=== PATIENT | female | born 1950 | race Caucasian/White ===

== ENCOUNTER 2017-02-08 20:20 | Observation (INO) | payer MEDICARE, OTHER ==
[~2017-02-08] VITALS: Ht 162.6 cm; Wt 85.0 kg
[~2017-02-08 20:20] MED LIST: ALBU.5I NEB; ALLO100T PO; ATOR1TAB18 PO; CINA30 PO; CLON0.5T PO; CLOP75TA PO; COMMODE 3-IN-11 MIS; DOCU100C PO; GABA300C5 PO; HYDR-3583 PO; LYRI50CA PO; Oxygen Concentrator NAS.CANULA; RANI150C PO; SPIRCAP INH; THERM PO; UMEC1INH INH; WALKER WHEELS/F1 MIS; WHEEMIS3
[2017-02-08 20:45] VITALS: BP 111/86; PULSE 94; RESP 20; TEMP 98.6; O2SAT 96
--- NOTE | 2017-02-08 20:55 | PD ---
HPI Chief Complaint: Chest Pain Time Seen by Provider: 20:51 Travel History International Travel<30 days: No Contact w/Intl Traveler<30days: No Traveled to known affect area: No History of Present Illness HPI This is a 66-year-old female with history of dialysis Wednesdays , coronary artery disease, asthma, COPD, presents for evaluation of chest pain. She reports that symptoms started 45 minutes ago after sneezing. She reports a burning sensation across her mid chest which is constant, associated with some dyspnea. Denies nausea, vomiting, fevers, chills, flank pain, acute cough congestion. She has no other complaints at this time. PFSH Past Medical History Hx Anticoagulant Therapy: Yes Anemia: Yes Arthritis: Yes Asthma: Yes Autoimmune Disease: No Blood Disorders: No Anxiety: Yes Depression: Yes (DEPRESSION ONLY DURING DIVORCE 11 YEARS AGO) Heart Rhythm Problems: Yes Cancer: No Cardiac Catheterization: No Cardiovascular Problems: Yes High Cholesterol: Yes Chemotherapy: Yes (Chemo used to treat hep C) Chest Pain: No Congestive Heart Failure: Yes COPD: Yes Cerebrovascular Accident: Yes Diabetes: No Dialysis: Yes (-W-) Diminished Hearing: No Endocrine: No Fibromyalgia: Yes Gastrointestinal Disorders: Yes GERD: Yes Gout: Yes Genitourinary: Yes Headaches: Yes (at times) Hepatitis: Yes (HEP C) Hiatal Hernia: No Hypertension: Yes Immune Disorder: Yes Implanted Vascular Access Dvce: Yes Kidney Stones: No Musculoskeletal: Yes Neurologic: No Psychiatric: Yes Reproductive: No Respiratory: Yes (COPD) Immunizations Current: Yes Migraines: No Pneumonia: Yes Radiation Therapy: No Renal Failure: Yes Seizures: No Sickle Cell Disease: No Sleep Apnea: Yes (2 LITERS DURING SLEEP) Thyroid Disease: No Ulcer: No Tetanus Vaccination: < 5 Years Influenza Vaccination: Yes PNEUMOCCOCAL Vaccine (Year): 2009 Menopausal: Yes : 7 Para: 4 Miscarriage: 2 : 1 Tubal Ligation: Yes (1989) Past Surgical History Abdominal Surgery: No AICD: No Appendectomy: No Arteriovenous Shunt: No Body Medical Devices: MED[employer] CARDIAC RECORDER; 2 SCREWS RIGHT ELBOW, AV FISTULA Cardiac Surgery: Yes (MEDTRON[employer] RECORDER ) Cholecystectomy: No Coronary Artery Bypass Graft: No Ear Surgery: No Endocrine Surgery: No Eye Surgery: No Genitourinary Surgery: No Gynecologic Surgery: No Insulin Pump: No Joint Replacement: No Neurologic Surgery: No Oral Surgery: Yes (TONSILLECTOMY ) Pacemaker: No Thoracic Surgery: No Tonsillectomy: Yes Other Surgery: Yes (BREAST BIOPSY-LEFT- 02-02-12) Family History Family Myocardial Infarction: Yes Family Hypercholesterolemia: Yes (BOTH SIDES) Social History Alcohol Use: No Tobacco Use: No (quit 1965) Substance Use: No Allergies-Medications (Allergen,Severity, Reaction): Coded Allergies: Sulfa (Sulfonamide Antibiotics) (Unverified Allergy, Severe, HIVES, DIFFICULTY BREATHING, 02/08/17) adhesive (Unverified Allergy, Severe, ADHESIVE TAPE = RASH, 02/08/17) bee venom protein (honey bee) (Unverified Allergy, Severe, RASH & TONGUE SWELLING, 02/08/17) dexamethasone (Unverified Allergy, Severe, Shortness of Breath, TONGUE SWELLS, 02/08/17) hydromorphone (Unverified Allergy, Severe, Hives, 02/08/17) PT SAID SHE DOESNT THINK SHE IS ALLERGIC TO DILAUDID THAT IT WAS JUST A REACTION FROM ANOTHER MEDICATION iodine (Unverified Allergy, Severe, RASH & DIFFICULTY BREATHING, 02/08/17) geraldine (Unverified Allergy, Severe, swollen tongue and rash, 02/08/17) orange (Unverified Allergy, Severe, O.J. = RASH AND DIFFICULTY BREATHING, 02/08/17) oxytetracycline (Unverified Allergy, Severe, HIVES & TONGUE SWELLING, 02/08) potassium iodide (Unverified Allergy, Severe, RASH & DIFFICULTY BREATHING , 02/08/17) povidone-iodine (Unverified Allergy, Severe, RASH & DIFFICULTY BREATHING, 02/08/17) prednisone (Unverified Allergy, Severe, Shortness of Breath, 02/08/17) Pt states when she takes prednisone she cant breathe - Dr murillo aware sodium iodide (Unverified Allergy, Severe, RASH & DIFFICULTY BREATHING, ) sodium iodide (Unverified Allergy, Severe, RASH & DIFFICULTY BREATHING, ) Influenza Virus Vaccines (Unverified Allergy, Intermediate, Rash, vomiting , 02/08/17) diatrizoate meglumine (Unverified Allergy, Unknown, 02/08/17) gadobenic acid (Unverified Allergy, Unknown, 02/08/17) gadodiamide (Unverified Allergy, Unknown, 02/08/17) gadoteridol (Unverified Allergy, Unknown, 02/08/17) iodixanol (Unverified Allergy, Unknown, 02/08/17) iohexol (Unverified Allergy, Unknown, 02/08/17) penicillin G (Unverified Allergy, Unknown, 02/08/17) Reported Meds & Prescriptions Reported Meds & Active Scripts Active [Oxygen Concentrator] Unit GARCIA.CANULA DAILY Spiriva Handihaler (Tiotropium Inh) 18 Mcg Cap 18 Mcg INH DAILY 1 capsule = 18 mcg Albuterol Neb (Albuterol Sulfate) 2.5 Mg/0.5 Ml Neb 2.5 Mg NEB Q6HR NEB PRN 30 Days The Albuterol Sulfate Inhalation Soln must be diluted. Read complete instructions. Incruse Ellipta Inh (Umeclidinium [place]land Inh) 0.0625 Mg/Act Inh 62.5 Mcg INH DAILY Lyrica (Pregabalin) 50 Mg Cap 50 Mg PO TID Clonazepam 0.5 Mg Tab 0.5 Mg PO TID Reported Wheelchair (Device) 1 Mis Mis 1 Ea .ROUTE DIRECTED Walker with Front Wheels (Device) 1 Mis Mis 1 Ea .ROUTE DIRECTED Ranitidine (Ranitidine HCl) 150 Mg Cap 150 Mg PO BID Thera M Plus (Multivitamins/Minerals Therapeutic) 1 Tab 1 Tab PO DAILY Hydrocodone-Acetaminophen 10-325 mg Tab 1-2 Tab PO Q6H PRN Gabapentin 300 Mg Cap 300 Mg PO DAILY Docusate Sodium 100 Mg Cap 100 Mg PO BID Commode 3-in-1 (Device) 1 Mis Mis 1 Ea .ROUTE DIRECTED Clopidogrel (Clopidogrel Bisulfate) 75 Mg Tab 75 Mg PO DAILY Sensipar (Cinacalcet) 30 Mg Tab 30 Mg PO HS Atorvastatin (Atorvastatin Calcium) 80 Mg Tab 80 Mg PO HS Allopurinol 100 Mg Tab 100 Mg PO DAILY Review of Systems Except as stated in HPI: all other systems reviewed are Neg Physical Exam Narrative GENERAL: Well-developed well-nourished female in no acute distress SKIN: Warm and dry. HEAD: Atraumatic. Normocephalic. EYES: Pupils equal and round. No scleral icterus. No injection or drainage. ENT: No nasal bleeding or discharge. Mucous membranes pink and moist. NECK: Trachea midline. No JVD. CARDIOVASCULAR: Regular rate and rhythm. No murmur appreciated. RESPIRATORY: No accessory muscle use. Diminished breath sounds bilaterally, wheezing noted bilaterally. No crackles. GASTROINTESTINAL: Abdomen soft, minimal epigastric tenderness no guarding. MUSCULOSKELETAL: No obvious deformities. No clubbing. No cyanosis. No edema. NEUROLOGICAL: Awake and alert. No obvious cranial nerve deficits. Motor grossly within normal limits. Normal speech. PSYCHIATRIC: Appropriate mood and affect; insight and judgment normal. Data Data Last Documented VS Vital Signs Date Time Temp Pulse Resp B/P (MAP) Pulse Ox O2 Delivery O2 Flow Rate FiO2 02/08/17 22:25 81 20 130/58 (82) 99 Nasal Cannula 2.00 02/08/17 20:45 98.6 Orders Orders Electrocardiogram (02/08/17 20:49) Ckmb (Isoenzyme) Profile (02/08/17 20:49) Complete Blood Count With Diff (02/08/17 20:49) Comprehensive Metabolic Panel (02/08/17 20:49) Magnesium (Mg) (02/08/17 20:49) Prothrombin Time / Inr (Pt) (02/08/17 20:49) Act Partial Throm Time (Ptt) (02/08/17 20:49) Troponin I (02/08/17 20:49) Lipase (02/08/17 20:49) Chest, Single Ap (02/08/17 20:49) Ecg Monitoring (02/08/17 20:49) Bilateral Bp Monitoring (02/08/17 20:49) Iv Access Insert/Monitor (02/08/17 20:49) Oximetry (02/08/17 20:49) Oxygen Administration (02/08/17 20:49) Aspirin Chew (Aspirin Chew) (02/08/17 21:00) Sodium Chloride 0.9% Flush (Ns Flush) (02/08/17 21:00) Albuterol-Ipratropium Neb (Duoneb Neb) (02/08/17 21:00) Ondansetron Inj (Zofran Inj) (02/08/17 22:15) Pantoprazole Inj (Protonix Inj) (02/08/17 22:15) Al-Mag Hy-Si 40-40-4 Mg/Ml Liq (Mag-Al P (02/08/17 22:30) Lidocaine 2% Viscous (Xylocaine 2% Visco (02/08/17 22:30) Nitroglycerin Sl (Nitrostat Sl) (02/08/17 22:30) Admit Order (Ed Use Only) (02/08/17 22:36) Activity Bed Rest With Brp (02/08/17 22:36) Vital Signs (Adult) Q4H (02/08/17 22:36) Cardiac Rhythm .As Directed (02/08/17 22:36) Notify Dr: Other .PRN (02/08/17 22:36) Notify DrWillow Parameters (02/08/17 22:36) Resp Oxygen Nasal Cannula (02/08/17 ) Ckmb (Isoenzyme) Profile (02/08/17 23:50) Ckmb (Isoenzyme) Profile (02/09/17 02:50) Troponin I (02/08/17 23:50) Troponin I (02/09/17 02:50) Electrocardiogram (02/08/17 23:50) Electrocardiogram (02/09/17 02:50) ^ Obtain (02/08/17 22:36) Sodium Chloride 0.9% Flush (Ns Flush) (02/08/17 22:45) Sodium Chloride 0.9% Flush (Ns Flush) (02/09/17 09:00) Ondansetron Inj (Zofran Inj) (02/08/17 22:45) Npo After Midnight W/ Po Meds (02/09/17 Breakfast) Morphine Inj (Morphine Inj) (02/08/17 22:45) Labs Laboratory Tests Test 02/08/17 20:50 White Blood Count 6.3 TH/MM3 Red Blood Count 3.38 MIL/MM3 Hemoglobin 11.6 GM/DL Hematocrit 35.4 % Mean Corpuscular Volume 105.0 FL Mean Corpuscular Hemoglobin 34.2 PG Mean Corpuscular Hemoglobin Concent 32.6 % Red Cell Distribution Width 14.7 % Platelet Count 123 TH/MM3 Mean Platelet Volume 9.8 FL Neutrophils (%) (Auto) 69.9 % Lymphocytes (%) (Auto) 20.2 % Monocytes (%) (Auto) 7.8 % Eosinophils (%) (Auto) 1.3 % Basophils (%) (Auto) 0.8 % Neutrophils # (Auto) 4.4 TH/MM3 Lymphocytes # (Auto) 1.3 TH/MM3 Monocytes # (Auto) 0.5 TH/MM3 Eosinophils # (Auto) 0.1 TH/MM3 Basophils # (Auto) 0.1 TH/MM3 CBC Comment DIFF FINAL Differential Comment Prothrombin Time 10.7 SEC Prothromb Time International Ratio 1.0 RATIO Activated Partial Thromboplast Time 22.1 SEC Blood Urea Nitrogen 75 MG/DL Creatinine 6.93 MG/DL Random Glucose 112 MG/DL Total Protein 6.7 GM/DL Albumin 3.6 GM/DL Calcium Level 9.6 MG/DL Magnesium Level 1.8 MG/DL Alkaline Phosphatase 126 U/L Aspartate Amino Transf (AST/SGOT) 24 U/L Alanine Aminotransferase (ALT/SGPT) 31 U/L Total Bilirubin 0.3 MG/DL Sodium Level 145 MEQ/L Potassium Level 4.3 MEQ/L Chloride Level 108 MEQ/L Carbon Dioxide Level 27.9 MEQ/L Anion Gap 9 MEQ/L Estimat Glomerular Filtration Rate 6 ML/MIN Total Creatine Kinase 100 U/L Troponin I LESS THAN 0.02 NG/ML Lipase 384 U/L [facility] Medical Decision Making Medical Screen Exam Complete: Yes Emergency Medical Condition: Yes Medical Record Reviewed: Yes Interpretation(s) EKG sinus rhythm Differential Diagnosis Gastritis, acute coronary syndrome, continues pneumothorax, pericarditis, myocarditis, aortic dissection, pancreatitis Narrative Course This patient was placed on ECG monitor and pulse oximetry. Plan is for basic lab work, chest x-ray, DuoNeb therapy. Patient will also be given Protonix, Zofran, sublingual nitroglycerin. The patient's lab work is consistent with renal failure which is her baseline, initial set of cardiac enzymes are negative, chest x-ray reveals no acute abnormalities. The patient is concerned because she reports that she has had an AL in the past and current symptoms feel similar. She does have risk factors for cardiac event. Therefore the patient be admitted into the chest pain center for serial cardiac enzymes and rule out purposes. The patient has a listed allergy to Dilaudid but she reports that she has had morphine in the past with no adverse reaction. Diagnosis Primary Impression: Atypical chest pain Admitting Information Admitting Physician Requests: Jayjay Walsh Feb 08, 2017 20:55
[2017-02-08] MEDS ORDERED: ASPIRIN 81 MG CHEW TAB PO ONE (21:00)
[2017-02-08] MEDS ORDERED: SODIUM CHLORIDE 0.9% FLUSH 10 ML FLUSH IVF PRN (21:00)
[2017-02-08 21:34] LABS: AUTOMATED NEUTROPHIL # 4.4 TH/MM3 (1.8-7.7); BASOPHIL # 0.1 TH/MM3 (0-0.2); BASOPHIL % 0.8 % (0.0-2.0); EOSINOPHIL # 0.1 TH/MM3 (0-0.4); EOSINOPHIL % 1.3 % (0.0-4.0); HEMATOCRIT 35.4 % (35.0-46.0); HEMO FLAGS DIFF FINAL; LYMPH % 20.2 % (9.0-44.0); LYMPHOCYTE # 1.3 TH/MM3 (1.0-4.8); MEAN CORPUSCULAR HEMOGLOBIN 34.2 PG (27.0-34.0); MEAN CORPUSCULAR HGB CONC 32.6 % (32.0-36.0); MONO % 7.8 % (0.0-8.0); NEUT % 69.9 % (16.0-70.0); PLATELET COUNT 123 TH/MM3 (150-450); RED BLOOD COUNT 3.38 MIL/MM3 (4.00-5.30); RED CELL DISTRIBUTION WIDTH 14.7 % (11.6-17.2); WHITE BLOOD COUNT 6.3 TH/MM3 (4.0-11.0)
--- NOTE | 2017-02-08 21:48 | RADRPT ---
EXAM DATE/TIME: 02/08/2017 21:39 [facility] COMPARISON: CHEST SINGLE AP, November 06, 2015, 15:18. INDICATIONS : Shortness of breath. MEDICAL HISTORY : Renal disease, end stage. Chronic obstructive pulmonary disease. Arthritis. CVA SURGICAL HISTORY : Tonsillectomy. Cardiac recorder ENCOUNTER: Initial ACUITY: 1 day PAIN SCORE: 0/10 LOCATION: Bilateral chest FINDINGS: A single view of the chest demonstrates the lungs to be symmetrically aerated without evidence of mas s, infiltrate or effusion. The cardiomediastinal contours are unremarkable. Osseous structures are intact. CONCLUSION: No acute disease. Simon Stevenson MD on February 08, 2017 at 21:47 Board Certified Radiologist. This report was verified electronically.
[2017-02-08 22:01] LABS: ALT (GPT) 31 U/L (10-53)
[2017-02-08 22:07] LABS: ALKALINE PHOSPHATASE 126 U/L (45-117); ANION GAP 9 MEQ/L (5-15); AST (GOT) 24 U/L (15-37); BICARBONATE 27.9 MEQ/L (21.0-32.0); BLOOD UREA NITROGEN 75 MG/DL (7-18); CHLORIDE 108 MEQ/L (98-107); GLOMERULAR FILTRATION RATE 6 ML/MIN (>89); MAGNESIUM 1.8 MG/DL (1.5-2.5); POTASSIUM 4.3 MEQ/L (3.5-5.1); SODIUM (NA) 145 MEQ/L (136-145); TOTAL BILIRUBIN ADULT 0.3 MG/DL (0.2-1.0)
[2017-02-08 22:08] LABS: CREATINE KINASE 100 U/L (26-192)
[2017-02-08] MEDS ORDERED: ONDANSETRON HCL 4 MG/2 ML VIAL IV PUSH ONE (22:15)
[2017-02-08] MEDS ORDERED: PANTOPRAZOLE SODIUM 40 MG VIAL IVP ONE (22:15)
[2017-02-08 22:20] LABS: APTT (PATIENT) 22.1 SEC (24.3-30.1); PROTHROMBIN TIME - PATIENT 10.7 SEC (9.8-11.6)
[2017-02-08 22:25] VITALS: BP 130/58; PULSE 81; RESP 20; O2SAT 99
[2017-02-08] MEDS ORDERED: ALUMINUM/MAGNESIUM/SIMETH 30 ML CUP PO ONE (22:30)
[2017-02-08] MEDS ORDERED: NITROGLYCERIN 0.4 MG SL 25 TABS/BTL SL SCH (22:30)
[2017-02-08] MEDS ORDERED: LIDOCAINE VISCOUS 2% SOLN 15 ML UDC PO ONE (22:30)
[2017-02-08 22:40] VITALS: O2SAT 100
[2017-02-08] MEDS ORDERED: SODIUM CHLORIDE 0.9% FLUSH 10 ML FLUSH IV FLUSH PRN (22:45)
[2017-02-08] MEDS ORDERED: ONDANSETRON HCL 4 MG/2 ML VIAL IV PUSH PRN (22:45)
[2017-02-08] MEDS ORDERED: MORPHINE SULFATE 2 MG/ML INJ IV PUSH PRN (22:45)
[2017-02-08] MEDS: RESP: ALBUTEROL 2.5 MG/IPRATROPIUM 0.5 MG NEB (SCH) INH ×3 (22:49→23:00)
[2017-02-08 23:59] VITALS: BP 162/73; PULSE 94; RESP 16; TEMP 98; O2SAT 95
[2017-02-09] VITALS (8 sets, daily range): BP systolic 126–141; BP diastolic 62–77; PULSE 66–83; RESP 20; TEMP 97.7–98.2; O2SAT 96–99
[2017-02-09 00:29] LABS: CREATINE KINASE 88 U/L (26-192)
[2017-02-09 04:14] LABS: CREATINE KINASE 83 U/L (26-192)
[2017-02-09] MEDS ORDERED: NITROGLYCERIN 0.4 MG SL 25 TABS/BTL SL PRN ×2 (08:00→09:00)
[2017-02-09] MEDS ORDERED: ACETAMINOPHEN 500 MG CPLT PO PRN (08:00)
[2017-02-09] MEDS ORDERED: RESP: ALBUTEROL 2.5 MG/3 ML NEB (PRN) NEB (08:15)
[2017-02-09] MEDS ORDERED: ACETAMINOPHEN/HYDROcodone 325 MG/10 MG TAB PO PRN (08:45)
[2017-02-09] MEDS ORDERED: SODIUM CHLOR 0.9% 1000 ML INJ 1,000 ML OTHER PRN ×2 (08:54)
[2017-02-09] MEDS ORDERED: SODIUM CHLOR 0.9% 1000 ML INJ 1,000 ML IV PRN (08:54)
[2017-02-09] MEDS ORDERED: ALBUMIN HUMAN 25% 25 GM/100 ML BAGP IV PRN (09:00)
[2017-02-09] MEDS ORDERED: MANNITOL 12.5 GM/50 ML VIAL IV PRN (09:00)
[2017-02-09] MEDS ORDERED: HEPARIN SODIUM - IV 10,000 UNITS/10 ML VIAL PRN (09:00)
[2017-02-09] MEDS ORDERED: cloNIDine HCL 0.1 MG TAB PO PRN (09:00)
[2017-02-09] MEDS ORDERED: GENTAMICIN SULFATE (DIALYSIS USE ONLY) 20 MG/2 ML VIAL OTHER PRN (09:00)
[2017-02-09] MEDS ORDERED: FAMOTIDINE 20 MG TAB PO SCH (09:00)
[2017-02-09] MEDS ORDERED: CLOPIDOGREL 75 MG TAB PO SCH (09:00)
[2017-02-09] MEDS ORDERED: diphenhydrAMINE HCL 25 MG CAP PO PRN (09:00)
[2017-02-09] MEDS ORDERED: SODIUM CHLORIDE 0.9% FLUSH 10 ML FLUSH IV FLUSH SCH (09:00)
[2017-02-09] MEDS ORDERED: ONDANSETRON HCL 4 MG/2 ML VIAL IV PUSH PRN (09:00)
[2017-02-09] MEDS ORDERED: GELATIN 12 MM/7 MM FOAM TOP PRN (09:00)
[2017-02-09] MEDS ORDERED: MULTIVITAMINS/MINERALS THERAPEUTIC TAB PO SCH (09:00)
[2017-02-09] MEDS ORDERED: ASPIRIN 325 MG TAB PO SCH (09:00)
[2017-02-09] MEDS ORDERED: ALLOPURINOL 100 MG TAB PO SCH (09:00)
[2017-02-09] MEDS ORDERED: ACETAMINOPHEN 325 MG TAB PO PRN (09:00)
[2017-02-09] MEDS ORDERED: SODIUM CHLORIDE 0.9% FLUSH 10 ML FLUSH IV FLUSH PRN (09:00)
[2017-02-09] MEDS ORDERED: HEPARIN SODIUM - IV 10,000 UNITS/10 ML VIAL IV FLUSH PRN (09:00)
--- NOTE | 2017-02-09 09:02 | HHI.HP ---
HPI Primary Care Physician Mindi Mazariegos MD Chief Complaint Chest pain History of Present Illness 66 year old female with history of ESRD, dialysis M,W,F, COPD, HTN, and HLD presents to ER for further evaluation of chest pain immediately after sneezing x3 "very hard." Onset 7-730pm. Location substernal. Characterized as "pulling, burning, squeezing" sensation. No radiation of pain. Associated symptoms include "mild" shortness of breath, hurt to take a deep breath, nausea, x1 emesis nonbloody, and diaphoresis. Severity initially rated 10/10, currently 7/ 10. Discomfort constant, severity improved around 2pm but never resolved completely. Precipitating factors, sneezing "hard three times." No relieving factor, reports pain slightly improved. Pain easily reproduced with light touch. Review of Systems General: ESRD, dialysis M W F. Dialysis x3 years. Reports being in her general state of health without fatigue, weakness, fever, chills, recent illness, or change in appetite. HEENT: No FULLER, no vision changes CV: Continues to have chest pain as stated above. Has a loop recorder, placed 2012. Reports history of [place] and CAD 10 years ago, denies ever having a cardiac catheterization. Does not follow with a crown wheel assembler. RESP: SOB resolved, deep breathing continues to make chest discomfort worse. Recent cough since last night, small amount of blood tinged sputum. History of COPD, stable on current inhalers. No wheeze or recent COPD exacerbation. Was O2 dependent until 6-7 months ago when her oxygen concentrator was accidently returned to [employer]. Since this time reports being without oxygen. Appointment this for what sounds to be a pulmonary walking test. Reports history of sleep apnea, but never given a CPAP machine. GI: Nausea and vomiting resolved. No bowel changes, diarrhea, constipation, pain, distention, melena, or blood in the stool. No unintentional weight gain or weight loss. : ESRD, right upper arm AVF. No dysuria. Dialysis M W F. EXT: No lower leg edema, no paraesthesias MS: As stated above. Chest wall pain easily reproduced with light palpation. No change in ROM, injury, fall, or trauma. Chronic back pain, follows with pain management. NEURO: Reports CVA and required TPA, states she was placed on Plavix at that time. No residual deficits. Difficulty with balance uses a walker. No LOC, motor /sensory deficits PSYCH: No anxiety, depression, or situational stress SKIN: No rashes, no concerning lesions Past Family Social History Allergies: Coded Allergies: Sulfa (Sulfonamide Antibiotics) (Unverified Allergy, Severe, HIVES, DIFFICULTY BREATHING, 02/08/17) adhesive (Unverified Allergy, Severe, ADHESIVE TAPE = RASH, 02/08/17) bee venom protein (honey bee) (Unverified Allergy, Severe, RASH & TONGUE SWELLING, 02/08/17) dexamethasone (Unverified Allergy, Severe, Shortness of Breath, TONGUE SWELLS, 02/08/17) hydromorphone (Unverified Allergy, Severe, Hives, 02/08/17) PT SAID SHE DOESNT THINK SHE IS ALLERGIC TO DILAUDID THAT IT WAS JUST A REACTION FROM ANOTHER MEDICATION iodine (Unverified Allergy, Severe, RASH & DIFFICULTY BREATHING, 02/08/17) geraldine (Unverified Allergy, Severe, swollen tongue and rash, 02/08/17) orange (Unverified Allergy, Severe, O.J. = RASH AND DIFFICULTY BREATHING, 02/08/17) oxytetracycline (Unverified Allergy, Severe, HIVES & TONGUE SWELLING, 02/08) potassium iodide (Unverified Allergy, Severe, RASH & DIFFICULTY BREATHING , 02/08/17) povidone-iodine (Unverified Allergy, Severe, RASH & DIFFICULTY BREATHING, 02/08/17) prednisone (Unverified Allergy, Severe, Shortness of Breath, 02/08/17) Pt states when she takes prednisone she cant breathe - Dr murillo aware sodium iodide (Unverified Allergy, Severe, RASH & DIFFICULTY BREATHING, ) sodium iodide (Unverified Allergy, Severe, RASH & DIFFICULTY BREATHING, ) Influenza Virus Vaccines (Unverified Allergy, Intermediate, Rash, vomiting , 02/08/17) diatrizoate meglumine (Unverified Allergy, Unknown, 02/08/17) gadobenic acid (Unverified Allergy, Unknown, 02/08/17) gadodiamide (Unverified Allergy, Unknown, 02/08/17) gadoteridol (Unverified Allergy, Unknown, 02/08/17) iodixanol (Unverified Allergy, Unknown, 02/08/17) iohexol (Unverified Allergy, Unknown, 02/08/17) penicillin G (Unverified Allergy, Unknown, 02/08/17) Past Medical History ESRD (M W F), COPD, asthma, HLD, HTN, Hep C-in remission, chronic back pain, sleep apnea, anxiety, osteoporosis, gout, fibromyalgia, CVA vs TIA (July 2012 stroke alert, symptoms of right side numbness/tingling and weakness. Received TPA.) Past Surgical History Right AV fistula, Loop recorder, right hip repair, left elbow surgery (1985), right elbow surgery (1991), tonsillectomy Reported Medications Active Albuterol Neb (Albuterol Sulfate) 2.5 Mg/0.5 Ml Neb 2.5 Mg NEB Q6HR NEB PRN 30 Days The Albuterol Sulfate Inhalation Soln must be diluted. Read complete instructions. Lyrica (Pregabalin) 50 Mg Cap 50 Mg PO QD Clonazepam 0.5 Mg Tab 0.5 Mg PO TID Walker with Front Wheels (Device) 1 Mis Mis 1 Ea .ROUTE DIRECTED Ranitidine (Ranitidine HCl) 150 Mg Cap 150 Mg PO BID Thera M Plus (Multivitamins/Minerals Therapeutic) 1 Tab 1 Tab PO DAILY Hydrocodone-Acetaminophen 10-325 mg Tab 1 tablet TID Gabapentin 300 Mg Cap 300 Mg PO TID Clopidogrel (Clopidogrel Bisulfate) 75 Mg Tab 75 Mg PO DAILY Sensipar (Cinacalcet) 30 Mg Tab 30 Mg PO HS Atorvastatin (Atorvastatin Calcium) 80 Mg Tab 80 Mg PO HS Allopurinol 100 Mg Tab 100 Mg PO DAILY Active Ordered Medications Current Medications Medications (Trade) Dose Ordered Sig/Dino Route Start Time Stop Time Status Last Admin (NS Flush) 2 ml UNSCH PRN IVF 02/08/17 21:00 02/08/17 22:24 (NS Flush) 2 ml UNSCH PRN IV FLUSH 02/08/17 22:45 (NS Flush) 2 ml BID IV FLUSH 02/09/17 09:00 (Zofran Inj) 4 mg Q6H PRN IV PUSH 02/08/17 22:45 (Morphine Inj) 3 mg Q4H PRN IV PUSH 02/08/17 22:45 02/09/17 00:40 Family History Father age 51 CVA. Mother age 62, longstanding respiratory issues. Does not have any siblings. Social History Reports history of CAD, hypertension and hyperlipidemia. Denies diabetes. Smoked briefly in early 20s. Denies any alcohol or illegal drug use. Ambulated with walker. Lives with a friend and her son. Past Cardiac Testing No recent cardiac testing. Does not follow with a crown wheel assembler, reports she used to follow with Dr. Christie years ago. Reports history of a [place] 10 years ago , does not recall ever having a cardiac catheterization. No records located in medical chart of past cardiac catheterization. Loop recorder in place since 2012. Reports taking Plavix for past CVA. 08/07/2013 Echocardiogram 25-30% (Day of cardiac arrest s/p hypoxic event allegedly from morphine overdose. Intubated, ICU x1 week, discharge home after 11 days.) 10/15/[address] Christie. 08/21/2012 Carotid ultrasound bilateral-No evidence of flow-limiting carotid stenosis. 07/29/2012 Lexiscan-No fixed or reversible defects. EF 62%. 07/23/2012 PRATIMA-no evidence of cardiac source of emboli 07/22/2012 Echocardiogram 55-60% 03/01/2010 Lexiscan-no signs of reversibility to suggest ischemia 12/05/2008 Lexiscan-no signs of reversibility to suggest ischemia, EF 61% 02/05/2007 Lexiscan-1. Sum stress score 1. 2. EF 67%. 3. no dyskinetic or dysrhythmic areas identified. Slight decreased perfusion at apical wall fixed at stress and rest similar to 05/2006. Physical Exam Vital Signs Vital Signs Date Time Temp Pulse Resp B/P (MAP) Pulse Ox O2 Delivery O2 Flow Rate FiO2 02/09/17 07:34 97 Nasal Cannula 2.00 02/09/17 07:28 98.2 70 20 132/62 (85) 97 02/09/17 03:14 98.0 83 20 141/68 (92) 96 02/09/17 00:45 16 02/08/17 23:59 98.0 94 16 162/73 (102) 95 02/08/17 23:54 02/08/17 22:40 100 Nasal Cannula 2.00 02/08/17 22:25 81 20 130/58 (82) 99 Nasal Cannula 2.00 02/08/17 20:50 98 Nasal Cannula 2.00 02/08/17 20:48 96 Room Air 02/08/17 20:45 98.6 94 20 111/86 (94) 96 Physical Exam GENERAL: Alert WN, WD, NAD, pleasant, obese, female who appears older than stated age wearing o2/2L nasal cannula. HEAD: NC, AT EYES: Sclera clear, conjunctiva without injection, pupils equal and round ENT: Mucous membranes pink and moist NECK: Supple, no masses, trachea midline CV: RRR, without murmur, rub, gallop, no JVD, S1-S2 no S3-S4. No carotid bruits. Right AV fistula with +trill and +bruit. Generalized chest wall discomfort easily reproduced with light palpation. RESP: Clear lungs throughout bilateral, no crackles, wheeze, rhonchi, symmetrical chest rise, nonlabored, able to speak in full sentences ABD: Soft, NT, ND, no masses, positive bowel tones, obese EXT: Pulses +24, no dependent edema MS: Normal tone 4 extremities, nontender, no obvious deformities, full range of motion NEURO: CN II through CN XII grossly intact, motor strength 5/5 PSYCH: A+O 3, pleasant affect, appropriate speech, appropriate mood and affect , insight and judgment SKIN: Normal turgor, normal texture, no lesions, no rashes Laboratory Laboratory Tests Test 02/08/17 20:50 02/08/17 23:45 02/09/17 02:55 White Blood Count 6.3 Red Blood Count 3.38 Hemoglobin 11.6 Hematocrit 35.4 Mean Corpuscular Volume 105.0 Mean Corpuscular Hemoglobin 34.2 Mean Corpuscular Hemoglobin Concent 32.6 Red Cell Distribution Width 14.7 Platelet Count 123 Mean Platelet Volume 9.8 Neutrophils (%) (Auto) 69.9 Lymphocytes (%) (Auto) 20.2 Monocytes (%) (Auto) 7.8 Eosinophils (%) (Auto) 1.3 Basophils (%) (Auto) 0.8 Neutrophils # (Auto) 4.4 Lymphocytes # (Auto) 1.3 Monocytes # (Auto) 0.5 Eosinophils # (Auto) 0.1 Basophils # (Auto) 0.1 CBC Comment DIFF FINAL Differential Comment Prothrombin Time 10.7 Prothromb Time International Ratio 1.0 Activated Partial Thromboplast Time 22.1 Blood Urea Nitrogen 75 Creatinine 6.93 Random Glucose 112 Total Protein 6.7 Albumin 3.6 Calcium Level 9.6 Magnesium Level 1.8 Alkaline Phosphatase 126 Aspartate Amino Transf (AST/SGOT) 24 Alanine Aminotransferase (ALT/SGPT) 31 Total Bilirubin 0.3 Sodium Level 145 Potassium Level 4.3 Chloride Level 108 Carbon Dioxide Level 27.9 Anion Gap 9 Estimat Glomerular Filtration Rate 6 Total Creatine Kinase 100 88 83 Troponin I LESS THAN 0.02 LESS THAN 0.02 LESS THAN 0.02 Lipase 384 Result Diagram: 02/08/17204902/08/172049 Imaging Last Impressions Chest X-Ray 02/08/172048 Signed Impressions: Service Date/Time: Wednesday, February 08, 2017 21:39 - CONCLUSION: No acute disease. Simon Stevenson MD Course EKG NSR, normal axis, no st t segment changes Caprini VTE Risk Assessment Caprini VTE Risk Assessment: Mod/High Risk (score >= 2) Caprini Risk Assessment Model Point Value = 1 Point Value = 2 Point Value = 3 Point Value = 5 Age 41-60 Minor surgery BMI > 25 kg/m2 Swollen legs Varicose veins or History of unexplained or recurrent spontaneous Oral contraceptives or hormone replacement Sepsis (< 1 month) Serious lung disease, including pneumonia (< 1 month) Abnormal pulmonary function Acute myocardial infarction Congestive heart failure (< 1 month) History of inflammatory bowel disease Medical patient at bed rest Age 61-74 Arthroscopic surgery Major open surgery (> 45 min) Laparoscopic surgery (> 45 min) Malignancy Confined to bed (> 72 hours) Immobilizing plaster cast Central venous access Age >= 75 History of VTE Family history of VTE Factor V Leiden Prothrombin [id number] Lupus anticoagulant Anticardiolipin antibodies Elevated serum homocysteine Heparin-induced thrombocytopenia Other congenital or acquired thrombophilia Stroke (< 1 month) Elective arthroplasty Hip, pelvis, or leg fracture Acute spinal cord injury (< 1 month) Prophylaxis Regimen Total Risk Factor Score Risk Level Prophylaxis Regimen 0-1 Low Early ambulation 2 Moderate Order ONE of the following: *Sequential Compression Device (SCD) *Heparin 5000 units SQ BID 3-4 Higher Order ONE of the following medications: *Heparin 5000 units SQ TID *Enoxaparin/Lovenox 40 mg SQ daily (WT < 150 kg, CrCl > 30 mL/min) *Enoxaparin/Lovenox 30 mg SQ daily (WT < 150 kg, CrCl > 10-29 mL/min) *Enoxaparin/Lovenox 30 mg SQ BID (WT < 150 kg, CrCl > 30 mL/min) AND/OR *Sequential Compression Device (SCD) 5 or more Highest Order ONE of the following medications: *Heparin 5000 units SQ TID (Preferred with Epidurals) *Enoxaparin/Lovenox 40 mg SQ daily (WT < 150 kg, CrCl > 30 mL/min) *Enoxaparin/Lovenox 30 mg SQ daily (WT < 150 kg, CrCl > 10-29 mL/min) *Enoxaparin/Lovenox 30 mg SQ BID (WT < 150 kg, CrCl > 30 mL/min) AND *Sequential Compression Device (SCD) Assessment and Plan Assessment and Plan #1 Atypical chest pain-admitted to chest pain center. Ruled out with 3 sets of EKGs, cardiac enzymes, and monitored on telemetry overnight. Seen and evaluated by Dr. Navi Cruz. Discomfort appears to be musculoskeletal in nature, especially how she guards area when palpated. Reassurance provided cardiac pain does not persist for over 12 hours and hurt to touch area. Will proceed with chemical stress testing due to multiple risks factors, reported history of CAD, low EF noted on one past echocardiogram. Of note, echocardiogram with EF 25-30% (July 2012) obtained day of cardiac arrest s/p hypoxic event from allegedly morphine overdose. If chemical stress test unremarkable, plan to discharge home later this afternoon. If chemical scan were to determine a low EF, will obtain an echocardiogram before discharge. This has been discussed in length with patient whom is agreeable to plan of care. #2 End stage renal disease-dialysis days are Thursday, Thursday, and Thursday. Consult nephrology for dialysis today before discharge. #3 Hypertension-continue to monitor, encouraged following a low sodium diet. She does not have any antihypertensive medications listed and does not remember if she takes any bp medications. #4 Hyperlipidemia-continue atorvastatin #5 Chronic back pain-continue hydromorphone, gabapentin, and lyrica. Encouraged increasing her daily activity, back and core strengthening exercises. Discussed CDC guidelines hydromorphone not recommended for chronic back pain treatment. #6 COPD-no acute exacerbation, continue albuterol. Encouraged her to complete pulmonary walking exam this . Reports concern over being able to complete testing due to ambulation issues. Discussed benefits of CPAP mask with diagnoses of sleep apnea. Follow closely with PCP. #7 GERD-continues ranitidine #8 Anxiety-continue clonazepam, requesting a dose prior to lexiscan test 12:00 Lexiscan unremarkable, no evidence of stress induced ischemia. EF 68%. No echocardiogram needed. Will discharge after dialysis this afternoon. Patient is agreeable. 18:15 Dialysis complete. Patient states chest discomfort much improved. Continue with plans to discharge this evening. Instructed her to use heating pad to affected area. If she does not have a heating pad, instructed her to use warm, moist towel or make a tube sock with rice, heat in microwave for a few seconds and apply to affected area. Did not advise any over the counter medications due ESRD and the fact she follows with a pain management physician. She is happy to be going home this evening, after finishing her supper. Rozina Victor Feb 09, 2017 09:02
[2017-02-09] MEDS: clonazePAM 0.5 MG TAB PO SCH ×3 (09:09→18:13)
--- NOTE | 2017-02-09 09:31 | PD.CONS ---
HPI Service Nephrology Consult Requested By Kayleigh Reason for Consult ESRD on HD Primary Care Physician Mindi Mazariegos MD History of Present Illness This is our 66 y/o female with ESRD who came in for evaluation of chest pain. She reports sneezing "hard" x 3 last night, since has had midsternal chest pain that is worse with inspiration and reproducible with palpation. She reports relief with oxygen. She was also nauseated, reports vomiting, given medications in ER for dyspepsia, minimal symptom relief. Typical MWF HD, she has not missed any treatments recently. Other PMH of hyperlipidemia, CAD requiring TPA (no stents placed), metabolic bone disorder, secondary hyperparathyroidism, GERD, and gout. She is being taken to have a stress test at this time. We were consulted for management of her dialysis. Her access is patent and functions well in right arm and she is a full code. (Montse Damon) Review of Systems Constitutional: DENIES: Fatigue, Weight gain, Change in appetite Respiratory: COMPLAINS OF: Hemoptysis, Shortness of breath, DENIES: Wheezing Cardiovascular: COMPLAINS OF: Chest pain, DENIES: Palpitations, Dyspnea on Exertion, Lower Extremity Edema (Montse Damon) Past Family Social History Allergies: Coded Allergies: Sulfa (Sulfonamide Antibiotics) (Unverified Allergy, Severe, HIVES, DIFFICULTY BREATHING, 02/08/17) adhesive (Unverified Allergy, Severe, ADHESIVE TAPE = RASH, 02/08/17) bee venom protein (honey bee) (Unverified Allergy, Severe, RASH & TONGUE SWELLING, 02/08/17) dexamethasone (Unverified Allergy, Severe, Shortness of Breath, TONGUE SWELLS, 02/08/17) hydromorphone (Unverified Allergy, Severe, Hives, 02/08/17) PT SAID SHE DOESNT THINK SHE IS ALLERGIC TO DILAUDID THAT IT WAS JUST A REACTION FROM ANOTHER MEDICATION iodine (Unverified Allergy, Severe, RASH & DIFFICULTY BREATHING, 02/08/17) geraldine (Unverified Allergy, Severe, swollen tongue and rash, 02/08/17) orange (Unverified Allergy, Severe, O.J. = RASH AND DIFFICULTY BREATHING, 02/08/17) oxytetracycline (Unverified Allergy, Severe, HIVES & TONGUE SWELLING, 02/08) potassium iodide (Unverified Allergy, Severe, RASH & DIFFICULTY BREATHING , 02/08/17) povidone-iodine (Unverified Allergy, Severe, RASH & DIFFICULTY BREATHING, 02/08/17) prednisone (Unverified Allergy, Severe, Shortness of Breath, 02/08/17) Pt states when she takes prednisone she cant breathe - Dr murillo aware sodium iodide (Unverified Allergy, Severe, RASH & DIFFICULTY BREATHING, ) sodium iodide (Unverified Allergy, Severe, RASH & DIFFICULTY BREATHING, ) Influenza Virus Vaccines (Unverified Allergy, Intermediate, Rash, vomiting , 02/08/17) diatrizoate meglumine (Unverified Allergy, Unknown, 02/08/17) gadobenic acid (Unverified Allergy, Unknown, 02/08/17) gadodiamide (Unverified Allergy, Unknown, 02/08/17) gadoteridol (Unverified Allergy, Unknown, 02/08/17) iodixanol (Unverified Allergy, Unknown, 02/08/17) iohexol (Unverified Allergy, Unknown, 02/08/17) penicillin G (Unverified Allergy, Unknown, 02/08/17) Past Medical History ESRD on HD MWF hyperlipidemia CAD hx of [place], no stent was treated with TPA Metabolic bone disorder Anxiety Chronic sciatica GERD Gout Secondary Hyperparathyroidism No hx of DM Past Surgical History AV graft right L breast biopsy right elbow tonsillectomy Reported Medications Current Medications Medications (Trade) Dose Ordered Sig/Dino Route Start Time Stop Time Status Last Admin (NS Flush) 2 ml UNSCH PRN IV FLUSH 02/08/17 22:45 (NS Flush) 2 ml BID IV FLUSH 02/09/17 09:00 (Zofran Inj) 4 mg Q6H PRN IV PUSH 02/08/17 22:45 (Morphine Inj) 3 mg Q4H PRN IV PUSH 02/08/17 22:45 02/09/17 00:40 (Tylenol) 500 mg Q4H PRN PO 02/09/17 08:00 (Nitrostat Sl) 0.4 mg Q5M PRN SL 02/09/17 08:00 (Aspirin) 325 mg DAILY PO 02/09/17 09:00 (Albuterol Neb) 2.5 mg Q2HR NEB PRN NEB 02/09/17 08:15 (Zyloprim) 100 mg DAILY PO 02/09/17 09:00 (Lipitor) 80 mg HS PO 02/09/17 21:00 (KlonoPIN) 0.5 mg TID PO 02/09/17 09:00 02/09/17 09:09 (Plavix) 75 mg DAILY PO 02/09/17 09:00 (Acton 10-325 Mg) 1 tab Q6H PRN PO 02/09/17 08:45 02/09/17 09:05 (Theragran M Tab) 1 tab DAILY PO 02/09/17 09:00 (Pepcid) 20 mg BID PO 02/09/17 09:00 Sodium Chloride 1,000 ml @ 0 mls/hr Q0M PRN OTHER 02/09/17 08:54 (Heparin Inj) 8,000 units UNSCH PRN IV FLUSH 02/09/17 09:00 Sodium Chloride 1,000 ml @ 200 mls/hr Q5H PRN IV 02/09/17 08:54 Sodium Chloride 1,000 ml @ 0 mls/hr Q0M PRN OTHER 02/09/17 08:54 (Mannitol Inj) 12.5 gm UNSCH PRN IV 02/09/17 09:00 (Albumin 25% Inj) 25 gm UNSCH PRN IV 02/09/17 09:00 (NS Flush) 5 ml UNSCH PRN IV FLUSH 02/09/17 09:00 (Heparin Inj) UNSCH PRN .XX 02/09/17 09:00 (Gentamicin (Dialysis) Inj) 20 mg UNSCH PRN OTHER 02/09/17 09:00 (Zofran Inj) 4 mg UNSCH PRN IV PUSH 02/09/17 09:00 (Tylenol) 650 mg UNSCH PRN PO 02/09/17 09:00 (Benadryl) 25 mg UNSCH PRN PO 02/09/17 09:00 (Nitrostat Sl) 0.4 mg UNSCH PRN SL 02/09/17 09:00 (Catapres) 0.1 mg UNSCH PRN PO 02/09/17 09:00 02/09/17 09:05 (Gelfoam 12 Mm/7 Mm Top) 1 foam UNSCH PRN TOP 02/09/17 09:00 Active Ordered Medications Spiriva Handihaler (Tiotropium Inh) 18 Mcg Cap 18 Mcg INH DAILY 1 capsule = 18 mcg Albuterol Neb (Albuterol Sulfate) 2.5 Mg/0.5 Ml Neb 2.5 Mg NEB Q6HR NEB PRN 30 Days The Albuterol Sulfate Inhalation Soln must be diluted. Read complete instructions. Incruse Ellipta Inh (Umeclidinium Cowden Inh) 0.0625 Mg/Act Inh 62.5 Mcg INH DAILY Lyrica (Pregabalin) 50 Mg Cap 50 Mg PO TID Clonazepam 0.5 Mg Tab 0.5 Mg PO TID Ranitidine (Ranitidine HCl) 150 Mg Cap 150 Mg PO BID Thera M Plus (Multivitamins/Minerals Therapeutic) 1 Tab 1 Tab PO DAILY Hydrocodone-Acetaminophen 10-325 mg Tab 1-2 Tab PO Q6H PRN Gabapentin 300 Mg Cap 300 Mg PO DAILY Docusate Sodium 100 Mg Cap 100 Mg PO BID Commode 3-in-1 (Device) 1 Mis Mis 1 Ea .ROUTE DIRECTED Clopidogrel (Clopidogrel Bisulfate) 75 Mg Tab 75 Mg PO DAILY Sensipar (Cinacalcet) 30 Mg Tab 30 Mg PO HS Atorvastatin (Atorvastatin Calcium) 80 Mg Tab 80 Mg PO HS Allopurinol 100 Mg Tab 100 Mg PO DAILY Family History Mother at 62 y/o from [place], smoked and used ETOH Father at 57 from [place], he also smoked heavily and used ETOH Maternal and paternal GM also had cardiac disease, [place] No hx of renal disorders Social History She is single, lives with friends No smoking, denies ETOH She is disabled uses walker but functionally independent (Montse Damon) Physical Exam Vital Signs Vital Signs Date Time Temp Pulse Resp B/P (MAP) Pulse Ox O2 Delivery O2 Flow Rate FiO2 02/09/17 07:34 97 Nasal Cannula 2.00 02/09/17 07:28 98.2 70 20 132/62 (85) 97 02/09/17 03:14 98.0 83 20 141/68 (92) 96 02/09/17 00:45 16 02/08/17 23:59 98.0 94 16 162/73 (102) 95 02/08/17 23:54 02/08/17 22:40 100 Nasal Cannula 2.00 02/08/17 22:25 81 20 130/58 (82) 99 Nasal Cannula 2.00 02/08/17 20:50 98 Nasal Cannula 2.00 02/08/17 20:48 96 Room Air 02/08/17 20:45 98.6 94 20 111/86 (94) 96 Physical Exam female, appears stated age, in no distress Awake, alert/oriented x 3 without focal neuro deficit Lungs: clear in all mittal, respirations unlabored on oxygen S1/S2, RRR no murmurs or rubs; anterior sternum tender to palpation Abd: soft, obese, non tender Ext: no edema; right arm patent AV access Laboratory Laboratory Tests Test 02/08/17 20:50 02/08/17 23:45 02/09/17 02:55 White Blood Count 6.3 Red Blood Count 3.38 Hemoglobin 11.6 Hematocrit 35.4 Mean Corpuscular Volume 105.0 Mean Corpuscular Hemoglobin 34.2 Mean Corpuscular Hemoglobin Concent 32.6 Red Cell Distribution Width 14.7 Platelet Count 123 Mean Platelet Volume 9.8 Neutrophils (%) (Auto) 69.9 Lymphocytes (%) (Auto) 20.2 Monocytes (%) (Auto) 7.8 Eosinophils (%) (Auto) 1.3 Basophils (%) (Auto) 0.8 Neutrophils # (Auto) 4.4 Lymphocytes # (Auto) 1.3 Monocytes # (Auto) 0.5 Eosinophils # (Auto) 0.1 Basophils # (Auto) 0.1 CBC Comment DIFF FINAL Differential Comment Prothrombin Time 10.7 Prothromb Time International Ratio 1.0 Activated Partial Thromboplast Time 22.1 Blood Urea Nitrogen 75 Creatinine 6.93 Random Glucose 112 Total Protein 6.7 Albumin 3.6 Calcium Level 9.6 Magnesium Level 1.8 Alkaline Phosphatase 126 Aspartate Amino Transf (AST/SGOT) 24 Alanine Aminotransferase (ALT/SGPT) 31 Total Bilirubin 0.3 Sodium Level 145 Potassium Level 4.3 Chloride Level 108 Carbon Dioxide Level 27.9 Anion Gap 9 Estimat Glomerular Filtration Rate 6 Total Creatine Kinase 100 88 83 Troponin I LESS THAN 0.02 LESS THAN 0.02 LESS THAN 0.02 Lipase 384 (Montse Damon) Result Diagram: 02/08/17204902/08/172049 Imaging Last 72 hours Impressions Chest X-Ray 02/08/172048 Signed Impressions: Service Date/Time: Wednesday, February 08, 2017 21:39 - CONCLUSION: No acute disease. Simon Stevenson MD (Montse Damon) Assessment and Plan Problem List: (1) ESRD (end stage renal disease) on dialysis ICD Codes: N18.6 - End stage renal failure on dialysis; Z99.2 - Dependence on renal dialysis Status: Chronic Plan: We will continue HD support MWF, due today and her orders have been entered. Her access has been functioning well Avoid IVF administration, avoid gadolinium in patients with ESRD Repeat renal panel tomorrow if still admitted. (2) Metabolic bone disease ICD Codes: E88.9 - Metabolic disorder, unspecified; M90.80 - Osteopathy in diseases classified elsewhere, unspecified site Plan: Resume Renvela with meals (3) Chest pain ICD Codes: R07.9 - Chest pain, unspecified Plan: Troponin negative x 3, chest xray reviewed She is to have a nuclear stress test today Further management depending on results of above She is on a statin (4) Anemia ICD Codes: D64.9 - Anemia Status: Acute Plan: Hemoglobin is acceptable. Epogen is not required Monitor for changes She does have mild thrombocytopenia, on Plavix (Montse Damon) Assessment and Plan patient was seen and examined. Agree with above assessment and plan. (Luis Antonio Ewing MD) Montse Damon Feb 09, 2017 09:31 Luis Antonio Ewing MD Feb 10, 2017 12:41
[2017-02-09] MEDS ORDERED: SEVELAMER CARBONATE 800 MG TAB PO ONE (09:45)
[2017-02-09] MEDS ORDERED: REGADENOSON INJ 0.4 MG/5 ML SYR ONE (10:28)
--- NOTE | 2017-02-09 11:46 | RADRPT ---
EXAM DATE/TIME: 02/09/2017 09:31 [place] COMPARISON: No previous studies available for comparison. INDICATIONS : Susbternal chest pain with dyspnea. Angina. DOSE: 25.4 mCi Tc99m Myoview at stress. 8.6 mCi Tc99m Myoview at rest. 0.4 mg Lexiscan STRESS SYMPTOMS: Dyspnea and chest pain. EJECTION FRACTION: 68% MEDICAL HISTORY : Hepatitis C. Myocardial infarction. Chronic obstructive pulmonary disease. Asthma. Hypertension. SURGICAL HISTORY : Tonsillectomy. Tubal ligation. Right elbow. ENCOUNTER: Initial ACUITY: 2 days PAIN SCALE: 3/10 LOCATION: misternal TECHNIQUE: The patient underwent pharmacologic stress with infusion of prescribed dose. Continuous ECG tracing was monitored during stress. Gated SPECT imaging was performed after stress and conventional SPECT i maging was performed at rest. The examination was performed on a SPECT/CT scanner, both attenuation and non-corrected datasets were reviewed. FINDINGS: DISTRIBUTION: The maximum perfused segment at stress is in the anterior anterior lateral wall. PERFUSION STUDY: The pattern of perfusion at stress is within normal limits. GATED STUDY: There is intact wall motion and thickening without hypokinetic or dyskinetic segments. CONCLUSION: Negative for stress-induced ischemia. RISK CATEGORY: Low (<1% Annual Mortality Rate) Kevon Tidwell MD FACR on February 09, 2017 at 11:44 Board Certified Radiologist. This report was verified electronically.
--- NOTE | 2017-02-09 14:21 | HHI.DCPOC ---
Discharge Care Plan Diagnosis: (1) Musculoskeletal chest pain (2) ESRD (end stage renal disease) on dialysis (3) Dyslipidemia Goals to Promote Your Health * To prevent worsening of your condition and complications * To maintain your health at the optimal level Directions to Meet Your Goals Take your medications as prescribed Follow your dietary instruction Follow activity as directed Keep your appointments as scheduled Take your immunizations and boosters as scheduled If your symptoms worsen call your PCP, if no PCP go to Urgent Care Center or Emergency Room Smoking is Dangerous to Your Health. Avoid second hand smoke Call the 24-hour hour crisis hotline for domestic abuse at [facility] Victor Feb 09, 2017 14:21
[2017-02-09] MEDS ORDERED: ATORVASTATIN 80 MG TAB PO SCH (21:00)
--- NOTE | 2017-02-10 07:18 | TR ---
Date Performed: 02/09/2017 Time Performed: 10:22:57 DOCTOR: Nelda Sanchez DRUG LIST: CLINICAL HISTORY: REASON FOR TEST: Angina REASON FOR ENDING: OBSERVATION: CONCLUSION: Lexiscan stress test was performed under standard four minute protocol. Radionuclid e was injected one minute prior to ending the test. No electrocardiographic abormalities were present to suggest ischemia. Nuclear imaging and interpretation are pending. COMMENTS:
--- NOTE | 2017-02-10 07:21 | EKG ---
Date Performed: 02/09/2017 Time Performed: 02:56:17 PTAGE: 66 years EKG: Sinus rhythm NORMAL ECG Since PREVIOUS TRACING , no significant change noted PREVIOUS TRACIN02/08/2017 23.43 DOCTOR: Nelda Sanchez Interpretating Date/Time 02/10/2017 07:20:05
--- NOTE | 2017-02-10 07:22 | EKG ---
Date Performed: 02/08/2017 Time Performed: 23:43:33 PTAGE: 66 years EKG: Sinus rhythm NORMAL ECG Since PREVIOUS TRACING , no significant change noted PREVIOUS TRACIN02/08/2017 20.44 DOCTOR: Nelda Sanchez Interpretating Date/Time 02/10/2017 07:20:31
--- NOTE | 2017-02-10 07:23 | EKG ---
Date Performed: 02/08/2017 Time Performed: 20:44:04 PTAGE: 66 years EKG: Sinus rhythm LOW QRS VOLTAGE IN PRECORDIAL LEADS BORDERLINE ECG Since PREVIOUS TRACING , no significant change noted DOCTOR: Nelda Sanchez Interpretating Date/Time 02/10/2017 07:21:07
[2017-02-12] MEDS ORDERED: GABA300C5 PO (11:21)
[2017-02-12] MEDS ORDERED: LYRI100C PO (11:21)
[2017-02-12] MEDS ORDERED: CLON0.5T PO (11:25)
[2017-02-24] MEDS ORDERED: SALM50I INH (09:59)
== END 2017-02-09 19:26 | disposition home or self-care (01) ==
LOC: NEPC 20:20 → NEDA 22:40 → NEPGCP 23:45
DX: R07.89 Other chest pain (principal); I13.2 Hypertensive heart and chronic kidney disease with heart failure and with stage 5 chronic kidney disease, or end stage renal disease; N18.6 End stage renal disease; I50.9 Heart failure, unspecified; E78.5 Hyperlipidemia, unspecified; I25.10 Atherosclerotic heart disease of native coronary artery without angina pectoris; J44.9 Chronic obstructive pulmonary disease, unspecified; M54.9 Dorsalgia, unspecified; G89.29 Other chronic pain; Z99.2 Dependence on renal dialysis
CPT/HCPCS: 71010; 78452; 80053; 82550; 83690; 83735; 84484; 85025; 85610; 85730; 93005; 93017; 94640; 94664; 96374; 96375; 99285; A9502; C9113; G0257; G0378; J2270; J2405; J2785; 90935

== ENCOUNTER 2017-10-01 09:00 | Day surgery (SDC) | payer MEDICARE, OTHER ==
[~2017-10-01] VITALS: Ht 162.6 cm; Wt 88.7 kg
[~2017-10-01 09:00] MED LIST changes: -ATOR1TAB18 PO; +ATOR80TA45 PO; -DOCU100C PO; +LYRI100C PO; -LYRI50CA PO; +SALM50I INH; -SPIRCAP INH
[2017-10-01] MEDS ORDERED: IOHEXOL 350 MG/ML 50 ML BTL (for Cath Lab) OTHER ONE (09:01)
[2017-10-01] MEDS ORDERED: SODIUM CHLOR 0.9% 1000 ML INJ 1,000 ML IV SCH (09:45)
[2017-10-01 09:49] VITALS: BP 133/66; PULSE 84; RESP 18; TEMP 98.6; O2SAT 97
[2017-10-01] MEDS ORDERED: LYRI50CA PO (10:14)
[2017-10-01] MEDS ORDERED: MECL-62 PO (10:14)
[2017-10-01] MEDS ORDERED: DONE5TAB7 PO (10:14)
[2017-10-01] MEDS ORDERED: SEVEL800 PO (10:14)
[2017-10-01] MEDS ORDERED: VENTAER INH (10:19)
[2017-10-01] MEDS ORDERED: OXYGEN NAS.CANULA (10:19)
--- NOTE | 2017-10-01 12:05 | PD.VS.PN ---
Pre-operative Note Pre-operative diagnosis: ESRD, multiple failed HD access attempts Planned procedure: Thoracic aortogram w/ L UE and maybe R UE angiogram Interval History: Pt has been feeling well; rec'd HD yesterday; ready for procedure Labs: Laboratory Results Test 10/01/17 10:00 Potassium Level 5.1 MEQ/L (3.5-5.1) Blood: none needed Imaging: will make in OR Orders: NPO Solumedrol OCTOR Post-operative destination: DOCU Operative site marked: Yes Consent: Informed consent has been obtained from Marie Bradford. I have explained the procedure in detail and discussed the risks, benefits, and potential complications. All questions have been answered. Leonardo Luis MD October 01, 2017 12:05
[2017-10-01] MEDS ORDERED: HEPARIN-NS/PF INJ 500 ML ONE ×2 (12:29→12:37)
[2017-10-01] MEDS ORDERED: methylPREDNISolone SOD SUCC 125 MG/2 ML VIAL ONE (12:32)
[2017-10-01] MEDS ORDERED: diphenhydrAMINE HCL 50 MG/ML VIAL ONE (12:32)
[2017-10-01] MEDS ORDERED: MIDAZOLAM HCL 2 MG/2 ML VIAL ONE (12:38)
--- NOTE | 2017-10-01 13:00 | HHI.PR ---
cc: Leonardo Luis MD Immediate Post Op Note Procedure Date: October 01, 2017 Pre Op Diagnosis: ESRD, need for HD access Post Op Diagnosis: ESRD, need for HD access Surgeon: Leonardo Luis Diamond Die Polisher(s): none Procedure: 1. Thoracic aortogram w/ L UE angiogram 2. L UE venogram Findings: no inflow disease but + forearm occlusive disease no central vein stenosis Additional Information: pt will be scheduled for LEFT ax-ax loop AVG Complications: none Specimen(s) removed: none Estimated blood loss: 10mL Anesthesia: MAC Drains: None Fluids: 300mL IVF Patient to: Other (DOCU) Patient Condition: Good Date/Time of Procedure: SEE SURGICAL CARE RECORD Leonardo Luis MD October 01, 2017 13:00
--- NOTE | 2017-10-01 13:15 | CATHPROC ---
[facility] HIS Report Study Information Study Number Scheduled Start Study Start [id number] 10/01/2017 Oct 01 2017 12:22PM Referring Institution Admit Source Facility Department 1 Other [facility] [address] - [place] Worker Physician and Clinical Staff Initial Leonardo Bauer Machine I Cutter Fredrick Fierro,RN Recorder Avinash Sesay,RT(R) Kayley Wong,RT(R) (BS) Procedures Performed Procedure Location (Site) Vessel Name Aortic Arch Wire insertion Fem Art (right) Femoral Art Equipment Time Supervisor Dry Cleaning Description Size Mfg Part Number Used/Scraped INTRODUCER SET, 12:39 [employer] FR 5 [id number] *[id number] Used MICROPUNCTURE STIFF [id number] *[id number] 12:39 [employer] INDUSTRIES PACK, CCL CUSTOM * Used *[id number] CATHETER, VERTEBRAL 5FR 12:41 [employer]/RUSTY FR 5 [id number] Used 100CM TUBING, PRESSURE INJECTION [id number] 12:39 NAMIC 72" Used 72" *[id number] 12:39 [employer] OMNIPAQUE, 300 MG, 150ML 150ML [id number] Used 12:39 [employer] OMNIPAQUE, 300 MG, 50ML 50ML [id number] Used [id number] 12:39 [employer],WARM AIR CCL * Used *[id number] 12:39 [employer] SHEATH, FR5 TERUMO (10CM) FR 5 Used *[id number] WIRE, ANGLED GLIDE .035 [id number] 12:39 [employer]/RUSTY 260CM Used 260CM *[id number] History: Allergies Allergy Reaction Sulfa (Sulfonamide Antibiotics) HIVES, DIFFICULTY BREATHING Influenza Virus Vaccines Rash, vomiting iohexol potassium iodide RASH sodium iodide RASH prednisone Shortness of Breath dexamethasone Shortness of Breath, TONGUE SWELLS diatrizoate meglumine oxytetracycline HIVES iodine RASH povidone-iodine RASH adhesive ADHESIVE TAPE = RASH gadoteridol gadodiamide hydromorphone Hives penicillin G iodixanol gadobenic acid bee venom protein (honey bee) RASH geraldine swollen tongue and rash orange O.J. = RASH AND DIFFICULTY BREATHING Medication Medication Total Dose (Bolus/Oral) Medication Total Dosage/Unit 1% XYLOCAINE 10 mL BENADRYL 25 mg FENTANYL 50 mcg SOLU-MEDROL 125 mg VERSED 2 mg Medications (Bolus/Oral) Medication Time Given Dosage/Unit Administered By Reason BENADRYL 10/01/2017 12:34:37 PM 25 mg Fredrick Fierro 25 mg BENADRYL given in lab by Fredrick Fierro RN via Peripheral IV. Ordered by Leonardo Luis. SOLU-MEDROL 10/01/2017 12:35:17 PM 125 mg Chelsea Fierroey 125 mg SOLU-MEDROL given in lab by Fredrick Fierro RN via Peripheral IV. Ordered by Leonardo Luis. FENTANYL 10/01/2017 12:36:00 PM 50 mcg Fredrick Fierro 50 mcg FENTANYL given in lab by Fredrick Fierro RN via Peripheral IV. Ordered by Leonardo Luis. 1% XYLOCAINE 10/01/2017 12:36:20 PM 10 mL Leonardo Luis 10 mL 1% XYLOCAINE given in lab by Leonardo Luis in Right Groin via Subcutaneous. Ordered by Leonardo Luis. VERSED 10/01/2017 12:37:54 PM 1 mg Yio Fredrick 1 mg VERSED given in lab by Fredrick Fierro RN via Peripheral IV. Ordered by Leonardo Luis. VERSED 10/01/2017 12:50:35 PM 1 mg Ferlitto Fredrick 1 mg VERSED given in lab by Fredrick Fierro RN via Peripheral IV. Ordered by Leonardo Luis. Medication (Drip) Medication Time Given Dosage/Unit Concentration/Unit Diluent (ml) Solutio n IV Solutions 10/01/2017 12:29:52 PM 0 mL (IV) 500 NaCl .9 Patient arrived on IV Solutions in Left Wrist via Peripheral IV. Pump/Drip Flow = 20 ml/hr using NaCl .9. Initial Case Assessment Cardiovascular HR Rhythm NIBP 65 sr 128/50 Edema Present Skin color Skin None Normal Warm Dry Circulatory - Right Pulses Femoral 2 Scale (0,1,2,3,4,d) Circulatory - Left Pulses Femoral 2 Scale (0,1,2,3,4,d) Neurological State Oriented to time-place- Alert Moves all extremities person Respiration - General Respiration Rate SpO2 (%) O2 (lpm) (B/min) 18 99 0 Chronological Log Time Study Chronological Log 12::20 Patient arrived via Bed. 12:: Patient Name, D.O.B, / Armband Verified By R.N. 12:: Consent signed by the physician and the patient and verified by the [place] Worker staff. 12::23 Pre-op and post- op instructions given; patient acknowledges understanding of instructions. 12:29:14 Verbal Stimulation=2 Physical Stimulation=2 Airway=2 Respiration=2 TOTAL=8. (0=absent, 1=li mited, 2=present) Vitals capture started with the following parameters, Patient=Adult, Interval=5 min, Initial Pr gtfgyc=014 mmHg, ::20 Deflation Rate=5 mmHg, Cuff placed on Right Ankle 12:: Presedation assessment performed by [place] Worker RN. 12::30 Patient has been NPO for More than 6Hrs. 12::32 Skin Breakdown-none per patient. 12:29:43 A # 22 IV was noted in the Wrist (left). Grade = 0 12:29:52 Patient arrived on IV Solutions in Left Wrist via Peripheral IV. Pump/Drip Flow = 20 ml/hr using NaCl .9. 12:30:04 HR=62 bpm, TFYQ=055/50 mmhg, SpO2=98.0 %, Resp=17 B/min, Rao=2 12:30:13 History and physical on the chart or being dictated. 12:30:20 MD arrived. Assessment: Initial Case, HR=65 BPM, Rhythm=sr, UCNA=765/50 mmhg, Edema=None, Color=Normal, Ski n = Warm, Dry Right Pulses: Femoral=2 12:32:10 Left Pulses: Femoral=2 Neurological: State=Alert, Ox3, VIGIL Respiration: Resp=18 B/min, SpO2=99 %, O2=0 lpm 12:33:46 Reference ECG taken 12:34:37 25 mg BENADRYL given in lab by Fredrick Fierro, WILLIAM via Peripheral IV. Ordered by Arthur Luis 12:34:57 HR=57 bpm, UEFT=147/60 mmhg, AuP4=654.0 %, Resp=8 B/min, Rao=2 12:35:17 125 mg SOLU-MEDROL given in lab by Fredrick Fierro, WILLIAM via Peripheral IV. Ordered by Leonardo Luis. 12:36:00 50 mcg FENTANYL given in lab by Fredrick Fierro RN via Peripheral IV. Ordered by Rosmery Luis. Time Out. Correct patient, correct procedure, correct physician, labs, allergies, and equipment verified with labor mediator 12:36:13 team present. Fire risk assesment completed (see hard stop sheet for coding). Time Out Conc urred by MD and individual staff in procedure. 12:36:18 Case Start 12:36:20 10 mL 1% XYLOCAINE given in lab by Leonardo Luis in Right Groin via Subcutaneous. Ordered by Leonardo Luis. 12:37:54 1 mg VERSED given in lab by Fredrick Fierro, WILLIAM via Peripheral IV. Ordered by Leonardo Luis . 12:39:27 Access site was Right Femoral Artery. A INTRODUCER SET, MICROPUNCTURE STIFF FR 5 was advanced into the Fem Art (right) using the Perc utaneous 12:39:33 technique. A SHEATH, FR5 TERUMO (10CM) FR 5 was exchanged in the Fem Art (right). This was necessary in or libia to 12:39:38 accomodate a larger catheter. 12:40:37 HR=61 bpm, WVBF=436/54 mmhg, SpO2=96.0 %, Resp=5 B/min, Rao=2 A PIGTAIL ANG. INFINITI CATHETER FR 5 was advanced over a wire. OMNIPAQUE, 300 MG, 150ML 150ML was used 12:41:19 for injections. 12:41:49 Wire removed Through a PIGTAIL ANG. INFINITI CATHETER FR 5, The Aortic Arch was injected at 20 ml/sec for a total of 20 cc's of 12:44:00 contrast. 12:45:03 HR=61 bpm, JMZM=741/53 mmhg, SpO2=98.0 %, Resp=12 B/min, Rao=2 12:45:59 A WIRE, ANGLED GLIDE .035 260CM 260CM was inserted via Fem Art (right). After removing the current catheter a CATHETER, VERTEBRAL 5FR 100CM FR 5 was advanced over a WI RE, ANGLED 12:46:03 GLIDE .035 260CM 260CM. Through a CATHETER, VERTEBRAL 5FR 100CM FR 5, The Aortic Arch was injected at 8 ml/sec for a t otal of 4 cc's of 12:48:29 contrast. 12:50:02 HR=71 bpm, TPUH=887/41 mmhg, SpO2=97.0 %, Resp=9 B/min, Rao=2 12:50:35 1 mg VERSED given in lab by Fredrick Fierro, WILLIAM via Peripheral IV. Ordered by Jaime Luis Through a CATHETER, VERTEBRAL 5FR 100CM FR 5, The Aortic Arch was injected at 8 ml/sec for a t otal of 4 cc's of 12:52:11 contrast. Through a CATHETER, VERTEBRAL 5FR 100CM FR 5, The Aortic Arch was injected at 8 ml/sec for a t otal of 4 cc's of 12:52:19 contrast. 12:52:21 Catheter was removed 12:53:01 Venogram injection of saline/contrast mix in left wrist #22 IV. 12:54:59 HR=66 bpm, MYNL=026/53 mmhg, SpO2=99.0 %, Resp=10 B/min, Rao=2 12:56:57 Case End 12:58:37 Sheath removed; pressure applied to access site by Kayley Irving. 12:58:55 No case complications noted. 12:58:57 Cine recording checked. 12:59:00 Bedside Report will be given. 13:00:03 HR=63 bpm, PARS=216/49 mmhg, SpO2=97.0 %, Resp=12 B/min 13:05:02 HR=66 bpm, MZFM=992/53 mmhg, SpO2=96.0 %, Resp=11 B/min, Rao=2 13:10:01 HR=71 bpm, HJEN=032/54 mmhg, SpO2=97.0 %, Resp=11 B/min, Rao=2 13:14:23 Sterile dressing applied to site 13:15:04 HR=60 bpm, RPSX=259/50 mmhg, SpO2=96.0 %, Resp=9 B/min, Rao=2 13:15:08 [facility] - [facility] Media Used In Study Contrast Total Opened (mL) Total Used (mL) Total Wasted (mL) Omnipaque 40 40 0 End Study - Radiation Exposure Fluoro Time (minutes) 4.1 End Study - Patient Disposition Complications Transferred To No Telemetry Bed
--- NOTE | 2017-10-01 22:17 | MP ---
cc: Leonardo Luis MD, Robert J MD DATE OF OPERATION: 10/01/2017 PREOPERATIVE DIAGNOSIS: Endstage renal disease, need for dialysis access and multiple failed upper extremity access attempts. POSTOPERATIVE DIAGNOSIS: Endstage renal disease, need for dialysis access and multiple failed upper extremity access attempts. PROCEDURES PERFORMED: 1. Thoracic aortogram with left upper extremity angiogram. 2. Left upper extremity venogram. ATTENDING SURGEON: Leonardo Luis MD ANESTHESIA: Local with sedation. INDICATIONS FOR PROCEDURE: Mrs. Bradford is a lady who had multiple upper extremity access attempts. She has reasonable cephalic vein on vein mapping, but because of her multiple failed attempts, it was most prudent to perform a diagnostic angiogram and venogram for dialysis access planning. There was no prior cath based imaging available for my review. DESCRIPTION OF PROCEDURE: Informed consent was obtained from the patient. She was taken to the operating room and placed supine on the operating table. An appropriate timeout was taken to ensure the patient's identity, operative site, and planned procedure. The administration of antibiotics was not necessary since this is a clean procedure without a planned implantation of any foreign object. Everyone in the room agreed with the timeout and we proceeded. Bilateral groins were prepped and draped. The right groin was anesthetized with 1% lidocaine. A 21-gauge micropuncture needle was used to access the right common femoral artery. This was exchanged using Seldinger technique for a micropuncture sheath, through which a 0.035 Glidewire was introduced. The micropuncture sheath was exchanged for a 5-[place]an sheath. A Glidewire was advanced in the ascending aorta. The pigtail catheter was placed over this and a thoracic aortogram was obtained. The Glidewire was reintroduced and the pigtail catheter exchanged for a vertebral catheter. We selectively catheterized the left subclavian, axillary and proximal brachial artery. Left upper extremity arteriogram was obtained. The wire, catheter and sheath were removed and pressure held for hemostasis. Through an existing IV, contrast was administered thereby opacifying the upper arm, axillary and central veins in the left hand side. The patient was then transferred to recovery room in stable condition. There were no complications with the operation. I was present, scrubbed, and performed the entire procedure. INTERPRETATION: The patient has a bovine arch. Her left subclavian artery is widely patent as is the axillary and brachial arteries. The forearm vasculature; however, is diminutive and there is dominant radial artery and a very sluggishly filling ulnar artery. The venogram showed the patient has patent axillary, subclavian and innominate veins without any central vein stenosis. MD KIM Leonardo/ , 08:52 PM , 10:16 PM
== END 2017-10-01 17:53 | disposition home or self-care (01) ==
LOC: HDOC 09:00 → HDIC 09:00 → HDOC 17:53
PROVIDERS: ATTEND Surgery
DX: T82.49XA Other complication of vascular dialysis catheter, initial encounter (principal); I12.0 Hypertensive chronic kidney disease with stage 5 chronic kidney disease or end stage renal disease; N18.6 End stage renal disease; J44.9 Chronic obstructive pulmonary disease, unspecified; E78.5 Hyperlipidemia, unspecified; F41.9 Anxiety disorder, unspecified; Z99.2 Dependence on renal dialysis
CPT/HCPCS: 36200; 36217; 75605; 75820; 84132; C1769; C1893; J1200; J1644; J2250; J2930; J3010; Q9967

== ENCOUNTER 2017-10-22 09:42 | Observation (INO) | payer MEDICARE, OTHER ==
[~2017-10-22] VITALS: Ht 162.6 cm; Wt 97.0 kg
[2017-10-22] VITALS (8 sets, daily range): BP systolic 129–155; BP diastolic 59–73; PULSE 63–87; RESP 18–20; TEMP 97.6–97.8; O2SAT 98–100
[~2017-10-22 09:42] MED LIST changes: -CLOP75TA PO; -COMMODE 3-IN-11 MIS; +DONE5TAB7 PO; -LYRI100C PO; +LYRI50CA PO; +MECL-62 PO; +OXYGEN NAS.CANULA; -Oxygen Concentrator NAS.CANULA; -SALM50I INH; +SEVEL800 PO; -UMEC1INH INH; +VENTAER INH; -WALKER WHEELS/F1 MIS; -WHEEMIS3
[2017-10-22] MEDS ORDERED: LACTATED RINGER'S 1000 ML IV PRN (10:30)
[2017-10-22] MEDS ORDERED: METOPROLOL TARTRATE 25 MG TAB PO PRN (10:30)
--- NOTE | 2017-10-22 10:46 | HHI.HP ---
History of Present Illness Chief Complaint: ESRD, need for HD access History of Present Illness 66 yo female with multiple failed UE access attempts, all elsewhere. Presents for LEFT arm access using prosthetic. Had a diagnostic angio/venogram and showed decent axillary artery and vein. Presents for access creation. [facility] HD via R chest catheter MWF, last HD yesterday. Past/Family/Social History Past Medical History ESRD hep C CVOD with CVA XOL HTN Past Surgical History access attempts ortho surgeries Social History nonsmoker Family History NC Home Medications Active Scripts Clonazepam (Clonazepam) 0.5 Mg Tab, 0.5 MG PO TID, #90 TAB 0 Refills Prov:Mindi Mazariegos MD R1 05/13/17 Albuterol Neb (Albuterol Neb) 2.5 Mg/0.5 Ml Neb, 2.5 MG NEB Q6HR NEB Y for SHORTNESS OF BREATH for 30 Days, #2 BOX 3 Refills The Albuterol Sulfate Inhalation Soln must be diluted. Read complete instructions. Prov:Mindi Mazariegos MD R1 03/09/17 Gabapentin (Gabapentin) 300 Mg Cap, 300 MG PO TID, #30 CAP 0 Refills Prov:Alonso Adair MD R2 02/12/17 Reported Medications [Oxygen (Home)] No Conflict Check, 2 LITER GARCIA.CANULA DAILY 10/01/17 Albuterol 18 GM Inh (Ventolin Hfa 18 GM Inh) 90 Mcg/Act Aer, 2 PUFF INH Q4H Y for SHORTNESS OF BREATH, #1 INHALER 0 Refills 10/01/17 Sevelamer Carbonate (Renvela) 800 Mg Tab, 800 MG PO TID for Control phosphorous levels, #90 TAB 0 Refills 10/01/17 Pregabalin (Lyrica) 50 Mg Cap, 50 MG PO TID, #90 CAP 0 Refills 10/01/17 Meclizine (Meclizine) 25 Mg Tab, 25 MG PO TID Y for VERTIGO, TAB 0 Refills 10/01/17 Donepezil (Donepezil) 5 Mg Tab, 5 MG PO HS for Dementia, #30 TAB 0 Refills 10/01/17 Ranitidine (Ranitidine) 150 Mg Cap, 150 MG PO BID, #60 CAP 0 Refills 03/25/16 Multiple Vitamins W/ Minerals (Thera M Plus) 1 Tab, 1 TAB PO DAILY for Nutritional Supplement, #30 TAB 0 Refills 03/25/16 Hydrocodone-Acetaminophen (Hydrocodone-Acetaminophen) 10-325 mg Tab, 1-2 TAB PO Q6H Y for PAIN, #30 TAB 0 Refills 03/25/16 Cinacalcet (Sensipar) 30 Mg Tab, 30 MG PO HS, #30 TAB 0 Refills 03/25/16 Atorvastatin (Atorvastatin) 80 Mg Tab, 80 MG PO HS for Cholesterol Management, # 30 TAB 0 Refills 03/25/16 Allopurinol (Allopurinol) 100 Mg Tab, 100 MG PO DAILY for Gout, #30 TAB 0 Refills 03/25/16 Coded Allergies: Sulfa (Sulfonamide Antibiotics) (Verified Allergy, Severe, HIVES, DIFFICULTY BREATHING, 10/21/17) adhesive (Verified Allergy, Severe, ADHESIVE TAPE = RASH, 10/21/17) bee venom protein (honey bee) (Verified Allergy, Severe, RASH & TONGUE SWELLING, 10/21/17) dexamethasone (Verified Allergy, Severe, Shortness of Breath, TONGUE SWELLS, 10/21/17) hydromorphone (Verified Allergy, Severe, Hives, 10/21/17) PT SAID SHE DOESNT THINK SHE IS ALLERGIC TO DILAUDID THAT IT WAS JUST A REACTION FROM ANOTHER MEDICATION iodine (Verified Allergy, Severe, RASH & DIFFICULTY BREATHING, 10/21/17) geraldine (Verified Allergy, Severe, swollen tongue and rash, 10/21/17) orange (Verified Allergy, Severe, O.J. = RASH AND DIFFICULTY BREATHING, ) oxytetracycline (Verified Allergy, Severe, HIVES & TONGUE SWELLING, ) potassium iodide (Verified Allergy, Severe, RASH & DIFFICULTY BREATHING, ) povidone-iodine (Verified Allergy, Severe, RASH & DIFFICULTY BREATHING, ) sodium iodide (Verified Allergy, Severe, RASH & DIFFICULTY BREATHING, 10/21) sodium iodide (Verified Allergy, Severe, RASH & DIFFICULTY BREATHING, 10/21) Influenza Virus Vaccines (Verified Allergy, Intermediate, Rash, vomiting , 10/21/17) diatrizoate meglumine (Verified Allergy, Unknown, 10/21/17) gadobenic acid (Verified Allergy, Unknown, 10/21/17) gadodiamide (Verified Allergy, Unknown, 10/21/17) gadoteridol (Verified Allergy, Unknown, 10/21/17) iodixanol (Verified Allergy, Unknown, 10/21/17) iohexol (Verified Allergy, Unknown, 10/21/17) penicillin G (Verified Allergy, Unknown, 10/21/17) Review of Systems Constitutional: DENIES: Diaphoretic episodes, Fatigue, Fever, Weight gain, Weight loss, Chills, Dizziness, Change in appetite, Night Sweats Cardiovascular: DENIES: Chest pain, Palpitations, Syncope, Dyspnea on Exertion , PND, Lower Extremity Edema, Orthopnea, Claudication Psychiatric: COMPLAINS OF: Anxiety Physical Exam Neuro: alert, no distress HEENT: NC/AT Neck: no JVD Heart: reg rate Lungs: clear B Abdomen: soft Vascular: L UE incisions healed Extremities: no wounds pending reviewed Caprini VTE Risk Assessment Caprini VTE Risk Assessment: No/Low Risk (score <= 1) Caprini Risk Assessment Model Point Value = 1 Point Value = 2 Point Value = 3 Point Value = 5 Age 41-60 Minor surgery BMI > 25 kg/m2 Swollen legs Varicose veins or History of unexplained or recurrent spontaneous Oral contraceptives or hormone replacement Sepsis (< 1 month) Serious lung disease, including pneumonia (< 1 month) Abnormal pulmonary function Acute myocardial infarction Congestive heart failure (< 1 month) History of inflammatory bowel disease Medical patient at bed rest Age 61-74 Arthroscopic surgery Major open surgery (> 45 min) Laparoscopic surgery (> 45 min) Malignancy Confined to bed (> 72 hours) Immobilizing plaster cast Central venous access Age >= 75 History of VTE Family history of VTE Factor V Leiden Prothrombin [id number] Lupus anticoagulant Anticardiolipin antibodies Elevated serum homocysteine Heparin-induced thrombocytopenia Other congenital or acquired thrombophilia Stroke (< 1 month) Elective arthroplasty Hip, pelvis, or leg fracture Acute spinal cord injury (< 1 month) Prophylaxis Regimen Total Risk Factor Score Risk Level Prophylaxis Regimen 0-1 Low Early ambulation 2 Moderate Order ONE of the following: *Sequential Compression Device (SCD) *Heparin 5000 units SQ BID 3-4 Higher Order ONE of the following medications: *Heparin 5000 units SQ TID *Enoxaparin/Lovenox 40 mg SQ daily (WT < 150 kg, CrCl > 30 mL/min) *Enoxaparin/Lovenox 30 mg SQ daily (WT < 150 kg, CrCl > 10-29 mL/min) *Enoxaparin/Lovenox 30 mg SQ BID (WT < 150 kg, CrCl > 30 mL/min) AND/OR *Sequential Compression Device (SCD) 5 or more Highest Order ONE of the following medications: *Heparin 5000 units SQ TID (Preferred with Epidurals) *Enoxaparin/Lovenox 40 mg SQ daily (WT < 150 kg, CrCl > 30 mL/min) *Enoxaparin/Lovenox 30 mg SQ daily (WT < 150 kg, CrCl > 10-29 mL/min) *Enoxaparin/Lovenox 30 mg SQ BID (WT < 150 kg, CrCl > 30 mL/min) AND *Sequential Compression Device (SCD) Assessment and Plan Plan ESRD needs HD access Plan for LEFT arm AVG, likely ax-ax loop with PTFE Discharge Planning Admit for overnight obs and anticipate d/c tomorrow (POD#1) after HD Son [phone] Friend [phone] Leonardo Luis MD Oct 22, 2017 10:46
[2017-10-22] MEDS ORDERED: Hemodialysis Vas Access Cath PRN NS Lock Flush IV FLUSH (11:30)
[2017-10-22] MEDS: SODIUM CHLORID 0.9% 500 ML IV PRN (11:30)
[2017-10-22] MEDS ORDERED: Hemodialysis Vas Acc Cath PRN Heparin 1000 unit/ml Flush IV FLUSH (11:30)
[2017-10-22] MEDS ORDERED: ROCURONIUM INJ 50 MG/5 ML SYRINGE IV PUSH ONE (12:00)
[2017-10-22] MEDS ORDERED: GLYCOPYRROLATE 1 MG/5 ML SYRINGE IV PUSH ONE (12:00)
[2017-10-22] MEDS ORDERED: NEOSTIGMINE 5 MG/5 ML SYRINGE IV PUSH ONE (12:00)
[2017-10-22] MEDS ORDERED: ONDANSETRON HCL 4 MG/2 ML VIAL IV PUSH ONE (12:00)
[2017-10-22] MEDS ORDERED: LIDOCAINE HCL 1% PF 5 ML SYRINGE OTHER ONE (12:00)
[2017-10-22] MEDS ORDERED: PROPOFOL 200 MG/20 ML AMP IV ONE (12:00)
[2017-10-22] MEDS ORDERED: SODIUM CHLOR 0.9% 250 ML INJ 250 ML IV ONE (12:00)
[2017-10-22 12:01] LABS: AUTOMATED NEUTROPHIL # 7.9 TH/MM3 (1.8-7.7); BASOPHIL # 0.1 TH/MM3 (0-0.2); BASOPHIL % 0.9 % (0.0-2.0); EOSINOPHIL # 0.1 TH/MM3 (0-0.4); EOSINOPHIL % 0.6 % (0.0-4.0); HEMATOCRIT 30.1 % (35.0-46.0); HEMOGLOBIN 10.1 GM/DL (11.6-15.3); LYMPH % 9.9 % (9.0-44.0); LYMPHOCYTE # 0.9 TH/MM3 (1.0-4.8); MEAN CELL VOLUME 97.8 FL (80.0-100.0); MEAN CORPUSCULAR HGB CONC 33.7 % (32.0-36.0); MEAN PLATELET VOLUME 9.3 FL (7.0-11.0); MONO % 3.6 % (0.0-8.0); MONOCYTE # 0.3 TH/MM3 (0-0.9); PLATELET COUNT 160 TH/MM3 (150-450); RED BLOOD COUNT 3.07 MIL/MM3 (4.00-5.30); RED CELL DISTRIBUTION WIDTH 13.8 % (11.6-17.2); WHITE BLOOD COUNT 9.3 TH/MM3 (4.0-11.0)
[2017-10-22 12:09] LABS: INTERNATIONAL NORMALIZED RATIO 1.1 RATIO; PROTHROMBIN TIME - PATIENT 11.6 SEC (9.8-11.6)
[2017-10-22 12:23] LABS: BICARBONATE 27.4 MEQ/L (21.0-32.0); CALCIUM 8.3 MG/DL (8.5-10.1); CREATININE 4.92 MG/DL (0.50-1.00)
[2017-10-22] MEDS ORDERED: SODIUM CHLOR 0.9% 1000 ML INJ 1,000 ML OTHER PRN ×2 (12:41)
[2017-10-22] MEDS ORDERED: SODIUM CHLOR 0.9% 1000 ML INJ 1,000 ML IV PRN (12:41)
[2017-10-22] MEDS ORDERED: GENTAMICIN SULFATE 20 MG/2 ML VIAL OTHER PRN (12:45)
[2017-10-22] MEDS ORDERED: EPOETIN ALFA 4,000 UNITS/ML VIAL IV PUSH PRN (12:45)
[2017-10-22] MEDS ORDERED: ALBUMIN 25% INJ 100 ML IV PRN (12:45)
[2017-10-22] MEDS ORDERED: GELATIN 12 MM/7 MM FOAM TOP PRN (12:45)
[2017-10-22] MEDS ORDERED: ACETAMINOPHEN 325 MG TAB PO PRN (12:45)
[2017-10-22] MEDS ORDERED: SODIUM CHLORIDE 0.9% FLUSH 10 ML FLUSH IV FLUSH PRN (12:45)
[2017-10-22] MEDS ORDERED: NITROGLYCERIN 0.4 MG SL 25 TABS/BTL SL PRN (12:45)
[2017-10-22] MEDS ORDERED: HEPARIN SODIUM - IV 10,000 UNITS/10 ML VIAL PRN (12:45)
[2017-10-22] MEDS ORDERED: diphenhydrAMINE HCL 25 MG CAP PO PRN (12:45)
[2017-10-22] MEDS ORDERED: HEPARIN SODIUM - IV 10,000 UNITS/10 ML VIAL IV FLUSH PRN (12:45)
[2017-10-22] MEDS ORDERED: MANNITOL 12.5 GM/50 ML VIAL IV PRN (12:45)
[2017-10-22] MEDS ORDERED: cloNIDine HCL 0.1 MG TAB PO PRN (12:45)
[2017-10-22] MEDS ORDERED: ONDANSETRON ODT 4 MG TAB PO PRN (13:00)
[2017-10-22] MEDS ORDERED: HEPARIN-NS/PF INJ 500 ML ONE (13:16)
[2017-10-22] MEDS ORDERED: BUPIVACAINE HCL PF 0.5% 30 ML VIAL ONE (13:23)
[2017-10-22] MEDS ORDERED: ACETAMINOPHEN 1000 MG/100 ML 100 ML IV ONE (13:24)
[2017-10-22] MEDS ORDERED: FAMOTIDINE 20 MG/2 ML VIAL ONE (13:25)
[2017-10-22] MEDS ORDERED: VANCOMYCIN HCL 1000 MG VIAL ONE (13:39)
--- NOTE | 2017-10-22 13:43 | PD.CONS ---
HPI Service Nephrology Consult Requested By Toby Reason for Consult ESRD on HD Primary Care Physician No Primary Care Physician History of Present Illness This is a 66 y/o female admitted for left arm AVF placement. Her AVF on right failed, we are using CVC for HD. Her dialysis days are MWF, she had treatment yesterday. We were consulted to assist with dialysis management. PMH listed below. She has been NPO since midnight, preparing to go into OR. (Montse Damon) Review of Systems Constitutional: COMPLAINS OF: Fatigue (Montse Damon) Past Family Social History Allergies: Coded Allergies: Sulfa (Sulfonamide Antibiotics) (Verified Allergy, Severe, HIVES, DIFFICULTY BREATHING, 10/21/17) adhesive (Verified Allergy, Severe, ADHESIVE TAPE = RASH, 10/21/17) bee venom protein (honey bee) (Verified Allergy, Severe, RASH & TONGUE SWELLING, 10/21/17) dexamethasone (Verified Allergy, Severe, Shortness of Breath, TONGUE SWELLS, 10/21/17) hydromorphone (Verified Allergy, Severe, Hives, 10/21/17) PT SAID SHE DOESNT THINK SHE IS ALLERGIC TO DILAUDID THAT IT WAS JUST A REACTION FROM ANOTHER MEDICATION iodine (Verified Allergy, Severe, RASH & DIFFICULTY BREATHING, 10/21/17) geraldine (Verified Allergy, Severe, swollen tongue and rash, 10/21/17) orange (Verified Allergy, Severe, O.J. = RASH AND DIFFICULTY BREATHING, ) orange juice (Verified Allergy, Severe, Hives and difficulty breathing, ) oxytetracycline (Verified Allergy, Severe, HIVES & TONGUE SWELLING, ) potassium iodide (Verified Allergy, Severe, RASH & DIFFICULTY BREATHING, ) povidone-iodine (Verified Allergy, Severe, RASH & DIFFICULTY BREATHING, ) sodium iodide (Verified Allergy, Severe, RASH & DIFFICULTY BREATHING, 10/21) sodium iodide (Verified Allergy, Severe, RASH & DIFFICULTY BREATHING, 10/21) Influenza Virus Vaccines (Verified Allergy, Intermediate, Rash, vomiting , 10/21/17) diatrizoate meglumine (Verified Allergy, Unknown, 10/21/17) gadobenic acid (Verified Allergy, Unknown, 10/21/17) gadodiamide (Verified Allergy, Unknown, 10/21/17) gadoteridol (Verified Allergy, Unknown, 10/21/17) iodixanol (Verified Allergy, Unknown, 10/21/17) iohexol (Verified Allergy, Unknown, 10/21/17) penicillin G (Verified Allergy, Unknown, 10/21/17) Past Medical History ESRD on HD MWF hyperlipidemia CAD hx of HI, no stent was treated with TPA Metabolic bone disorder Anxiety Chronic sciatica GERD Gout Secondary Hyperparathyroidism No hx of DM Past Surgical History AV graft right, failed L breast biopsy right elbow tonsillectomy Reported Medications Clonazepam (Clonazepam) 0.5 Mg Tab, 0.5 MG PO TID, #90 TAB 0 Refills Prov:Mindi Mazariegos MD R1 05/13/17 Albuterol Neb (Albuterol Neb) 2.5 Mg/0.5 Ml Neb, 2.5 MG NEB Q6HR NEB Y for SHORTNESS OF BREATH for 30 Days, #2 BOX 3 Refills The Albuterol Sulfate Inhalation Soln must be diluted. Read complete instructions. Prov:Mindi Mazariegos MD R1 03/09/17 Gabapentin (Gabapentin) 300 Mg Cap, 300 MG PO TID, #30 CAP 0 Refills Prov:Alonso Adair MD R2 02/12/17 Reported Medications [Oxygen (Home)] No Conflict Check, 2 LITER GARCIA.CANULA DAILY 10/01/17 Albuterol 18 GM Inh (Ventolin Hfa 18 GM Inh) 90 Mcg/Act Aer, 2 PUFF INH Q4H Y for SHORTNESS OF BREATH, #1 INHALER 0 Refills 10/01/17 Sevelamer Carbonate (Renvela) 800 Mg Tab, 800 MG PO TID for Control phosphorous levels, #90 TAB 0 Refills 10/01/17 Pregabalin (Lyrica) 50 Mg Cap, 50 MG PO TID, #90 CAP 0 Refills 10/01/17 Meclizine (Meclizine) 25 Mg Tab, 25 MG PO TID Y for VERTIGO, TAB 0 Refills 10/01/17 Donepezil (Donepezil) 5 Mg Tab, 5 MG PO HS for Dementia, #30 TAB 0 Refills 10/01/17 Ranitidine (Ranitidine) 150 Mg Cap, 150 MG PO BID, #60 CAP 0 Refills 03/25/16 Multiple Vitamins W/ Minerals (Thera M Plus) 1 Tab, 1 TAB PO DAILY for Nutritional Supplement, #30 TAB 0 Refills 03/25/16 Hydrocodone-Acetaminophen (Hydrocodone-Acetaminophen) 10-325 mg Tab, 1-2 TAB PO Q6H Y for PAIN, #30 TAB 0 Refills 03/25/16 Cinacalcet (Sensipar) 30 Mg Tab, 30 MG PO HS, #30 TAB 0 Refills 03/25/16 Atorvastatin (Atorvastatin) 80 Mg Tab, 80 MG PO HS for Cholesterol Management, # 30 TAB 0 Refills 03/25/16 Allopurinol (Allopurinol) 100 Mg Tab, 100 MG PO DAILY for Gout, #30 TAB 0 Refills 03/25/16 Active Ordered Medications Current Medications Medications (Trade) Dose Ordered Sig/Dino Route Start Time Stop Time Status Last Admin Lactated Ringer's 1,000 ml @ 30 mls/hr Q24H PRN IV 10/22/17 10:30 10/25/17 10:29 Sodium Chloride 500 ml @ 30 mls/hr [id number] PRN IV 10/22/17 10:30 10/25/17 10:29 10/22/17 11:30 (Lopressor) 25 mg CRUCIBLE FURNACE TENDER PRN PO 10/22/17 10:30 10/25/17 10:29 (NS Flush) 5 ml UNSCH PRN IV FLUSH 10/22/17 11:30 (Heparin Inj) 2,000 units UNSCH PRN IV FLUSH 10/22/17 11:30 Sodium Chloride 1,000 ml @ 0 mls/hr Q0M PRN OTHER 10/22/17 12:41 (Heparin Inj) 8,000 units UNSCH PRN IV FLUSH 10/22/17 12:45 Sodium Chloride 1,000 ml @ 200 mls/hr Q5H PRN IV 10/22/17 12:41 Sodium Chloride 1,000 ml @ 0 mls/hr Q0M PRN OTHER 10/22/17 12:41 (Mannitol Inj) 12.5 gm UNSCH PRN IV 10/22/17 12:45 Albumin Human 100 ml @ 60 mls/hr UNSCH PRN IV 10/22/17 12:45 (NS Flush) 5 ml UNSCH PRN IV FLUSH 10/22/17 12:45 (Heparin Inj) UNSCH PRN .XX 10/22/17 12:45 (Gentamicin Inj) 20 mg UNSCH PRN OTHER 10/22/17 12:45 (Zofran Odt) 4 mg UNSCH PRN PO 10/22/17 13:00 (Tylenol) 650 mg UNSCH PRN PO 10/22/17 12:45 (Benadryl) 25 mg UNSCH PRN PO 10/22/17 12:45 (Nitrostat Sl) 0.4 mg UNSCH PRN SL 10/22/17 12:45 (Catapres) 0.1 mg UNSCH PRN PO 10/22/17 12:45 (Epogen Inj) 4,000 units UNSCH PRN IV PUSH 10/22/17 12:45 (Gelfoam 12 Mm/7 Mm Top) 1 foam UNSCH PRN TOP 10/22/17 12:45 Family History Non contributory Social History She is single, lives with friends No smoking, denies ETOH She is disabled uses walker but functionally independent (Montse Damon) Physical Exam Vital Signs Vital Signs Date Time Temp Pulse Resp B/P (MAP) Pulse Ox O2 Delivery O2 Flow Rate FiO2 10/22/17 10:40 97.7 68 16 149/72 (97) 96 Physical Exam female, appears stated age, in no distress Awake, alert/oriented x 3 without focal neuro deficit Lungs: clear in all mittal, respirations unlabored on oxygen S1/S2, RRR no murmurs or rubs Abd: soft, obese, non tender Ext: no edema; right arm AVG failed. Radial pulses strong bilaterally CVC right chest Laboratory Laboratory Tests Test 10/22/17 11:25 White Blood Count 9.3 Red Blood Count 3.07 Hemoglobin 10.1 Hematocrit 30.1 Mean Corpuscular Volume 97.8 Mean Corpuscular Hemoglobin 33.0 Mean Corpuscular Hemoglobin Concent 33.7 Red Cell Distribution Width 13.8 Platelet Count 160 Mean Platelet Volume 9.3 Neutrophils (%) (Auto) 85.0 Lymphocytes (%) (Auto) 9.9 Monocytes (%) (Auto) 3.6 Eosinophils (%) (Auto) 0.6 Basophils (%) (Auto) 0.9 Neutrophils # (Auto) 7.9 Lymphocytes # (Auto) 0.9 Monocytes # (Auto) 0.3 Eosinophils # (Auto) 0.1 Basophils # (Auto) 0.1 CBC Comment DIFF FINAL Differential Comment Prothrombin Time 11.6 Prothromb Time International Ratio 1.1 Blood Urea Nitrogen 44 Creatinine 4.92 Random Glucose 109 Calcium Level 8.3 Sodium Level 143 Potassium Level 4.4 Chloride Level 107 Carbon Dioxide Level 27.4 Anion Gap 9 Estimat Glomerular Filtration Rate 9 (Montse Damon) Result Diagram: 10/22/17 1125 10/22/17 1125 Assessment and Plan Problem List: (1) ESRD (end stage renal disease) on dialysis ICD Codes: N18.6 - End stage renal failure on dialysis; Z99.2 - Dependence on renal dialysis Status: Chronic Plan: Typical MWF HD If she is not hyperkalemic, the patient can be discharged tomorrow to have dialysis at [facility]. Her chair time is around 9. The clinic is aware she may be late but tentative plan now is discharge around 8-8:30 am Thursday Pt and Dr. Luis are aware Avoid IVF administration Protect left arm CVC in place for HD High protein diet encouraged (2) AV fistula occlusion ICD Codes: T82.898A - Other specified complication of vascular prosthetic devices, implants and grafts, initial encounter Status: Acute Plan: Vascular following To OR 10/22 for new access creation on left To follow up outpatient in few weeks (3) HTN (hypertension) ICD Codes: I10 - HTN (hypertension) Status: Chronic Plan: Resume home medications (4) Anemia ICD Codes: D64.9 - Anemia Status: Acute Plan: Epogen with dialysis has been ordered (Montse Damon) Assessment and Plan patient was seen and examined. Agree with above assessment and plan. (Luis Antonio Ewing MD) Montse Damon Oct 22, 2017 13:43 Luis Antonio Ewing MD Oct 23, 2017 08:00
[2017-10-22] MEDS ORDERED: HEPARIN SODIUM - IV 10,000 UNITS/10 ML VIAL ONE (14:09)
[2017-10-22] MEDS ORDERED: PROTAMINE SULFATE 50 MG/5 ML VIAL ONE (14:18)
[2017-10-22] MEDS ORDERED: DO NOT ADM ANY ANTICOAGULANT DRUGS PRN (14:28)
--- NOTE | 2017-10-22 15:03 | HHI.PR ---
cc: Leonardo Luis MD Immediate Post Op Note Procedure Date: Oct 22, 2017 Pre Op Diagnosis: ESRD, need for HD access Post Op Diagnosis: ESRD, need for HD access Surgeon: Leonardo Luis Casing Man(s): Daksha Hernandez Procedure: L ax-ax loop AVG with 6mm PTFE Findings: 4mm artery 6mm vein Additional Information: + thrill in outflow vein and + Doppler signal in wrist after case Complications: none Specimen(s) removed: none Estimated blood loss: 50mL Anesthesia: General Drains: None Fluids: 550mL IVF Patient to: PACU Patient Condition: Good Implant/Devices: SEE IMPLANT LOG (if applicable) Date/Time of Procedure: SEE SURGICAL CARE RECORD Leonardo Luis MD Oct 22, 2017 15:03
[2017-10-22] MEDS ORDERED: MECLIZINE HCL 25 MG TAB PO PRN (15:15)
[2017-10-22] MEDS ORDERED: RESP: ALBUTEROL CONC 2.5 MG/0.5 ML NEB NEB PRN (15:15)
[2017-10-22] MEDS ORDERED: ALBUTEROL SULFATE 90 MCG/ACT HFA 8 GM INHALER INH PRN (15:15)
[2017-10-22] MEDS ORDERED: LACTULOSE SYRUP 20 GM/30 ML CUP PO PRN (15:15)
[2017-10-22] MEDS ORDERED: SENNOSIDES 8.6 MG TAB PO PRN (15:15)
[2017-10-22] MEDS ORDERED: BISACODYL 10 MG SUPP RECTAL PRN (15:15)
[2017-10-22] MEDS ORDERED: *RESP: ALBUTEROL 2.5 MG/3 ML NEB (PRN) PERIprocedural Use ONLY NEB ONE (15:35)
[2017-10-22] MEDS ORDERED: MIDAZOLAM HCL 2 MG/2 ML VIAL ONE (15:38)
[2017-10-22] MEDS ORDERED: *morphine SULFATE 4 MG/ML PERIprocedure ONLY ONE ×3 (15:42→16:40)
[2017-10-22] MEDS ORDERED: PILL SPLITTER OTHER PRN (15:45)
[2017-10-22] MEDS ORDERED: HEPARIN SODIUM - SQ 10,000 UNITS/ML VIAL SQ SCH (16:00)
[2017-10-22] MEDS: SEVELAMER CARBONATE 800 MG TAB PO SCH (17:29)
[2017-10-22] MEDS: GABAPENTIN 300 MG CAP PO SCH (17:29)
[2017-10-22] MEDS ORDERED: ATORVASTATIN 80 MG TAB PO SCH (21:00)
[2017-10-22] MEDS ORDERED: NON-FORMULARY DRUG (Ranitidine 150 MG) PO SCH (21:00)
[2017-10-22] MEDS ORDERED: DONEPEZIL HCL 5 MG TAB PO SCH (21:00)
[2017-10-22] MEDS ORDERED: CINACALCET HYDROCHLORIDE 30 MG TAB PO SCH (21:00)
[2017-10-22] MEDS: DOCUSATE SODIUM 50 MG/SENNA 8.6 MG TAB PO SCH (21:19)
[2017-10-22] MEDS: clonazePAM 0.5 MG TAB PO SCH (21:19)
[2017-10-22] MEDS: ACETAMINOPHEN/HYDROcodone 325 MG/10 MG TAB PO PRN (21:20)
[2017-10-22] MEDS: PREGABALIN 25 MG CAP PO SCH (21:20)
[2017-10-22] MEDS: FAMOTIDINE 20 MG TAB PO SCH (21:20)
[2017-10-23] VITALS (20 sets, daily range): BP systolic 122–159; BP diastolic 60–72; PULSE 60–85; RESP 16–22; TEMP 98–98.2; O2SAT 98–100
[2017-10-23] MEDS: ACETAMINOPHEN/HYDROcodone 325 MG/10 MG TAB PO PRN ×3 (01:28→16:57)
[2017-10-23 04:41] LABS: HEMATOCRIT 30.8 % (35.0-46.0); HEMOGLOBIN 10.2 GM/DL (11.6-15.3); MEAN CELL VOLUME 99.7 FL (80.0-100.0); MEAN CORPUSCULAR HEMOGLOBIN 32.9 PG (27.0-34.0); MEAN PLATELET VOLUME 8.9 FL (7.0-11.0); PLATELET COUNT 152 TH/MM3 (150-450); RED BLOOD COUNT 3.09 MIL/MM3 (4.00-5.30); RED CELL DISTRIBUTION WIDTH 14.1 % (11.6-17.2); WHITE BLOOD COUNT 12.2 TH/MM3 (4.0-11.0)
[2017-10-23 05:08] LABS: BICARBONATE 26.2 MEQ/L (21.0-32.0); CALCIUM 8.4 MG/DL (8.5-10.1); CREATININE 5.6 MG/DL (0.50-1.00)
--- NOTE | 2017-10-23 06:32 | MP ---
cc: Leonardo Luis MD DATE OF OPERATION: 10/22/2017 PREOPERATIVE DIAGNOSIS: Endstage renal disease, need for dialysis access. POSTOPERATIVE DIAGNOSIS: Endstage renal disease, need for dialysis access. PROCEDURE PERFORMED: Left upper extremity axillary artery, axillary vein AV loop graft. ATTENDING SURGEON: Leonardo Luis MD MDS NURSE SURGEON: Daksha Hernandez ANESTHESIA: General. INDICATIONS: Ms. Bradford is a lady with multiple access attempts and end-stage renal disease. She has preoperative imaging suggested to her left arm axillary artery to axillary vein is a good suitable option. She has no autogenous conduit and so a prosthetic was used. DESCRIPTION OF PROCEDURE: Informed consent was obtained from the patient. She was taken to the operating room and placed supine on the operating table. An appropriate timeout was taken to ensure the patient's identity, operative site and planned procedure. One gram of vancomycin was initiated prior to skin incision and will be discontinued after single preoperative dose. Vancomycin was chosen because of the patient's end-stage renal disease. Everyone in the room agreed with the time-out and we proceeded. Her left arm and chest wall were prepped and draped. An incision made in the patient's axilla, carried down through the subcutaneous tissue with electrocautery. Axillary vein and axillary artery were identified and encircled with vessel loops. The median nerve was carefully protected. A counterincision was made just above the antecubitum and a tunnel was then created between these two and then a 6 mm PTFE was passed through the tunnel. A curvilinear tunnel was made on the anterior aspect of the upper arm and the PTFE was passed back through the curvilinear tunnel. The patient was systemically heparinized with 3000 units of IV heparin. Proximal and distal control of the axillary artery was obtained with profunda clamps and a longitudinal arteriotomy was made with an 11 blade, extended with Aly scissors. The graft was spatulated and sewn end-to-side with running 5-0 Prolene suture. At the completion, it was flushed and noted to be hemostatic. A Babs Softjaw was placed on the graft. Proximal and distal control of the axillary vein was obtained with profunda clamps and a longitudinal venotomy was made with an 11 blade, extended with [place] scissors. The graft was cut to an appropriate length, spatulated and sewn end-to-side with running 5-0 Prolene suture. At the completion, it was flushed and noted to be hemostatic. There was a nice thrill in the graft and a nice Doppler signal in the wrist. The heparin was reversed with protamine. The wound was infiltrated with Marcaine and the wounds were closed with 2-0 Polysorb, 3-0 Polysorb and 4-0 Monocryl. The sponge and needle counts were correct at the end of the case. I was present, scrubbed and performed the entire procedure. Leonardo Luis MD RJF/DL , 05:33 AM , 06:30 AM
--- NOTE | 2017-10-23 07:44 | PD.VS.PN ---
Subjective POD #: 1 Procedure(s): L UE AVG (ax-ax loop) Subjective/Hospital Course Pt notes arm is "sore" but pain controlled hand ok + hungry Objective Vitals/I&O Date Time Temp Pulse Resp B/P (MAP) Pulse Ox O2 Delivery O2 Flow Rate FiO2 10/23/17 06:42 64 10/23/17 05:57 77 10/23/17 03:36 63 10/23/17 03:30 98.0 85 19 128/70 (89) 100 10/23/17 02:59 64 10/23/17 01:00 60 10/23/17 00:00 64 10/22/17 23:40 97.6 70 18 129/59 (82) 99 10/22/17 23:00 63 10/22/17 22:00 68 10/22/17 21:00 68 10/22/17 20:00 70 10/22/17 19:50 65 10/22/17 19:50 97.7 87 19 135/59 (84) 100 10/22/17 17:45 64 20 151/73 (99) 98 10/22/17 17:25 97.8 74 20 155/65 (95) 98 10/22/17 16:30 97.4 66 14 141/66 (91) 100 Nasal Cannula 2 10/22/17 16:15 68 14 141/63 (89) 100 Nasal Cannula 2 10/22/17 16:00 73 14 149/83 (105) 100 Nasal Cannula 2 10/22/17 15:45 72 16 132/61 (84) 100 Aerosol Mask 10/22/17 15:30 97.6 102 16 124/58 (80) 100 Nasal Cannula 3 10/22/17 10:40 97.7 68 16 149/72 (97) 96 10/23/17 10/23/17 10/23/17 07:00 15:00 23:00 Intake Total 720 ml Output Total 300 ml Balance 420 ml Exam: L UE with ecchymoses + thrill hand with normal function incisions look good Laboratory Laboratory Tests Test 10/22/17 11:25 10/23/17 04:20 White Blood Count 9.3 12.2 Red Blood Count 3.07 3.09 Hemoglobin 10.1 10.2 Hematocrit 30.1 30.8 Mean Corpuscular Volume 97.8 99.7 Mean Corpuscular Hemoglobin 33.0 32.9 Mean Corpuscular Hemoglobin Concent 33.7 33.0 Red Cell Distribution Width 13.8 14.1 Platelet Count 160 152 Mean Platelet Volume 9.3 8.9 Neutrophils (%) (Auto) 85.0 Lymphocytes (%) (Auto) 9.9 Monocytes (%) (Auto) 3.6 Eosinophils (%) (Auto) 0.6 Basophils (%) (Auto) 0.9 Neutrophils # (Auto) 7.9 Lymphocytes # (Auto) 0.9 Monocytes # (Auto) 0.3 Eosinophils # (Auto) 0.1 Basophils # (Auto) 0.1 CBC Comment DIFF FINAL Differential Comment Prothrombin Time 11.6 Prothromb Time International Ratio 1.1 Blood Urea Nitrogen 44 50 Creatinine 4.92 5.60 Random Glucose 109 89 Calcium Level 8.3 8.4 Sodium Level 143 138 Potassium Level 4.4 4.7 Chloride Level 107 102 Carbon Dioxide Level 27.4 26.2 Anion Gap 9 10 Estimat Glomerular Filtration Rate 9 8 Assessment and Plan Plan POD#1 s/p L UE AVG Graft patent, hand ok 1. D/C today 2. HD at home at 11a per nephrology 3. F/U 3 weeks in vascular clinic Discharge Planning Admit for overnight obs and anticipate d/c tomorrow (POD#1) after HD Son [phone] Friend [phone] Leonardo Luis MD Oct 23, 2017 07:44
--- NOTE | 2017-10-23 08:52 | PD.VS.DC ---
Discharge Summary Admission Date: Oct 22, 2017 at 15:06 Discharge Date: Oct 23, 2017 Admission Diagnosis: (1) End stage renal disease Discharge Diagnosis: (1) AVF (arteriovenous fistula) ICD Codes: I77.0 - Arteriovenous fistula, acquired (2) End stage renal disease ICD Codes: N18.6 - End stage renal disease Brief History from admission 66 yo female with multiple failed UE access attempts, all elsewhere. Presents for LEFT arm access using prosthetic. Had a diagnostic angio/venogram and showed decent axillary artery and vein. Presents for access creation. [facility] HD via R chest catheter MWF, last HD yesterday. Procedure(s): L UE AVG (ax-ax loop) Significant Findings L UE with ecchymoses + thrill hand with normal function incisions look good Laboratory Tests Test 10/22/17 11:25 10/23/17 04:20 Red Blood Count 3.07 MIL/MM3 (4.00-5.30) 3.09 MIL/MM3 (4.00-5.30) Hemoglobin 10.1 GM/DL (11.6-15.3) 10.2 GM/DL (11.6-15.3) Hematocrit 30.1 % (35.0-46.0) 30.8 % (35.0-46.0) Neutrophils (%) (Auto) 85.0 % (16.0-70.0) Neutrophils # (Auto) 7.9 TH/MM3 (1.8-7.7) Lymphocytes # (Auto) 0.9 TH/MM3 (1.0-4.8) Blood Urea Nitrogen 44 MG/DL (7-18) 50 MG/DL (7-18) Creatinine 4.92 MG/DL (0.50-1.00) 5.60 MG/DL (0.50-1.00) Random Glucose 109 MG/DL (74-106) Calcium Level 8.3 MG/DL (8.5-10.1) 8.4 MG/DL (8.5-10.1) Estimat Glomerular Filtration Rate 9 ML/MIN (>89) 8 ML/MIN (>89) White Blood Count 12.2 TH/MM3 (4.0-11.0) Hospital Course: 66 yo female with multiple failed UE access attempts, all elsewhere. Presents for LEFT arm access using prosthetic. Had a diagnostic angio/venogram and showed decent axillary artery and vein. Presents for access creation. Pt s/p L upper extremity Arteriovenous graft (ax-ax loop) POD 1 Pt notes arm is "sore" but pain controlled hand ok Incision Intact Pt clear for D/C post HD Arrange out pt f/u E -Forcse checked - prescribed 3 day post operative pain medication Allergies Coded Allergies Type Severity Reaction Last Updated Verified Sulfa (Sulfonamide Antibiotics) Allergy Severe HIVES, DIFFICULTY BREATHING Yes adhesive Allergy Severe ADHESIVE TAPE = RASH 10/21/17 Yes bee venom protein (honey bee) Allergy Severe RASH & TONGUE SWELLING 10/21/17 Yes dexamethasone Allergy Severe Shortness of Breath, TONGUE SWELLS 10/21/17 Yes hydromorphone Allergy Severe Hives 10/21/17 Yes iodine Allergy Severe RASH & DIFFICULTY BREATHING 10/21/17 Yes geraldine Allergy Severe swollen tongue and rash 10/21/17 Yes orange Allergy Severe O.J. = RASH AND DIFFICULTY BREATHING 10/21/17 Yes orange juice Allergy Severe Hives and difficulty breathing 10/22/17 Yes oxytetracycline Allergy Severe HIVES & TONGUE SWELLING 10/21/17 Yes potassium iodide Allergy Severe RASH & DIFFICULTY BREATHING 10/21/17 Yes povidone-iodine Allergy Severe RASH & DIFFICULTY BREATHING 10/21/17 Yes sodium iodide Allergy Severe RASH & DIFFICULTY BREATHING 10/21/17 Yes sodium iodide Allergy Severe RASH & DIFFICULTY BREATHING 10/21/17 Yes Influenza Virus Vaccines Allergy Intermediate Rash, vomiting 10/21/17 Yes diatrizoate meglumine Allergy Unknown 10/21/17 Yes gadobenic acid Allergy Unknown 10/21/17 Yes gadodiamide Allergy Unknown 10/21/17 Yes gadoteridol Allergy Unknown 10/21/17 Yes iodixanol Allergy Unknown 10/21/17 Yes iohexol Allergy Unknown 10/21/17 Yes penicillin G Allergy Unknown 10/21/17 Yes 10/21/17 10/21/17 10/22/17 10/22/17 10/23/17 10/23/17 06:00 18:00 06:00 18:00 06:00 18:00 Intake Total 600 ml 720 ml Output Total 50 ml 300 ml Balance 550 ml 420 ml Intake Oral 720 ml IV Total 50 ml Other 550 ml Output Urine Total 300 ml Estimated Blood Loss 50 ml Laboratory Tests Test 10/22/17 11:25 10/23/17 04:20 White Blood Count 9.3 TH/MM3 12.2 TH/MM3 Red Blood Count 3.07 MIL/MM3 3.09 MIL/MM3 Hemoglobin 10.1 GM/DL 10.2 GM/DL Hematocrit 30.1 % 30.8 % Mean Corpuscular Volume 97.8 FL 99.7 FL Mean Corpuscular Hemoglobin 33.0 PG 32.9 PG Mean Corpuscular Hemoglobin Concent 33.7 % 33.0 % Red Cell Distribution Width 13.8 % 14.1 % Platelet Count 160 TH/MM3 152 TH/MM3 Mean Platelet Volume 9.3 FL 8.9 FL Neutrophils (%) (Auto) 85.0 % Lymphocytes (%) (Auto) 9.9 % Monocytes (%) (Auto) 3.6 % Eosinophils (%) (Auto) 0.6 % Basophils (%) (Auto) 0.9 % Neutrophils # (Auto) 7.9 TH/MM3 Lymphocytes # (Auto) 0.9 TH/MM3 Monocytes # (Auto) 0.3 TH/MM3 Eosinophils # (Auto) 0.1 TH/MM3 Basophils # (Auto) 0.1 TH/MM3 CBC Comment DIFF FINAL Differential Comment Prothrombin Time 11.6 SEC Prothromb Time International Ratio 1.1 RATIO Blood Urea Nitrogen 44 MG/DL 50 MG/DL Creatinine 4.92 MG/DL 5.60 MG/DL Random Glucose 109 MG/DL 89 MG/DL Calcium Level 8.3 MG/DL 8.4 MG/DL Sodium Level 143 MEQ/L 138 MEQ/L Potassium Level 4.4 MEQ/L 4.7 MEQ/L Chloride Level 107 MEQ/L 102 MEQ/L Carbon Dioxide Level 27.4 MEQ/L 26.2 MEQ/L Anion Gap 9 MEQ/L 10 MEQ/L Estimat Glomerular Filtration Rate 9 ML/MIN 8 ML/MIN Orders Procedure Category Date Status Time Complete Blood Count LAB 10/22/17 Complete With Diff 10:05 Basic Metabolic Panel LAB 10/22/17 Complete (Bmp) 10:05 Prothrombin Time / LAB 10/22/17 Complete Inr (Pt) 10:05 Type And Screen BBK 10/22/17 Complete 10:05 Lactated Ringer's MED 10/22/17 In Process 1000 Ml Inj (Lr 1000 M 10:30 Sodium Chlorid 0.9% MED 10/22/17 In Process 500 Ml Inj (Ns 500 M 10:30 Metoprolol Tartrate MED 10/22/17 In Process (Lopressor) 10:30 Sodium Chloride 0.9% MED 10/22/17 In Process Flush (Ns Flush) 11:30 Heparin Inj (Heparin MED 10/22/17 In Process Inj) 11:30 Blood Flow Rate [place] 10/22/17 In Process 12:41 Dialysate Flow Rate [place] 10/22/17 In Process 12:41 Dialyzer [place] 10/22/17 In Process 12:41 Concentrate [place] 10/22/17 In Process 12:41 Acid Concentrate [place] 10/22/17 In Process 12:41 Length Of Dialysis [place] 10/22/17 In Process 12:41 Frequency Of Dialysis [place] 10/22/17 In Process 12:41 Dialysis Obtain [place] 10/22/17 In Process 12:41 Needle Size [place] 10/22/17 In Process 12:41 Dialysis Schedule [place] 10/22/17 In Process 12:41 Resp Oxygen Caleb C RSP 10/22/17 Logged Titrat 1-4 L Dialysis Weight [place] 10/22/17 In Process 12:41 ^ Obtain As Needed [place] 10/22/17 In Process 12:41 Sodium Chlor 0.9% MED 10/22/17 In Process 1000 Ml Inj (Ns 1000 M 12:41 Heparin Inj (Heparin MED 10/22/17 In Process Inj) 12:45 Sodium Chlor 0.9% MED 10/22/17 In Process 1000 Ml Inj (Ns 1000 M 12:41 Sodium Chlor 0.9% MED 10/22/17 In Process 1000 Ml Inj (Ns 1000 M 12:41 Mannitol Inj MED 10/22/17 In Process (Mannitol Inj) 12:45 Albumin 25% Inj MED 10/22/17 In Process (Albumin 25% Inj) 12:45 Sodium Chloride 0.9% MED 10/22/17 In Process Flush (Ns Flush) 12:45 Heparin Inj (Heparin MED 10/22/17 In Process Inj) 12:45 Gentamicin Inj MED 10/22/17 In Process (Gentamicin Inj) 12:45 Acetaminophen MED 10/22/17 In Process (Tylenol) 12:45 Diphenhydramine MED 10/22/17 In Process (Benadryl) 12:45 Nitroglycerin Sl MED 10/22/17 In Process (Nitrostat Sl) 12:45 Clonidine (Catapres) MED 10/22/17 In Process 12:45 Gelatin 12 Mm/7 Mm MED 10/22/17 In Process Top (Gelfoam 12 Mm/7 12:45 Ondansetron Odt MED 10/22/17 In Process (Zofran Odt) 13:00 Epoetin Jose Roberto Inj MED 10/22/17 In Process (Epogen Inj) 12:45 Heparin-Ns/Pf Inj MED 10/22/17 Complete (Heparin-Ns/Pf Inj) 13:16 Bupivacaine Pf 0.5% MED 10/22/17 Complete Inj (Marcaine Pf 0.5 13:23 Acetaminophen 1000 MED 10/22/17 Complete Mg/100 Ml (Ofirmev 10 13:24 Famotidine Inj MED 10/22/17 Complete (Pepcid Inj) 13:25 Vancomycin Inj MED 10/22/17 In Process (Vancomycin Inj) 13:39 Consult Nephrology CONS 10/22/17 Transmitted Heparin Inj (Heparin MED 10/22/17 Complete Inj) 14:09 Protamine Sulfate Inj MED 10/22/17 Complete (Protamine Sulfate 14:18 (Hub Use Only)Inp Phy CONS 10/22/17 Transmitted Cons/Ref Place In Observation ADMITTING 10/22/17 Transmitted Code Status CODE 10/22/17 Transmitted 15:03 Vital Signs (Adult) [place] 10/22/17 In Process 15:03 Recycling Tech / [place] 10/22/17 In Process Telemetry 15:03 Activity Oob Ad Johana [place] 10/22/17 In Process 15:03 Precautions [place] 10/22/17 In Process 15:03 Diet Heart Healthy DIET 10/22/17 Transmitted Dinner Basic Metabolic Panel LAB 10/23/17 Complete (Bmp) 06:00 Cbc No Diff, Includes LAB 10/23/17 Complete Plts 06:00 Aspirin Chew (Aspirin MED 10/23/17 In Process Chew) 09:00 Heparin Inj (Heparin MED 10/22/17 Complete Inj) 16:00 Scd Bilateral/Knee [place] 10/22/17 In Process High 15:03 Docusate Sodium-Senna MED 10/22/17 In Process (Jailyn-Colace) 21:00 Sennosides (Senokot) MED 10/22/17 In Process 15:15 Bisacodyl Supp MED 10/22/17 In Process (Dulcolax Supp) 15:15 Lactulose Liq MED 10/22/17 In Process (Lactulose Liq) 15:15 Albuterol Hfa Inh MED 10/22/17 In Process (Proair Hfa Inh) 15:15 Albuterol MED 10/22/17 In Process Concentrated Neb 15:15 Allopurinol (Zyloprim) MED 10/23/17 In Process 09:00 Atorvastatin (Lipitor) MED 10/22/17 In Process 21:00 Cinacalcet (Sensipar) MED 10/22/17 In Process 21:00 Clonazepam (Klonopin) MED 10/22/17 In Process 18:00 Donepezil (Aricept) MED 10/22/17 In Process 21:00 Gabapentin (Neurontin) MED 10/22/17 In Process 18:00 Meclizine (Antivert) MED 10/22/17 In Process 15:15 Multivitamins-Minerals MED 10/23/17 In Process Therap (Theragran 09:00 Pregabalin (Lyrica) MED 10/22/17 In Process 18:00 Sevelamer (Renvela) MED 10/22/17 In Process 18:00 Sds Pre Op Care [facility] 10/22/17 Complete *Albuterol Neb MED 10/22/17 Complete (*Albuterol Neb 15:35 Famotidine (Pepcid) MED 10/22/17 In Process 21:00 Pill Splitter (Pill MED 10/22/17 In Process Splitter) 15:45 Fentanyl Inj MED 10/22/17 Complete (Fentanyl Inj) 15:38 Midazolam Inj (Versed MED 10/22/17 Complete Inj) 15:38 *Morphine Inj MED 10/22/17 Complete (*Morphine Inj 15:42 Nursing Information MED 10/22/17 In Process (Misc Nursing Inform 14:28 *Morphine Inj MED 10/22/17 Complete (*Morphine Inj 16:11 Heparin Inj (Heparin MED 10/23/17 In Process Inj) 14:00 *Morphine Inj MED 10/22/17 Complete (*Morphine Inj 16:40 Class Iv [facility]u Ea 30 [facility] 10/22/17 Complete MIN General/Pacu [facility] 6/21/18 Complete Post Anesthesia [facility] 10/22/17 Complete [facility] 10/22/17 Complete Aerosol Acetamin-Hydrocod MED 10/22/17 In Process 325-10 Mg ([place] 10-32 20:30 Attending Discharge DISCHARGE 10/23/17 Transmitted Order Vital Signs Date Time Temp Pulse Resp B/P (MAP) Pulse Ox O2 Delivery O2 Flow Rate FiO2 10/23/17 07:30 98.1 71 16 122/60 (80) 100 10/23/17 06:42 64 10/23/17 05:57 77 10/23/17 03:36 63 10/23/17 03:30 98.0 85 19 128/70 (89) 100 10/23/17 02:59 64 10/23/17 01:00 60 10/23/17 00:00 64 10/22/17 23:40 97.6 70 18 129/59 (82) 99 10/22/17 23:00 63 10/22/17 22:00 68 10/22/17 21:00 68 10/22/17 20:00 70 10/22/17 19:50 65 10/22/17 19:50 97.7 87 19 135/59 (84) 100 10/22/17 17:45 64 20 151/73 (99) 98 10/22/17 17:25 97.8 74 20 155/65 (95) 98 10/22/17 16:30 97.4 66 14 141/66 (91) 100 Nasal Cannula 2 10/22/17 16:15 68 14 141/63 (89) 100 Nasal Cannula 2 10/22/17 16:00 73 14 149/83 (105) 100 Nasal Cannula 2 10/22/17 15:45 72 16 132/61 (84) 100 Aerosol Mask 10/22/17 15:30 97.6 102 16 124/58 (80) 100 Nasal Cannula 3 10/22/17 10:40 97.7 68 16 149/72 (97) 96 Discharge Condition: Good Discharge Disposition: Discharge Home Discharge Instructions: DIET You may resume your dialysis diet ACTIVITY Activity as tolerated No heavy lifting over a gallon of milk (LEFT ARM) for 10 days No B/P readings or lab draws - LEFT ARM You may shower then pat dry incision sites No tub baths or swimming until your incision is fully healed WOUND CARE Leave open to air Call the office ([phone]) to report any new onset increased redness, drainage, swelling or pain Do not apply any creams or ointments to your incisions as it may loosen the surgical glue MEDICATIONS You may resume your daily home medications You were prescribed a narcotic pain medication that may cause constipation- Take with an over the counter stool softener You were prescribed a narcotic pain medication that may cause drowsiness- No driving while taking this medication Any questions or concerns: Call [facility] at [facility] [phone] Collette Nunez Oct 23, 2017 08:52
[2017-10-23] MEDS ORDERED: MULTIVITAMINS/MINERALS THERAPEUTIC TAB PO SCH (09:00)
[2017-10-23] MEDS: DOCUSATE SODIUM 50 MG/SENNA 8.6 MG TAB PO SCH (09:00)
[2017-10-23] MEDS ORDERED: ASPIRIN 81 MG CHEW TAB PO SCH (09:00)
[2017-10-23] MEDS ORDERED: ALLOPURINOL 100 MG TAB PO SCH (09:00)
[2017-10-23] MEDS: FAMOTIDINE 20 MG TAB PO SCH (09:12)
[2017-10-23] MEDS: SEVELAMER CARBONATE 800 MG TAB PO SCH ×2 (09:12→12:19)
[2017-10-23] MEDS: clonazePAM 0.5 MG TAB PO SCH ×2 (09:13→12:19)
[2017-10-23] MEDS: GABAPENTIN 300 MG CAP PO SCH ×2 (09:14→12:19)
[2017-10-23] MEDS: PREGABALIN 25 MG CAP PO SCH ×2 (09:14→12:19)
[2017-10-23] MEDS: SODIUM CHLORID 0.9% 500 ML IV PRN ×2 (12:30→13:12)
[2017-10-23] MEDS ORDERED: HEPARIN SODIUM - SQ 10,000 UNITS/ML VIAL SQ SCH (14:00)
--- NOTE | 2017-10-23 17:00 | HHI.NPPN ---
Objective Data Data 10/23/17 10/24/17 19:00 07:00 Output Total 1500 ml Balance -1500 ml Hemodialysis 1500 ml Vital Signs Date Time Temp Pulse Resp B/P (MAP) Pulse Ox O2 Delivery O2 Flow Rate FiO2 10/23/17 16:30 77 22 150/67 (94) 98 10/23/17 16:00 76 10/23/17 15:00 67 10/23/17 14:00 69 10/23/17 13:00 68 10/23/17 12:00 68 10/23/17 11:00 70 10/23/17 11:00 98.2 74 18 159/72 (101) 98 10/23/17 10:30 18 10/23/17 10:00 66 10/23/17 09:47 99 21 10/23/17 09:00 82 10/23/17 08:00 76 10/23/17 07:30 98.1 71 16 122/60 (80) 100 10/23/17 07:00 69 10/23/17 06:42 64 10/23/17 05:57 77 10/23/17 03:36 63 10/23/17 03:30 98.0 85 19 128/70 (89) 100 10/23/17 02:59 64 10/23/17 01:00 60 10/23/17 00:00 64 10/22/17 23:40 97.6 70 18 129/59 (82) 99 10/22/17 23:00 63 10/22/17 22:00 68 10/22/17 21:00 68 10/22/17 20:00 70 10/22/17 19:50 65 10/22/17 19:50 97.7 87 19 135/59 (84) 100 10/22/17 17:45 64 20 151/73 (99) 98 10/22/17 17:25 97.8 74 20 155/65 (95) 98 -: 10/23/17 0420 10/23/17 0420 Physical Exam General Appearance: Well Developed, Well Nourished Neck Neck Exam: Neck Supple Pulmonary Resp Exam: Clear Bilaterally, Breath Sounds Equal Cardiology CV Exam: Regular Gastrointestinal/Abdomen GI Exam: Soft, Non-Tender, Bowel Sounds Present Extremeties Extremities Exam: No Edema Extremeties Remarks VF L pos thrill Assessment/Plan Problem List: (1) ESRD (end stage renal disease) on dialysis ICD Codes: N18.6 - End stage renal failure on dialysis; Z99.2 - Dependence on renal dialysis Status: Chronic Plan: Typical MWF HD HD done 1.5L removed AVF L thrill pos CVC in place for HD High protein diet encouraged (2) AV fistula occlusion ICD Codes: T82.898A - Other specified complication of vascular prosthetic devices, implants and grafts, initial encounter Status: Acute Plan: Vascular following To OR 10/22 for new access creation on left To follow up outpatient in few weeks (3) HTN (hypertension) ICD Codes: I10 - HTN (hypertension) Status: Chronic Plan: Resume home medications (4) Anemia ICD Codes: D64.9 - Anemia Status: Acute Plan: Epogen with dialysis has been ordered Gomez Pyle MD Oct 23, 2017 17:00
[2017-10-24] MEDS ORDERED: GABAPENTIN 300 MG CAP PO SCH (13:00)
== END 2017-10-23 17:30 | disposition home or self-care (01) ==
LOC: HSDC 09:42 → HCPC 15:06
PROVIDERS: ADMIT Surgery; ATTEND Surgery
DX: I12.0 Hypertensive chronic kidney disease with stage 5 chronic kidney disease or end stage renal disease (principal); N18.6 End stage renal disease; D63.1 Anemia in chronic kidney disease; T82.898A Other specified complication of vascular prosthetic devices, implants and grafts, initial encounter; I25.10 Atherosclerotic heart disease of native coronary artery without angina pectoris; I25.2 Old myocardial infarction; E78.5 Hyperlipidemia, unspecified; E88.89 Other specified metabolic disorders; B19.20 Unspecified viral hepatitis C without hepatic coma; N25.81 Secondary hyperparathyroidism of renal origin; K21.9 Gastro-esophageal reflux disease without esophagitis; M54.30 Sciatica, unspecified side; F41.9 Anxiety disorder, unspecified; Z86.73 Personal history of transient ischemic attack (TIA), and cerebral infarction without residual deficits; Z99.2 Dependence on renal dialysis; Y83.2 Surgical operation with anastomosis, bypass or graft as the cause of abnormal reaction of the patient, or of later complication, without mention of misadventure at the time of the procedure
CPT/HCPCS: 01844; 36825; 80048; 85025; 85027; 85610; 86850; 86900; 86901; 94664; 96374; 96375; C1768; G0257; J0131; J1580; J1644; J2250; J2270; J2405; J2710; J2720; J3010; J3370; J7040; J7050; J7613; Q4081; 90935; G0378

== ENCOUNTER 2017-12-19 13:52 | Inpatient (IN) ==
[2017-12-19] MEDS ORDERED: Vancomycin Inj 1 GM/200 ML PIGGYBACK IV.SIG ONE (15:56)
--- NOTE | 2017-12-19 16:45 | XR ---
EXAM DATE: 12/19/2017 4:42 PM EDT AGE/SEX: 67 years / Female INDICATIONS: Shortness of breath. CLINICAL DATA: This is the patient's initial encounter. Patient reports that signs and symptoms have been present for 2 days and indicates a pain score of 0/10. MEDICAL/SURGICAL HISTORY: . Renal disease, end stage. Chronic obstructive pulmonary disease. Ar thritis. . Tonsillectomy. Cardiac recorder. Vas-cath. COMPARISON: C, CHEST SINGLE AP, 02/08/2017. . FINDINGS: Cardiac event recorder in place. Right IJ dialysis catheter with tip in the proximal right atrium. Ri ght upper extremity stents. No new focal pleural or parenchymal opacities. Cardiomediastinal contours are within normal limits. Bony thorax is intact. CONCLUSION: 1. No acute abnormality. Electronically signed by: Hayden Hinds MD 12/19/2017 4:44 PM EDT
[2017-12-19] MEDS ORDERED: Vancomycin Inj 1,000 MG in Sodium Chlor 0.9% Inj 250 ML IV.SIG ONE (17:00)
[2017-12-19 17:15] LABS: Bilirubin,Urine Negative (Negative); Clarity,Urine Hazy (Clear); Color,Urine Yellow (Yellw/Straw); Glucose,Urine (UA) Negative (Negative); Leukocyte Esterase,Urine Small (Negative); Nitrite,Urine Negative (Negative); Specific Gravity,Urine 1.016 (1.002-1.035); Squamous Epithelial Cell,Urine 5 /hpf (0-5)
[2017-12-19 17:16] LABS: Baso % (Auto) 0.8 % (0.0-2.0); Eos # (Auto) 0.1 th/mm3 (0.0-0.4); Hemoglobin 11.5 gm/dL (11.6-15.3); Lymph # (Auto) 0.8 th/mm3 (1.0-4.8); Lymph % (Auto) 13.4 % (9.0-44.0); Mean Corpuscular HGB Conc 32.9 % (32.0-36.0); Mean Corpuscular Hemoglobin 33.1 pg (27.0-34.0); Mean Corpuscular Volume 100.8 fL (80.0-100.0); Mean Platelet Volume 9.7 fL (7.0-11.0); Mono # (Auto) 0.4 th/mm3 (0.0-0.9); Mono % (Auto) 5.7 % (0.0-8.0); Neut # (Auto) 4.9 th/mm3 (1.8-7.7); Neut % (Auto) 79.1 % (16.0-70.0); Platelet Count 133 th/mm3 (150-450); Red Blood Count 3.47 mil/mm3 (4.00-5.30); Red Cell Distribution Width 15.3 % (11.6-17.2); White Blood Count 6.2 th/mm3 (4.0-11.0)
[2017-12-19 17:36] LABS: Alkaline Phosphatase 233 U/L (45-117); Total Protein 7.4 g/dL (6.4-8.2)
[2017-12-19] MEDS ORDERED: Morphine Inj 4 MG/ML Vial IV.PUSH ONE (18:02)
--- NOTE | 2017-12-19 18:25 | ED ---
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 Patient had a fistula in place since October. This was done by Dr. Luis. Per patient she has used it for a few weeks now for her dialysis and she used it this week. Last time yesterday. Per patient she had no issues yesterday after her dialysis but today this morning she woke up with swelling and redness on her fistula site. Per patient is becoming more red and more painful. She has never had this reaction before. She is concerned for infection. She denies any fevers but states having some chills. No chest pain or shortness of breath. She states that the pain is 10 out of 10 on the left arm. Able to move it fully however. She does have an area of erythema on the anterior aspect of the fistula. No urinary or bowel movement issues. She still able to make urine. Related Data Home Medications Medication Instructions Recorded Confirmed Lipitor 80 mg DAILY 12/19/17 12/19/17 Lyrica 300 mg BID 12/19/17 12/19/17 Renvela 800 mg TID 12/19/17 12/19/17 Sensipar 30 mg DAILY 12/19/17 12/19/17 Zantac 150 mg BID 12/19/17 12/19/17 albuterol sulfate 0.3 mg QID PRN 12/19/17 12/19/17 allopurinol 150 mg DAILY 12/19/17 12/19/17 biotin 5,000 mcg DAILY 12/19/17 12/19/17 clonazepam 0.5 mg TID 12/19/17 12/19/17 donepezil 5 mg HS 12/19/17 12/19/17 gabapentin 300 mg TID 12/19/17 12/19/17 meclizine 25 mg TID 12/19/17 12/19/17 oxycodone-acetaminophen 10 mg QID 12/19/17 12/19/17 Previous Rx's Medication Instructions Recorded Zofran 4 mg PO Q4HR PRN #0 12/19/17 Allergies Allergy/AdvReac Type Severity Reaction Status Date / Time adhesive Allergy Severe ADHESIVE Verified 10/21/17 11:33 TAPE = RASH bee venom protein (honey bee) Allergy Severe RASH & Verified 10/21/17 11:33 TONGUE SWELLING dexamethasone Allergy Severe Shortness Verified 10/21/17 11:33 of Breath, TONGUE SWELLS hydromorphone Allergy Severe Hives Verified 10/21/17 11:33 iodine Allergy Severe RASH & Verified 10/21/17 11:33 DIFFICULTY BREATHING geraldine Allergy Severe swollen Verified 10/21/17 11:33 tongue and rash orange Allergy Severe O.J. = Verified 10/21/17 11:33 RASH AND DIFFICULTY BREATHING orange juice Allergy Severe Hives and Verified 10/22/17 11:01 difficulty breathing oxytetracycline Allergy Severe HIVES & Verified 10/21/17 11:33 TONGUE SWELLING potassium iodide Allergy Severe RASH & Verified 10/21/17 11:33 DIFFICULTY BREATHING povidone-iodine Allergy Severe RASH & Verified 10/21/17 11:33 DIFFICULTY BREATHING sodium iodide Allergy Severe RASH & Verified 10/21/17 11:33 DIFFICULTY BREATHING sodium iodide Allergy Severe RASH & Verified 10/21/17 11:33 DIFFICULTY BREATHING Sulfa (Sulfonamide Allergy Severe HIVES, Verified 10/21/17 11:33 Antibiotics) DIFFICULTY BREATHING Influenza Virus Vaccines Allergy Intermediate Rash, Verified 10/21/17 11:33 vomiting diatrizoate meglumine Allergy Unknown Rash Verified 12/19/17 16:38 gadobenic acid Allergy Unknown Rash Verified 12/19/17 16:38 gadodiamide Allergy Unknown Rash Verified 12/19/17 16:38 gadoteridol Allergy Unknown Rash Verified 12/19/17 16:38 iodixanol Allergy Unknown Rash Verified 12/19/17 16:38 iohexol Allergy Unknown Rash Verified 12/19/17 16:38 penicillin G Allergy Unknown Rash Verified 12/19/17 16:38 Review of Systems ROS: all other systems reviewed are negative [facility] Medical History Medical History AV fistula (Acute) Acid reflux (Acute) CAD (coronary artery disease) (Acute) COPD (chronic obstructive pulmonary disease) (Acute) Chronic back pain (Acute) Chronic renal disease (Acute) Dialysis AV fistula infection (Acute) Elevated cholesterol (Acute) History of heart attack (Acute) Hypertension (Acute) Sleep apnea (Acute) Stroke (Acute) Tubal ligation status (Acute) Varicose vein of leg (Acute) Surgical History Surgical History History of loop recorder (Acute) Hx of tubal ligation (Acute) Social History Social History Substance History: No History of Abuse Smoking Status: Former smoker Tobacco Type: Cigarettes Packs Per Day: 1 Cigarettes Per Day: 20.0 Years Smoked: 1 Pack-Years: 1.00 How Often Do You Have a Drink Containing Alcohol: Monthly or less Recent Travel in [facility] within the Last 8 Weeks: No Recent Out of Country Travel within the Last 8 Weeks: No Immunization History Tetanus Immunization: <5 Years Hx Influenza Vaccine This Season: Yes Exam Narrative Exam Narrative: GENERAL: Well appearing SKIN: Focused skin assessment warm/dry. Patient has an area of erythema on the left biceps. Warm to the touch. About 10 cm in diameter. No obvious sign of purulence however. Fistula appears to be patent. 2+ pulses in the left arm and right arm. HEAD: Atraumatic. Normocephalic. EYES: Pupils equal and round. No scleral icterus. No injection or drainage. ENT: No nasal bleeding or discharge. Mucous membranes pink and moist. Tongue is midline. No uvula deviation. NECK: Trachea midline. No JVD. CARDIOVASCULAR: Regular rate and rhythm. No murmur appreciated. RESPIRATORY: No accessory muscle use. Clear to auscultation. Breath sounds equal bilaterally. GASTROINTESTINAL: Abdomen soft, non-tender, nondistended. Hepatic and splenic margins not palpable. MUSCULOSKELETAL: No obvious deformities. No clubbing. No cyanosis. No edema. NEUROLOGICAL: Awake and alert. No obvious cranial nerve deficits. Motor grossly within normal limits. Normal speech. PSYCHIATRIC: Appropriate mood and affect; insight and judgment normal. Course Initial Documented Vital Signs Temperature 99.3 F 12/19/17 14:06 Pulse Rate 20 L 12/19/17 14:06 Respiratory Rate 20 12/19/17 14:06 Blood Pressure 163/81 H 12/19/17 14:06 Pulse Oximetry 97 12/19/17 14:06 Last Documented Vital Signs Temperature 99.7 F H 12/19/17 17:29 Pulse Rate 100 H 12/19/17 20:37 Respiratory Rate 16 12/19/17 20:37 Blood Pressure 123/62 12/19/17 18:19 Pulse Oximetry 98 12/19/17 20:37 Medical Decision Making MDM Narrative Medical decision making narrative: 67-year-old female that presents to the ED for evaluation of possible infection to the left arm. Patient was properly examined and was found to have signs and symptoms which appear to be consistent with appears to be cellulitis. Labs and imaging order. Patient is a hard stick so vascular access was called. Labs and imaging came back and did not show any sign of acute disease alert and what appears to be chronic kidney disease. Ultrasound did show what appears to be superficial as well as deep DVT. There is still some concern for infection especially where the bursitis. Recommendation at this time is for admission for further evaluation and treatment. Patient agrees with this. Case discussed with the residents agreed to admission to their service. Medical Screen Exam Complete: Yes Emergency Medical Condition: Yes Differential Diagnosis Differential Diagnosis: DVT versus cellulitis versus infected fistula Medical Records Medical records reviewed: Yes I reviewed the patient's medical records. Lab Data Lab results reviewed: Yes I reviewed the patient's lab results. Lab results narrative: Lactic acid slightly elevated at 2.1 Result diagrams: 12/19/17 16:34 12/19/17 16:34 Lab Results 12/19/17 12/19/17 12/19/17 Range/Units 16:17 16:34 16:34 WBC 6.2 (4.0-11.0) th/mm3 RBC 3.47 L (4.00-5.30) mil/mm3 Hgb 11.5 L (11.6-15.3) gm/dL Hct 35.0 (35.0-46.0) % MCV 100.8 H (80.0-100.0) fL MCH 33.1 (27.0-34.0) pg MCHC 32.9 (32.0-36.0) % RDW 15.3 (11.6-17.2) % Plt Count 133 L (150-450) th/mm3 MPV 9.7 (7.0-11.0) fL Neut % (Auto) 79.1 H (16.0-70.0) % Lymph % (Auto) 13.4 (9.0-44.0) % [place] % (Auto) 5.7 (0.0-8.0) % Eos % (Auto) 1.0 (0.0-4.0) % Baso % (Auto) 0.8 (0.0-2.0) % Neut # (Auto) 4.9 (1.8-7.7) th/mm3 Lymph # (Auto) 0.8 L (1.0-4.8) th/mm3 [place] # (Auto) 0.4 (0.0-0.9) th/mm3 Eos # (Auto) 0.1 (0.0-0.4) th/mm3 Baso # (Auto) 0.0 (0.0-0.2) th/mm3 WBC Differential . Differential Comment Auto diff final Sodium 145 (136-145) meq/L Potassium 4.8 (3.5-5.1) meq/L Chloride 108 H (98-107) meq/L Carbon Dioxide 27.9 (21.0-32.0) meq/L Anion Gap 9 (5-15) meq/L BUN 44 H (7-18) mg/dL Creatinine 5.59 H (0.50-1.00) mg/dL Estimated GFR 8 L (>89) mL/min Random Glucose 81 (74-106) mg/dL Lactic Acid 2.1 H (0.4-2.0) mmol/L Calcium 9.4 (8.5-10.1) mg/dL Total Bilirubin 0.3 (0.2-1.0) mg/dL AST 27 (15-37) U/L ALT 34 (10-53) U/L Alkaline Phosphatase 233 H (45-117) U/L Total Protein 7.4 (6.4-8.2) g/dL Albumin 4.0 (3.4-5.0) g/dL Urine Color (Yellw/Straw) Urine Clarity (Clear) Urine pH (5.0-8.5) Ur Specific [place] (1.002-1.035) Urine Protein (Neg-Trace) mg/dL Urine Glucose (UA) (Negative) mg/dL Urine Ketones (Negative) mg/dL Urine Occult Blood (Negative) Urine Nitrate (Negative) Urine Bilirubin (Negative) Urine Urobilinogen (Less than 2) mg/dL Ur Leukocyte Esterase (Negative) Urine RBC (0-3) /hpf Urine WBC (0-5) /hpf Ur Squamous Epith Cells (0-5) /hpf Micro UA Comment Urine Culture Comments 12/19/17 12/19/17 Range/Units 16:34 19:38 WBC (4.0-11.0) th/mm3 RBC (4.00-5.30) mil/mm3 Hgb (11.6-15.3) gm/dL Hct (35.0-46.0) % MCV (80.0-100.0) fL MCH (27.0-34.0) pg MCHC (32.0-36.0) % RDW (11.6-17.2) % Plt Count (150-450) th/mm3 MPV (7.0-11.0) fL Neut % (Auto) (16.0-70.0) % Lymph % (Auto) (9.0-44.0) % [place] % (Auto) (0.0-8.0) % Eos % (Auto) (0.0-4.0) % Baso % (Auto) (0.0-2.0) % Neut # (Auto) (1.8-7.7) th/mm3 Lymph # (Auto) (1.0-4.8) th/mm3 [place] # (Auto) (0.0-0.9) th/mm3 Eos # (Auto) (0.0-0.4) th/mm3 Baso # (Auto) (0.0-0.2) th/mm3 WBC Differential Differential Comment Sodium (136-145) meq/L Potassium (3.5-5.1) meq/L Chloride (98-107) meq/L Carbon Dioxide (21.0-32.0) meq/L Anion Gap (5-15) meq/L BUN (7-18) mg/dL Creatinine (0.50-1.00) mg/dL Estimated GFR (>89) mL/min Random Glucose (74-106) mg/dL Lactic Acid 1.4 (0.4-2.0) mmol/L Calcium (8.5-10.1) mg/dL Total Bilirubin (0.2-1.0) mg/dL AST (15-37) U/L ALT (10-53) U/L Alkaline Phosphatase (45-117) U/L Total Protein (6.4-8.2) g/dL Albumin (3.4-5.0) g/dL Urine Color Yellow (Yellw/Straw) Urine Clarity Hazy H (Clear) Urine pH 7.0 (5.0-8.5) Ur Specific [place] 1.016 (1.002-1.035) Urine Protein 30 H (Neg-Trace) mg/dL Urine Glucose (UA) Negative (Negative) mg/dL Urine Ketones Negative (Negative) mg/dL Urine Occult Blood Negative (Negative) Urine Nitrate Negative (Negative) Urine Bilirubin Negative (Negative) Urine Urobilinogen Less than 2 (Less than 2) mg/dL Ur Leukocyte Esterase Small H (Negative) Urine RBC 1 (0-3) /hpf Urine WBC 15 H (0-5) /hpf Ur Squamous Epith Cells 5 (0-5) /hpf Micro UA Comment Culture indicated Urine Culture Comments Culture indicated Imaging Data Attestation: I personally reviewed and interpreted this imaging study as follows : Radiologist's impression: Chest X-Ray 12/19/17 15:27 CONCLUSION: 1. No acute abnormality. Venous Doppler Study 12/19/17 15:56 CONCLUSION: 1. Evidence of both deep and superficial venous thrombosis with absent flow seen in both cephalic and brachial veins. Discharge Plan Discharge Disposition Patient Disposition: 30 Still Patient Discharge Details Diagnosis: Cellulitis, DVT (deep venous thrombosis) Physicians Team ED Provider: Skyler Johnson ED Midlevel Provider: Abdias Lott Primary Care Provider: Mindi Mazariegos Attending Provider: Elisabeth Andrews Discharge Interventions Interventions: Vital Signs Last Done: 12/19/17 18:19 Status ED Status: Admitted Patient
[2017-12-19 18:29] LABS: Alanine Aminotransferase 34 U/L (10-53); Anion Gap 9 meq/L (5-15); Aspartate Aminotransferase 27 U/L (15-37); Blood Urea Nitrogen 44 mg/dL (7-18); Calcium 9.4 mg/dL (8.5-10.1); Carbon Dioxide 27.9 meq/L (21.0-32.0); Chloride 108 meq/L (98-107); Glomerular Filtration Rate 8 mL/min (>89); Glucose,Random 81 mg/dL (74-106); Potassium 4.8 meq/L (3.5-5.1); Sodium 145 meq/L (136-145)
--- NOTE | 2017-12-19 19:24 | US ---
EXAM DATE: 12/19/2017 7:14 PM EDT AGE/SEX: 67 years / Female INDICATIONS: Left arm swelling. CLINICAL DATA: This is the patient's initial encounter. Patient reports that signs and symptoms have been present for 1 day and indicates a pain score of 10/10. MEDICAL/SURGICAL HISTORY: Hypertension. Hepatitis C. Stroke. Acid reflux. Chronic renal dise ase. AV fistula. Sleep apnea. Tubal ligation. Loop recorder. COMPARISON: [facility] [place], US ARM BILATERAL VENOUS DOPPLER, 11/29/2014. . FINDINGS: Flow is documented in the subclavian and axillary vein. No flow seen in the brachial vein in the proximal and midportion. No flow is seen in the ulnar vein. Absent flow in the cephalic vein. Other: None. CONCLUSION: 1. Evidence of both deep and superficial venous thrombosis with absent flow seen in both cephalic an d brachial veins. Electronically signed by: Yusuf Armstrong MD 12/19/2017 7:23 PM EDT
--- NOTE | 2017-12-19 19:26 | P.HPFP ---
History of Present Illness Primary Care Physician: Mindi Mazariegos MD, R2 Chief Complaint: left arm pain History of Present Illness: 67y/o F w/hx of CKD, COPD, and NJ presenting w/left arm pain and swelling. Patient states that she woke up this morning w/swelling. Saw a little white dot on her arm and wiped it with alcohol wipe. Afterwards, it started to bleed, which soon resolved. Gunpowder pain which continued to worsen; because of the pain, she called her dialysis center ( [facility]) and was advised to go to the ED. Pain, swelling, warmth, and redness are noted at the AV fistula site (axilla, flexor surface of arm, extends to elbow). Has had this AV fistula in place since October via Dr. Luis. Arm pain is 10/10. Able to move arm. No fevers, nausea or vomiting, or diarrhea. Says she has a little bit of chest pain and shortness of breath. Is feeling cold. No hx of infections in the past. Had a right AV fistula previously that "clotted up" about 4 months ago. A catheter in the right upper chest was placed for dialysis, but "this also clotted up." Patient states that it has been planned for it to be removed soon, as been seeing vascular surgery for this. Attends dialysis MWF, last went to dialysis on Thursday. Has a hx of back pain, uses a walker for moving around. Currently complains of back pain because she only had one dose of pain medication. Usually takes 4 times/day. Sees nephrology (Dr. Farrell), vascular surgery (Dr. Luis), and pain management (Dr. Conrad). - Diagnosis (1) Pain and swelling of left upper extremity (2) Chest pain (3) CKD (chronic kidney disease) (4) COPD (chronic obstructive pulmonary disease) (5) CAD (coronary artery disease) (6) Chronic pain (7) High cholesterol (8) GERD (gastroesophageal reflux disease) Estimated Total Length of Stay (Days): 2 Plans for Post Hospital Care: Home Review of Systems Constitutional: Denies fever(s), Denies headache(s), Denies weight loss Eyes: Denies blurry vision, Denies change in vision Ears, Nose, Mouth, and Throat: Denies difficulty swallowing, Denies lip swelling , Denies nasal discharge Cardiovascular: Reports chest pain, Reports shortness of breath, Denies leg swelling, Denies lightheadedness, Denies radiating jaw, neck or arm pain Respiratory: Denies cough Gastrointestinal: Denies abdominal pain, Denies constipation, Denies cramping Genitourinary: Denies abnormal vaginal bleeding, Denies blood in urine Musculoskeletal: Reports joint pain Neurologic: Denies confusion, Denies dizziness, Denies loss of vision Endocrine: Denies excessive sweating PMFSH - History History Provided By: Patient - Medical History Medical History: Medical History (Last Updated 12/19/17 @ 19:24 by Sapna Yousif MD, R2) AV fistula Acid reflux CAD (coronary artery disease) COPD (chronic obstructive pulmonary disease) Chronic back pain Chronic renal disease Dialysis AV fistula infection Elevated cholesterol History of heart attack Hypertension Sleep apnea Stroke Tubal ligation status Varicose vein of leg - Surgical History Surgical History: Surgical History (Last Updated 12/19/17 @ 19:24 by Sapna Yousif MD, R2) History of loop recorder Hx of tubal ligation - Tobacco History Smoking Status: Former smoker Tobacco Type: Cigarettes Packs Per Day: 1 Years Smoked: 1 - Alcohol History How Often Do You Have a Drink Containing Alcohol: Monthly or less - Substance Use History Substance History: No History of Abuse - Travel History Recent Travel in the [place] Within the Last 8 Weeks: No Recent Travel Out of the Country Within the Last 8 Weeks: No - Immunization History Tetanus Immunization: <5 Years Hx Influenza Vaccine This Season: Yes Medications and Allergies Allergies Allergy/AdvReac Type Severity Reaction Status Date / Time adhesive Allergy Severe ADHESIVE Verified 10/21/17 11:33 TAPE = RASH bee venom protein (honey bee) Allergy Severe RASH & Verified 10/21/17 11:33 TONGUE SWELLING dexamethasone Allergy Severe Shortness Verified 10/21/17 11:33 of Breath, TONGUE SWELLS hydromorphone Allergy Severe Hives Verified 10/21/17 11:33 iodine Allergy Severe RASH & Verified 10/21/17 11:33 DIFFICULTY BREATHING geraldine Allergy Severe swollen Verified 10/21/17 11:33 tongue and rash orange Allergy Severe O.J. = Verified 10/21/17 11:33 RASH AND DIFFICULTY BREATHING orange juice Allergy Severe Hives and Verified 10/22/17 11:01 difficulty breathing oxytetracycline Allergy Severe HIVES & Verified 10/21/17 11:33 TONGUE SWELLING potassium iodide Allergy Severe RASH & Verified 10/21/17 11:33 DIFFICULTY BREATHING povidone-iodine Allergy Severe RASH & Verified 10/21/17 11:33 DIFFICULTY BREATHING sodium iodide Allergy Severe RASH & Verified 10/21/17 11:33 DIFFICULTY BREATHING sodium iodide Allergy Severe RASH & Verified 10/21/17 11:33 DIFFICULTY BREATHING Sulfa (Sulfonamide Allergy Severe HIVES, Verified 10/21/17 11:33 Antibiotics) DIFFICULTY BREATHING Influenza Virus Vaccines Allergy Intermediate Rash, Verified 10/21/17 11:33 vomiting diatrizoate meglumine Allergy Unknown Rash Verified 12/19/17 16:38 gadobenic acid Allergy Unknown Rash Verified 12/19/17 16:38 gadodiamide Allergy Unknown Rash Verified 12/19/17 16:38 gadoteridol Allergy Unknown Rash Verified 12/19/17 16:38 iodixanol Allergy Unknown Rash Verified 12/19/17 16:38 iohexol Allergy Unknown Rash Verified 12/19/17 16:38 penicillin G Allergy Unknown Rash Verified 12/19/17 16:38 Home Medications Medication Instructions Recorded Confirmed Type Lipitor 80 mg DAILY 12/19/17 12/19/17 History Lyrica 300 mg BID 12/19/17 12/19/17 History Renvela 800 mg TID 12/19/17 12/19/17 History Sensipar 30 mg DAILY 12/19/17 12/19/17 History Zantac 150 mg BID 12/19/17 12/19/17 History albuterol sulfate 0.3 mg QID PRN 12/19/17 12/19/17 History allopurinol 150 mg DAILY 12/19/17 12/19/17 History biotin 5,000 mcg DAILY 12/19/17 12/19/17 History clonazepam 0.5 mg TID 12/19/17 12/19/17 History donepezil 5 mg HS 12/19/17 12/19/17 History gabapentin 300 mg TID 12/19/17 12/19/17 History meclizine 25 mg TID 12/19/17 12/19/17 History oxycodone-acetaminophen 10 mg QID 12/19/17 12/19/17 History Exam Vital signs: Vital Signs 12/19/17 14:06 12/19/17 14:09 08/18/18 17:29 Temperature 99.3 F 98.8 F 99.7 F H Pulse Rate 20 L 83 85 Respiratory Rate 20 16 16 Blood Pressure 163/81 H 185/74 H 140/69 Pulse Oximetry 97 97 100 12/19/17 18:19 Temperature Pulse Rate 93 H Respiratory Rate Blood Pressure 123/62 Pulse Oximetry 99 Intake & Output 12/19/17 12/19/17 12/20/17 06:59 18:59 06:59 Weight 88.4 kg - Constitutional mild distress - Routine HEENT Exam Eye: Present: EOMI, PERRL ENT: Present: mucous membranes moist - Routine Respiratory Exam Present: wheezes (expiratory wheezing, mild and occasional). Absent: decreased breath sounds - Routine Cardiovascular Exam Present: RRR, S1, S2. Absent: murmur - Routine Abdominal Exam Present: soft, normoactive bowel sounds. Absent: tenderness, distended - Routine Extremities Exam Present: full ROM. Absent: edema - Routine Skin Exam Present: erythema, warm, wounds Comments: Round area 18 cm in diameter of erythema, swelling, and warmth above the elbow. AV fistula is palpable near the elbow joint. There is a central area of 5 cm induration/possible fluctuance w/appearance of small healing lesion. Very tender to touch. No drainage. Central venous catheter in right upper chest. No signs of infection. AV fistula palpable in the right arm. No signs of infection. - Routine Neurological Exam Present: alert, oriented X3, normal tone. Absent: altered mental status Results - Labs Result diagrams: 12/19/17 16:34 12/19/17 16:34 Abnormal lab results 12/19/17 12/19/17 12/19/17 Range/Units 16:17 16:34 16:34 RBC 3.47 L (4.00-5.30) mil/mm3 Hgb 11.5 L (11.6-15.3) gm/dL MCV 100.8 H (80.0-100.0) fL Plt Count 133 L (150-450) th/mm3 Neut % (Auto) 79.1 H (16.0-70.0) % Lymph # (Auto) 0.8 L (1.0-4.8) th/mm3 Chloride 108 H (98-107) meq/L BUN 44 H (7-18) mg/dL Creatinine 5.59 H (0.50-1.00) mg/dL Estimated GFR 8 L (>89) mL/min Lactic Acid 2.1 H (0.4-2.0) mmol/L Alkaline Phosphatase 233 H (45-117) U/L Urine Clarity (Clear) Urine Protein (Neg-Trace) mg/dL Ur Leukocyte Esterase (Negative) Urine WBC (0-5) /hpf 12/19/17 Range/Units 16:34 RBC (4.00-5.30) mil/mm3 Hgb (11.6-15.3) gm/dL MCV (80.0-100.0) fL Plt Count (150-450) th/mm3 Neut % (Auto) (16.0-70.0) % Lymph # (Auto) (1.0-4.8) th/mm3 Chloride (98-107) meq/L BUN (7-18) mg/dL Creatinine (0.50-1.00) mg/dL Estimated GFR (>89) mL/min Lactic Acid (0.4-2.0) mmol/L Alkaline Phosphatase (45-117) U/L Urine Clarity Hazy H (Clear) Urine Protein 30 H (Neg-Trace) mg/dL Ur Leukocyte Esterase Small H (Negative) Urine WBC 15 H (0-5) /hpf Short CBC 12/19/17 Range/Units 16:34 WBC 6.2 (4.0-11.0) th/mm3 Hgb 11.5 L (11.6-15.3) gm/dL Hct 35.0 (35.0-46.0) % Plt Count 133 L (150-450) th/mm3 BMP 12/19/17 16:34 Sodium 145 Potassium 4.8 Chloride 108 H Carbon Dioxide 27.9 BUN 44 H Creatinine 5.59 H Calcium 9.4 Liver Function 12/19/17 Range/Units 16:34 Total Bilirubin 0.3 (0.2-1.0) mg/dL AST 27 (15-37) U/L ALT 34 (10-53) U/L Alkaline Phosphatase 233 H (45-117) U/L Albumin 4.0 (3.4-5.0) g/dL Urine 12/19/17 Range/Units 16:34 Urine Color Yellow (Yellw/Straw) Urine Clarity Hazy H (Clear) Urine pH 7.0 (5.0-8.5) Ur Specific Eure 1.016 (1.002-1.035) Urine Protein 30 H (Neg-Trace) mg/dL Urine Glucose (UA) Negative (Negative) mg/dL - Imaging Impressions Chest X-Ray 12/19/17 15:27 CONCLUSION: 1. No acute abnormality. US VENOUS DOPPLER UE LT 12/19/17 COMPARISON: [facility] [place] BILATERAL VENOUS DOPPLER, 11/29/2014. . FINDINGS: Flow is documented in the subclavian and axillary vein. No flow seen in the brachial vein in the proximal and midportion. No flow is seen in the ulnar vein. Absent flow in the cephalic vein. Other: None. CONCLUSION: 1. Evidence of both deep and superficial venous thrombosis with absent flow seen in both cephalic and brachial veins. Caprini VTE Risk Assessment Caprini VTE Risk Assessment: Moderate/High Risk (score >= 2) Caprini Risk Assessment Model: Point Value = 1 Point Value = 2 Point Value = 3 Point Value = 5 Age 41-60 Minor surgery BMI > 25 kg/m2 Swollen legs Varicose veins or History of unexplained or recurrent spontaneous Oral contraceptives or hormone replacement Sepsis (< 1 month) Serious lung disease, including pneumonia (< 1 month) Abnormal pulmonary function Acute myocardial infarction Congestive heart failure (< 1 month) History of inflammatory bowel disease Medical patient at bed rest Age 61-74 Arthroscopic surgery Major open surgery (> 45 min) Laparoscopic surgery (> 45 min) Malignancy Confined to bed (> 72 hours) Immobilizing plaster cast Central venous access Age >= 75 History of VTE Family history of VTE Factor V Leiden Prothrombin [id number] Lupus anticoagulant Anticardiolipin antibodies Elevated serum homocysteine Heparin-induced thrombocytopenia Other congenital or acquired thrombophilia Stroke (< 1 month) Elective arthroplasty Hip, pelvis, or leg fracture Acute spinal cord injury (< 1 month) Prophylaxis Regimen: Total Risk Factor Score Risk Level Prophylaxis Regimen 0-1 Low Early ambulation 2 Moderate Order ONE of the following: *Sequential Compression Device (SCD) *Heparin 5000 units SQ BID 3-4 Higher Order ONE of the following medications: *Heparin 5000 units SQ TID *Enoxaparin/Lovenox 40 mg SQ daily (WT < 150 kg, CrCl > 30 mL/min) *Enoxaparin/Lovenox 30 mg SQ daily (WT < 150 kg, CrCl > 10-29 mL/min) *Enoxaparin/Lovenox 30 mg SQ BID (WT < 150 kg, CrCl > 30 mL/min) AND/OR *Sequential Compression Device (SCD) 5 or more Highest Order ONE of the following medications: *Heparin 5000 units SQ TID (Preferred with Epidurals) *Enoxaparin/Lovenox 40 mg SQ daily (WT < 150 kg, CrCl > 30 mL/min) *Enoxaparin/Lovenox 30 mg SQ daily (WT < 150 kg, CrCl > 10-29 mL/min) *Enoxaparin/Lovenox 30 mg SQ BID (WT < 150 kg, CrCl > 30 mL/min) AND *Sequential Compression Device (SCD) Assessment and Plan - Assessment (1) Pain and swelling of left upper extremity Code(s): M79.602 - Pain in left arm; M79.89 - Other specified soft tissue disorders Status: Acute (2) Chest pain Code(s): R07.9 - Chest pain, unspecified Status: Acute (3) CKD (chronic kidney disease) Code(s): N18.9 - Chronic kidney disease, unspecified Status: Acute (4) COPD (chronic obstructive pulmonary disease) Code(s): J44.9 - Chronic obstructive pulmonary disease, unspecified Status: Acute (5) CAD (coronary artery disease) Code(s): I25.10 - Atherosclerotic heart disease of [place] coronary artery without angina pectoris Status: Acute (6) Chronic pain Code(s): G89.29 - Other chronic pain Status: Acute (7) High cholesterol Code(s): E78.00 - Pure hypercholesterolemia, unspecified Status: Acute (8) GERD (gastroesophageal reflux disease) Code(s): K21.9 - Gastro-esophageal reflux disease without esophagitis Status: Acute - Assessment and Plan 67 y/o F w/hx of CKD, hx of [place], and COPD presenting w/left arm swelling at AV fistula site. Diff: DVT v cellulitis v abscess. S/p 1 g IV Vanc in the ED. Doppler shows left UE DVT. Spoke w/nephrology Dr. Fu who agrees to see patient tomorrow. Patient may be able to be managed outpatient w/thrombolysis if it is only DVT. Will look for clinical improvement tomorrow after IV antibiotics. Hold off anticoagulation treatment for DVT per discussion, will give prophylaxis. Next dialysis due on Thursday. Case also discussed w/ED physician Dr. Lott. 1. Left arm swelling - S/p IV Vanc for possible cellulitis - Left shift seen on CBC. Recheck CBC in the AM - Monitor clinically tomorrow, erythema has been demarcated today - Nephrology consulted , appreciate recs - US left arm ordered for tomorrow to assess for fluid pockets/abscess 2. Chest pain - hx Mi and thrombosis. Diff: anxiety v NJ v acute on chronic back pain - EKG f/u in the ED, no evidence of STEMI per read by ED physician - cardiac enzymes ordered x1. If normal, will monitor on tele. 3. CKD Stage 5 on dialysis - follows w/ nephrology, at [facility] for dialysis MWF - BMP ordered tomorrow - Con't home Renvela and Sensipar 4. COPD - controlled at home on albuterol inhaler - expiratory wheezing on lung exam, pt states she is SOB - Albuterol q2H PRN, duonebs Q6H while awake scheduled - IS, O2 as needed. 5. ROSALINDA - keep head of bed elevated overnight, O2 as needed. - patient may be able to be discharged tomorrow per Dr. Fu; otherwise, will need to speak to her about obtaining BiPaP 6. Chronic pain - Con't home clonazepam, gabapentin, lyrica, and percocet 7. Insomnia -Con't home donepezil - meclizine prn 8. Gout -con't home allopurinol Fluids: none Electrolytes: none Nutrition: renal diet GI prophylaxis: Zantac (home) DVT prophy: SCDs Likely DC in 1-2 days (3) CKD (chronic kidney disease) Qualifiers: Chronic kidney disease stage: on chronic dialysis Qualified Code(s): N18.6 - End stage renal disease; Z99.2 - Dependence on renal dialysis
[2017-12-19] MEDS ORDERED: Bisacodyl 10 MG Supp RECTAL PRN (19:49)
[2017-12-19] MEDS ORDERED: Acetaminophen 325 MG Tablet PO PRN (19:49)
[2017-12-19] MEDS ORDERED: Vancomycin Consult Pharmacy 1 EACH OTHER SCH (20:15)
[2017-12-19 20:54] LABS: Creatine Kinase 45 U/L (26-192)
[2017-12-19] MEDS ORDERED: oxyCODONE/Acetaminophen 10/325 Tablet PO SCH (21:00)
[2017-12-19] MEDS ORDERED: Pregabalin 300 MG Capsule PO SCH (21:00)
[2017-12-19] MEDS: Heparin - SQ 10,000 UNITS/ML Vial SQ SCH (22:42)
[2017-12-19] MEDS: clonazePAM 0.5 MG Tablet PO SCH (22:43)
[2017-12-19] MEDS: Gabapentin 300 MG Capsule PO SCH (22:44)
[2017-12-19] MEDS: Senna/Docusate Sodium 8.6/50 MG Tablet PO SCH (22:48)
[2017-12-20] MEDS ORDERED: Sodium Chlor 0.9% Inj 500 ML IV.SIG ONE (02:00)
[2017-12-20] MEDS: oxyCODONE/Acetaminophen 10/325 Tablet PO SCH ×5 (03:17→23:07)
[2017-12-20] MEDS ORDERED: Vancomycin Inj 1,000 MG in Sodium Chlor 0.9% Inj 250 ML IV.SIG SCH (06:00)
[2017-12-20] MEDS: Gabapentin 300 MG Capsule PO SCH ×2 (10:07→13:59)
[2017-12-20] MEDS: Famotidine 20 MG Tablet PO SCH (10:07)
[2017-12-20] MEDS: Heparin - SQ 10,000 UNITS/ML Vial SQ SCH ×2 (10:07→20:47)
[2017-12-20] MEDS: Allopurinol 100 MG Tablet PO SCH (10:08)
[2017-12-20] MEDS: Senna/Docusate Sodium 8.6/50 MG Tablet PO SCH ×2 (10:08→20:47)
[2017-12-20] MEDS: clonazePAM 0.5 MG Tablet PO SCH ×3 (10:08→19:40)
--- NOTE | 2017-12-20 10:22 | US ---
EXAM DATE: 12/20/2017 10:08 AM EDT AGE/SEX: 67 years / Female INDICATIONS: Left arm swelling. Cellulitis. CLINICAL DATA: This is the patient's initial encounter. Patient reports that signs and symptoms have been present for 2 days and indicates a pain score of 10/10. MEDICAL/SURGICAL HISTORY: Chronic renal failure. Hypertension. Chronic obstructive pulmonary disease. Stroke. Heart attack. . Arteriovenous graft. COMPARISON: [facility] [place] LEG LEFT VENOUS DOPPLER, 11/29/2014. . FINDINGS: Grayscale and Doppler ultrasound imaging was performed in the area of clinical interest. In the area of interest, no subcutaneous fluid collection is present. There is some type of graft or fistula pres ent in this area with no internal color flow. CONCLUSION: 1. No subcutaneous fluid collection or abscess is identified. 2. There is some type graft or fistula the area of interest and it appears thrombosed. Electronically signed by: Merlin Billingsley MD 12/20/2017 10:21 AM EDT
--- NOTE | 2017-12-20 10:24 | P.CONVS ---
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 She underwent L ax-ax loop AVG on 10/22 that was cleared for use mid-November. She has been using this but woke up a few days ago with focal swelling that progressed to erythema. Now presents with cellulitis. Has low grade fever but no malaise. + Arm pain but no hand pain and no motor dysfunction. Review of Systems Constitutional: Denies fever(s) Cardiovascular: Denies chest pain Musculoskeletal: Reports radiating pain into limb PMFSH - History History Provided By: Patient - Medical History Medical History: Medical History (Last Reviewed 12/20/17 @ 10:22 by Leonardo Luis MD) AV fistula Acid reflux CAD (coronary artery disease) COPD (chronic obstructive pulmonary disease) Chronic back pain Chronic renal disease Dialysis AV fistula infection Elevated cholesterol History of heart attack Hypertension Sleep apnea Stroke Tubal ligation status Varicose vein of leg - Surgical History Surgical History: Surgical History (Last Reviewed 12/20/17 @ 10:22 by Leonardo Luis MD) History of loop recorder Hx of tubal ligation - Tobacco History Second Hand Smoke Exposure: No Smoking Status: Former smoker Tobacco Type: Cigarettes Packs Per Day: 1 Years Smoked: 1 - Alcohol History How Often Do You Have a Drink Containing Alcohol: Monthly or less - Substance Use History Substance History: No History of Abuse - Travel History Recent Travel in the [place] Within the Last 8 Weeks: No Recent Travel Out of the Country Within the Last 8 Weeks: No - Immunization History Tetanus Immunization: <5 Years Hx Influenza Vaccine This Season: Yes Medications and Allergies Active Medications: Active Medications Acetaminophen (Tylenol) 650 mg PO Q4H PRN PRN Reason: Temp > 100.4 Last Admin: 12/19/17 22:43 Dose: 650 mg Al Hydroxide/Mg Hydroxide (Milk Of Ibeth Liq) 30 ml PO Q12H PRN PRN Reason: Mild Constipation Albuterol (Albuterol Neb (Prn)) 2.5 mg NEB Q2HR NEB PRN PRN Reason: SHORTNESS OF BREATH Albuterol (Duoneb Neb (Dino)) 1 ampul NEB Q6HR WHILE AWAKE NEB DINO Last Admin: 12/20/17 07:37 Dose: 1 ampul Allopurinol (Zyloprim) 150 mg PO DAILY [facility] Last Admin: 12/20/17 10:08 Dose: 150 mg Atorvastatin Calcium (Lipitor) 80 mg PO DAILY [facility] Last Admin: 12/20/17 10:08 Dose: 80 mg Bisacodyl (Dulcolax Supp) 10 mg RECTAL DAILY PRN PRN Reason: SEVERE CONSITIPATION Cinacalcet (Sensipar) 30 mg PO DAILY [facility] Last Admin: 12/20/17 10:06 Dose: 30 mg Clonazepam (Klonopin) 0.5 mg PO TID [facility] Last Admin: 12/20/17 10:08 Dose: 0.5 mg Donepezil HCl (Aricept) 5 mg PO HS [facility] Last Admin: 12/19/17 22:44 Dose: 5 mg Famotidine (Pepcid) 10 mg PO DAILY [facility] Last Admin: 12/20/17 10:07 Dose: 10 mg Gabapentin (Neurontin) 300 mg PO TID [facility] Last Admin: 12/20/17 10:07 Dose: 300 mg Heparin Sodium (Porcine) (Heparin Inj) 5,000 units SQ Q12H [facility] Last Admin: 12/20/17 10:07 Dose: 5,000 units Pharmacy Profile Note (Vancomycin Consult Pharmacy) 0 mls @ 0 mls/hr OTHER UNSCH [facility] Lactulose (Lactulose Liq) 30 ml PO DAILY PRN PRN Reason: SEVERE CONSITIPATION Meclizine HCl (Antivert) 25 mg PO TID [facility] Last Admin: 12/20/17 10:07 Dose: 25 mg Miscellaneous (Pill Splitter) 1 each OTHER UNSCH PRN PRN Reason: PILL SPLITTER Oxycodone/Acetaminophen (Percocet 10/325 Mg) 1 tab PO QID [facility] Last Admin: 12/20/17 10:09 Dose: 1 tab Pregabalin (Lyrica) 300 mg PO BID [facility] Last Admin: 12/20/17 10:10 Dose: 300 mg Senna/Docusate Sodium (Jailyn-Colace) 1 tab PO BID [facility] Last Admin: 12/20/17 10:08 Dose: 1 tab Sennosides (Senokot) 17.2 mg PO Q12H PRN PRN Reason: Moderate Constipation Sevelamer Carbonate (Renvela) 800 mg PO TID [facility] Last Admin: 12/20/17 10:06 Dose: 800 mg Sodium Chloride (Ns Flush) 2 ml IV.FLUSH BID [facility] Last Admin: 12/20/17 10:10 Dose: 2 ml Sodium Chloride (Ns Flush) 2 ml IV.FLUSH PRN PRN PRN Reason: FLUSH AFTER USING IV ACCESS Allergies Allergy/AdvReac Type Severity Reaction Status Date / Time adhesive Allergy Severe ADHESIVE Verified 10/21/17 11:33 TAPE = RASH bee venom protein (honey bee) Allergy Severe RASH & Verified 10/21/17 11:33 TONGUE SWELLING dexamethasone Allergy Severe Shortness Verified 10/21/17 11:33 of Breath, TONGUE SWELLS hydromorphone Allergy Severe Hives Verified 10/21/17 11:33 iodine Allergy Severe RASH & Verified 10/21/17 11:33 DIFFICULTY BREATHING geraldine Allergy Severe swollen Verified 10/21/17 11:33 tongue and rash orange Allergy Severe O.J. = Verified 10/21/17 11:33 RASH AND DIFFICULTY BREATHING orange juice Allergy Severe Hives and Verified 10/22/17 11:01 difficulty breathing oxytetracycline Allergy Severe HIVES & Verified 10/21/17 11:33 TONGUE SWELLING potassium iodide Allergy Severe RASH & Verified 10/21/17 11:33 DIFFICULTY BREATHING povidone-iodine Allergy Severe RASH & Verified 10/21/17 11:33 DIFFICULTY BREATHING sodium iodide Allergy Severe RASH & Verified 10/21/17 11:33 DIFFICULTY BREATHING sodium iodide Allergy Severe RASH & Verified 10/21/17 11:33 DIFFICULTY BREATHING Sulfa (Sulfonamide Allergy Severe HIVES, Verified 10/21/17 11:33 Antibiotics) DIFFICULTY BREATHING Influenza Virus Vaccines Allergy Intermediate Rash, Verified 10/21/17 11:33 vomiting diatrizoate meglumine Allergy Unknown Rash Verified 12/19/17 16:38 gadobenic acid Allergy Unknown Rash Verified 12/19/17 16:38 gadodiamide Allergy Unknown Rash Verified 12/19/17 16:38 gadoteridol Allergy Unknown Rash Verified 12/19/17 16:38 iodixanol Allergy Unknown Rash Verified 12/19/17 16:38 iohexol Allergy Unknown Rash Verified 12/19/17 16:38 penicillin G Allergy Unknown Rash Verified 12/19/17 16:38 Home Medications Medication Instructions Recorded Confirmed Type Lipitor 80 mg DAILY 12/19/17 12/19/17 History Lyrica 300 mg BID 12/19/17 12/19/17 History Renvela 800 mg TID 12/19/17 12/19/17 History Sensipar 30 mg DAILY 12/19/17 12/19/17 History Zantac 150 mg BID 12/19/17 12/19/17 History albuterol sulfate 0.3 mg QID PRN 12/19/17 12/19/17 History allopurinol 150 mg DAILY 12/19/17 12/19/17 History biotin 5,000 mcg DAILY 12/19/17 12/19/17 History clonazepam 0.5 mg TID 12/19/17 12/19/17 History donepezil 5 mg HS 12/19/17 12/19/17 History gabapentin 300 mg TID 12/19/17 12/19/17 History meclizine 25 mg TID 12/19/17 12/19/17 History oxycodone-acetaminophen 10 mg QID 12/19/17 12/19/17 History Physical Exam Vital Signs / I&O: Vital Signs 12/19/17 14:06 12/19/17 14:09 12/19/17 17:29 Temperature 99.3 F 98.8 F 99.7 F H Pulse Rate 20 L 83 85 Respiratory Rate 20 16 16 Blood Pressure 163/81 H 185/74 H 140/69 Pulse Oximetry 97 97 100 12/19/17 18:19 12/19/17 20:37 12/19/17 21:23 Temperature Pulse Rate 93 H 100 H 101 H Respiratory Rate 16 18 Blood Pressure 123/62 91/52 L Pulse Oximetry 99 98 95 12/19/17 22:10 12/19/17 22:23 12/20/17 00:00 Temperature 102.3 F H 100.2 F H Pulse Rate 100 H 100 H 96 H Respiratory Rate 20 18 Blood Pressure 119/41 L 85/42 L Pulse Oximetry 97 94 L 12/20/17 03:08 12/20/17 03:41 12/20/17 06:08 Temperature 99.3 F 100.1 F H 99.3 F Pulse Rate 80 85 80 Respiratory Rate 18 18 Blood Pressure 113/49 L 113/49 L 99/53 L Pulse Oximetry 95 94 L 12/20/17 07:37 12/20/17 08:00 Temperature 99.0 F Pulse Rate 84 Respiratory Rate 14 16 Blood Pressure 144/60 H Pulse Oximetry 96 95 Intake & Output 12/19/17 12/20/17 12/20/17 18:59 06:59 18:59 Intake Total 730 / 730 Balance 730 / 730 Weight 88.4 kg Intake: IV 250 / 250 Vancomycin Inj 1,000 MG In NS 250 / 250 Inj 250 ML @ 250 mls/hr IV.SIG ONCE ONE Rx#:[id number] Oral 480 / 480 Other: # Voids 2 Neuro: alert, oriented and no distress HEENT: NC/AT; wears glasses Heart: reg rate Lungs: nonlabored Vascular: + L UE thrill Extremities: L UE cellulitis overlying punctate area that appears to have been access site Laboratory Results - last 24 hr 12/19/17 12/19/17 12/19/17 16:17 16:34 16:34 WBC 6.2 RBC 3.47 L Hgb 11.5 L Hct 35.0 MCV 100.8 H MCH 33.1 MCHC 32.9 RDW 15.3 Plt Count 133 L MPV 9.7 Neut % (Auto) 79.1 H Lymph % (Auto) 13.4 [place] % (Auto) 5.7 Eos % (Auto) 1.0 Baso % (Auto) 0.8 Neut # (Auto) 4.9 Lymph # (Auto) 0.8 L [place] # (Auto) 0.4 Eos # (Auto) 0.1 Baso # (Auto) 0.0 WBC Differential . Differential Comment Auto diff final Sodium 145 Potassium 4.8 Chloride 108 H Carbon Dioxide 27.9 Anion Gap 9 BUN 44 H Creatinine 5.59 H Estimated GFR 8 L Random Glucose 81 Lactic Acid 2.1 H Calcium 9.4 Total Bilirubin 0.3 AST 27 ALT 34 Alkaline Phosphatase 233 H Total Creatine Kinase Troponin I Total Protein 7.4 Albumin 4.0 Urine Color Urine Clarity Urine pH Ur Specific [place] Urine Protein Urine Glucose (UA) Urine Ketones Urine Occult Blood Urine Nitrate Urine Bilirubin Urine Urobilinogen Ur Leukocyte Esterase Urine RBC Urine WBC Ur Squamous Epith Cells Micro UA Comment Urine Culture Comments 12/19/17 12/19/17 12/19/17 16:34 19:38 20:11 WBC RBC Hgb Hct MCV MCH MCHC RDW Plt Count MPV Neut % (Auto) Lymph % (Auto) [place] % (Auto) Eos % (Auto) Baso % (Auto) Neut # (Auto) Lymph # (Auto) [place] # (Auto) Eos # (Auto) Baso # (Auto) WBC Differential Differential Comment Sodium Potassium Chloride Carbon Dioxide Anion Gap BUN Creatinine Estimated GFR Random Glucose Lactic Acid 1.4 Calcium Total Bilirubin AST ALT Alkaline Phosphatase Total Creatine Kinase 45 Troponin I Less than 0.02 L Total Protein Albumin Urine Color Yellow Urine Clarity Hazy H Urine pH 7.0 Ur Specific [place] 1.016 Urine Protein 30 H Urine Glucose (UA) Negative Urine Ketones Negative Urine Occult Blood Negative Urine Nitrate Negative Urine Bilirubin Negative Urine Urobilinogen Less than 2 Ur Leukocyte Esterase Small H Urine RBC 1 Urine WBC 15 H Ur Squamous Epith Cells 5 Micro UA Comment Culture indicated Urine Culture Comments Culture indicated Impressions Chest X-Ray 12/19/17 15:27 CONCLUSION: 1. No acute abnormality. Venous Doppler Study 12/19/17 15:56 CONCLUSION: 1. Evidence of both deep and superficial venous thrombosis with absent flow seen in both cephalic and brachial veins. Assessment and Plan - Plan cellulitis of AVG 1. Admit for IV antibiotics, VANC ok 2. F/U blood cultures 3. If not improved significantly over next 1-2 days will need surgical revision/ debridement and possible excision of AVG. Leonardo Luis MD FACS [employer] sales service coordinator [facility] - Heart and Vascular Surgery at [facility] [phone]
--- NOTE | 2017-12-20 11:56 | P.PNFP ---
Subjective Interval history: Patient and examined this morning. She states that she does not feel well. She felt like she was hot when she touched her cheeks. She is having pain in her left AVF and feels that site looks worse, more red, from last night. Her chest pain has greatly improved. She is not having any shortness of breath. <Mindi Mazariegos - 12/20/17 11:56> Results - Labs Result diagrams: 12/21/17 04:55 12/21/17 04:55 <Montse Tinoco - 12/21/17 12:47> Abnormal lab results 12/20/17 12/20/17 12/21/17 Range/Units 13:00 13:00 04:55 WBC (4.0-11.0) th/mm3 RBC 2.55 L (4.00-5.30) mil/mm3 Hgb 8.5 L D (11.6-15.3) gm/dL Hct 25.8 L (35.0-46.0) % MCV 101.2 H (80.0-100.0) fL Plt Count 99 L (150-450) th/mm3 Neut % (Auto) 75.1 H (16.0-70.0) % [place] % (Auto) 9.1 H (0.0-8.0) % Lymph # (Auto) 0.7 L (1.0-4.8) th/mm3 Platelet Estimate Low L (Normal) Potassium 5.5 H (3.5-5.1) meq/L BUN 54 H 59 H (7-18) mg/dL Creatinine 6.88 H 7.44 H (0.50-1.00) mg/dL Estimated GFR 6 L 5 L (>89) mL/min Calcium 8.2 L D 8.0 L (8.5-10.1) mg/dL Phosphorus 5.1 H (2.5-4.9) mg/dL Albumin 3.1 L D (3.4-5.0) g/dL 12/21/17 Range/Units 04:55 WBC 2.9 L (4.0-11.0) th/mm3 RBC 2.47 L (4.00-5.30) mil/mm3 Hgb 8.3 L (11.6-15.3) gm/dL Hct 25.1 L (35.0-46.0) % MCV 101.7 H (80.0-100.0) fL Plt Count 92 L (150-450) th/mm3 Neut % (Auto) (16.0-70.0) % [place] % (Auto) (0.0-8.0) % Lymph # (Auto) (1.0-4.8) th/mm3 Platelet Estimate (Normal) Potassium (3.5-5.1) meq/L BUN (7-18) mg/dL Creatinine (0.50-1.00) mg/dL Estimated GFR (>89) mL/min Calcium (8.5-10.1) mg/dL Phosphorus (2.5-4.9) mg/dL Albumin (3.4-5.0) g/dL Short CBC 12/20/17 12/21/17 Range/Units 13:00 04:55 WBC 5.2 2.9 L (4.0-11.0) th/mm3 Hgb 8.5 L D 8.3 L (11.6-15.3) gm/dL Hct 25.8 L 25.1 L (35.0-46.0) % Plt Count 99 L 92 L (150-450) th/mm3 BMP 12/20/17 12/21/17 13:00 04:55 Sodium 140 138 Potassium 4.9 5.5 H Chloride 104 101 Carbon Dioxide 29.4 27.6 BUN 54 H 59 H Creatinine 6.88 H 7.44 H Calcium 8.2 L D 8.0 L Liver Function 12/21/17 Range/Units 04:55 Albumin 3.1 L D (3.4-5.0) g/dL <Montse Tinoco - 12/21/17 12:47> Abnormal lab results 12/19/17 12/19/17 12/19/17 Range/Units 16:17 16:34 16:34 RBC 3.47 L (4.00-5.30) mil/mm3 Hgb 11.5 L (11.6-15.3) gm/dL MCV 100.8 H (80.0-100.0) fL Plt Count 133 L (150-450) th/mm3 Neut % (Auto) 79.1 H (16.0-70.0) % Lymph # (Auto) 0.8 L (1.0-4.8) th/mm3 Chloride 108 H (98-107) meq/L BUN 44 H (7-18) mg/dL Creatinine 5.59 H (0.50-1.00) mg/dL Estimated GFR 8 L (>89) mL/min Lactic Acid 2.1 H (0.4-2.0) mmol/L Alkaline Phosphatase 233 H (45-117) U/L Troponin I (0.02-0.05) ng/mL Urine Clarity (Clear) Urine Protein (Neg-Trace) mg/dL Ur Leukocyte Esterase (Negative) Urine WBC (0-5) /hpf 12/19/17 12/19/17 Range/Units 16:34 20:11 RBC (4.00-5.30) mil/mm3 Hgb (11.6-15.3) gm/dL MCV (80.0-100.0) fL Plt Count (150-450) th/mm3 Neut % (Auto) (16.0-70.0) % Lymph # (Auto) (1.0-4.8) th/mm3 Chloride (98-107) meq/L BUN (7-18) mg/dL Creatinine (0.50-1.00) mg/dL Estimated GFR (>89) mL/min Lactic Acid (0.4-2.0) mmol/L Alkaline Phosphatase (45-117) U/L Troponin I Less than 0.02 L (0.02-0.05) ng/mL Urine Clarity Hazy H (Clear) Urine Protein 30 H (Neg-Trace) mg/dL Ur Leukocyte Esterase Small H (Negative) Urine WBC 15 H (0-5) /hpf Short CBC 12/19/17 Range/Units 16:34 WBC 6.2 (4.0-11.0) th/mm3 Hgb 11.5 L (11.6-15.3) gm/dL Hct 35.0 (35.0-46.0) % Plt Count 133 L (150-450) th/mm3 BMP 12/19/17 16:34 Sodium 145 Potassium 4.8 Chloride 108 H Carbon Dioxide 27.9 BUN 44 H Creatinine 5.59 H Calcium 9.4 Cardiac Enzymes 12/19/17 Range/Units 20:11 Total Creatine Kinase 45 (26-192) U/L Troponin I Less than 0.02 L (0.02-0.05) ng/mL Liver Function 12/19/17 Range/Units 16:34 Total Bilirubin 0.3 (0.2-1.0) mg/dL AST 27 (15-37) U/L ALT 34 (10-53) U/L Alkaline Phosphatase 233 H (45-117) U/L Albumin 4.0 (3.4-5.0) g/dL Urine 12/19/17 Range/Units 16:34 Urine Color Yellow (Yellw/Straw) Urine Clarity Hazy H (Clear) Urine pH 7.0 (5.0-8.5) Ur Specific [place] 1.016 (1.002-1.035) Urine Protein 30 H (Neg-Trace) mg/dL Urine Glucose (UA) Negative (Negative) mg/dL <Mindi Mazariegos - 12/20/17 11:56> - Imaging Impressions Chest X-Ray 12/19/17 15:27 CONCLUSION: 1. No acute abnormality. Venous Doppler Study 12/19/17 15:56 CONCLUSION: 1. Evidence of both deep and superficial venous thrombosis with absent flow seen in both cephalic and brachial veins. Lower Extremity Ultrasound 12/20/17 06:00 CONCLUSION: 1. No subcutaneous fluid collection or abscess is identified. 2. There is some type graft or fistula the area of interest and it appears thrombosed. <Mindi Mazariegos - 12/20/17 11:56> Physical Exam Vital signs: Vital Signs 12/20/17 15:54 12/20/17 19:25 12/20/17 20:00 Temperature 98.8 F 99.2 F Pulse Rate 82 64 86 Respiratory Rate 16 18 18 Blood Pressure 128/50 L 119/42 L Pulse Oximetry 92 L 97 95 12/20/17 20:45 12/20/17 22:41 12/20/17 23:34 Temperature Pulse Rate 82 Respiratory Rate 18 Blood Pressure Pulse Oximetry 97 12/21/17 00:00 12/21/17 04:00 12/21/17 07:53 Temperature 98.4 F 98.7 F Pulse Rate 77 72 92 H Respiratory Rate 18 18 12 Blood Pressure 126/58 L 127/60 Pulse Oximetry 97 97 98 12/21/17 08:00 Temperature 97.3 F L Pulse Rate 87 Respiratory Rate 16 Blood Pressure 144/73 H Pulse Oximetry 95 Intake & Output 12/20/17 12/21/17 12/21/17 18:59 06:59 18:59 Intake Total 750 / 750 Output Total 1999 Balance 750 / 750 -1999 Intake: IV 250 / 250 Vancomycin Inj 1,000 MG In NS 250 / 250 Inj 250 ML @ 250 mls/hr IV.SIG ONCE ONE Rx#:[id number] Oral 500 / 500 Output: Hemodialysis Amount 1999 Other: # Voids 3 2 Date of Last Bowel Movement 12/19/17 12/19/17 <Montse Tinoco - 12/21/17 12:47> Vital Signs 12/19/17 14:06 12/19/17 14:09 12/19/17 17:29 Temperature 99.3 F 98.8 F 99.7 F H Pulse Rate 20 L 83 85 Respiratory Rate 20 16 16 Blood Pressure 163/81 H 185/74 H 140/69 Pulse Oximetry 97 97 100 12/19/17 18:19 12/19/17 20:37 12/19/17 21:23 Temperature Pulse Rate 93 H 100 H 101 H Respiratory Rate 16 18 Blood Pressure 123/62 91/52 L Pulse Oximetry 99 98 95 12/19/17 22:10 12/19/17 22:23 12/20/17 00:00 Temperature 102.3 F H 100.2 F H Pulse Rate 100 H 100 H 96 H Respiratory Rate 20 18 Blood Pressure 119/41 L 85/42 L Pulse Oximetry 97 94 L 12/20/17 03:08 12/20/17 03:41 12/20/17 06:08 Temperature 99.3 F 100.1 F H 99.3 F Pulse Rate 80 85 80 Respiratory Rate 18 18 Blood Pressure 113/49 L 113/49 L 99/53 L Pulse Oximetry 95 94 L 12/20/17 07:37 12/20/17 08:00 Temperature 99.0 F Pulse Rate 84 Respiratory Rate 14 16 Blood Pressure 144/60 H Pulse Oximetry 96 95 Intake & Output 12/19/17 12/20/17 12/20/17 18:59 06:59 18:59 Intake Total 730 / 730 Balance 730 / 730 Weight 88.4 kg Intake: IV 250 / 250 Vancomycin Inj 1,000 MG In NS 250 / 250 Inj 250 ML @ 250 mls/hr IV.SIG ONCE ONE Rx#:[id number] Oral 480 / 480 Other: # Voids 2 <Mindi Mazariegos 12/20/17 11:56> Narrative: GENERAL: White obese female sitting up in bed, in no acute distress SKIN: Warm and dry. HEAD: Atraumatic. Normocephalic. EYES: Pupils equal and round. No scleral icterus. No injection or drainage. ENT: No nasal bleeding or discharge. Mucous membranes pink and moist. NECK: Trachea midline. No JVD. CARDIOVASCULAR: Regular rate and rhythm. RESPIRATORY: No accessory muscle use. Diffuse end expiratory wheezes. Breath sounds equal bilaterally. GASTROINTESTINAL: Abdomen soft, non-tender, nondistended. Hepatic and splenic margins not palpable. MUSCULOSKELETAL: Extremities without clubbing, cyanosis, or edema. No obvious deformities. Left upper arm: punctate area with surrounding induration about 4x3cm. Erythema has slightly receded from marked outline. Warm to touch. NEUROLOGICAL: Awake and alert. No obvious cranial nerve deficits. Motor grossly within normal limits. Normal speech. PSYCHIATRIC: Appropriate mood and affect; insight and judgment normal. <Mindi Mazariegos 12/20/17 11:56> Assessment and Plan - Assessment (1) Pain and swelling of left upper extremity Code(s): M79.602 - Pain in left arm; M79.89 - Other specified soft tissue disorders Status: Acute (2) Chest pain Code(s): R07.9 - Chest pain, unspecified Status: Acute (3) CKD (chronic kidney disease) Code(s): N18.9 - Chronic kidney disease, unspecified Status: Chronic (4) COPD (chronic obstructive pulmonary disease) Code(s): J44.9 - Chronic obstructive pulmonary disease, unspecified Status: Chronic (5) Chronic pain Code(s): G89.29 - Other chronic pain Status: Chronic (6) ROSALINDA (obstructive sleep apnea) Code(s): G47.33 - Obstructive sleep apnea (adult) (pediatric) Status: Chronic (7) Insomnia Code(s): G47.00 - Insomnia, unspecified Status: Chronic (8) Gout Code(s): M10.9 - Gout, unspecified Status: Chronic (9) Nutrition, metabolism, and development symptoms Code(s): R63.8 - Other symptoms and signs concerning food and fluid intake Status: Acute (10) DVT prophylaxis Status: Acute <Montse Tinoco M - 12/21/17 12:47> (1) Pain and swelling of left upper extremity Code(s): M79.602 - Pain in left arm; M79.89 - Other specified soft tissue disorders Status: Acute Plan: Left arm swelling, concern for cellulitis and DVT. No leukocytosis on admission. Area demarcated and shows slight improvement today. BC NGTD Venous doppler study on 12/19 shows evidence of both deep and superficial venous thrombosis with absent flow seen in both cephalic and brachial veins. US soft tissue LUE on 12/20 shows no subcutaneous fluid collection or abscess identified. - S/p IV Vanc for possible cellulitis - Nephrology consulted , appreciate recs - Vascular surgery consulted, appreciate recs - Admit for IV antibiotics, VANC ok - F/U blood cultures - If not improved significantly over next 1-2 days will need surgical revision/debridement and possible excision of AVG. (2) Chest pain Code(s): R07.9 - Chest pain, unspecified Status: Acute Plan: hx KS and thrombosis. Diff: anxiety v KS v costochondritis. EKG on admission shows normal sinus rhythm Troponin negative x 1 -Continue to monitor for worsening of sx -Telemetry. (3) CKD (chronic kidney disease) Code(s): N18.9 - Chronic kidney disease, unspecified Status: Chronic Plan: CKD Stage 5 on dialysis - follows w/ nephrology, at [facility] for dialysis MWF - Monitor BMP - Con't home Renvela and Sensipar (4) COPD (chronic obstructive pulmonary disease) Code(s): J44.9 - Chronic obstructive pulmonary disease, unspecified Status: Chronic Plan: - controlled at home on albuterol inhaler - expiratory wheezing on lung exam, pt states she is SOB - Albuterol q2H PRN, duonebs Q6H while awake scheduled - IS, O2 as needed. (5) Chronic pain Code(s): G89.29 - Other chronic pain Status: Chronic Plan: - Con't home clonazepam, gabapentin, lyrica, and percocet (6) ROSALINDA (obstructive sleep apnea) Code(s): G47.33 - Obstructive sleep apnea (adult) (pediatric) Status: Chronic Plan: - Does not use CPAP at home, just her O2 overnight - keep head of bed elevated overnight. (7) Insomnia Code(s): G47.00 - Insomnia, unspecified Status: Chronic (8) Gout Code(s): M10.9 - Gout, unspecified Status: Chronic Plan: -con't home allopurinol (9) Nutrition, metabolism, and development symptoms Code(s): R63.8 - Other symptoms and signs concerning food and fluid intake Status: Acute Plan: Fluids: tolerating po Electrolytes: monitor and replete as needed Nutrition: renal diet GI prophylaxis: Zantac (home medication) (10) DVT prophylaxis Status: Acute Plan: DVT prophy: SCDs, Heparin 5000un SQ q12h <Mindi Mazariegos 12/20/17 16:46> - Assessment and Plan 67 y/o F w/hx of CKD, hx of KS, and COPD presenting w/left arm swelling at AV fistula site. Diff: DVT v cellulitis v abscess. S/p 1 g IV Vanc in the ED. Doppler shows left UE DVT. Nephrology consulted. Hold off anticoagulation treatment for DVT per discussion, will give prophylaxis. Next dialysis due on Thursday. <Mindi Mazariegos 12/20/17 11:56> Discussed Condition With: Dr. Baeza, Dr. Tinoco <Mindi Mazariegos 12/20/17 11:56> Discharge Planning: pending clinical course and recommendations by specialists <Mindi Mazariegos 12/20/17 11:56> - Attending Attestation The exam, history, and the medical decision-making described in the above note were completed with the assistance of the resident physician. I reviewed and agree with the findings presented. I attest that I had a [id number] encounter with the patient on the same day, and personally performed and documented my assessment and findings in the medical record. She was seen in her room and had had some bleeding from her fistula site. She did not have any pus drain and a bandage was applied and she did well. Sometimes the first day of antibiotics a wound can still look worse the cellulitis can still look worse however the second day normally and looks stable and the third day it should definitely be improving if the antibiotics are the correct one. In her case with her renal failure and probable skin bacteria vancomycin is a good choice but it would need to be given after dialysis. <Montse Tinoco - 12/21/17 12:47> <Mindi Mazariegos G - Last Filed: 12/20/17 16:46> (3) CKD (chronic kidney disease) Qualifiers: Chronic kidney disease stage: on chronic dialysis Qualified Code(s): N18.6 - End stage renal disease; Z99.2 - Dependence on renal dialysis <Montse Tinoco - Last Filed: 12/21/17 12:47> (3) CKD (chronic kidney disease) Qualifiers: Chronic kidney disease stage: on chronic dialysis Qualified Code(s): N18.6 - End stage renal disease; Z99.2 - Dependence on renal dialysis <Mindi Mazariegos - Last Filed: 12/20/17 16:46> (3) CKD (chronic kidney disease) Qualifiers: Chronic kidney disease stage: on chronic dialysis Qualified Code(s): N18.6 - End stage renal disease; Z99.2 - Dependence on renal dialysis <Montse Tincoo - Last Filed: 12/21/17 12:47> (3) CKD (chronic kidney disease) Qualifiers: Chronic kidney disease stage: on chronic dialysis Qualified Code(s): N18.6 - End stage renal disease; Z99.2 - Dependence on renal dialysis
[2017-12-20 13:27] LABS: Baso % (Auto) 0.7 % (0.0-2.0); Hematocrit 25.8 % (35.0-46.0); Hemoglobin 8.5 gm/dL (11.6-15.3); Lymph # (Auto) 0.7 th/mm3 (1.0-4.8); Lymph % (Auto) 14.1 % (9.0-44.0); Mean Corpuscular HGB Conc 32.9 % (32.0-36.0); Mean Corpuscular Hemoglobin 33.3 pg (27.0-34.0); Mean Corpuscular Volume 101.2 fL (80.0-100.0); Mean Platelet Volume 9.7 fL (7.0-11.0); Mono # (Auto) 0.5 th/mm3 (0.0-0.9); Mono % (Auto) 9.1 % (0.0-8.0); Neut # (Auto) 3.9 th/mm3 (1.8-7.7); Neut % (Auto) 75.1 % (16.0-70.0); Platelet Count 99 th/mm3 (150-450); Red Blood Count 2.55 mil/mm3 (4.00-5.30); Red Cell Distribution Width 15.2 % (11.6-17.2); White Blood Count 5.2 th/mm3 (4.0-11.0)
[2017-12-20 13:32] LABS: INR 1.1 Ratio; Prothrombin Time 11.2 sec (9.8-11.6)
[2017-12-20 14:01] LABS: Calcium 8.2 mg/dL (8.5-10.1); Carbon Dioxide 29.4 meq/L (21.0-32.0); Potassium 4.9 meq/L (3.5-5.1); Vancomycin,Random 12.9 Comment
[2017-12-20 14:08] LABS: Platelet Morphology Normal (Normal)
--- NOTE | 2017-12-20 14:23 | ECG ---
Date Performed: 12/19/2017 Time Performed: 20:59:46 PTAGE: 67 years EKG: SINUS TACHYCARDIA ABNORMAL RHYTHM ECG Since PREVIOUS TRACING , no significant change noted PREVIOUS TRACIN02/09/2017 02.56.17 DOCTOR: Fermin Rajput Interpretating Date/Time 12/20/2017 14:21:43
--- NOTE | 2017-12-20 14:23 | ECG ---
Date Performed: 12/20/2017 Time Performed: 03:12:54 PTAGE: 67 years EKG: Sinus rhythm NORMAL ECG Since PREVIOUS TRACING , no significant change noted PREVIOUS TRACIN12/19/2017 20.59.46 DOCTOR: Fermin Rajput Interpretating Date/Time 12/20/2017 14:22:03
[2017-12-20] MEDS ORDERED: Sod Chloride 0.9% Inj 1,000 ML IV.CONT PRN (15:02)
[2017-12-20] MEDS ORDERED: Albumin Human 25% Inj 100 ML IV.SIG PRN (15:02)
[2017-12-20] MEDS ORDERED: Heparin 10,000 UNITS/10 ML Vial (for IV use) OTHER PRN (15:02)
[2017-12-20] MEDS ORDERED: Gelatin 12 MM/7 MM Topical Foam TOPICAL PRN (15:02)
[2017-12-20] MEDS ORDERED: Sod Chloride 0.9% Inj 1,000 ML OTHER PRN ×2 (15:02)
[2017-12-20] MEDS ORDERED: Acetaminophen 325 MG Tablet PO PRN (15:02)
[2017-12-20] MEDS ORDERED: Vancomycin Consult Pharmacy OTHER SCH (15:04)
--- NOTE | 2017-12-20 15:55 | MB ---
cc: Kavon Fu MD DATE: 12/20/2017 REASON FOR CONSULTATION: End-stage renal disease management with AV graft infection. HISTORY OF PRESENT ILLNESS: This is a 67-year-old female with history of ESRD. The patient has had multiple failed accesses in the past with multiple attempts. She has a left upper arm graft that was placed in October with Dr. Luis. Apparently, this has been used for several weeks. She had a successful use of the dialysis graft on Thursday; however, on Thursday, she noted a punctuate lesion with some bleeding. She developed erythema to the arm and came to the emergency room for further evaluation. Here, she has been evaluated and seen by vascular surgery. She has an apparent infection of the left upper arm axillary-axillary loop PTFE AV graft. The patient has been started on vancomycin and was given 1 gram here in the ER. She is being followed by vascular surgery for continued antibiotic treatment versus possible surgical excision of the graft. At this time, she is resting comfortably. Otherwise, complains of some pain in the left upper arm. She had her full dialysis treatment on Thursday and nephrology was consulted for further evaluation. She still has a right sided tunneled catheter in place. The patient is followed by Dr. Ewing as well as Dr. Singh Fu in the outpatient dialysis unit. REVIEW OF SYSTEMS: The patient denies any systemic fevers; however, does have pain, erythema, warmth and fluctuance at the left upper arm graft site. No nausea, no vomiting, no fevers, no chills. Otherwise, review of systems is negative. PAST MEDICAL HISTORY: Includes previous AV access with right upper arm graft, acid reflux, CAD, COPD, chronic back pain, ESRD, on dialysis Thursday, Thursday, Thursday, and follows up with Dr. Ewing, history of dyslipidemia, NH, hypertension, sleep apnea, stroke, tubal ligation, varicose veins of the leg. PAST SURGICAL HISTORY: Includes loop recorder, tubal ligation, multiple AV access surgeries. SOCIAL HISTORY: Previous smoker. No current alcohol, tobacco or drug use. The patient lives at home. ALLERGIES: INCLUDE ADHESIVES, BEE VENOM PROTEIN, DEXAMETHASONE WELL HYDROMORPHONE, IODINE, SLOAN, ORANGE, ORANGE JUICE, POTASSIUM IODIDE, POVIDONE IODIDE, SODIUM IODIDE, SULFA, FLU VACCINE, PENICILLIN. MEDICATIONS AT HOME: Included Lipitor, Lyrica, Renvela, Sensipar, Zantac, albuterol, allopurinol, Biotin, clonazepam, donepezil, gabapentin, meclizine and oxycodone. PHYSICAL EXAMINATION: GENERAL: At the time of evaluation, temperature 99.5, pulse 98, respiratory rate 18, blood pressure 127/51, pulse oximetry 93%. GENERAL: Awake, alert, oriented. NECK: Soft, supple. CARDIAC: Regular rate and rhythm. PULMONARY: Lungs are clear to auscultation. ABDOMEN: Soft, nontender, nondistended. EXTREMITIES: No edema. Left upper arm AV graft with no thrill or bruit. Erythema with significant induration and punctured lesion measuring 1 cm overlying the graft. LABORATORY DATA: White count 5.2, hemoglobin 8.5, hematocrit 25.8 with a platelet count of 99. Sodium 140, potassium 4.9, chloride 104, bicarbonate 29, BUN 54, creatinine 6.8 with a glucose of 95 and calcium of 8.2. ASSESSMENT AND PLAN: 1. End-stage renal disease. The patient is on hemodialysis Thursday, Thursday, Thursday. She currently has a right-sided catheter which I placed several months ago. This catheter apparently has been functioning well, per the patient. We will do dialysis via the catheter tomorrow and continue with Thursday, Thursday, Thursday dialysis while here. Continue with antibiotic treatment for her cellulitis and graft infection. The patient may receive vancomycin with dialysis on dialysis days. We will consult pharmacy for vancomycin dosing. 2. Arteriovenous graft thrombosis and infection. The patient has a left upper extremity axillary-axillary loop arteriovenous graft placed by Dr. Luis in October of this year. This had been accessed for several weeks; however, she has now apparent graft thrombosis and infection. At this point, agree with antibiotics as ordered. Continue with vancomycin. We will continue with vancomycin 1 gram intravenous on dialysis days after treatments. There is a possibility that this graft will need to be excised. Continue to follow up with Dr. Luis and watch for any improvement with antibiotics. There are no signs of any systemic infection at this point. Of note, no need for systemic anticoagulation with graft thrombosis. This is not a significant thrombosis to anti-coagulate otherwise with low risk of any further embolization of the thrombus. Continue supportive care and continue to monitor with antibiotics. Continue to follow up cultures. Most likely this is methicillin-resistant Staphylococcus aureus. 3. Chronic obstructive pulmonary disease. Continue medications. Continue supportive care. 4. Chest pains. The patient has had negative troponins. Continue to monitor with primary team. MD ROSIBEL Hassan/mariela , 03:22 PM , 03:33 PM MTDD
[2017-12-20] MEDS ORDERED: Vancomycin Inj 1,000 MG in Sodium Chlor 0.9% Inj 250 ML IV.SIG ONE (18:00)
[2017-12-20] MEDS: Gabapentin 100 MG Capsule PO SCH (19:41)
[2017-12-21 06:43] LABS: Hematocrit 25.1 % (35.0-46.0); Hemoglobin 8.3 gm/dL (11.6-15.3); Mean Corpuscular Hemoglobin 33.6 pg (27.0-34.0); Mean Corpuscular Volume 101.7 fL (80.0-100.0); Mean Platelet Volume 9.8 fL (7.0-11.0); Platelet Count 92 th/mm3 (150-450); Red Blood Count 2.47 mil/mm3 (4.00-5.30); Red Cell Distribution Width 15.4 % (11.6-17.2); White Blood Count 2.9 th/mm3 (4.0-11.0)
[2017-12-21 07:16] LABS: Albumin 3.1 g/dL (3.4-5.0); Carbon Dioxide 27.6 meq/L (21.0-32.0); Phosphorus 5.1 mg/dL (2.5-4.9); Potassium 5.5 meq/L (3.5-5.1); Vancomycin,Random 24.3 Comment
--- NOTE | 2017-12-21 07:35 | P.PNVS ---
Subjective Subjective/Hospital Course: Pt adm with abscess/cellulitis around thrombosed AVG, "popped" last night and pt feels slightly better today no fevers getting HD via R chest catheter Objective Vital Signs / I&O: Vital Signs 12/20/17 07:37 12/20/17 08:00 12/20/17 10:00 Temperature 99.0 F Pulse Rate 84 79 Respiratory Rate 14 16 Blood Pressure 144/60 H Pulse Oximetry 96 95 12/20/17 12:00 12/20/17 15:54 12/20/17 19:25 Temperature 99.5 F 98.8 F Pulse Rate 98 H 82 64 Respiratory Rate 18 16 18 Blood Pressure 127/51 L 128/50 L Pulse Oximetry 93 L 92 L 97 12/20/17 20:00 12/20/17 20:45 12/20/17 22:41 Temperature 99.2 F Pulse Rate 86 82 Respiratory Rate 18 18 Blood Pressure 119/42 L Pulse Oximetry 95 12/20/17 23:34 12/21/17 00:00 12/21/17 04:00 Temperature 98.4 F 98.7 F Pulse Rate 77 72 Respiratory Rate 18 18 Blood Pressure 126/58 L 127/60 Pulse Oximetry 97 97 97 Intake & Output 12/20/17 12/21/17 12/21/17 18:59 06:59 18:59 Intake Total 250 / 250 Balance 250 / 250 Intake: IV 250 / 250 Vancomycin Inj 1,000 MG In NS 250 / 250 Inj 250 ML @ 250 mls/hr IV.SIG ONCE ONE Rx#:[id number] Other: # Voids 3 1 Date of Last Bowel Movement 12/19/17 12/19/17 Physical Exam: L UE significantly less erythematous. still with induration no thrill Laboratory Results - last 24 hr 12/20/17 12/20/17 12/20/17 13:00 13:00 13:00 WBC 5.2 RBC 2.55 L Hgb 8.5 L D Hct 25.8 L MCV 101.2 H MCH 33.3 MCHC 32.9 RDW 15.2 Plt Count 99 L MPV 9.7 Prelim Diff (Auto) Slide review pending Neut % (Auto) 75.1 H Lymph % (Auto) 14.1 [place] % (Auto) 9.1 H Eos % (Auto) 1.0 Baso % (Auto) 0.7 Neut # (Auto) 3.9 Lymph # (Auto) 0.7 L [place] # (Auto) 0.5 Eos # (Auto) 0.0 Baso # (Auto) 0.0 WBC Differential . Diff Scan Auto diff confirmed Differential Comment . Platelet Estimate Low L Platelet Morphology Normal PT INR Sodium 140 Potassium 4.9 Chloride 104 Carbon Dioxide 29.4 Anion Gap 7 BUN 54 H Creatinine 6.88 H Estimated GFR 6 L Random Glucose 95 Lactic Acid 1.0 Calcium 8.2 L D Phosphorus Albumin Random Vancomycin 12.9 12/20/17 12/21/17 12/21/17 13:00 04:55 04:55 WBC 2.9 L RBC 2.47 L Hgb 8.3 L Hct 25.1 L MCV 101.7 H MCH 33.6 MCHC 33.0 RDW 15.4 Plt Count 92 L MPV 9.8 Prelim Diff (Auto) Neut % (Auto) Lymph % (Auto) [place] % (Auto) Eos % (Auto) Baso % (Auto) Neut # (Auto) Lymph # (Auto) [place] # (Auto) Eos # (Auto) Baso # (Auto) WBC Differential Diff Scan Differential Comment Platelet Estimate Platelet Morphology PT 11.2 INR 1.1 Sodium 138 Potassium 5.5 H Chloride 101 Carbon Dioxide 27.6 Anion Gap 9 BUN 59 H Creatinine 7.44 H Estimated GFR 5 L Random Glucose 86 Lactic Acid Calcium 8.0 L Phosphorus 5.1 H Albumin 3.1 L D Random Vancomycin 24.3 Microbiology 12/19/17 17:30 Aerobic Blood Culture - Preliminary Blood - Peripheral Staphylococcus aureus Anaerobic Blood Culture - Preliminary gram positive cocci 12/19/17 17:50 Aerobic Blood Culture - Preliminary Blood - Peripheral gram positive cocci Anaerobic Blood Culture - Preliminary gram positive cocci 12/19/17 16:34 Urine Culture - Preliminary Clean Catch Urine Immature growth - reincubate Impressions Chest X-Ray 12/19/17 15:27 CONCLUSION: 1. No acute abnormality. Venous Doppler Study 12/19/17 15:56 CONCLUSION: 1. Evidence of both deep and superficial venous thrombosis with absent flow seen in both cephalic and brachial veins. Lower Extremity Ultrasound 12/20/17 06:00 CONCLUSION: 1. No subcutaneous fluid collection or abscess is identified. 2. There is some type graft or fistula the area of interest and it appears thrombosed. Assessment and Plan - Assessment (1) ESRD (end stage renal disease) on dialysis Code(s): N18.6 - End stage renal disease; Z99.2 - Dependence on renal dialysis Status: Acute - Plan cellulitis of AVG, thrombosed 1. Admit for IV antibiotics, VANC ok 2. F/U blood cultures 3. Continue to use catheter 4. If erythema improves, given recent graft thrombosis and multiple prior attempts, will offer surgical attempt at graft thrombectomy, likely . Leonardo Luis MD FACS RPVI gaming surveillance observer [facility] - Heart and Vascular Surgery at [facility] [phone]
--- NOTE | 2017-12-21 09:42 | P.PNNP ---
Subjective Interval history: Seen during dialysis. Her AV graft left arm with erythema, edema, and she reports bleeding last night, able to be stopped after several minutes holding pressure. <Montse Damon - Last Filed: 12/21/17 09:47> Physical Exam Vital signs: Vital Signs 12/20/17 10:00 12/20/17 12:00 12/20/17 15:54 Temperature 99.5 F 98.8 F Pulse Rate 79 98 H 82 Respiratory Rate 18 16 Blood Pressure 127/51 L 128/50 L Pulse Oximetry 93 L 92 L 12/20/17 19:25 12/20/17 20:00 12/20/17 20:45 Temperature 99.2 F Pulse Rate 64 86 Respiratory Rate 18 18 18 Blood Pressure 119/42 L Pulse Oximetry 97 95 12/20/17 22:41 12/20/17 23:34 12/21/17 00:00 Temperature 98.4 F Pulse Rate 82 77 Respiratory Rate 18 Blood Pressure 126/58 L Pulse Oximetry 97 97 12/21/17 04:00 12/21/17 07:53 Temperature 98.7 F Pulse Rate 72 92 H Respiratory Rate 18 12 Blood Pressure 127/60 Pulse Oximetry 97 98 Intake & Output 12/20/17 12/21/17 12/21/17 18:59 06:59 18:59 Intake Total 750 / 750 Balance 750 / 750 Intake: IV 250 / 250 Vancomycin Inj 1,000 MG In NS 250 / 250 Inj 250 ML @ 250 mls/hr IV.SIG ONCE ONE Rx#:[id number] Oral 500 / 500 Other: # Voids 3 2 Date of Last Bowel Movement 12/19/17 12/19/17 - Constitutional no acute distress, obese, cooperative - Routine HEENT Exam Head: Present: normocephalic - Routine Neck Exam Present: supple, full ROM - Routine Respiratory Exam Present: CTA bilaterally. Absent: accessory muscle use - Routine Cardiovascular Exam Present: RRR, S1, S2. Absent: murmur - Routine Abdominal Exam Present: soft, normoactive bowel sounds - Routine Extremities Exam Present: AV fistula, vascular access. Absent: edema - Routine Skin Exam Present: intact, erythema, warm Comments: Left upper extremity at graft site. Erythema around access site of graft, indurated, very warm, perimeter marked to evaluate growth of cellulitic area. - Routine Neurological Exam Present: alert, oriented X3, CN II-XII intact - Detailed Neurological Exam: Coma Scale Eye Opening: Spontaneous Verbal Response: Oriented Motor Response: Obey commands [place] Coma Scale Total: 15 - Routine Psychiatric Exam Present: normal affect, normal thought process <Montse Damon - Last Filed: 12/21/17 09:47> Vital signs: Vital Signs 12/20/17 12:00 12/20/17 15:54 12/20/17 19:25 Temperature 99.5 F 98.8 F Pulse Rate 98 H 82 64 Respiratory Rate 18 16 18 Blood Pressure 127/51 L 128/50 L Pulse Oximetry 93 L 92 L 97 12/20/17 20:00 12/20/17 20:45 12/20/17 22:41 Temperature 99.2 F Pulse Rate 86 82 Respiratory Rate 18 18 Blood Pressure 119/42 L Pulse Oximetry 95 12/20/17 23:34 12/21/17 00:00 12/21/17 04:00 Temperature 98.4 F 98.7 F Pulse Rate 77 72 Respiratory Rate 18 18 Blood Pressure 126/58 L 127/60 Pulse Oximetry 97 97 97 12/21/17 07:53 12/21/17 08:00 Temperature 97.3 F L Pulse Rate 92 H 87 Respiratory Rate 12 16 Blood Pressure 144/73 H Pulse Oximetry 98 95 Intake & Output 12/20/17 12/21/17 12/21/17 18:59 06:59 18:59 Intake Total 750 / 750 Balance 750 / 750 Intake: IV 250 / 250 Vancomycin Inj 1,000 MG In NS 250 / 250 Inj 250 ML @ 250 mls/hr IV.SIG ONCE ONE Rx#:[id number] Oral 500 / 500 Other: # Voids 3 2 Date of Last Bowel Movement 12/19/17 12/19/17 <Luis Antonio Ewing - Last Filed: 12/21/17 10:35> Assessment and Plan - Assessment (1) ESRD (end stage renal disease) on dialysis Code(s): N18.6 - End stage renal disease; Z99.2 - Dependence on renal dialysis Status: Acute Plan: HD MWF Seen during dialysis today on a 2K, 350 BFR, goal 3L Using Permcath for HD given possible graft infection. On Renvela for phosphate binder. Avoid IVF administration. K 5.5, repeat tomorrow morning. High protein, low K diet ordered. (2) Cellulitis Code(s): L03.90 - Cellulitis, unspecified Status: Acute Qualifiers: Site of cellulitis: extremity Site of cellulitis of extremity: upper extremity Laterality: left Qualified Code(s): L03.114 - Cellulitis of left upper limb Plan: Of LUE AV graft. Dr. uLis (vascular) following. Possible surgery . Protect left arm. Given vancomycin. (3) Sepsis affecting skin Code(s): A41.9 - Sepsis, unspecified organism Status: Acute Plan: MSSA per culture. On Vancomycin. ID has been consulted. (4) Anemia Code(s): D64.9 - Anemia, unspecified Status: Acute Plan: Epogen with dialysis ordered. (5) DVT (deep venous thrombosis) Code(s): I82.409 - Acute embolism and thrombosis of unspecified deep veins of unspecified lower extremity Status: Acute Qualifiers: DVT location: upper extremity Affected thrombotic vein of extremity: other upper extremity vein Chronicity: acute Laterality: left Qualified Code(s) : I82.622 - Acute embolism and thrombosis of deep veins of left upper extremity Plan: Cephalic and brachial DVT of LUE. Not on anticoagulation give upcoming surgery. <Montse Damon - Last Filed: 12/21/17 09:47> - Assessment (1) ESRD (end stage renal disease) on dialysis Code(s): N18.6 - End stage renal disease; Z99.2 - Dependence on renal dialysis Status: Acute (2) Cellulitis Code(s): L03.90 - Cellulitis, unspecified Status: Acute Qualifiers: Site of cellulitis: extremity Site of cellulitis of extremity: upper extremity Laterality: left Qualified Code(s): L03.114 - Cellulitis of left upper limb (3) Sepsis affecting skin Code(s): A41.9 - Sepsis, unspecified organism Status: Acute (4) Anemia Code(s): D64.9 - Anemia, unspecified Status: Acute (5) DVT (deep venous thrombosis) Code(s): I82.409 - Acute embolism and thrombosis of unspecified deep veins of unspecified lower extremity Status: Acute Qualifiers: DVT location: upper extremity Affected thrombotic vein of extremity: other upper extremity vein Chronicity: acute Laterality: left Qualified Code(s) : I82.622 - Acute embolism and thrombosis of deep veins of left upper extremity - Attending Attestation patient was seen and examined. Seen during dialysis. Erythema, infection of AV graft. Patient has bacteremia, sepsis. AVG likely needs to be removed. Vascular surgery on the case. <Luis Antonio Ewing - Last Filed: 12/21/17 10:35>
[2017-12-21] MEDS: Heparin - SQ 10,000 UNITS/ML Vial SQ SCH ×2 (10:13→22:07)
[2017-12-21] MEDS: clonazePAM 0.5 MG Tablet PO SCH ×3 (10:13→18:46)
[2017-12-21] MEDS: Gabapentin 100 MG Capsule PO SCH ×3 (10:14→18:46)
[2017-12-21] MEDS: oxyCODONE/Acetaminophen 10/325 Tablet PO SCH ×4 (10:14→22:08)
[2017-12-21] MEDS: Famotidine 20 MG Tablet PO SCH (10:14)
[2017-12-21] MEDS: Senna/Docusate Sodium 8.6/50 MG Tablet PO SCH ×2 (10:15→22:07)
[2017-12-21] MEDS: Allopurinol 100 MG Tablet PO SCH (10:15)
[2017-12-21] MEDS ORDERED: Vancomycin Inj 1,000 MG in Sodium Chlor 0.9% Inj 250 ML IV.SIG ONE (10:31)
--- NOTE | 2017-12-21 11:08 | P.CONID ---
History of Present Illness Service: Infectious Disease Consult date: 12/21/17 Reason for Consult: Evaluate patient with staph aureus bacteremia Primary Care Provider: Mindi Mazariegos MD, R2 Chief Complaint: left arm pain History of Present Illness: Patient seen and examined. Records reviewed. Patient is a 67-year-old female with known ESRD, gets hemodialysis Thursday and Thursday, presented to the hospital with an acute onset of bleeding at her left upper extremity AV graft, with swelling and redness. Patient was in her usual self, and she went for hemodialysis on Thursday, December 18. She has had problem with dialysis access, and she actually had a left upper extremity AV graft using axillary vein and axillary artery back in October. During that time she had a permacath place and that was used for her hemodialysis and about 2-3 weeks prior to admission, her loop AV graft was used. She was not having any problem. Her dialysis on December 18 was uneventful. She has not had any fever chills or sweats. She has not had any problem with healing of all her incisions. When she woke up December 19, she noted a white dot over where she had the access for her last hemodialysis. She was thought it was a piece of fabric, and she cleaned it, and it started bleeding. She also started noticing redness and swelling in her left upper extremity AV graft. She presented to the hospital for further evaluation and treatment. Evaluation of her AV graft was okay. She had an ultrasound which did show evidence of thrombosis in her cephalic and brachial veins. 2 blood cultures done in the emergency room are now reported as growing staph aureus. Patient since has had some intermittent fevers. Her WBC is down to 2.9. Vascular surgery is evaluating the patient and contemplating on possible surgery this . Infectious disease consultation has been requested to evaluate the patient. Review of Systems Constitutional: Reports chills, Reports fever(s) Eyes: Denies discharge, Denies dry eyes Ears, Nose, Mouth, and Throat: Denies ear discharge, Denies ear pain, Denies facial pain, Denies nasal discharge, Denies sore throat Cardiovascular: Denies chest pain, Denies shortness of breath Respiratory: Denies chest congestion, Denies cough, Denies shortness of breath Gastrointestinal: Denies abdominal pain, Denies loose stools, Denies nausea, Denies pain with swallowing, Denies vomiting Genitourinary: Denies difficulty urinating Musculoskeletal: Denies joint pain, Denies joint swelling Skin/Breast: Denies rash Neurologic: Denies headache(s) PMFSH - History History Provided By: Patient - Medical History Medical History: Medical History (Last Reviewed 12/21/17 @ 11:04 by Margie Avalos MD) AV fistula Acid reflux CAD (coronary artery disease) COPD (chronic obstructive pulmonary disease) Chronic back pain Chronic renal disease Dialysis AV fistula infection Elevated cholesterol History of heart attack Hypertension Sleep apnea Stroke Tubal ligation status Varicose vein of leg - Surgical History Surgical History: Surgical History (Last Reviewed 12/21/17 @ 11:04 by Margie Avalos MD) History of loop recorder Hx of tubal ligation - Tobacco History Second Hand Smoke Exposure: No Smoking Status: Former smoker Tobacco Type: Cigarettes Packs Per Day: 1 Years Smoked: 1 - Alcohol History How Often Do You Have a Drink Containing Alcohol: Monthly or less - Substance Use History Substance History: No History of Abuse - Travel History Recent Travel in the [place] Within the Last 8 Weeks: No Recent Travel Out of the Country Within the Last 8 Weeks: No - Immunization History Tetanus Immunization: <5 Years Hx Influenza Vaccine This Season: Yes Medications and Allergies Active Medications: Active Medications Acetaminophen (Tylenol) 650 mg PO Q4H PRN PRN Reason: Temp > 100.4 Last Admin: 12/19/17 22:43 Dose: 650 mg Acetaminophen (Tylenol) 650 mg PO UNSCH PRN PRN Reason: SEE LABEL COMMENTS Al Hydroxide/Mg Hydroxide (Milk Of Ibeth Liq) 30 ml PO Q12H PRN PRN Reason: Mild Constipation Albuterol (Albuterol Neb (Prn)) 2.5 mg NEB Q2HR NEB PRN PRN Reason: SHORTNESS OF BREATH Albuterol (Duoneb Neb (Dino)) 1 ampul NEB Q6HR WHILE AWAKE NEB DINO Last Admin: 12/21/17 07:43 Dose: 1 ampul Allopurinol (Zyloprim) 150 mg PO DAILY DINO Last Admin: 12/21/17 10:15 Dose: Not Given Atorvastatin Calcium (Lipitor) 80 mg PO DAILY DINO Last Admin: 12/21/17 10:13 Dose: Not Given Bisacodyl (Dulcolax Supp) 10 mg RECTAL DAILY PRN PRN Reason: SEVERE CONSITIPATION Cinacalcet (Sensipar) 30 mg PO DAILY [facility] Last Admin: 12/21/17 10:15 Dose: Not Given Clonazepam (Klonopin) 0.5 mg PO TID [facility] Last Admin: 12/21/17 10:13 Dose: Not Given Clonidine HCl (Catapres) 0.1 mg PO UNSCH PRN PRN Reason: SEE LABEL COMMENTS Diphenhydramine HCl (Benadryl) 25 mg PO UNSCH PRN PRN Reason: SEE LABEL COMMENTS Donepezil HCl (Aricept) 5 mg PO [facility] Last Admin: 12/20/17 20:47 Dose: 5 mg Epoetin Jose Roberto (Epogen Inj) 10,000 unit IV.PUSH MoWeFr [facility] Famotidine (Pepcid) 10 mg PO DAILY [facility] Last Admin: 12/21/17 10:14 Dose: Not Given Gabapentin (Neurontin) 100 mg PO TID [facility] Last Admin: 12/21/17 10:14 Dose: Not Given Gelatin (Gelfoam 12 Mm/7 Mm Topical) 1 foam TOPICAL PRN PRN PRN Reason: help stop bleeding from site Gentamicin Sulfate (Gentamicin Inj) 20 mg OTHER WITH DIALYSIS PRN PRN Reason: Dwell Gentamycin Lock Heparin Sodium (Porcine) (Heparin Inj) 5,000 units SQ Q12H [facility] Last Admin: 12/21/17 10:13 Dose: Not Given Heparin Sodium (Porcine) (Heparin Inj) 8,000 units OTHER WITH DIALYSIS PRN PRN Reason: for machine prime Heparin Sodium (Porcine) (Heparin Inj) 1,000 units OTHER WITH DIALYSIS PRN PRN Reason: Dwell Heparin to Fill Catheter Pharmacy Profile Note (Vancomycin Consult Pharmacy) 0 mls @ 0 mls/hr OTHER [facility] Albumin Human (Flexbumin 25% Inj) 100 mls @ 60 mls/hr IV.SIG WITH DIALYSIS PRN PRN Reason: hypotension / volume replace Sodium Chloride (Ns Inj) 1,000 mls @ 0 mls/hr OTHER .Q0M PRN PRN Reason: for prime and rinse back Sodium Chloride (Ns Inj) 1,000 mls @ 200 mls/hr OTHER .Q5H PRN PRN Reason: for dialyzer flush PRN Sodium Chloride (Ns Inj) 1,000 mls @ 0 mls/hr IV.CONT .Q0M PRN PRN Reason: hypotension / volume replace Vancomycin HCl 1,000 mg/ (Sodium Chloride) 250 mls @ 250 mls/hr IV.SIG WITH DIALYSIS ONE Stop: 12/21/17 11:30 Lactulose (Lactulose Liq) 30 ml PO DAILY PRN PRN Reason: SEVERE CONSITIPATION Mannitol (Mannitol Inj) 12.5 gm IV.PUSH UNSCH PRN PRN Reason: hypotension / volume replace Meclizine HCl (Antivert) 25 mg PO TID [facility] Last Admin: 12/21/17 10:13 Dose: Not Given Miscellaneous (Pill Splitter) 1 each OTHER UNSCH PRN PRN Reason: PILL SPLITTER Nitroglycerin (Nitrostat Sl) 0.4 mg SL Q5M PRN PRN Reason: CHEST PAIN Ondansetron HCl (Zofran Inj) 4 mg IV.PUSH UNSCH PRN PRN Reason: NAUSEA OR VOMITING Oxycodone/Acetaminophen (Percocet 10/325 Mg) 1 tab PO QID [facility] Last Admin: 12/21/17 10:14 Dose: Not Given Pregabalin (Lyrica) 300 mg PO BID [facility] Last Admin: 12/21/17 10:14 Dose: Not Given Senna/Docusate Sodium (Jailyn-Colace) 1 tab PO BID [facility] Last Admin: 12/21/17 10:15 Dose: Not Given Sennosides (Senokot) 17.2 mg PO Q12H PRN PRN Reason: Moderate Constipation Sevelamer Carbonate (Renvela) 800 mg PO TID [facility] Last Admin: 12/21/17 10:15 Dose: Not Given Sodium Chloride (Ns Flush) 2 ml IV.FLUSH BID [facility] Last Admin: 12/21/17 10:14 Dose: Not Given Sodium Chloride (Ns Flush) 2 ml IV.FLUSH PRN PRN PRN Reason: FLUSH AFTER USING IV ACCESS Sodium Chloride (Ns Flush) 5 ml IV.FLUSH PRN PRN PRN Reason: flush each lumen during HD Allergies Allergy/AdvReac Type Severity Reaction Status Date / Time adhesive Allergy Severe ADHESIVE Verified 10/21/17 11:33 TAPE = RASH bee venom protein (honey bee) Allergy Severe RASH & Verified 10/21/17 11:33 TONGUE SWELLING dexamethasone Allergy Severe Shortness Verified 10/21/17 11:33 of Breath, TONGUE SWELLS hydromorphone Allergy Severe Hives Verified 10/21/17 11:33 iodine Allergy Severe RASH & Verified 10/21/17 11:33 DIFFICULTY BREATHING geraldine Allergy Severe swollen Verified 10/21/17 11:33 tongue and rash orange Allergy Severe O.J. = Verified 10/21/17 11:33 RASH AND DIFFICULTY BREATHING orange juice Allergy Severe Hives and Verified 10/22/17 11:01 difficulty breathing oxytetracycline Allergy Severe HIVES & Verified 10/21/17 11:33 TONGUE SWELLING potassium iodide Allergy Severe RASH & Verified 10/21/17 11:33 DIFFICULTY BREATHING povidone-iodine Allergy Severe RASH & Verified 10/21/17 11:33 DIFFICULTY BREATHING sodium iodide Allergy Severe RASH & Verified 10/21/17 11:33 DIFFICULTY BREATHING sodium iodide Allergy Severe RASH & Verified 10/21/17 11:33 DIFFICULTY BREATHING Sulfa (Sulfonamide Allergy Severe HIVES, Verified 10/21/17 11:33 Antibiotics) DIFFICULTY BREATHING Influenza Virus Vaccines Allergy Intermediate Rash, Verified 10/21/17 11:33 vomiting diatrizoate meglumine Allergy Unknown Rash Verified 12/19/17 16:38 gadobenic acid Allergy Unknown Rash Verified 12/19/17 16:38 gadodiamide Allergy Unknown Rash Verified 12/19/17 16:38 gadoteridol Allergy Unknown Rash Verified 12/19/17 16:38 iodixanol Allergy Unknown Rash Verified 12/19/17 16:38 iohexol Allergy Unknown Rash Verified 12/19/17 16:38 penicillin G Allergy Unknown Rash Verified 12/19/17 16:38 Home Medications Medication Instructions Recorded Confirmed Type Lipitor 80 mg DAILY 12/19/17 12/19/17 History Lyrica 300 mg BID 12/19/17 12/19/17 History Renvela 800 mg TID 12/19/17 12/19/17 History Sensipar 30 mg DAILY 12/19/17 12/19/17 History Zantac 150 mg BID 12/19/17 12/19/17 History albuterol sulfate 0.3 mg QID PRN 12/19/17 12/19/17 History allopurinol 150 mg DAILY 12/19/17 12/19/17 History biotin 5,000 mcg DAILY 12/19/17 12/19/17 History clonazepam 0.5 mg TID 12/19/17 12/19/17 History donepezil 5 mg HS 12/19/17 12/19/17 History gabapentin 300 mg TID 12/19/17 12/19/17 History meclizine 25 mg TID 12/19/17 12/19/17 History oxycodone-acetaminophen 10 mg QID 12/19/17 12/19/17 History Exam Vital signs: Vital Signs 12/20/17 12:00 12/20/17 15:54 12/20/17 19:25 Temperature 99.5 F 98.8 F Pulse Rate 98 H 82 64 Respiratory Rate 18 16 18 Blood Pressure 127/51 L 128/50 L Pulse Oximetry 93 L 92 L 97 12/20/17 20:00 12/20/17 20:45 12/20/17 22:41 Temperature 99.2 F Pulse Rate 86 82 Respiratory Rate 18 18 Blood Pressure 119/42 L Pulse Oximetry 95 12/20/17 23:34 12/21/17 00:00 12/21/17 04:00 Temperature 98.4 F 98.7 F Pulse Rate 77 72 Respiratory Rate 18 18 Blood Pressure 126/58 L 127/60 Pulse Oximetry 97 97 97 12/21/17 07:53 12/21/17 08:00 Temperature 97.3 F L Pulse Rate 92 H 87 Respiratory Rate 12 16 Blood Pressure 144/73 H Pulse Oximetry 98 95 Intake & Output 12/20/17 12/21/17 12/21/17 18:59 06:59 18:59 Intake Total 750 / 750 Balance 750 / 750 Intake: IV 250 / 250 Vancomycin Inj 1,000 MG In NS 250 / 250 Inj 250 ML @ 250 mls/hr IV.SIG ONCE ONE Rx#:[id number] Oral 500 / 500 Other: # Voids 3 2 Date of Last Bowel Movement 12/19/17 12/19/17 Narrative: Physical Examination GENERAL: Patient is a well-nourished, well-developed female, awake and alert , not in respiratory distress. SKIN: Cool and dry. No generalized rash, no ecchymoses and no evidence of embolic lesions. HEAD: Atraumatic. Normocephalic. No temporal wasting, or tenderness. EYES: [place] conjunctiva. No petechia or hemorrhage. Pupils equal, round and reactive to light. Extraocular movements full and intact. No scleral icterus. No injection or drainage. EARS, NOSE AND THROAT: Nose without bleeding or purulent nasal discharge. No sinus tenderness. Mucous membranes pink and moist. No oral lesions noted. No exudate. No oral thrush. NECK: Trachea midline. Supple and not tender, no meningeal signs CARDIOVASCULAR: Regular rate and rhythm. No murmurs, rubs or gallops heard RESPIRATORY: Clear to auscultation. Breath sounds equal bilaterally. No rales , wheezing or rhonchi. Permacath is in her R upper chest, no redness or drainage ABDOMEN: Soft, non-tender, nondistended. Bowel sounds present and normoactive. No guarding. No rebound. No organomegaly. EXTREMITIES: No clubbing, cyanosis, or edema. LUE - the site of her loop AVG in the upper arm, there is an area of erythema and swelling, with some induration. No joint effusion, has good ROM. No calf tenderness. Well perfused and warm. NEUROLOGICAL: Awake and alert. Cranial nerves grossly intact. Motor grossly within normal limits. PSYCHIATRIC: Normal affect, calm and cooperative. LINE: No evidence of infection Results - Labs CBC & Chem 7: 12/21/17 04:55 12/21/17 04:55 Labs: Laboratory Results - last 24 hr 12/20/17 12/20/17 12/20/17 13:00 13:00 13:00 WBC 5.2 RBC 2.55 L Hgb 8.5 L D Hct 25.8 L MCV 101.2 H MCH 33.3 MCHC 32.9 RDW 15.2 Plt Count 99 L MPV 9.7 Prelim Diff (Auto) Slide review pending Neut % (Auto) 75.1 H Lymph % (Auto) 14.1 Cavalier % (Auto) 9.1 H Eos % (Auto) 1.0 Baso % (Auto) 0.7 Neut # (Auto) 3.9 Lymph # (Auto) 0.7 L [place]ier # (Auto) 0.5 Eos # (Auto) 0.0 Baso # (Auto) 0.0 WBC Differential . Diff Scan Auto diff confirmed Differential Comment . Platelet Estimate Low L Platelet Morphology Normal PT INR Sodium 140 Potassium 4.9 Chloride 104 Carbon Dioxide 29.4 Anion Gap 7 BUN 54 H Creatinine 6.88 H Estimated GFR 6 L Random Glucose 95 Lactic Acid 1.0 Calcium 8.2 L D Phosphorus Albumin Random Vancomycin 12.9 12/20/17 12/21/17 12/21/17 13:00 04:55 04:55 WBC 2.9 L RBC 2.47 L Hgb 8.3 L Hct 25.1 L MCV 101.7 H MCH 33.6 MCHC 33.0 RDW 15.4 Plt Count 92 L MPV 9.8 Prelim Diff (Auto) Neut % (Auto) Lymph % (Auto) [place] % (Auto) Eos % (Auto) Baso % (Auto) Neut # (Auto) Lymph # (Auto) [place]ier # (Auto) Eos # (Auto) Baso # (Auto) WBC Differential Diff Scan Differential Comment Platelet Estimate Platelet Morphology PT 11.2 INR 1.1 Sodium 138 Potassium 5.5 H Chloride 101 Carbon Dioxide 27.6 Anion Gap 9 BUN 59 H Creatinine 7.44 H Estimated GFR 5 L Random Glucose 86 Lactic Acid Calcium 8.0 L Phosphorus 5.1 H Albumin 3.1 L D Random Vancomycin 24.3 - Imaging Chest X-Ray 12/19/17 15:27 CONCLUSION: 1. No acute abnormality. Venous Doppler Study 12/19/17 15:56 CONCLUSION: 1. Evidence of both deep and superficial venous thrombosis with absent flow seen in both cephalic and brachial veins. Lower Extremity Ultrasound 12/20/17 06:00 CONCLUSION: 1. No subcutaneous fluid collection or abscess is identified. 2. There is some type graft or fistula the area of interest and it appears thrombosed. Assessment and Plan - Plan Impression Staph aureus sepsis Infection AVG LUE (Axillary artery/vein loop graft) Permacath seeding a concern as well ESRD on HD MWF DVT LUE brachial vein Recommendation Add IV Ancef while C/S pending She is getting IV Vanco with HD Get 2 BC from the permacth - spoke with HD RN Follow temps Follow C/S Monitor progress Vascular surgery evaluating patient for surgery this Dec 24 Will also need evaluation of permacath change Will determine course of Abx once workup is completed I will follow along with you Thank you for this consultation
[2017-12-21] MEDS: ceFAZolin 2 GM Premix Inj 2 GM/100 ML BAG IV.SIG SCH (15:54)
--- NOTE | 2017-12-21 16:08 | P.PNFP ---
Subjective Interval history: Pt seen and evaluated while in dialysis this morning. She reports some bleeding from her AV fistula site last night that stopped on its own. She did not see any pus, pr any other drainage. We discussed her positive blood cultures and her likely long antibiotic course. She denies any fevers, chills, shortness of breath, or chest pain. <Felisha VogelGénesis thompson V - 12/21/17 16:08> Results - Labs Result diagrams: 12/22/17 09:08 12/22/17 09:08 <Montse Tinoco - 12/22/17 12:25> Abnormal lab results 12/22/17 12/22/17 Range/Units 09:08 09:08 RBC 2.78 L (4.00-5.30) mil/mm3 Hgb 9.4 L (11.6-15.3) gm/dL Hct 28.0 L (35.0-46.0) % MCV 100.4 H (80.0-100.0) fL Plt Count 107 L (150-450) th/mm3 [place] % (Auto) 8.2 H (0.0-8.0) % Eos % (Auto) 5.0 H (0.0-4.0) % BUN 39 H (7-18) mg/dL Creatinine 5.51 H (0.50-1.00) mg/dL Estimated GFR 8 L (>89) mL/min Calcium 8.4 L (8.5-10.1) mg/dL Alkaline Phosphatase 223 H (45-117) U/L Total Protein 6.3 L D (6.4-8.2) g/dL Albumin 3.2 L (3.4-5.0) g/dL Short CBC 12/22/17 Range/Units 09:08 WBC 4.2 (4.0-11.0) th/mm3 Hgb 9.4 L (11.6-15.3) gm/dL Hct 28.0 L (35.0-46.0) % Plt Count 107 L (150-450) th/mm3 BMP 12/22/17 09:08 Sodium 137 Potassium 4.7 D Chloride 100 Carbon Dioxide 26.3 BUN 39 H Creatinine 5.51 H Calcium 8.4 L Liver Function 12/22/17 Range/Units 09:08 Total Bilirubin 0.4 (0.2-1.0) mg/dL AST 28 (15-37) U/L ALT 25 (10-53) U/L Alkaline Phosphatase 223 H (45-117) U/L Albumin 3.2 L (3.4-5.0) g/dL <Montse Tinoco - 12/22/17 12:25> Abnormal lab results 12/21/17 12/21/17 Range/Units 04:55 04:55 WBC 2.9 L (4.0-11.0) th/mm3 RBC 2.47 L (4.00-5.30) mil/mm3 Hgb 8.3 L (11.6-15.3) gm/dL Hct 25.1 L (35.0-46.0) % MCV 101.7 H (80.0-100.0) fL Plt Count 92 L (150-450) th/mm3 Potassium 5.5 H (3.5-5.1) meq/L BUN 59 H (7-18) mg/dL Creatinine 7.44 H (0.50-1.00) mg/dL Estimated GFR 5 L (>89) mL/min Calcium 8.0 L (8.5-10.1) mg/dL Phosphorus 5.1 H (2.5-4.9) mg/dL Albumin 3.1 L D (3.4-5.0) g/dL Short CBC 12/21/17 Range/Units 04:55 WBC 2.9 L (4.0-11.0) th/mm3 Hgb 8.3 L (11.6-15.3) gm/dL Hct 25.1 L (35.0-46.0) % Plt Count 92 L (150-450) th/mm3 BMP 12/21/17 04:55 Sodium 138 Potassium 5.5 H Chloride 101 Carbon Dioxide 27.6 BUN 59 H Creatinine 7.44 H Calcium 8.0 L Liver Function 12/21/17 Range/Units 04:55 Albumin 3.1 L D (3.4-5.0) g/dL <Génesis Dowling V - 12/21/17 16:08> Physical Exam Vital signs: Vital Signs 12/21/17 14:00 12/21/17 16:00 12/21/17 20:00 Temperature 98.8 F 98.5 F Pulse Rate 90 82 79 Respiratory Rate 12 16 18 Blood Pressure 138/72 154/65 H Pulse Oximetry 97 97 12/21/17 20:45 12/21/17 22:40 12/22/17 08:00 Temperature 98.1 F Pulse Rate 73 Respiratory Rate 18 18 18 Blood Pressure 105/57 L Pulse Oximetry 100 12/22/17 09:57 Temperature Pulse Rate 80 Respiratory Rate 12 Blood Pressure Pulse Oximetry 97 Intake & Output 12/21/17 12/22/17 12/22/17 18:59 06:59 18:59 Intake Total 720 / 720 Output Total 2002 Balance -1283 / -1283 Intake: Oral 720 / 720 Output: Urine / Hemodialysis Amount 1999 <Montse Tinoco - 12/22/17 12:25> Vital Signs 12/20/17 15:54 12/20/17 19:25 12/20/17 20:00 Temperature 98.8 F 99.2 F Pulse Rate 82 64 86 Respiratory Rate 16 18 18 Blood Pressure 128/50 L 119/42 L Pulse Oximetry 92 L 97 95 12/20/17 20:45 12/20/17 22:41 12/20/17 23:34 Temperature Pulse Rate 82 Respiratory Rate 18 Blood Pressure Pulse Oximetry 97 12/21/17 00:00 12/21/17 04:00 12/21/17 07:53 Temperature 98.4 F 98.7 F Pulse Rate 77 72 92 H Respiratory Rate 18 18 12 Blood Pressure 126/58 L 127/60 Pulse Oximetry 97 97 98 12/21/17 08:00 12/21/17 12:00 12/21/17 14:00 Temperature 97.3 F L 97.3 F L Pulse Rate 87 85 90 Respiratory Rate 16 16 12 Blood Pressure 144/73 H 121/60 Pulse Oximetry 95 98 Intake & Output 12/20/17 12/21/17 12/21/17 18:59 06:59 18:59 Intake Total 750 / 750 Output Total 1999 Balance 750 / 750 -1999 Intake: IV 250 / 250 Vancomycin Inj 1,000 MG In NS 250 / 250 Inj 250 ML @ 250 mls/hr IV.SIG ONCE ONE Rx#:[id number] Oral 500 / 500 Output: Hemodialysis Amount 1999 Other: # Voids 3 2 Date of Last Bowel Movement 12/19/17 12/19/17 <Génesis Dowling V - 12/21/17 16:08> Narrative: GENERAL: White obese female sitting up in bed, in no acute distress SKIN: Warm and dry. HEAD: Atraumatic. Normocephalic. EYES: Pupils equal and round. No scleral icterus. No injection or drainage. ENT: No nasal bleeding or discharge. Mucous membranes pink and moist. NECK: Trachea midline. No JVD. CARDIOVASCULAR: Regular rate and rhythm. RESPIRATORY: No accessory muscle use. Breath sounds equal bilaterally. GASTROINTESTINAL: Abdomen soft, non-tender, nondistended. Hepatic and splenic margins not palpable. MUSCULOSKELETAL: Extremities without clubbing, cyanosis, or edema. No obvious deformities. Left upper arm: punctate area with surrounding induration. Tender to touch. Erythema continues to improve from marked outline. Warm to touch. NEUROLOGICAL: Awake and alert. No obvious cranial nerve deficits. Motor grossly within normal limits. Normal speech. PSYCHIATRIC: Appropriate mood and affect; insight and judgment normal. <Génesis Dowling V - 12/21/17 16:08> Assessment and Plan - Assessment (1) Pain and swelling of left upper extremity Code(s): M79.602 - Pain in left arm; M79.89 - Other specified soft tissue disorders Status: Acute (2) Chest pain Code(s): R07.9 - Chest pain, unspecified Status: Resolved (3) CKD (chronic kidney disease) Code(s): N18.9 - Chronic kidney disease, unspecified Status: Chronic (4) COPD (chronic obstructive pulmonary disease) Code(s): J44.9 - Chronic obstructive pulmonary disease, unspecified Status: Chronic (5) Chronic pain Code(s): G89.29 - Other chronic pain Status: Chronic (6) ROSALINDA (obstructive sleep apnea) Code(s): G47.33 - Obstructive sleep apnea (adult) (pediatric) Status: Chronic (7) Insomnia Code(s): G47.00 - Insomnia, unspecified Status: Chronic (8) Gout Code(s): M10.9 - Gout, unspecified Status: Chronic (9) Nutrition, metabolism, and development symptoms Code(s): R63.8 - Other symptoms and signs concerning food and fluid intake Status: Acute (10) DVT prophylaxis Status: Acute <Montse Tinoco - 12/22/17 12:25> (1) Pain and swelling of left upper extremity Code(s): M79.602 - Pain in left arm; M79.89 - Other specified soft tissue disorders Status: Acute Plan: Left arm swelling, concern for cellulitis and DVT. No leukocytosis on admission. Area demarcated and shows slight improvement today. Venous doppler study on 12/19 shows evidence of both deep and superficial venous thrombosis with absent flow seen in both cephalic and brachial veins. US soft tissue LUE on 12/20 shows no subcutaneous fluid collection or abscess identified. - Positive Blood cultures x4 for Staph aureous - awaiting sensitivities - Vascular surgery consulted, appreciate recs - Admit for IV antibiotics, VANC ok - Possible surgical revision/debridement and thrombectomy of graft . - ID consulted, appreciate recs - Add IV Ancef while C/S pending, continue Vancomycin - Get 2 BC from the permacth - spoke with HD RN - Follow temps - Follow C/S - Will also need evaluation of permacath change - Will determine course of Abx once workup is completed (2) Chest pain Code(s): R07.9 - Chest pain, unspecified Status: Resolved Plan: hx IN and thrombosis. Diff: anxiety v IN v costochondritis. EKG on admission shows normal sinus rhythm Troponin negative x 1 -Pt denies chest pain today (3) CKD (chronic kidney disease) Code(s): N18.9 - Chronic kidney disease, unspecified Status: Chronic Plan: CKD Stage 5 on dialysis, follows w/ nephrology, at [facility] for dialysis MWF - Monitor BMP - Con't home Renvela and Sensipar - Nephrology consulted , appreciate recs - Avoid IVF administration. - K 5.5, repeat tomorrow morning. - High protein, low K diet ordered - Epogen w/ dialysis (4) COPD (chronic obstructive pulmonary disease) Code(s): J44.9 - Chronic obstructive pulmonary disease, unspecified Status: Chronic Plan: - controlled at home on albuterol inhaler - Albuterol q2H PRN, duonebs Q6H while awake scheduled - IS, O2 as needed. - Improved on exam today (5) Chronic pain Code(s): G89.29 - Other chronic pain Status: Chronic Plan: - Con't home clonazepam, gabapentin, lyrica, and percocet (6) ROSALINDA (obstructive sleep apnea) Code(s): G47.33 - Obstructive sleep apnea (adult) (pediatric) Status: Chronic Plan: - Does not use CPAP at home, just her O2 overnight - keep head of bed elevated overnight. (7) Insomnia Code(s): G47.00 - Insomnia, unspecified Status: Chronic (8) Gout Code(s): M10.9 - Gout, unspecified Status: Chronic Plan: -con't home allopurinol (9) Nutrition, metabolism, and development symptoms Code(s): R63.8 - Other symptoms and signs concerning food and fluid intake Status: Acute Plan: Fluids: tolerating po. Avoid IV fluids Electrolytes: monitor and replete as needed. Monitor K tomorrow. Nutrition: high protein, low K diet GI prophylaxis: Zantac (home medication) (10) DVT prophylaxis Status: Acute Plan: DVT prophy: SCDs, Heparin 5000un SQ q12h <Génesis Dowling V - 12/21/17 15:48> - Assessment and Plan 67 y/o F w/hx of CKD, hx of IN, and COPD presenting w/left arm swelling at AV fistula site. Diff: DVT v cellulitis v abscess. S/p 1 g IV Vanc in the ED. Doppler shows left UE DVT. Nephrology consulted. Hold off anticoagulation treatment for DVT per discussion, will give prophylaxis. Blood cultures positive for Staph Aureous x4. ID consulted and managing antibiotic treatment. Vascular surgery consulted and waiting for possible debridement/ thrombectomy . Will continue to monitor clinically. <Génesis Dowling V - 12/21/17 16:08> - Attending Attestation The exam, history, and the medical decision-making described in the above note were completed with the assistance of the resident physician. I reviewed and agree with the findings presented. I attest that I had a [id number] encounter with the patient on the same day, and personally performed and documented my assessment and findings in the medical record. Fortunately her cellulitis continues to improve. Appreciate the and investigation of her port <Montse Tinoco M - 12/22/17 12:25> <Génesis Dowling V - Last Filed: 12/21/17 15:48> (3) CKD (chronic kidney disease) Qualifiers: Chronic kidney disease stage: on chronic dialysis Qualified Code(s): N18.6 - End stage renal disease; Z99.2 - Dependence on renal dialysis <Montse Tinoco M - Last Filed: 12/22/17 12:25> (3) CKD (chronic kidney disease) Qualifiers: Chronic kidney disease stage: on chronic dialysis Qualified Code(s): N18.6 - End stage renal disease; Z99.2 - Dependence on renal dialysis (4) COPD (chronic obstructive pulmonary disease) Qualifiers: COPD type: unspecified COPD Qualified Code(s): J44.9 - Chronic obstructive pulmonary disease, unspecified (5) Chronic pain Qualifiers: Chronic pain type: chronic pain syndrome Qualified Code(s): G89.4 - Chronic pain syndrome (8) Gout Qualifiers: Gout site: unspecified site Gout etiology: due to renal impairment Chronicity: unspecified Qualified Code(s): M10.30 - Gout due to renal impairment, unspecified site <Génesis Dowling V - Last Filed: 12/21/17 15:48> (3) CKD (chronic kidney disease) Qualifiers: Chronic kidney disease stage: on chronic dialysis Qualified Code(s): N18.6 - End stage renal disease; Z99.2 - Dependence on renal dialysis <Montse Tinoco - Last Filed: 12/22/17 12:25> (3) CKD (chronic kidney disease) Qualifiers: Chronic kidney disease stage: on chronic dialysis Qualified Code(s): N18.6 - End stage renal disease; Z99.2 - Dependence on renal dialysis (4) COPD (chronic obstructive pulmonary disease) Qualifiers: COPD type: unspecified COPD Qualified Code(s): J44.9 - Chronic obstructive pulmonary disease, unspecified (5) Chronic pain Qualifiers: Chronic pain type: chronic pain syndrome Qualified Code(s): G89.4 - Chronic pain syndrome (8) Gout Qualifiers: Gout site: unspecified site Gout etiology: due to renal impairment Chronicity: unspecified Qualified Code(s): M10.30 - Gout due to renal impairment, unspecified site
[2017-12-22] MEDS: oxyCODONE/Acetaminophen 10/325 Tablet PO SCH ×4 (10:06→22:36)
[2017-12-22] MEDS: Famotidine 20 MG Tablet PO SCH (10:07)
[2017-12-22] MEDS: Allopurinol 100 MG Tablet PO SCH (10:09)
[2017-12-22] MEDS: Gabapentin 100 MG Capsule PO SCH ×3 (10:09→18:39)
[2017-12-22] MEDS: Senna/Docusate Sodium 8.6/50 MG Tablet PO SCH ×2 (10:09→22:37)
--- NOTE | 2017-12-22 10:09 | P.PNVS ---
Subjective Subjective/Hospital Course: 67/Female who was admitted with an abscess/cellulitis around thrombosed LEFT upper extremity ArterioVenous Graft Pt w/o Fever or chills Erythema to Left arm stable w/o change Hemodialysis via R chest catheter yesterday Pt w/o hand pain Objective Vital Signs / I&O: Vital Signs 12/21/17 12:00 12/21/17 14:00 12/21/17 16:00 Temperature 97.3 F L 98.8 F Pulse Rate 85 90 82 Respiratory Rate 16 12 16 Blood Pressure 121/60 138/72 Pulse Oximetry 98 97 12/21/17 20:00 12/21/17 20:45 12/21/17 22:40 Temperature 98.5 F Pulse Rate 79 Respiratory Rate 18 18 18 Blood Pressure 154/65 H Pulse Oximetry 97 Intake & Output 12/21/17 12/22/17 12/22/17 18:59 06:59 18:59 Intake Total 720 / 720 Output Total 2002 Balance -1283 / -1283 Intake: Oral 720 / 720 Output: Urine 3 / 3 Hemodialysis Amount 1999 Physical Exam: Erythema to L UE with swelling noted No drainage or odor present Equal technical assistance consultant strength Palpable L radial pulse (2+) Right chest tunneled cath intact with mild erythema around port -No drainage Microbiology 12/19/17 17:50 Aerobic Blood Culture - Preliminary Blood - Peripheral Staphylococcus aureus Anaerobic Blood Culture - Preliminary Staphylococcus aureus 12/19/17 17:30 Aerobic Blood Culture - Preliminary Blood - Peripheral Staphylococcus aureus Anaerobic Blood Culture - Preliminary Staphylococcus aureus 12/19/17 16:34 Urine Culture - Final Clean Catch Urine 10-50,000 cfu/mL mixed gram positive tristan (probable contaminants) Impressions Lower Extremity Ultrasound 12/20/17 06:00 CONCLUSION: 1. No subcutaneous fluid collection or abscess is identified. 2. There is some type graft or fistula the area of interest and it appears thrombosed. Assessment and Plan - Assessment (1) ESRD (end stage renal disease) on dialysis Code(s): N18.6 - End stage renal disease; Z99.2 - Dependence on renal dialysis Status: Acute - Plan Pt w/ cellulitis of AVG, thrombosed Plan Continue IV antibiotics Pt scheduled for L UE access revision/thrombectomy on 12/24 () with Dr. Luis Pt aware of plan Consent obtained Collette Nunez NP [facility]/[place] [phone]
[2017-12-22] MEDS: Heparin - SQ 10,000 UNITS/ML Vial SQ SCH ×2 (10:10→22:38)
[2017-12-22] MEDS: clonazePAM 0.5 MG Tablet PO SCH ×3 (10:17→18:39)
[2017-12-22 10:21] LABS: Baso % (Auto) 0.9 % (0.0-2.0); Eos # (Auto) 0.2 th/mm3 (0.0-0.4); Hemoglobin 9.4 gm/dL (11.6-15.3); Lymph % (Auto) 23.4 % (9.0-44.0); Mean Corpuscular HGB Conc 33.6 % (32.0-36.0); Mean Corpuscular Hemoglobin 33.7 pg (27.0-34.0); Mean Corpuscular Volume 100.4 fL (80.0-100.0); Mean Platelet Volume 9.9 fL (7.0-11.0); Mono # (Auto) 0.3 th/mm3 (0.0-0.9); Mono % (Auto) 8.2 % (0.0-8.0); Neut # (Auto) 2.6 th/mm3 (1.8-7.7); Neut % (Auto) 62.5 % (16.0-70.0); Platelet Count 107 th/mm3 (150-450); Red Blood Count 2.78 mil/mm3 (4.00-5.30); White Blood Count 4.2 th/mm3 (4.0-11.0)
[2017-12-22 11:09] LABS: Alanine Aminotransferase 25 U/L (10-53); Albumin 3.2 g/dL (3.4-5.0); Anion Gap 11 meq/L (5-15); Aspartate Aminotransferase 28 U/L (15-37); Blood Urea Nitrogen 39 mg/dL (7-18); Calcium 8.4 mg/dL (8.5-10.1); Carbon Dioxide 26.3 meq/L (21.0-32.0); Chloride 100 meq/L (98-107); Glomerular Filtration Rate 8 mL/min (>89); Glucose,Random 86 mg/dL (74-106); Phosphorus 4.9 mg/dL (2.5-4.9); Potassium 4.7 meq/L (3.5-5.1); Sodium 137 meq/L (136-145)
[2017-12-22 11:12] LABS: Alkaline Phosphatase 223 U/L (45-117); Total Protein 6.3 g/dL (6.4-8.2); Vancomycin,Random 21.4 Comment
--- NOTE | 2017-12-22 11:28 | P.PNNP ---
Subjective Interval history: She is sleepy, states she does not feel well. Afebrile. Dialyzed yesterday without incident. <Montse Damon - Last Filed: 12/22/17 13:05> Physical Exam Vital signs: Vital Signs 12/21/17 12:00 12/21/17 14:00 12/21/17 16:00 Temperature 97.3 F L 98.8 F Pulse Rate 85 90 82 Respiratory Rate 16 12 16 Blood Pressure 121/60 138/72 Pulse Oximetry 98 97 12/21/17 20:00 12/21/17 20:45 12/21/17 22:40 Temperature 98.5 F Pulse Rate 79 Respiratory Rate 18 18 18 Blood Pressure 154/65 H Pulse Oximetry 97 12/22/17 08:00 12/22/17 09:57 Temperature 98.1 F Pulse Rate 73 80 Respiratory Rate 18 12 Blood Pressure 105/57 L Pulse Oximetry 100 97 Intake & Output 12/21/17 12/22/17 12/22/17 18:59 06:59 18:59 Intake Total 720 / 720 Output Total 2002 Balance -1283 / -1283 Intake: Oral 720 / 720 Output: Urine 3 / 3 Hemodialysis Amount 1999 - Constitutional no acute distress, obese, chronically ill appearing, disheveled, cooperative - Routine HEENT Exam Head: Present: normocephalic - Routine Neck Exam Present: supple, full ROM. Absent: JVD - Routine Respiratory Exam Present: CTA bilaterally. Absent: accessory muscle use - Routine Cardiovascular Exam Present: RRR, S1, S2 - Routine Abdominal Exam Present: soft, normoactive bowel sounds - Routine Extremities Exam Present: full ROM, pulses intact. Absent: edema - Routine Skin Exam Present: intact, dry, warm - Routine Neurological Exam Present: alert, oriented X3, CN II-XII intact - Detailed Neurological Exam: Coma Scale Eye Opening: Spontaneous Verbal Response: Oriented Motor Response: Obey commands Anayeli Coma Scale Total: 15 - Routine Psychiatric Exam Present: normal affect, normal thought process <Montse Damon - Last Filed: 12/22/17 13:05> Vital signs: Vital Signs 12/21/17 20:00 12/21/17 20:45 12/21/17 22:40 Temperature 98.5 F Pulse Rate 79 Respiratory Rate 18 18 18 Blood Pressure 154/65 H Pulse Oximetry 97 12/22/17 08:00 12/22/17 09:57 12/22/17 12:00 Temperature 98.1 F 98 F Pulse Rate 68 80 75 Respiratory Rate 18 12 18 Blood Pressure 105/57 L 145/62 H Pulse Oximetry 100 97 100 12/22/17 13:28 12/22/17 16:00 Temperature 97.9 F Pulse Rate 83 78 Respiratory Rate 12 18 Blood Pressure 153/67 H Pulse Oximetry 100 Intake & Output 12/21/17 12/22/17 12/22/17 18:59 06:59 18:59 Intake Total 720 / 720 200 / 200 Output Total 2002 Balance -1283 / -1283 200 / 200 Intake: IV 200 / 200 Ancef 2 GM Premix Inj 2 gm In 200 / 200 100 ml @ 200 mls/hr IV.SIG Q24H SAUD Rx#:[id number] Oral 720 / 720 Output: Urine 3 / 3 Hemodialysis Amount 1999 <Luis Antonio Ewing - Last Filed: 12/22/17 17:57> Assessment and Plan - Assessment (1) ESRD (end stage renal disease) on dialysis Code(s): N18.6 - End stage renal disease; Z99.2 - Dependence on renal dialysis Status: Acute Plan: HD MWF, 2L UF yesterday. We have consulted IR for PermCath removal today. Will need vascath placement in AM On Renvela for phosphate binder. Monitor phosphorus periodically. Avoid IVF administration. Gadolinium is contraindicated. Potassium improved. High protein, low K diet ordered. (2) Cellulitis Code(s): L03.90 - Cellulitis, unspecified Status: Acute Qualifiers: Site of cellulitis: extremity Site of cellulitis of extremity: upper extremity Laterality: left Qualified Code(s): L03.114 - Cellulitis of left upper limb Plan: Of LUE AV graft. Dr. Luis (vascular) following. Most likey will have graft removal on . Protect left arm. Given vancomycin. Ordered Ancef. ID has been consulted. (3) Sepsis affecting skin Code(s): A41.9 - Sepsis, unspecified organism Status: Acute Plan: MSSA per culture. Sensitivity pending. Permcath removal ordered today, line holiday x 1 day. See above. Antibiotics per ID. May need PRATIMA. (4) Anemia Code(s): D64.9 - Anemia, unspecified Status: Acute Plan: Epogen with dialysis ordered. (5) DVT (deep venous thrombosis) Code(s): I82.409 - Acute embolism and thrombosis of unspecified deep veins of unspecified lower extremity Status: Acute Qualifiers: DVT location: upper extremity Affected thrombotic vein of extremity: other upper extremity vein Chronicity: acute Laterality: left Qualified Code(s) : I82.622 - Acute embolism and thrombosis of deep veins of left upper extremity Plan: Cephalic and brachial DVT of LUE. Not on anticoagulation give upcoming surgery. <Montse Damon - Last Filed: 12/22/17 13:05> - Assessment (1) ESRD (end stage renal disease) on dialysis Code(s): N18.6 - End stage renal disease; Z99.2 - Dependence on renal dialysis Status: Acute (2) Cellulitis Code(s): L03.90 - Cellulitis, unspecified Status: Acute Qualifiers: Site of cellulitis: extremity Site of cellulitis of extremity: upper extremity Laterality: left Qualified Code(s): L03.114 - Cellulitis of left upper limb (3) Sepsis affecting skin Code(s): A41.9 - Sepsis, unspecified organism Status: Acute (4) Anemia Code(s): D64.9 - Anemia, unspecified Status: Acute (5) DVT (deep venous thrombosis) Code(s): I82.409 - Acute embolism and thrombosis of unspecified deep veins of unspecified lower extremity Status: Acute Qualifiers: DVT location: upper extremity Affected thrombotic vein of extremity: other upper extremity vein Chronicity: acute Laterality: left Qualified Code(s) : I82.622 - Acute embolism and thrombosis of deep veins of left upper extremity - Attending Attestation patient was seen and examined. Agree with above assessment and plan. Discussed with Dr. Luis. Most likely AVG will have to be removed. Consider PRATIMA because of Staph aureus sepsis. PermCath to be removed, she will have a Vascath temporarily. <Luis Antonio Ewing - Last Filed: 12/22/17 17:57>
[2017-12-22] MEDS: Petrolatum Oint 30 GM Tube TOPICAL PRN (13:49)
[2017-12-22] MEDS: ceFAZolin 2 GM Premix Inj 2 GM/100 ML BAG IV.SIG SCH (13:49)
--- NOTE | 2017-12-22 14:04 | P.PNID ---
Subjective Remarks: Patient is a 67-year-old female with known ESRD, gets hemodialysis Thursday and Thursday, presented to the hospital with an acute onset of bleeding at her left upper extremity AV graft, with swelling and redness. Patient was in her usual self, and she went for hemodialysis on Thursday, December 18. She has had problem with dialysis access, and she actually had a left upper extremity AV graft using axillary vein and axillary artery back in October. During that time she had a permacath place and that was used for her hemodialysis and about 2-3 weeks prior to admission, her loop AV graft was used. She was not having any problem. Her dialysis on December 18 was uneventful. She has not had any fever chills or sweats. She has not had any problem with healing of all her incisions. When she woke up December 19, she noted a white dot over where she had the access for her last hemodialysis. She was thought it was a piece of fabric, and she cleaned it, and it started bleeding. She also started noticing redness and swelling in her left upper extremity AV graft. She presented to the hospital for further evaluation and treatment. Evaluation of her AV graft was okay. She had an ultrasound which did show evidence of thrombosis in her cephalic and brachial veins. 2 blood cultures done in the emergency room are now reported as growing staph aureus. Patient since has had some intermittent fevers. Her WBC is down to 2.9. Vascular surgery is evaluating the patient and contemplating on possible surgery this . Infectious disease consultation has been requested to evaluate the patient. Notes reviewed Temps ok BC with MSSA No new (+) BC WBC better Permacath to be removed today OR plans noted for tomorrow by vascular surgery Antibiotics: vanco Ancef Past Medical History: AV fistula Acid reflux CAD (coronary artery disease) COPD (chronic obstructive pulmonary disease) Chronic back pain Chronic renal disease Dialysis AV fistula infection Elevated cholesterol History of heart attack Hypertension Sleep apnea Stroke Tubal ligation status Varicose vein of leg History of loop recorder Hx of tubal ligation Allergies/Adverse Reactions: Allergies adhesive Allergy (Severe, Verified 10/21/17 11:33) ADHESIVE TAPE = RASH bee venom protein (honey bee) Allergy (Severe, Verified 10/21/17 11:33) RASH & TONGUE SWELLING dexamethasone Allergy (Severe, Verified 10/21/17 11:33) Shortness of Breath, TONGUE SWELLS hydromorphone Allergy (Severe, Verified 10/21/17 11:33) Hives PT SAID SHE DOESNT THINK SHE IS ALLERGIC TO DILAUDID THAT IT WAS JUST A REACTION FROM ANOTHER MEDICATION iodine Allergy (Severe, Verified 10/21/17 11:33) RASH & DIFFICULTY BREATHING geraldine Allergy (Severe, Verified 10/21/17 11:33) swollen tongue and rash orange Allergy (Severe, Verified 10/21/17 11:33) O.J. = RASH AND DIFFICULTY BREATHING orange juice Allergy (Severe, Verified 10/22/17 11:01) Hives and difficulty breathing oxytetracycline Allergy (Severe, Verified 10/21/17 11:33) HIVES & TONGUE SWELLING potassium iodide Allergy (Severe, Verified 10/21/17 11:33) RASH & DIFFICULTY BREATHING povidone-iodine Allergy (Severe, Verified 10/21/17 11:33) RASH & DIFFICULTY BREATHING sodium iodide Allergy (Severe, Verified 10/21/17 11:33) RASH & DIFFICULTY BREATHING sodium iodide Allergy (Severe, Verified 10/21/17 11:33) RASH & DIFFICULTY BREATHING Sulfa (Sulfonamide Antibiotics) Allergy (Severe, Verified 10/21/17 11:33) HIVES, DIFFICULTY BREATHING Influenza Virus Vaccines Allergy (Intermediate, Verified 10/21/17 11:33) Rash, vomiting diatrizoate meglumine Allergy (Unknown, Verified 12/19/17 16:38) Rash gadobenic acid Allergy (Unknown, Verified 12/19/17 16:38) Rash gadodiamide Allergy (Unknown, Verified 12/19/17 16:38) Rash gadoteridol Allergy (Unknown, Verified 12/19/17 16:38) Rash iodixanol Allergy (Unknown, Verified 12/19/17 16:38) Rash iohexol Allergy (Unknown, Verified 12/19/17 16:38) Rash penicillin G Allergy (Unknown, Verified 12/19/17 16:38) Rash Objective Vital Signs 12/21/17 16:00 12/21/17 20:00 12/21/17 20:45 Temperature 98.8 F 98.5 F Pulse Rate 82 79 Respiratory Rate 16 18 18 Blood Pressure 138/72 154/65 H Pulse Oximetry 97 97 12/21/17 22:40 12/22/17 08:00 12/22/17 09:57 Temperature 98.1 F Pulse Rate 68 80 Respiratory Rate 18 18 12 Blood Pressure 105/57 L Pulse Oximetry 100 97 12/22/17 12:00 12/22/17 13:28 Temperature 98 F Pulse Rate 75 83 Respiratory Rate 18 12 Blood Pressure 145/62 H Pulse Oximetry 100 Intake & Output 12/21/17 12/22/17 12/22/17 18:59 06:59 18:59 Intake Total 720 / 720 100 / 100 Output Total 2002 Balance -1283 / -1283 100 / 100 Intake: IV 100 / 100 Ancef 2 GM Premix Inj 2 gm In 100 / 100 100 ml @ 200 mls/hr IV.SIG Q24H [facility] Rx#:[id number] Oral 720 / 720 Output: Urine Hemodialysis Amount 199912/21/17 11:45 Blood - Other Aerobic Blood Culture - Preliminary No growth in 1 day 12/21/17 11:45 Blood - Other Anaerobic Blood Culture - Preliminary No growth in 1 day 12/19/17 17:50 Blood - Peripheral Aerobic Blood Culture - Final Staphylococcus aureus 12/19/17 17:50 Blood - Peripheral Anaerobic Blood Culture - Final Staphylococcus aureus 12/19/17 17:30 Blood - Peripheral Aerobic Blood Culture - Final Staphylococcus aureus 12/19/17 17:30 Blood - Peripheral Anaerobic Blood Culture - Final Staphylococcus aureus 12/22/17 09:08 Blood - Other Aerobic Blood Culture - Pending 12/22/17 09:08 Blood - Other Anaerobic Blood Culture - Pending 12/22/17 09:17 Blood - Peripheral Aerobic Blood Culture - Pending 12/22/17 09:17 Blood - Peripheral Anaerobic Blood Culture - Pending 12/19/17 16:34 Clean Catch Urine Urine Culture - Final 10-50,000 cfu/mL mixed gram positive tristan (probable contaminants) Lab - Hematology Results 12/20/17 12/21/17 12/22/17 13:00 04:55 09:08 WBC 2.9 L 4.2 RBC 2.47 L 2.78 L Hgb 8.3 L 9.4 L Hct 25.1 L 28.0 L MCV 101.7 H 100.4 H MCH 33.6 33.7 MCHC 33.0 33.6 RDW 15.4 15.0 Plt Count 92 L 107 L MPV 9.8 9.9 Neut % (Auto) 62.5 Lymph % (Auto) 23.4 Bibb % (Auto) 8.2 H Eos % (Auto) 5.0 H Baso % (Auto) 0.9 Neut # (Auto) 2.6 Lymph # (Auto) 1.0 Bibb # (Auto) 0.3 Eos # (Auto) 0.2 Baso # (Auto) 0.0 WBC Differential . . Diff Scan Auto diff confirmed Differential Comment Auto diff final Platelet Estimate Low L Platelet Morphology Normal Lab - Chemistry Results 12/20/17 12/21/17 12/22/17 13:00 04:55 09:08 Sodium 140 138 137 Potassium 4.9 5.5 H 4.7 D Chloride 104 101 100 Carbon Dioxide 29.4 27.6 26.3 Anion Gap 7 9 11 BUN 54 H 59 H 39 H Creatinine 6.88 H 7.44 H 5.51 H Estimated GFR 6 L 5 L 8 L Random Glucose 95 86 86 Calcium 8.2 L D 8.0 L 8.4 L Phosphorus 5.1 H 4.9 Total Bilirubin 0.4 AST 28 ALT 25 Alkaline Phosphatase 223 H Total Protein 6.3 L D Albumin 3.1 L D 3.2 L Imaging: ITS Impressions Chest X-Ray 12/19/17 15:27 CONCLUSION: 1. No acute abnormality. Venous Doppler Study 12/19/17 15:56 CONCLUSION: 1. Evidence of both deep and superficial venous thrombosis with absent flow seen in both cephalic and brachial veins. Lower Extremity Ultrasound 12/20/17 06:00 CONCLUSION: 1. No subcutaneous fluid collection or abscess is identified. 2. There is some type graft or fistula the area of interest and it appears thrombosed. Physical Exam: GENERAL: Patient is a well-nourished, well-developed female, awake and alert , not in respiratory distress. SKIN: Cool and dry. No generalized rash, no ecchymoses and no evidence of embolic lesions. HEAD: Atraumatic. Normocephalic. No temporal wasting, or tenderness. EYES: [place] conjunctiva. No petechia or hemorrhage. Pupils equal, round and reactive to light. Extraocular movements full and intact. No scleral icterus. No injection or drainage. EARS, NOSE AND THROAT: Nose without bleeding or purulent nasal discharge. No sinus tenderness. Mucous membranes pink and moist. No oral lesions noted. No exudate. No oral thrush. NECK: Trachea midline. Supple and not tender, no meningeal signs CARDIOVASCULAR: Regular rate and rhythm. No murmurs, rubs or gallops heard RESPIRATORY: Clear to auscultation. Breath sounds equal bilaterally. No rales , wheezing or rhonchi. Permacath is in her R upper chest, no redness or drainage ABDOMEN: Soft, non-tender, nondistended. Bowel sounds present and normoactive. No guarding. No rebound. No organomegaly. EXTREMITIES: No clubbing, cyanosis, or edema. LUE - the site of her loop AVG in the upper arm, there is an area of erythema and swelling, with some induration. No joint effusion, has good ROM. No calf tenderness. Well perfused and warm. NEUROLOGICAL: Awake and alert. Cranial nerves grossly intact. Motor grossly within normal limits. PSYCHIATRIC: Normal affect, calm and cooperative. LINE: No evidence of infection Assessment and Plan - Plan Impression Staph aureus MSSA sepsis Infection AVG LUE (Axillary artery/vein loop graft) Permacath seeding a concern as well ESRD on HD MWF DVT LUE brachial vein Recommendation Continue IV Ancef Stop Vanco Follow temps Follow C/S Monitor progress Vascular surgery evaluating patient for surgery this Dec 24 Will determine course of Abx once workup is completed
--- NOTE | 2017-12-22 16:37 | P.PNFP ---
Subjective Interval history: Pt doing well this morning. She states her arm still hurts and complains of a cold sore on her upper lip that is very painful. Pt is alert and more cheerful than yesterday. Pt ambulating well, urinating, complaining of mild constipation. She denies any fevers, chills, shortness of breath, chest pain, or abdominal pain. She understands the plan and had an opportunity to have questions answered. <Felisha JohnsonJohanna - 12/22/17 16:37> Results - Labs Result diagrams: 12/25/17 10:25 12/25/17 06:52 <Montse Tinoco - 12/25/17 13:46> Abnormal lab results 12/25/17 12/25/17 Range/Units 06:52 10:25 RBC 2.60 L (4.00-5.30) mil/mm3 Hgb 8.7 L (11.6-15.3) gm/dL Hct 26.0 L (35.0-46.0) % Plt Count 115 L (150-450) th/mm3 Sodium 132 L (136-145) meq/L Potassium 5.8 H D (3.5-5.1) meq/L Chloride 96 L (98-107) meq/L BUN 30 H (7-18) mg/dL Creatinine 5.46 H (0.50-1.00) mg/dL Estimated GFR 8 L (>89) mL/min Calcium 8.2 L (8.5-10.1) mg/dL Albumin 2.8 L (3.4-5.0) g/dL Short CBC 12/25/17 Range/Units 10:25 WBC 4.1 (4.0-11.0) th/mm3 Hgb 8.7 L (11.6-15.3) gm/dL Hct 26.0 L (35.0-46.0) % Plt Count 115 L (150-450) th/mm3 BMP 12/25/17 06:52 Sodium 132 L Potassium 5.8 H D Chloride 96 L Carbon Dioxide 27.0 BUN 30 H Creatinine 5.46 H Calcium 8.2 L Liver Function 12/25/17 Range/Units 06:52 Albumin 2.8 L (3.4-5.0) g/dL <Montse Tinoco - 12/25/17 13:46> Abnormal lab results 12/22/17 12/22/17 Range/Units 09:08 09:08 RBC 2.78 L (4.00-5.30) mil/mm3 Hgb 9.4 L (11.6-15.3) gm/dL Hct 28.0 L (35.0-46.0) % MCV 100.4 H (80.0-100.0) fL Plt Count 107 L (150-450) th/mm3 [place]y % (Auto) 8.2 H (0.0-8.0) % Eos % (Auto) 5.0 H (0.0-4.0) % BUN 39 H (7-18) mg/dL Creatinine 5.51 H (0.50-1.00) mg/dL Estimated GFR 8 L (>89) mL/min Calcium 8.4 L (8.5-10.1) mg/dL Alkaline Phosphatase 223 H (45-117) U/L Total Protein 6.3 L D (6.4-8.2) g/dL Albumin 3.2 L (3.4-5.0) g/dL Short CBC 12/22/17 Range/Units 09:08 WBC 4.2 (4.0-11.0) th/mm3 Hgb 9.4 L (11.6-15.3) gm/dL Hct 28.0 L (35.0-46.0) % Plt Count 107 L (150-450) th/mm3 BMP 12/22/17 09:08 Sodium 137 Potassium 4.7 D Chloride 100 Carbon Dioxide 26.3 BUN 39 H Creatinine 5.51 H Calcium 8.4 L Liver Function 12/22/17 Range/Units 09:08 Total Bilirubin 0.4 (0.2-1.0) mg/dL AST 28 (15-37) U/L ALT 25 (10-53) U/L Alkaline Phosphatase 223 H (45-117) U/L Albumin 3.2 L (3.4-5.0) g/dL <Felisha JohnsonGénesis V - 12/22/17 16:37> Physical Exam Vital signs: Vital Signs 12/24/17 13:50 12/24/17 16:00 12/24/17 19:45 Temperature 97.8 F 98 F 98.4 F Pulse Rate 97 H 99 H 97 H Respiratory Rate 18 20 18 Blood Pressure 110/57 L 108/65 119/53 L Pulse Oximetry 98 97 94 L 12/24/17 20:00 12/24/17 20:22 12/25/17 00:00 Temperature 98.7 F Pulse Rate 97 H 90 Respiratory Rate 19 17 Blood Pressure 125/58 L Pulse Oximetry 98 97 95 12/25/17 04:00 12/25/17 08:00 Temperature 98.3 F 97.7 F Pulse Rate 79 91 H Respiratory Rate 18 18 Blood Pressure 129/58 L 120/62 Pulse Oximetry 97 96 Intake & Output 12/24/17 12/25/17 12/25/17 18:59 06:59 18:59 Intake Total 660 / 660 Output Total 80 / 80 3000 / 3000 Balance 580 / 580 -3000 / -3000 Intake: IV 100 / 100 Heparin/NS PF Inj 500 ML @ 0 0 / 0 mls/hr .ROUTE .[facility] Rx#: [id number] Ancef 2 GM Premix Inj 2 gm In 100 / 100 100 ml @ 200 mls/hr IV.SIG Q24H [facility] Rx#:[id number] Oral 360 / 360 Anesthesia Amount 200 / 200 Output: Hemodialysis Amount 3000 / 3000 Estimated Blood Loss 80 / 80 Other: # Voids 2 1 # Bowel Movements 0 <Mnotse Tinoco - 12/25/17 13:46> Vital Signs 12/21/17 20:00 12/21/17 20:45 12/21/17 22:40 Temperature 98.5 F Pulse Rate 79 Respiratory Rate 18 18 18 Blood Pressure 154/65 H Pulse Oximetry 97 12/22/17 08:00 12/22/17 09:57 12/22/17 12:00 Temperature 98.1 F 98 F Pulse Rate 68 80 75 Respiratory Rate 18 12 18 Blood Pressure 105/57 L 145/62 H Pulse Oximetry 100 97 100 12/22/17 13:28 Temperature Pulse Rate 83 Respiratory Rate 12 Blood Pressure Pulse Oximetry Intake & Output 12/21/17 12/22/17 12/22/17 18:59 06:59 18:59 Intake Total 720 / 720 200 / 200 Output Total 2002 Balance -1283 / -1283 200 / 200 Intake: IV 200 / 200 Ancef 2 GM Premix Inj 2 gm In 200 / 200 100 ml @ 200 mls/hr IV.SIG Q24H [facility] Rx#:[id number] Oral 720 / 720 Output: Urine 3 / 3 Hemodialysis Amount 1999 <Génesis Dowling V - 12/22/17 16:37> Narrative: GENERAL: White obese female sitting up in bed, in no acute distress SKIN: Warm and dry. HEAD: Atraumatic. Normocephalic. EYES: Pupils equal and round. No scleral icterus. No injection or drainage. ENT: No nasal bleeding or discharge. Mucous membranes pink and moist. LIPS: two observable blisters. erythematous base, clear fluid filled. NECK: Trachea midline. No JVD. CARDIOVASCULAR: Regular rate and rhythm. RESPIRATORY: No accessory muscle use. Breath sounds equal bilaterally. GASTROINTESTINAL: Abdomen soft, non-tender, nondistended. Hepatic and splenic margins not palpable. MUSCULOSKELETAL: Extremities without clubbing, cyanosis, or edema. No obvious deformities. Left upper arm: punctate areas with surrounding induration-> induration increased from yesterday. No drainable abscess noted. Tender to touch. Erythema continues to improve from marked outline. Warm to touch. NEUROLOGICAL: Awake and alert. No obvious cranial nerve deficits. Motor grossly within normal limits. Normal speech. PSYCHIATRIC: Appropriate mood and affect; insight and judgment normal. <Felisha Génesis Johnson V - 12/22/17 16:37> Assessment and Plan - Assessment (1) Pain and swelling of left upper extremity Code(s): M79.602 - Pain in left arm; M79.89 - Other specified soft tissue disorders Status: Acute (2) CKD (chronic kidney disease) Code(s): N18.9 - Chronic kidney disease, unspecified Status: Chronic (3) COPD (chronic obstructive pulmonary disease) Code(s): J44.9 - Chronic obstructive pulmonary disease, unspecified Status: Chronic (4) Chronic pain Code(s): G89.29 - Other chronic pain Status: Chronic (5) ROSALINDA (obstructive sleep apnea) Code(s): G47.33 - Obstructive sleep apnea (adult) (pediatric) Status: Chronic (6) Insomnia Code(s): G47.00 - Insomnia, unspecified Status: Chronic (7) Gout Code(s): M10.9 - Gout, unspecified Status: Chronic (8) Herpes labialis Code(s): B00.1 - Herpesviral vesicular dermatitis Status: Acute (9) Nutrition, metabolism, and development symptoms Code(s): R63.8 - Other symptoms and signs concerning food and fluid intake Status: Acute (10) DVT prophylaxis Status: Acute <Montse Tinoco - 12/25/17 13:46> (1) Pain and swelling of left upper extremity Code(s): M79.602 - Pain in left arm; M79.89 - Other specified soft tissue disorders Status: Acute Plan: Left arm swelling, concern for cellulitis and DVT. No leukocytosis on admission. Area demarcated and shows slight improvement today. Venous doppler study on 12/19 shows evidence of both deep and superficial venous thrombosis with absent flow seen in both cephalic and brachial veins. US soft tissue LUE on 12/20 shows no subcutaneous fluid collection or abscess identified. - Positive Blood cultures x4 for Staph aureus - MSSA - Vascular surgery consulted, appreciate recs - Admit for IV antibiotics, VANC ok - Surgical revision/debridement and thrombectomy of graft . - ID consulted, appreciate recs - Discontinued Vancomycin due to MSSA sensitivity -> continue Ancef (day2) - Get 2 BC from the permacth -> awaiting cultures - Follow temps - Follow C/S - Will also need evaluation of permacath change (2) CKD (chronic kidney disease) Code(s): N18.9 - Chronic kidney disease, unspecified Status: Chronic Plan: CKD Stage 5 on dialysis, follows w/ nephrology, at [facility] for dialysis MWF - Monitor BMP - Con't home Renvela and Sensipar - Nephrology consulted , appreciate recs - Avoid IVF administration. - 4.7 k Today - High protein, low K diet ordered - Epogen w/ dialysis (3) COPD (chronic obstructive pulmonary disease) Code(s): J44.9 - Chronic obstructive pulmonary disease, unspecified Status: Chronic Plan: - Controlled at home on albuterol inhaler - Albuterol q2H PRN, duonebs Q6H while awake scheduled - IS, O2 as needed. (4) Chronic pain Code(s): G89.29 - Other chronic pain Status: Chronic Plan: - Con't home clonazepam, gabapentin, lyrica, and percocet (5) ROSALINDA (obstructive sleep apnea) Code(s): G47.33 - Obstructive sleep apnea (adult) (pediatric) Status: Chronic Plan: - Does not use CPAP at home, just her O2 overnight - keep head of bed elevated overnight. (6) Insomnia Code(s): G47.00 - Insomnia, unspecified Status: Chronic (7) Gout Code(s): M10.9 - Gout, unspecified Status: Chronic Plan: -con't home allopurinol (8) Herpes labialis Code(s): B00.1 - Herpesviral vesicular dermatitis Status: Acute Plan: New onset of herpes labialis this morning. Located on the L upper lip. Painful. - Acyclovir cream 5 times a day. - Due to renal insufficiency, oral vancyclovir is contraindicated. (9) Nutrition, metabolism, and development symptoms Code(s): R63.8 - Other symptoms and signs concerning food and fluid intake Status: Acute Plan: Fluids: tolerating po. Avoid IV fluids Electrolytes: monitor and replete as needed. Monitor K tomorrow. Nutrition: high protein, low K diet GI prophylaxis: Zantac (home medication) (10) DVT prophylaxis Status: Acute Plan: DVT prophy: SCDs, Heparin 5000un SQ q12h <Génesis Dowling V - 12/23/17 06:47> - Assessment and Plan 67 y/o F w/hx of CKD, hx of WI, and COPD presenting w/left arm swelling at AV fistula site. Diff: DVT v cellulitis v abscess. S/p 1 g IV Vanc in the ED. Doppler shows left UE DVT. Nephrology consulted. Hold off anticoagulation treatment for DVT per discussion, will give prophylaxis. Blood cultures positive for Staph Aureous x4. ID consulted and managing antibiotic treatment. Vascular surgery consulted and waiting for possible debridement/ thrombectomy . Will continue to monitor clinically. <Génesis Dowling V - 12/22/17 16:37> - Attending Attestation The exam, history, and the medical decision-making described in the above note were completed with the assistance of the resident physician. I reviewed and agree with the findings presented. I attest that I had a [id number] encounter with the patient on the same day, and personally performed and documented my assessment and findings in the medical record. Gave her some Vaseline for her lips. Appreciate help of the different specialists concerned for infection in her graft. <Montse Tinoco M - 12/25/17 13:46> <Génesis Dowling V - Last Filed: 12/23/17 06:47> (2) CKD (chronic kidney disease) Qualifiers: Chronic kidney disease stage: on chronic dialysis Qualified Code(s): N18.6 - End stage renal disease; Z99.2 - Dependence on renal dialysis (3) COPD (chronic obstructive pulmonary disease) Qualifiers: COPD type: unspecified COPD Qualified Code(s): J44.9 - Chronic obstructive pulmonary disease, unspecified (4) Chronic pain Qualifiers: Chronic pain type: chronic pain syndrome Qualified Code(s): G89.4 - Chronic pain syndrome (7) Gout Qualifiers: Gout site: unspecified site Gout etiology: due to renal impairment Chronicity: unspecified Qualified Code(s): M10.30 - Gout due to renal impairment, unspecified site <Montse Tinoco M - Last Filed: 12/25/17 13:46> (2) CKD (chronic kidney disease) Qualifiers: Qualified Code(s): N18.6 - End stage renal disease; Z99.2 - Dependence on renal dialysis (3) COPD (chronic obstructive pulmonary disease) Qualifiers: Qualified Code(s): J44.9 - Chronic obstructive pulmonary disease, unspecified (4) Chronic pain Qualifiers: Qualified Code(s): G89.4 - Chronic pain syndrome (7) Gout Qualifiers: Qualified Code(s): M10.30 - Gout due to renal impairment, unspecified site <FelishaGénesis Martinez V - Last Filed: 12/23/17 06:47> (2) CKD (chronic kidney disease) Qualifiers: Chronic kidney disease stage: on chronic dialysis Qualified Code(s): N18.6 - End stage renal disease; Z99.2 - Dependence on renal dialysis (3) COPD (chronic obstructive pulmonary disease) Qualifiers: COPD type: unspecified COPD Qualified Code(s): J44.9 - Chronic obstructive pulmonary disease, unspecified (4) Chronic pain Qualifiers: Chronic pain type: chronic pain syndrome Qualified Code(s): G89.4 - Chronic pain syndrome (7) Gout Qualifiers: Gout site: unspecified site Gout etiology: due to renal impairment Chronicity: unspecified Qualified Code(s): M10.30 - Gout due to renal impairment, unspecified site <Montse Tinoco M - Last Filed: 12/25/17 13:46> (2) CKD (chronic kidney disease) Qualifiers: Qualified Code(s): N18.6 - End stage renal disease; Z99.2 - Dependence on renal dialysis (3) COPD (chronic obstructive pulmonary disease) Qualifiers: Qualified Code(s): J44.9 - Chronic obstructive pulmonary disease, unspecified (4) Chronic pain Qualifiers: Qualified Code(s): G89.4 - Chronic pain syndrome (7) Gout Qualifiers: Qualified Code(s): M10.30 - Gout due to renal impairment, unspecified site
[2017-12-22] MEDS ORDERED: Lidocaine 1%/Epinephrine 1:100,000 Inj 20 ML Vial ONE (17:41)
[2017-12-22] MEDS ORDERED: fentaNYL Citrate Inj 100 MCG/2 ML Ampul ONE (17:44)
[2017-12-23 06:00] LABS: Hematocrit 25.6 % (35.0-46.0); Hemoglobin 8.7 gm/dL (11.6-15.3); Mean Corpuscular Hemoglobin 33.3 pg (27.0-34.0); Mean Corpuscular Volume 97.7 fL (80.0-100.0); Mean Platelet Volume 10.2 fL (7.0-11.0); Platelet Count 117 th/mm3 (150-450); Red Blood Count 2.62 mil/mm3 (4.00-5.30); Red Cell Distribution Width 14.9 % (11.6-17.2); White Blood Count 3.5 th/mm3 (4.0-11.0)
[2017-12-23 06:27] LABS: Albumin 2.9 g/dL (3.4-5.0); Calcium 7.9 mg/dL (8.5-10.1); Phosphorus 5.3 mg/dL (2.5-4.9); Potassium 4.8 meq/L (3.5-5.1)
[2017-12-23 06:28] LABS: Vancomycin,Random 17.7 Comment
[2017-12-23 06:44] LABS: Alanine Aminotransferase 17 U/L (10-53); Albumin 2.9 g/dL (3.4-5.0); Anion Gap 7 meq/L (5-15); Aspartate Aminotransferase 22 U/L (15-37); Blood Urea Nitrogen 48 mg/dL (7-18); Calcium 7.8 mg/dL (8.5-10.1); Carbon Dioxide 28.9 meq/L (21.0-32.0); Chloride 97 meq/L (98-107); Glomerular Filtration Rate 7 mL/min (>89); Glucose,Random 93 mg/dL (74-106); Potassium 4.8 meq/L (3.5-5.1); Sodium 133 meq/L (136-145)
[2017-12-23 06:46] LABS: Alkaline Phosphatase 217 U/L (45-117); Total Protein 5.9 g/dL (6.4-8.2)
--- NOTE | 2017-12-23 07:50 | P.PNVS ---
- Pre-operative Note Planned Procedure: L UE access revision/excision Interval History: pt with persistent pain in arm, no chills Labs: WBC 3.5 th/mm3 (4.0-11.0) L 12/23/17 04:55 Corrected WBC Cancelled 12/23/17 04:55 RBC 2.62 mil/mm3 (4.00-5.30) L 12/23/17 04:55 Hgb 8.7 gm/dL (11.6-15.3) L 12/23/17 04:55 Hct 25.6 % (35.0-46.0) L 12/23/17 04:55 MCV 97.7 fL (80.0-100.0) 12/23/17 04:55 MCH 33.3 pg (27.0-34.0) 12/23/17 04:55 MCHC 34.0 % (32.0-36.0) 12/23/17 04:55 RDW 14.9 % (11.6-17.2) 12/23/17 04:55 Plt Count 117 th/mm3 (150-450) L 12/23/17 04:55 MPV 10.2 fL (7.0-11.0) 12/23/17 04:55 Hematology Comments Cancelled 12/23/17 04:55 INR 1.1 Ratio 12/20/17 13:00 Sodium 133 meq/L (136-145) L 12/23/17 04:55 Potassium 4.8 meq/L (3.5-5.1) 12/23/17 04:55 Chloride 97 meq/L (98-107) L 12/23/17 04:55 Carbon Dioxide 28.9 meq/L (21.0-32.0) 12/23/17 04:55 Anion Gap 7 meq/L (5-15) 12/23/17 04:55 BUN 48 mg/dL (7-18) H 12/23/17 04:55 Random Glucose 93 mg/dL (74-106) 12/23/17 04:55 Calcium 7.8 mg/dL (8.5-10.1) L 12/23/17 04:55 Blood: T&S Imaging: ITS Impressions Chest X-Ray 12/19/17 15:27 CONCLUSION: 1. No acute abnormality. Venous Doppler Study 12/19/17 15:56 CONCLUSION: 1. Evidence of both deep and superficial venous thrombosis with absent flow seen in both cephalic and brachial veins. Lower Extremity Ultrasound 12/20/17 06:00 CONCLUSION: 1. No subcutaneous fluid collection or abscess is identified. 2. There is some type graft or fistula the area of interest and it appears thrombosed. Orders: NPO Post-operative Destination: PACU Consent: Informed consent has been obtained from Marie Bradford. I have explained the procedure in detail and discussed the risks, benefits, and potential complications. All questions have been answered.
[2017-12-23 08:13] LABS: Eosinophils 3 % (0-4); Lymphocytes 28 % (9-44); Monocytes 13 % (0-8)
[2017-12-23 08:14] LABS: Ovalocytes 1+; Platelet Morphology Normal (Normal)
[2017-12-23] MEDS: Famotidine 20 MG Tablet PO SCH (08:57)
[2017-12-23] MEDS: Gabapentin 100 MG Capsule PO SCH ×3 (08:58→19:10)
[2017-12-23] MEDS: Allopurinol 100 MG Tablet PO SCH (08:58)
[2017-12-23] MEDS: oxyCODONE/Acetaminophen 10/325 Tablet PO SCH (08:58)
[2017-12-23] MEDS: clonazePAM 0.5 MG Tablet PO SCH ×3 (08:58→19:09)
[2017-12-23] MEDS: Heparin - SQ 10,000 UNITS/ML Vial SQ SCH ×2 (08:59→09:04)
[2017-12-23] MEDS: Senna/Docusate Sodium 8.6/50 MG Tablet PO SCH ×2 (09:01→22:52)
--- NOTE | 2017-12-23 11:07 | P.PNNP ---
Subjective Interval history: PermCath removed yesterday. Due for vascath placement and HD later today. <Montse Damon - Last Filed: 12/23/17 11:04> Physical Exam Vital signs: Vital Signs 12/22/17 12:00 12/22/17 13:28 12/22/17 16:00 Temperature 98 F 97.9 F Pulse Rate 75 83 78 Respiratory Rate 18 12 18 Blood Pressure 145/62 H 153/67 H Pulse Oximetry 100 100 12/22/17 20:00 12/22/17 20:35 12/23/17 00:00 Temperature 98.5 F 98.2 F Pulse Rate 71 78 82 Respiratory Rate 18 16 18 Blood Pressure 116/56 L 114/57 L Pulse Oximetry 99 98 99 12/23/17 04:00 12/23/17 07:00 12/23/17 08:00 Temperature 98 F 98.1 F Pulse Rate 76 80 Respiratory Rate 18 12 16 Blood Pressure 141/63 H 137/60 Pulse Oximetry 97 100 12/23/17 08:39 Temperature Pulse Rate Respiratory Rate Blood Pressure Pulse Oximetry 96 Intake & Output 12/22/17 12/23/17 12/23/17 18:59 06:59 18:59 Intake Total 200 / 200 360 / 360 Balance 200 / 200 360 / 360 Weight 88.4 kg Intake: IV 200 / 200 Ancef 2 GM Premix Inj 2 gm In 200 / 200 100 ml @ 200 mls/hr IV.SIG Q24H [facility] Rx#:[id number] Oral 360 / 360 Other: # Voids 3 Date of Last Bowel Movement 12/21/17 - Constitutional no acute distress, obese, disheveled, cooperative - Routine HEENT Exam Head: Present: normocephalic - Routine Neck Exam Present: supple, full ROM - Routine Respiratory Exam Present: CTA bilaterally - Routine Cardiovascular Exam Present: RRR, S1, S2 - Routine Abdominal Exam Present: soft, normoactive bowel sounds - Routine Extremities Exam Present: full ROM, pulses intact. Absent: edema - Routine Skin Exam Present: intact, dry Comments: LUE erythema, abscess in center of AV graft. - Routine Neurological Exam Present: alert, oriented X3, CN II-XII intact, moving all extremities - Detailed Neurological Exam: Coma Scale Eye Opening: Spontaneous Verbal Response: Oriented Motor Response: Obey commands [place] Coma Scale Total: 15 - Routine Psychiatric Exam Present: normal affect, normal thought process <Montse Damon - Last Filed: 12/23/17 11:04> Vital signs: Vital Signs 12/23/17 18:01 12/23/17 20:00 12/23/17 20:08 Temperature 98.1 F Pulse Rate 75 74 84 Respiratory Rate 16 16 Blood Pressure 144/96 H Pulse Oximetry 94 L 12/23/17 20:09 12/24/17 05:40 12/24/17 08:00 Temperature 98 F 98.2 F Pulse Rate 68 82 Respiratory Rate 16 16 Blood Pressure 120/68 131/60 Pulse Oximetry 96 99 94 L 12/24/17 12:19 12/24/17 12:30 12/24/17 12:45 Temperature 97.7 F Pulse Rate 97 H 100 H 102 H Respiratory Rate 18 18 18 Blood Pressure 115/54 L 123/56 L 123/56 L Pulse Oximetry 89 L 98 98 12/24/17 13:00 12/24/17 13:15 12/24/17 13:30 Temperature Pulse Rate 102 H 102 H 98 H Respiratory Rate 19 20 20 Blood Pressure 99/51 L 99/54 L 110/57 L Pulse Oximetry 99 98 100 12/24/17 13:50 Temperature 97.8 F Pulse Rate 97 H Respiratory Rate 18 Blood Pressure 110/57 L Pulse Oximetry 98 Intake & Output 12/23/17 12/24/17 12/24/17 18:59 06:59 18:59 Intake Total 240 / 240 450 / 450 200 / 200 Output Total 1500 / 1500 80 / 80 Balance -1260 / -1260 450 / 450 120 / 120 Weight 88.5 kg Intake: IV 0 / 0 Heparin/NS PF Inj 500 ML @ 0 0 / 0 mls/hr .ROUTE .STK-MED ONE Rx#: [id number] Oral 240 / 240 450 / 450 Anesthesia Amount 200 / 200 Output: Hemodialysis Amount 1500 / 1500 Estimated Blood Loss 80 / 80 Other: # Voids 2 Date of Last Bowel Movement 12/21/17 # Bowel Movements 0 <Luis Antonio Ewing - Last Filed: 12/24/17 15:36> Assessment and Plan - Assessment (1) ESRD (end stage renal disease) on dialysis Code(s): N18.6 - End stage renal disease; Z99.2 - Dependence on renal dialysis Status: Acute Plan: HD MWF, due today. s/p PermCath removal today. Pending vascath placement today. On Renvela for phosphate binder. Monitor phosphorus periodically. Avoid IVF administration. Gadolinium is contraindicated. High protein, low K diet when no longer NPO. (2) Cellulitis Code(s): L03.90 - Cellulitis, unspecified Status: Acute Qualifiers: Site of cellulitis: extremity Site of cellulitis of extremity: upper extremity Laterality: left Qualified Code(s): L03.114 - Cellulitis of left upper limb Plan: Of LUE AV graft. Dr. Luis (vascular) following. Most likely will have graft removal tomorrow. Protect left arm. On Ancef. ID following. Repeat cultures in progress. (3) Sepsis affecting skin Code(s): A41.9 - Sepsis, unspecified organism Status: Acute Plan: MSSA per culture. Sensitivity reviewed. Permcath removed. See above. Antibiotics per ID. May need PRATIMA. (4) Anemia Code(s): D64.9 - Anemia, unspecified Status: Acute Plan: Epogen with dialysis ordered. (5) DVT (deep venous thrombosis) Code(s): I82.409 - Acute embolism and thrombosis of unspecified deep veins of unspecified lower extremity Status: Acute Qualifiers: DVT location: upper extremity Affected thrombotic vein of extremity: other upper extremity vein Chronicity: acute Laterality: left Qualified Code(s) : I82.622 - Acute embolism and thrombosis of deep veins of left upper extremity Plan: Cephalic and brachial DVT of LUE. Not on anticoagulation give upcoming surgery. <Montse Damon - Last Filed: 12/23/17 11:04> - Assessment (1) ESRD (end stage renal disease) on dialysis Code(s): N18.6 - End stage renal disease; Z99.2 - Dependence on renal dialysis Status: Acute (2) Cellulitis Code(s): L03.90 - Cellulitis, unspecified Status: Acute Qualifiers: Site of cellulitis: extremity Site of cellulitis of extremity: upper extremity Laterality: left Qualified Code(s): L03.114 - Cellulitis of left upper limb (3) Sepsis affecting skin Code(s): A41.9 - Sepsis, unspecified organism Status: Acute (4) Anemia Code(s): D64.9 - Anemia, unspecified Status: Acute (5) DVT (deep venous thrombosis) Code(s): I82.409 - Acute embolism and thrombosis of unspecified deep veins of unspecified lower extremity Status: Acute Qualifiers: DVT location: upper extremity Affected thrombotic vein of extremity: other upper extremity vein Chronicity: acute Laterality: left Qualified Code(s) : I82.622 - Acute embolism and thrombosis of deep veins of left upper extremity - Attending Attestation patient was seen and examined. Agree with above assessment and plan. VasCath placement and dialysis. Seen on 12/23/17. <Luis Antonio Ewing - Last Filed: 12/24/17 15:36>
--- NOTE | 2017-12-23 12:08 | P.PNFP ---
Subjective Interval history: Pt is doing well today. She is complaining of her chronic pain medication schedule for not being as it is at home. Otherwise, she denies any fevers, shortness of breath, chest pain, of stomach pain. She still complains on how warm her infection site on her arm is. She states it bleed some yesterday, no pus. <Génesis Dowling V - 12/23/17 14:01> Results - Labs Result diagrams: 12/25/17 10:25 12/25/17 06:52 <Montse Tinoco - 12/25/17 13:47> Abnormal lab results 12/25/17 12/25/17 Range/Units 06:52 10:25 RBC 2.60 L (4.00-5.30) mil/mm3 Hgb 8.7 L (11.6-15.3) gm/dL Hct 26.0 L (35.0-46.0) % Plt Count 115 L (150-450) th/mm3 Sodium 132 L (136-145) meq/L Potassium 5.8 H D (3.5-5.1) meq/L Chloride 96 L (98-107) meq/L BUN 30 H (7-18) mg/dL Creatinine 5.46 H (0.50-1.00) mg/dL Estimated GFR 8 L (>89) mL/min Calcium 8.2 L (8.5-10.1) mg/dL Albumin 2.8 L (3.4-5.0) g/dL Short CBC 12/25/17 Range/Units 10:25 WBC 4.1 (4.0-11.0) th/mm3 Hgb 8.7 L (11.6-15.3) gm/dL Hct 26.0 L (35.0-46.0) % Plt Count 115 L (150-450) th/mm3 BMP 12/25/17 06:52 Sodium 132 L Potassium 5.8 H D Chloride 96 L Carbon Dioxide 27.0 BUN 30 H Creatinine 5.46 H Calcium 8.2 L Liver Function 12/25/17 Range/Units 06:52 Albumin 2.8 L (3.4-5.0) g/dL <Montse Tinoco - 12/25/17 13:47> Abnormal lab results 08/2212/23/17 12/23/17 Range/Units 04:55 04:55 04:55 WBC 3.5 L (4.0-11.0) th/mm3 RBC 2.62 L (4.00-5.30) mil/mm3 Hgb 8.7 L (11.6-15.3) gm/dL Hct 25.6 L (35.0-46.0) % Plt Count 117 L (150-450) th/mm3 Monocytes % (Manual) 13 H (0-8) % Platelet Estimate Low L (Normal) Ovalocytes 1+ H (None) Sodium 134 L 133 L (136-145) meq/L Chloride 97 L (98-107) meq/L BUN 48 H 48 H (7-18) mg/dL Creatinine 6.12 H 6.28 H (0.50-1.00) mg/dL Estimated GFR 7 L 7 L (>89) mL/min Calcium 7.9 L 7.8 L (8.5-10.1) mg/dL Phosphorus 5.3 H (2.5-4.9) mg/dL Alkaline Phosphatase 217 H (45-117) U/L Total Protein 5.9 L (6.4-8.2) g/dL Albumin 2.9 L 2.9 L (3.4-5.0) g/dL Short CBC 12/23/17 12/23/17 Range/Units 04:55 04:55 WBC 3.5 L Cancelled (4.0-11.0) th/mm3 Hgb 8.7 L Cancelled (11.6-15.3) gm/dL Hct 25.6 L Cancelled (35.0-46.0) % Plt Count 117 L Cancelled (150-450) th/mm3 BMP 12/23/17 12/23/17 04:55 04:55 Sodium 134 L 133 L Potassium 4.8 4.8 Chloride 98 97 L Carbon Dioxide 28.0 28.9 BUN 48 H 48 H Creatinine 6.12 H 6.28 H Calcium 7.9 L 7.8 L Liver Function 12/23/17 12/23/17 Range/Units 04:55 04:55 Total Bilirubin 0.3 (0.2-1.0) mg/dL AST 22 (15-37) U/L ALT 17 (10-53) U/L Alkaline Phosphatase 217 H (45-117) U/L Albumin 2.9 L 2.9 L (3.4-5.0) g/dL <Génesis Dowling V - 12/23/17 12:08> Physical Exam Vital signs: Vital Signs 12/24/17 13:50 12/24/17 16:00 12/24/17 19:45 Temperature 97.8 F 98 F 98.4 F Pulse Rate 97 H 99 H 97 H Respiratory Rate 18 20 18 Blood Pressure 110/57 L 108/65 119/53 L Pulse Oximetry 98 97 94 L 12/24/17 20:00 12/24/17 20:22 12/25/17 00:00 Temperature 98.7 F Pulse Rate 97 H 90 Respiratory Rate 19 17 Blood Pressure 125/58 L Pulse Oximetry 98 97 95 12/25/17 04:00 12/25/17 08:00 Temperature 98.3 F 97.7 F Pulse Rate 79 91 H Respiratory Rate 18 18 Blood Pressure 129/58 L 120/62 Pulse Oximetry 97 96 Intake & Output 12/24/17 12/25/17 12/25/17 18:59 06:59 18:59 Intake Total 660 / 660 Output Total 80 / 80 3000 / 3000 Balance 580 / 580 -3000 / -3000 Intake: IV 100 / 100 Heparin/NS PF Inj 500 ML @ 0 0 / 0 mls/hr .ROUTE .STK-MED ONE Rx#: [id number] Ancef 2 GM Premix Inj 2 gm In 100 / 100 100 ml @ 200 mls/hr IV.SIG Q24H [facility] Rx#:[id number] Oral 360 / 360 Anesthesia Amount 200 / 200 Output: Hemodialysis Amount 3000 / 3000 Estimated Blood Loss 80 / 80 Other: # Voids 2 1 # Bowel Movements 0 <Montse Tinoco M - 12/25/17 13:47> Vital Signs 12/22/17 13:28 12/22/17 16:00 12/22/17 20:00 Temperature 97.9 F 98.5 F Pulse Rate 83 78 71 Respiratory Rate 12 18 18 Blood Pressure 153/67 H 116/56 L Pulse Oximetry 100 99 12/22/17 20:35 12/23/17 00:00 12/23/17 04:00 Temperature 98.2 F 98 F Pulse Rate 78 82 76 Respiratory Rate 16 18 18 Blood Pressure 114/57 L 141/63 H Pulse Oximetry 98 99 97 12/23/17 07:00 12/23/17 08:00 12/23/17 08:39 Temperature 98.1 F Pulse Rate 80 Respiratory Rate 12 16 Blood Pressure 137/60 Pulse Oximetry 100 96 Intake & Output 12/22/17 12/23/17 12/23/17 18:59 06:59 18:59 Intake Total 200 / 200 360 / 360 Balance 200 / 200 360 / 360 Weight 88.4 kg Intake: IV 200 / 200 Ancef 2 GM Premix Inj 2 gm In 200 / 200 100 ml @ 200 mls/hr IV.SIG Q24H [facility] Rx#:[id number] Oral 360 / 360 Other: # Voids 3 Date of Last Bowel Movement 12/21/17 <Felisha JohnsonGénesis Cardona - 12/23/17 12:08> Narrative: GENERAL: White obese female sitting up in bed, in no acute distress SKIN: Warm and dry. HEAD: Atraumatic. Normocephalic. EYES: Pupils equal and round. No scleral icterus. No injection or drainage. ENT: No nasal bleeding or discharge. Mucous membranes pink and moist. LIPS: two observable blisters. erythematous base, clear fluid filled. NECK: Trachea midline. No JVD. CARDIOVASCULAR: Regular rate and rhythm. RESPIRATORY: No accessory muscle use. Breath sounds equal bilaterally. GASTROINTESTINAL: Abdomen soft, non-tender, nondistended. Hepatic and splenic margins not palpable. MUSCULOSKELETAL: Extremities without clubbing, cyanosis, or edema. No obvious deformities. Left upper arm: punctate areas with surrounding induration-> induration stable. No drainable abscess noted. Tender to touch. Erythema continues to improve daily from marked outline. Warm to touch. NEUROLOGICAL: Awake and alert. No obvious cranial nerve deficits. Motor grossly within normal limits. Normal speech. PSYCHIATRIC: Appropriate mood and affect; insight and judgment normal. <Felisha JohnsonJohanna - 12/23/17 14:01> Assessment and Plan - Assessment (1) Pain and swelling of left upper extremity Code(s): M79.602 - Pain in left arm; M79.89 - Other specified soft tissue disorders Status: Acute (2) CKD (chronic kidney disease) Code(s): N18.9 - Chronic kidney disease, unspecified Status: Chronic (3) COPD (chronic obstructive pulmonary disease) Code(s): J44.9 - Chronic obstructive pulmonary disease, unspecified Status: Chronic (4) Chronic pain Code(s): G89.29 - Other chronic pain Status: Chronic (5) ROSALINDA (obstructive sleep apnea) Code(s): G47.33 - Obstructive sleep apnea (adult) (pediatric) Status: Chronic (6) Insomnia Code(s): G47.00 - Insomnia, unspecified Status: Chronic (7) Gout Code(s): M10.9 - Gout, unspecified Status: Chronic (8) Herpes labialis Code(s): B00.1 - Herpesviral vesicular dermatitis Status: Acute (9) Nutrition, metabolism, and development symptoms Code(s): R63.8 - Other symptoms and signs concerning food and fluid intake Status: Acute (10) DVT prophylaxis Status: Acute <Montse Tinoco Luba - 12/25/17 13:47> (1) Pain and swelling of left upper extremity Code(s): M79.602 - Pain in left arm; M79.89 - Other specified soft tissue disorders Status: Acute Plan: Left arm swelling, concern for cellulitis and DVT. No leukocytosis on admission. Area demarcated and shows slight improvement today. Venous doppler study on 12/19 shows evidence of both deep and superficial venous thrombosis with absent flow seen in both cephalic and brachial veins. US soft tissue LUE on 12/20 shows no subcutaneous fluid collection or abscess identified. - Positive Blood cultures x4 for Staph aureus - MSSA - Vascular surgery consulted, appreciate recs - Admit for IV antibiotics, VANC ok - Surgical revision/debridement and thrombectomy of graft Tomorrow - ID consulted, appreciate recs - Continue Ancef (day2) - BC x2 from permacth NTD - Follow temps - permcath being replaced today (2) CKD (chronic kidney disease) Code(s): N18.9 - Chronic kidney disease, unspecified Status: Chronic Plan: CKD Stage 5 on dialysis, follows w/ nephrology, at [facility] for dialysis MWF - Monitor BMP - Con't home Renvela and Sensipar - Nephrology consulted , appreciate recs - Avoid IVF administration. - K 4.8 Today - High protein, low K diet ordered - Epogen w/ dialysis - New permcath being placed today (3) COPD (chronic obstructive pulmonary disease) Code(s): J44.9 - Chronic obstructive pulmonary disease, unspecified Status: Chronic Plan: - Controlled at home on albuterol inhaler - Albuterol q2H PRN, duonebs Q6H while awake scheduled - IS, O2 as needed. (4) Chronic pain Code(s): G89.29 - Other chronic pain Status: Chronic Plan: - Con't home clonazepam, gabapentin, lyrica, and percocet - Changed Percocet from scheduled to PRN q6hrs (5) ROSALINDA (obstructive sleep apnea) Code(s): G47.33 - Obstructive sleep apnea (adult) (pediatric) Status: Chronic Plan: - Does not use CPAP at home, just her O2 overnight - keep head of bed elevated overnight. (6) Insomnia Code(s): G47.00 - Insomnia, unspecified Status: Chronic Plan: No complains on current medications (7) Gout Code(s): M10.9 - Gout, unspecified Status: Chronic Plan: -con't home allopurinol (8) Herpes labialis Code(s): B00.1 - Herpesviral vesicular dermatitis Status: Acute Plan: New onset of herpes labialis this morning. Located on the L upper lip. Painful. - Acyclovir cream 5 times a day. - Due to renal insufficiency, oral vancyclovir is contraindicated. (9) Nutrition, metabolism, and development symptoms Code(s): R63.8 - Other symptoms and signs concerning food and fluid intake Status: Acute Plan: Fluids: tolerating po. Avoid IV fluids Electrolytes: monitor and replete as needed. Monitor K daily. Nutrition: high protein, low K diet GI prophylaxis: Zantac (home medication) (10) DVT prophylaxis Status: Acute Plan: DVT prophy: SCDs, Heparin 5000un SQ q12h -on hold for procedure tomorrow <Génesis Dowling V - 12/23/17 13:55> - Assessment and Plan 67 y/o F w/hx of CKD, hx of AL, and COPD presenting w/left arm swelling at AV fistula site. Diff: DVT v cellulitis v abscess. S/p 1 g IV Vanc in the ED. Doppler shows left UE DVT. Nephrology consulted. Hold off anticoagulation treatment for DVT per discussion, will give prophylaxis. Blood cultures positive for Staph Aureous x4 MSSA. ID consulted and managing antibiotic treatment. Vascular surgery consulted and waiting for possible debridement/ thrombectomy . Patient improving clinically every day. <Génesis Dowling V - 12/23/17 14:01> - Attending Attestation The exam, history, and the medical decision-making described in the above note were completed with the assistance of the resident physician. I reviewed and agree with the findings presented. I attest that I had a [id number] encounter with the patient on the same day, and personally performed and documented my assessment and findings in the medical record. Saw her in dialysis she is complaining of her usual pain and being hungry. <Montse Tinoco - 12/25/17 13:47> <Génesis Dowling V - Last Filed: 12/23/17 13:55> (2) CKD (chronic kidney disease) Qualifiers: Chronic kidney disease stage: on chronic dialysis Qualified Code(s): N18.6 - End stage renal disease; Z99.2 - Dependence on renal dialysis (3) COPD (chronic obstructive pulmonary disease) Qualifiers: COPD type: unspecified COPD Qualified Code(s): J44.9 - Chronic obstructive pulmonary disease, unspecified (4) Chronic pain Qualifiers: Chronic pain type: chronic pain syndrome Qualified Code(s): G89.4 - Chronic pain syndrome (7) Gout Qualifiers: Gout site: unspecified site Gout etiology: due to renal impairment Chronicity: unspecified Qualified Code(s): M10.30 - Gout due to renal impairment, unspecified site <Montse Tinoco - Last Filed: 12/25/17 13:47> (2) CKD (chronic kidney disease) Qualifiers: Qualified Code(s): N18.6 - End stage renal disease; Z99.2 - Dependence on renal dialysis (3) COPD (chronic obstructive pulmonary disease) Qualifiers: Qualified Code(s): J44.9 - Chronic obstructive pulmonary disease, unspecified (4) Chronic pain Qualifiers: Qualified Code(s): G89.4 - Chronic pain syndrome (7) Gout Qualifiers: Qualified Code(s): M10.30 - Gout due to renal impairment, unspecified site <Génesis Dowling V - Last Filed: 12/23/17 13:55> (2) CKD (chronic kidney disease) Qualifiers: Chronic kidney disease stage: on chronic dialysis Qualified Code(s): N18.6 - End stage renal disease; Z99.2 - Dependence on renal dialysis (3) COPD (chronic obstructive pulmonary disease) Qualifiers: COPD type: unspecified COPD Qualified Code(s): J44.9 - Chronic obstructive pulmonary disease, unspecified (4) Chronic pain Qualifiers: Chronic pain type: chronic pain syndrome Qualified Code(s): G89.4 - Chronic pain syndrome (7) Gout Qualifiers: Gout site: unspecified site Gout etiology: due to renal impairment Chronicity: unspecified Qualified Code(s): M10.30 - Gout due to renal impairment, unspecified site <Montse Tinoco M - Last Filed: 12/25/17 13:47> (2) CKD (chronic kidney disease) Qualifiers: Qualified Code(s): N18.6 - End stage renal disease; Z99.2 - Dependence on renal dialysis (3) COPD (chronic obstructive pulmonary disease) Qualifiers: Qualified Code(s): J44.9 - Chronic obstructive pulmonary disease, unspecified (4) Chronic pain Qualifiers: Qualified Code(s): G89.4 - Chronic pain syndrome (7) Gout Qualifiers: Qualified Code(s): M10.30 - Gout due to renal impairment, unspecified site
[2017-12-23] MEDS ORDERED: fentaNYL Citrate Inj 100 MCG/2 ML Ampul ONE (13:59)
[2017-12-23] MEDS ORDERED: *Heparin 10,000 UNITS/10 ML Vial Periprocedural ONLY ONE (14:09)
[2017-12-23] MEDS: ceFAZolin 2 GM Premix Inj 2 GM/100 ML BAG IV.SIG SCH (15:33)
[2017-12-23] MEDS ORDERED: Heparin Central Flush 100 UNIT/ML 5 ML Vial IV.FLUSH PRN (15:37)
[2017-12-23] MEDS: oxyCODONE/Acetaminophen 10/325 Tablet PO PRN (15:43)
--- NOTE | 2017-12-23 15:58 | IR ---
EXAM DATE: 12/22/2017 6:08 PM EDT AGE/SEX: 67 years / Female INDICATIONS: Patient with history of end stage renal disease in need of tunneled dialysis catheter r emoval due to possible infection. CLINICAL DATA: This is the patient's subsequent encounter. Patient reports that signs and symptoms h ave been present for 3 days and indicates a pain score of 6/10. MEDICAL/SURGICAL HISTORY: Cardiovascular disease. Chronic obstructive pulmonary disease. Hype rtension. GERD, CAD, Chronic back pain, HLD, ESRD, Hemodialysis, Stroke Tubal ligation. Loop record er, AV fistula, Dialysis catheter COMPARISON: No prior exams available for comparison. FLUORO TIME (min): 0.0 IMAGE SERIES: 0 ACCESS SITE: SEDATION TIME (min): 15 MEDICATION(S): 50MCG fentanyl (Sublimaze) IV 0.5MG lorazepam (Ativan) IV . . PROCEDURE: 1. PermaCath removal. The risks, benefits and alternatives to the procedure were explained and verbal and written consent w as obtained. The site was prepped in sterile fashion. Full sterile technique was used, including ca p, mask, sterile gloves and gown and a large sterile sheet. Hand hygiene and 2% chlorhexidine and/or betadine/alcohol prep was utilized per protocol for cutaneous antisepsis. The skin and subcutaneous tissues were infiltrated with local anesthetic solution. The tract was anesthetized with 1% Lidocaine using. The Permcath was dissected from the subcutaneous tissues and easily removed in one piece. Manual pressure was applied to the venotomy site until hem ostasis was obtained. Sterile dressing was applied. The patient tolerated the procedure well and there were no complications. CONCLUSION: Uncomplicated Permcath removal. The catheter tip was sent for culture Electronically signed by: Merlin Mora MD 12/23/2017 3:57 PM EDT
--- NOTE | 2017-12-23 15:59 | IR ---
EXAM DATE: 12/23/2017 2:56 PM EDT AGE/SEX: 67 years / Female INDICATIONS: Patient had permcath removed here now for a vas cath. CLINICAL DATA: This is the patient's subsequent encounter. Patient reports that signs and symptoms h ave been present for 1 day and indicates a pain score of 0/10. MEDICAL/SURGICAL HISTORY: Chronic obstructive pulmonary disease. Chronic renal failure. Hyper tension. GERD,CAD,chronic back pain, MS, sleep apnea, stroke, varicose veins Peripheral vascular st ent. Tubal ligation. AV fistulas bilateral, loop recorder,permcath COMPARISON: No prior exams available for comparison. FLUORO TIME (min): 3.2 IMAGE SERIES: 2 ACCESS SITE: Right internal jugular vein SEDATION TIME (min): 15 MEDICATION(S): 2 mg lorazepam (Ativan) IV 100 mcg fentanyl (Sublimaze) IV DEVICE(S): 14 [place] double lumen 15 cm Schon catheter . . PROCEDURE : 1. Ultrasound guided venipuncture. 2. Fluoroscopic guidance. 3. Central line placement. The risks, benefits and alternatives to the procedure were explained and verbal and written consent w as obtained. The site was prepped in sterile fashion. Full sterile technique was used, including ca p, mask, sterile gloves and gown and a large sterile sheet. Hand hygiene and 2% chlorhexidine prep w as utilized per protocol for cutaneous antisepsis with appropriate dry time for site. Sterile gel an d sterile probe cover were utilized for ultrasound guidance. The skin and subcutaneous tissues were infiltrated with local anesthetic solution. A suitable site a maria victoria the vein was selected with ultrasound and fluoroscopic guidance. A small incision was made. Th e vein was accessed under direct ultrasound visualization using the micropuncture technique. The nancy ropuncture set was exchanged for a 0.035 wire. The tract was dilated. The catheter was advanced int o position under direct fluoroscopic visualization, and was advanced with the tip at the junction of the superior vena cava and rt atrium. The catheter was fixed in place with suture and a sterile dres sing was applied. The patient tolerated the procedure well and there were no complications. CONCLUSION: Uncomplicated ultrasound and fluoroscopic guided central venous dialysis line placement as above. Electronically signed by: Merlin Mora MD 12/23/2017 3:58 PM EDT
[2017-12-23] MEDS: Heparin 10,000 UNITS/10 ML Vial (for IV use) OTHER PRN (18:35)
[2017-12-24] MEDS ORDERED: Chlorhexidine Gluconate 2% 1 Pack (2 Cloths) TOPICAL SCH (05:15)
[2017-12-24] MEDS ORDERED: Sodium Chlor 0.9% Inj 500 ML IV.SIG SCH (06:00)
[2017-12-24] MEDS: clonazePAM 0.5 MG Tablet PO SCH ×3 (08:43→17:48)
[2017-12-24] MEDS: Allopurinol 100 MG Tablet PO SCH (08:43)
[2017-12-24] MEDS: oxyCODONE/Acetaminophen 10/325 Tablet PO PRN ×3 (08:44→22:09)
[2017-12-24] MEDS: Gabapentin 100 MG Capsule PO SCH ×3 (08:44→17:48)
[2017-12-24] MEDS: Senna/Docusate Sodium 8.6/50 MG Tablet PO SCH ×2 (08:45→22:09)
[2017-12-24] MEDS: Famotidine 20 MG Tablet PO SCH (08:45)
[2017-12-24] MEDS ORDERED: Morphine Inj 4 MG/ML Vial IV.PUSH ONE (09:00)
--- NOTE | 2017-12-24 09:33 | P.PNFP ---
Subjective Interval history: Patient seen and examined this morning. She states that she is having pain in her right neck where the new catheter was placed. She is going to surgery this morning. She states that her L AVF was looking better, but bled a little yesterday. Otherwise no complaints. <Mindi Mazariegos Gabriela - 12/24/17 10:21> Results - Labs Result diagrams: 12/25/17 10:25 12/25/17 06:52 <Montse Tinoco - 12/25/17 14:19> Abnormal lab results 12/25/17 12/25/17 Range/Units 06:52 10:25 RBC 2.60 L (4.00-5.30) mil/mm3 Hgb 8.7 L (11.6-15.3) gm/dL Hct 26.0 L (35.0-46.0) % Plt Count 115 L (150-450) th/mm3 Sodium 132 L (136-145) meq/L Potassium 5.8 H D (3.5-5.1) meq/L Chloride 96 L (98-107) meq/L BUN 30 H (7-18) mg/dL Creatinine 5.46 H (0.50-1.00) mg/dL Estimated GFR 8 L (>89) mL/min Calcium 8.2 L (8.5-10.1) mg/dL Albumin 2.8 L (3.4-5.0) g/dL Short CBC 12/25/17 Range/Units 10:25 WBC 4.1 (4.0-11.0) th/mm3 Hgb 8.7 L (11.6-15.3) gm/dL Hct 26.0 L (35.0-46.0) % Plt Count 115 L (150-450) th/mm3 BMP 12/25/17 06:52 Sodium 132 L Potassium 5.8 H D Chloride 96 L Carbon Dioxide 27.0 BUN 30 H Creatinine 5.46 H Calcium 8.2 L Liver Function 12/25/17 Range/Units 06:52 Albumin 2.8 L (3.4-5.0) g/dL <Montse Tinoco - 12/25/17 14:19> - Imaging Impressions Tube Removal 12/22/17 00:00 CONCLUSION: Uncomplicated Permcath removal. The catheter tip was sent for culture Catheter Placement 12/23/17 00:00 CONCLUSION: Uncomplicated ultrasound and fluoroscopic guided central venous dialysis line placement as above. <Mindi Mazariegos - 12/24/17 09:33> Physical Exam Vital signs: Vital Signs 12/24/17 16:00 12/24/17 19:45 12/24/17 20:00 Temperature 98 F 98.4 F Pulse Rate 99 H 97 H 97 H Respiratory Rate 20 18 19 Blood Pressure 108/65 119/53 L Pulse Oximetry 97 94 L 98 12/24/17 20:22 12/25/17 00:00 12/25/17 04:00 Temperature 98.7 F 98.3 F Pulse Rate 90 79 Respiratory Rate 17 18 Blood Pressure 125/58 L 129/58 L Pulse Oximetry 97 95 97 12/25/17 08:00 Temperature 97.7 F Pulse Rate 91 H Respiratory Rate 18 Blood Pressure 120/62 Pulse Oximetry 96 Intake & Output 12/24/17 12/25/17 12/25/17 18:59 06:59 18:59 Intake Total 660 / 660 Output Total 80 / 80 3000 / 3000 Balance 580 / 580 -3000 / -3000 Intake: IV 100 / 100 Heparin/NS PF Inj 500 ML @ 0 0 / 0 mls/hr .ROUTE .STK-MED ONE Rx#: [id number] Ancef 2 GM Premix Inj 2 gm In 100 / 100 100 ml @ 200 mls/hr IV.SIG Q24H [facility] Rx#:[id number] Oral 360 / 360 Anesthesia Amount 200 / 200 Output: Hemodialysis Amount 3000 / 3000 Estimated Blood Loss 80 / 80 Other: # Voids 2 1 # Bowel Movements 0 <Montse Tinoco - 12/25/17 14:19> Vital Signs 12/23/17 12:00 12/23/17 18:01 12/23/17 20:00 Temperature 98.3 F 98.1 F Pulse Rate 84 75 74 Respiratory Rate 14 16 Blood Pressure 143/66 H 144/96 H Pulse Oximetry 100 94 L 12/23/17 20:08 12/23/17 20:09 12/24/17 05:40 Temperature 98 F Pulse Rate 84 68 Respiratory Rate 16 16 Blood Pressure 120/68 Pulse Oximetry 96 99 12/24/17 08:00 Temperature 98.2 F Pulse Rate 82 Respiratory Rate 16 Blood Pressure 131/60 Pulse Oximetry 93 L Intake & Output 12/23/17 12/24/17 12/24/17 18:59 06:59 18:59 Intake Total 240 / 240 450 / 450 Output Total 1500 / 1500 Balance -1260 / -1260 450 / 450 Weight 88.5 kg Intake: Oral 240 / 240 450 / 450 Output: Hemodialysis Amount 1500 / 1500 Other: # Voids 2 Date of Last Bowel Movement 12/21/17 # Bowel Movements 0 <Mindi Mazariegos - 12/24/17 09:33> Narrative: GENERAL: White obese female sitting up in chair, in no acute distress SKIN: Warm and dry. HEAD: Atraumatic. Normocephalic. EYES: Pupils equal and round. No scleral icterus. No injection or drainage. ENT: No nasal bleeding or discharge. Mucous membranes pink and moist. LIPS: two observable blisters. erythematous base, clear fluid filled. NECK: Trachea midline. No JVD. CARDIOVASCULAR: Regular rate and rhythm. RESPIRATORY: No accessory muscle use. Breath sounds equal bilaterally. GASTROINTESTINAL: Abdomen soft, non-tender, nondistended. Hepatic and splenic margins not palpable. MUSCULOSKELETAL: Extremities without clubbing, cyanosis, or edema. No obvious deformities. Left upper arm: punctate areas with surrounding induration-> induration stable. No fluctuance noted. Tender to touch. Erythema continues to improve daily from marked outline. Warm to touch. NEUROLOGICAL: Awake and alert. No obvious cranial nerve deficits. Motor grossly within normal limits. Normal speech. PSYCHIATRIC: Appropriate mood and affect; insight and judgment normal. <Mindi Mazariegos - 12/24/17 10:21> Assessment and Plan - Assessment (1) Pain and swelling of left upper extremity Code(s): M79.602 - Pain in left arm; M79.89 - Other specified soft tissue disorders Status: Acute (2) CKD (chronic kidney disease) Code(s): N18.9 - Chronic kidney disease, unspecified Status: Chronic (3) Herpes labialis Code(s): B00.1 - Herpesviral vesicular dermatitis Status: Acute (4) COPD (chronic obstructive pulmonary disease) Code(s): J44.9 - Chronic obstructive pulmonary disease, unspecified Status: Chronic (5) Chronic pain Code(s): G89.29 - Other chronic pain Status: Chronic (6) ROSALINDA (obstructive sleep apnea) Code(s): G47.33 - Obstructive sleep apnea (adult) (pediatric) Status: Chronic (7) Insomnia Code(s): G47.00 - Insomnia, unspecified Status: Chronic (8) Gout Code(s): M10.9 - Gout, unspecified Status: Chronic (9) Nutrition, metabolism, and development symptoms Code(s): R63.8 - Other symptoms and signs concerning food and fluid intake Status: Acute (10) DVT prophylaxis Status: Acute <Montse Tinoco Luba - 12/25/17 14:19> (1) Pain and swelling of left upper extremity Code(s): M79.602 - Pain in left arm; M79.89 - Other specified soft tissue disorders Status: Acute Plan: Left arm swelling, concern for cellulitis and DVT. No leukocytosis on admission. Area demarcated and shows slight improvement today. Venous doppler study on 12/19 shows evidence of both deep and superficial venous thrombosis with absent flow seen in both cephalic and brachial veins. US soft tissue LUE on 12/20 shows no subcutaneous fluid collection or abscess identified. - Positive Blood cultures x4 for Staph aureus - MSSA - Repeat BC NGTD - Vascular surgery consulted, appreciate recs - Admit for IV antibiotics, VANC ok - Surgical revision/debridement and thrombectomy of graft today - ID consulted, appreciate recs - Continue Ancef (12/21- ), not given by nursing staff on 12/23 - BC x2 from permacath NGTD - Follow temps - permcath replaced on 12/23 (2) CKD (chronic kidney disease) Code(s): N18.9 - Chronic kidney disease, unspecified Status: Chronic Plan: CKD Stage 5 on dialysis, follows w/ nephrology, at [facility] for dialysis MWF - Monitor BMP - Con't home Renvela and Sensipar - Nephrology consulted , appreciate recs - Avoid IVF administration. - K 4.8 Today - High protein, low K diet ordered - Epogen w/ dialysis - New permcath being placed today (3) COPD (chronic obstructive pulmonary disease) Code(s): J44.9 - Chronic obstructive pulmonary disease, unspecified Status: Chronic Plan: - Controlled at home on albuterol inhaler - Albuterol q2H PRN, duonebs Q6H while awake scheduled - IS, O2 as needed. (4) Chronic pain Code(s): G89.29 - Other chronic pain Status: Chronic Plan: - Con't home clonazepam, gabapentin, lyrica, and percocet - Changed Percocet from scheduled to PRN q6hrs (5) ROSALINDA (obstructive sleep apnea) Code(s): G47.33 - Obstructive sleep apnea (adult) (pediatric) Status: Chronic Plan: - Does not use CPAP at home, just her O2 overnight - keep head of bed elevated overnight. (6) Insomnia Code(s): G47.00 - Insomnia, unspecified Status: Chronic Plan: No complains on current medications (7) Gout Code(s): M10.9 - Gout, unspecified Status: Chronic Plan: -con't home allopurinol (8) Herpes labialis Code(s): B00.1 - Herpesviral vesicular dermatitis Status: Acute Plan: New onset of herpes labialis this morning. Located on the L upper lip. Painful. - Acyclovir cream 5 times a day. - Due to renal insufficiency, oral vancyclovir is contraindicated. (9) Nutrition, metabolism, and development symptoms Code(s): R63.8 - Other symptoms and signs concerning food and fluid intake Status: Acute Plan: Fluids: tolerating po. Avoid IV fluids Electrolytes: monitor and replete as needed. Monitor K daily. Nutrition: high protein, low K diet GI prophylaxis: Zantac (home medication) (10) DVT prophylaxis Status: Acute Plan: DVT prophy: SCDs, Heparin 5000un SQ q12h -on hold for procedure tomorrow <Mindi Mazariegos - 12/24/17 18:24> - Assessment and Plan 67 y/o F w/hx of CKD, hx of HI, and COPD presenting w/left arm swelling at AV fistula site. Diff: DVT v cellulitis v abscess. S/p 1 g IV Vanc in the ED. Doppler shows left UE DVT. Nephrology consulted. Hold off anticoagulation treatment for DVT per discussion, will give prophylaxis. Blood cultures positive for Staph Aureous x4 MSSA. ID consulted and managing antibiotic treatment. Vascular surgery consulted and waiting for possible debridement/ thrombectomy . Patient improving clinically every day. <Mindi Mazariegos - 12/24/17 09:33> Discharge Planning: pending clinical course and recommendations by specialists <Mindi Mazariegos - 12/24/17 09:33> - Attending Attestation The exam, history, and the medical decision-making described in the above note were completed with the assistance of the resident physician. I reviewed and agree with the findings presented. I attest that I had a [id number] encounter with the patient on the same day, and personally performed and documented my assessment and findings in the medical record. I saw her in her room after surgery. She was sleeping but when she wakes up she complained about increased pain and wanted some more pain medicine. <Montse Tinoco - 12/25/17 14:19> <Mindi Mazariegos - Last Filed: 12/24/17 18:24> (2) CKD (chronic kidney disease) Qualifiers: Chronic kidney disease stage: on chronic dialysis Qualified Code(s): N18.6 - End stage renal disease; Z99.2 - Dependence on renal dialysis (3) COPD (chronic obstructive pulmonary disease) Qualifiers: COPD type: unspecified COPD Qualified Code(s): J44.9 - Chronic obstructive pulmonary disease, unspecified (4) Chronic pain Qualifiers: Chronic pain type: chronic pain syndrome Qualified Code(s): G89.4 - Chronic pain syndrome (7) Gout Qualifiers: Gout site: unspecified site Gout etiology: due to renal impairment Chronicity: unspecified Qualified Code(s): M10.30 - Gout due to renal impairment, unspecified site <Montse Tinoco - Last Filed: 12/25/17 14:19> (2) CKD (chronic kidney disease) Qualifiers: Chronic kidney disease stage: on chronic dialysis Qualified Code(s): N18.6 - End stage renal disease; Z99.2 - Dependence on renal dialysis (4) COPD (chronic obstructive pulmonary disease) Qualifiers: COPD type: unspecified COPD Qualified Code(s): J44.9 - Chronic obstructive pulmonary disease, unspecified (5) Chronic pain Qualifiers: Chronic pain type: chronic pain syndrome Qualified Code(s): G89.4 - Chronic pain syndrome (8) Gout Qualifiers: Gout site: unspecified site Gout etiology: due to renal impairment Chronicity: unspecified Qualified Code(s): M10.30 - Gout due to renal impairment, unspecified site <Mindi Mazariegos - Last Filed: 12/24/17 18:24> (2) CKD (chronic kidney disease) Qualifiers: Chronic kidney disease stage: on chronic dialysis Qualified Code(s): N18.6 - End stage renal disease; Z99.2 - Dependence on renal dialysis (3) COPD (chronic obstructive pulmonary disease) Qualifiers: COPD type: unspecified COPD Qualified Code(s): J44.9 - Chronic obstructive pulmonary disease, unspecified (4) Chronic pain Qualifiers: Chronic pain type: chronic pain syndrome Qualified Code(s): G89.4 - Chronic pain syndrome (7) Gout Qualifiers: Gout site: unspecified site Gout etiology: due to renal impairment Chronicity: unspecified Qualified Code(s): M10.30 - Gout due to renal impairment, unspecified site <Montse Tinoco - Last Filed: 12/25/17 14:19> (2) CKD (chronic kidney disease) Qualifiers: Chronic kidney disease stage: on chronic dialysis Qualified Code(s): N18.6 - End stage renal disease; Z99.2 - Dependence on renal dialysis (4) COPD (chronic obstructive pulmonary disease) Qualifiers: COPD type: unspecified COPD Qualified Code(s): J44.9 - Chronic obstructive pulmonary disease, unspecified (5) Chronic pain Qualifiers: Chronic pain type: chronic pain syndrome Qualified Code(s): G89.4 - Chronic pain syndrome (8) Gout Qualifiers: Gout site: unspecified site Gout etiology: due to renal impairment Chronicity: unspecified Qualified Code(s): M10.30 - Gout due to renal impairment, unspecified site
[2017-12-24] MEDS ORDERED: Bupivacaine PF 0.5% Inj 30 ML Vial ONE (10:14)
[2017-12-24] MEDS ORDERED: Protamine Sulfate Inj 50 MG/5 ML Vial ONE (10:14)
[2017-12-24] MEDS ORDERED: Thrombin Topical 20,000 UNIT Spray Kit TOPICAL ONE (10:14)
[2017-12-24] MEDS ORDERED: Heparin/NS PF Inj 500 ML ONE (10:14)
[2017-12-24] MEDS ORDERED: Heparin 10,000 UNITS/10 ML Vial (for IV use) ONE (10:14)
[2017-12-24 10:58] LABS: Hematocrit 28.3 % (35.0-46.0); Hemoglobin 9.4 gm/dL (11.6-15.3); Mean Corpuscular HGB Conc 33.3 % (32.0-36.0); Mean Corpuscular Hemoglobin 33.2 pg (27.0-34.0); Mean Corpuscular Volume 99.9 fL (80.0-100.0); Mean Platelet Volume 9.9 fL (7.0-11.0); Platelet Count 121 th/mm3 (150-450); Red Blood Count 2.83 mil/mm3 (4.00-5.30); Red Cell Distribution Width 15.5 % (11.6-17.2); White Blood Count 4.4 th/mm3 (4.0-11.0)
[2017-12-24 11:36] LABS: Calcium 8.3 mg/dL (8.5-10.1); Carbon Dioxide 29.4 meq/L (21.0-32.0); Phosphorus 3.7 mg/dL (2.5-4.9); Potassium 4.2 meq/L (3.5-5.1)
[2017-12-24] MEDS ORDERED: Neostigmine Inj 5 MG/5 ML Syringe IV.PUSH ONE (12:00)
[2017-12-24] MEDS ORDERED: Phenylephrine/NS 1000 MCG/10ML Syringe IV.PUSH ONE (12:00)
[2017-12-24] MEDS ORDERED: Glycopyrrolate Inj 1 MG/5 ML Syringe IV.PUSH ONE (12:00)
[2017-12-24] MEDS ORDERED: Lidocaine PF 1% Inj 5 ML Syringe INFILTRATN ONE (12:00)
--- NOTE | 2017-12-24 12:06 | P.OP ---
Date of procedure: 12/24/17 Procedure: Excision of L UE AVG Implants: none Anesthesia: GETA Surgeon: Leonardo Luis MD Biomedical Engineering Professor: Leonardo Vizcarra Estimated blood loss (mL): 80 IV fluids (mL): 200 Pathology: other (graft for culture) Operation and Findings: incorporated graft mid arm and centrally non-incorporated graft underlying area of induration - excised and sent for culture
[2017-12-24] MEDS ORDERED: fentaNYL Citrate Inj 100 MCG/2 ML Ampul ONE (12:38)
[2017-12-24] MEDS ORDERED: Heparin 2,000 UNITS/2 ML Vial (for IV use) IV.FLUSH PRN (14:04)
--- NOTE | 2017-12-24 14:22 | MP ---
cc: Leonardo Luis MD DATE OF OPERATION: 12/24/2017 PREOPERATIVE DIAGNOSIS: Left lower extremity infected access. POSTOPERATIVE DIAGNOSIS: Left lower extremity infected access. PROCEDURE PERFORMED: Excision of left upper extremity arteriovenous graft. ATTENDING SURGEON: Leonardo Luis MD PI/SENIOR RESEARCH ASSOCIATE SURGEON: Leonardo Vizcarra. ANESTHESIA: General. INDICATIONS: Mrs. Bradford is a 67-year-old lady with left upper extremity axillary artery to axillary vein arteriovenous graft that was performed several months ago that was being used for dialysis and the patient presented several days ago with erythema overlying the graft. It is not clear with antibiotics. She has positive blood cultures and taken to the operating room for graft excision. DESCRIPTION OF PROCEDURE: Informed consent was obtained from the patient. She was taken to the operating room and placed supine on the operating table. An appropriate timeout was taken to ensure the patient's identity, operative site, and planned procedure. The administration of antibiotics was not necessary as the patient was on systemic and therapeutic antibiotics and these will be continued postoperatively for ongoing therapy of an ongoing infection. Everyone in the room agreed with timeout and we proceeded. Her left arm was prepped and draped. An incision was made over the proximal aspect of the graft and the distal aspect of the graft with a separate incision, carried down through subcutaneous tissue with electrocautery. The graft was identified. It was noted to be not incorporated in the mid upper arm. It was clamped and transected. The proximal and distal ends were oversewn with 4-0 Prolene suture. The graft was then excised in its entirety. The wound was irrigated, infiltrated with Marcaine, and vancomycin powder was applied and the wounds were closed with 2-0 Polysorb, 3-0 Polysorb, and 4-0 Monocryl. A separate incision was made overlying the area of erythema, carried down to subcutaneous tissue. There was no undrained purulence. The entire area appeared with a film in the tract of the dialysis graft and there was no hematoma to speak of. The entire area was copiously irrigated and the drainage wound was closed with 2-0 nylon sutures. The patient was then awoken from anesthesia and transported to the recovery room in stable condition. I was present and scrubbed and performed the entire procedure. MD KIM Leonardo/kashif , 12:33 PM , 12:39 PM
[2017-12-24] MEDS: ceFAZolin 2 GM Premix Inj 2 GM/100 ML BAG IV.SIG SCH (14:40)
--- NOTE | 2017-12-24 16:14 | P.PNNP ---
Subjective Interval history: Underwent excision of AVG. Seen after surgery. Complains of pain. Physical Exam Vital signs: Vital Signs 12/23/17 18:01 12/23/17 20:00 12/23/17 20:08 Temperature 98.1 F Pulse Rate 75 74 84 Respiratory Rate 16 16 Blood Pressure 144/96 H Pulse Oximetry 94 L 12/23/17 20:09 12/24/17 05:40 12/24/17 08:00 Temperature 98 F 98.2 F Pulse Rate 68 82 Respiratory Rate 16 16 Blood Pressure 120/68 131/60 Pulse Oximetry 96 99 94 L 12/24/17 12:19 12/24/17 12:30 12/24/17 12:45 Temperature 97.7 F Pulse Rate 97 H 100 H 102 H Respiratory Rate 18 18 18 Blood Pressure 115/54 L 123/56 L 123/56 L Pulse Oximetry 89 L 98 98 12/24/17 13:00 12/24/17 13:15 12/24/17 13:30 Temperature Pulse Rate 102 H 102 H 98 H Respiratory Rate 19 20 20 Blood Pressure 99/51 L 99/54 L 110/57 L Pulse Oximetry 99 98 100 12/24/17 13:50 Temperature 97.8 F Pulse Rate 97 H Respiratory Rate 18 Blood Pressure 110/57 L Pulse Oximetry 98 Intake & Output 12/23/17 12/24/17 12/24/17 18:59 06:59 18:59 Intake Total 240 / 240 450 / 450 300 / 300 Output Total 1500 / 1500 80 / 80 Balance -1260 / -1260 450 / 450 220 / 220 Weight 88.5 kg Intake: IV 100 / 100 Heparin/NS PF Inj 500 ML @ 0 0 / 0 mls/hr .ROUTE .STK-MED ONE Rx#: [id number] Ancef 2 GM Premix Inj 2 gm In 100 / 100 100 ml @ 200 mls/hr IV.SIG Q24H [facility] Rx#:[id number] Oral 240 / 240 450 / 450 Anesthesia Amount 200 / 200 Output: Hemodialysis Amount 1500 / 1500 Estimated Blood Loss 80 / 80 Other: # Voids 2 Date of Last Bowel Movement 12/21/17 # Bowel Movements 0 - Constitutional no acute distress - Routine HEENT Exam Head: Present: normocephalic, atraumatic ENT: Present: mucous membranes moist - Routine Neck Exam Present: supple, full ROM. Absent: JVD - Routine Respiratory Exam Present: CTA bilaterally - Routine Cardiovascular Exam Present: RRR, S1, S2 - Routine Extremities Exam Absent: edema Comments: left upper extremity is wrapped. Assessment and Plan - Assessment (1) ESRD (end stage renal disease) on dialysis Code(s): N18.6 - End stage renal disease; Z99.2 - Dependence on renal dialysis Status: Acute Plan: HD MWF, due tomorrow. s/p PermCath removal, excision of AVG. Has Vascath for dialysis. On Renvela for phosphate binder. Monitor phosphorus periodically. Avoid IVF administration. Gadolinium is contraindicated. High protein, low K diet when no longer NPO. (2) Cellulitis Code(s): L03.90 - Cellulitis, unspecified Status: Acute Qualifiers: Site of cellulitis: extremity Site of cellulitis of extremity: upper extremity Laterality: left Qualified Code(s): L03.114 - Cellulitis of left upper limb Plan: s/p excision of AVG. Vascular surgery following. ID on the case. MSSA sepsis. Coagulase negative Staph from PermCath tip. (3) Sepsis affecting skin Code(s): A41.9 - Sepsis, unspecified organism Status: Acute Plan: MSSA per culture. Sensitivity reviewed. Permcath removed. See above. Antibiotics per ID. May need PRATIMA. (4) Anemia Code(s): D64.9 - Anemia, unspecified Status: Acute Plan: Epogen with dialysis ordered. (5) DVT (deep venous thrombosis) Code(s): I82.409 - Acute embolism and thrombosis of unspecified deep veins of unspecified lower extremity Status: Acute Qualifiers: DVT location: upper extremity Affected thrombotic vein of extremity: other upper extremity vein Chronicity: acute Laterality: left Qualified Code(s) : I82.622 - Acute embolism and thrombosis of deep veins of left upper extremity Plan: Cephalic and brachial DVT of LUE. Not on anticoagulation give upcoming surgery.
[2017-12-24] MEDS: Morphine Inj 4 MG/ML Vial IV.PUSH PRN (17:46)
[2017-12-24] MEDS: Petrolatum Oint 30 GM Tube TOPICAL PRN (22:10)
[2017-12-25] MEDS: Morphine Inj 4 MG/ML Vial IV.PUSH PRN ×3 (00:18→21:54)
[2017-12-25] MEDS: oxyCODONE/Acetaminophen 10/325 Tablet PO PRN ×2 (04:32→17:33)
--- NOTE | 2017-12-25 08:05 | P.PNID ---
Subjective Remarks: Patient is a 67-year-old female with known ESRD, gets hemodialysis Thursday and Thursday, presented to the hospital with an acute onset of bleeding at her left upper extremity AV graft, with swelling and redness. Patient was in her usual self, and she went for hemodialysis on Thursday, December 18. She has had problem with dialysis access, and she actually had a left upper extremity AV graft using axillary vein and axillary artery back in October. During that time she had a permacath place and that was used for her hemodialysis and about 2-3 weeks prior to admission, her loop AV graft was used. She was not having any problem. Her dialysis on December 18 was uneventful. She has not had any fever chills or sweats. She has not had any problem with healing of all her incisions. When she woke up December 19, she noted a white dot over where she had the access for her last hemodialysis. She was thought it was a piece of fabric, and she cleaned it, and it started bleeding. She also started noticing redness and swelling in her left upper extremity AV graft. She presented to the hospital for further evaluation and treatment. Evaluation of her AV graft was okay. She had an ultrasound which did show evidence of thrombosis in her cephalic and brachial veins. 2 blood cultures done in the emergency room are now reported as growing staph aureus. Patient since has had some intermittent fevers. Her WBC is down to 2.9. Vascular surgery is evaluating the patient and contemplating on possible surgery this . Infectious disease consultation has been requested to evaluate the patient. Notes reviewed Temps ok Had OR yesterday - excision LUE AVG Permacath C/S Coag Neg Staph Has new vascath RIJ C/O constipation BC with MSSA No new (+) BC WBC better Antibiotics: Ancef Past Medical History: AV fistula Acid reflux CAD (coronary artery disease) COPD (chronic obstructive pulmonary disease) Chronic back pain Chronic renal disease Dialysis AV fistula infection Elevated cholesterol History of heart attack Hypertension Sleep apnea Stroke Tubal ligation status Varicose vein of leg History of loop recorder Hx of tubal ligation Allergies/Adverse Reactions: Allergies adhesive Allergy (Severe, Verified 10/21/17 11:33) ADHESIVE TAPE = RASH bee venom protein (honey bee) Allergy (Severe, Verified 10/21/17 11:33) RASH & TONGUE SWELLING dexamethasone Allergy (Severe, Verified 10/21/17 11:33) Shortness of Breath, TONGUE SWELLS hydromorphone Allergy (Severe, Verified 10/21/17 11:33) Hives PT SAID SHE DOESNT THINK SHE IS ALLERGIC TO DILAUDID THAT IT WAS JUST A REACTION FROM ANOTHER MEDICATION iodine Allergy (Severe, Verified 10/21/17 11:33) RASH & DIFFICULTY BREATHING geraldine Allergy (Severe, Verified 10/21/17 11:33) swollen tongue and rash orange Allergy (Severe, Verified 10/21/17 11:33) O.J. = RASH AND DIFFICULTY BREATHING orange juice Allergy (Severe, Verified 10/22/17 11:01) Hives and difficulty breathing oxytetracycline Allergy (Severe, Verified 10/21/17 11:33) HIVES & TONGUE SWELLING potassium iodide Allergy (Severe, Verified 10/21/17 11:33) RASH & DIFFICULTY BREATHING povidone-iodine Allergy (Severe, Verified 10/21/17 11:33) RASH & DIFFICULTY BREATHING sodium iodide Allergy (Severe, Verified 10/21/17 11:33) RASH & DIFFICULTY BREATHING sodium iodide Allergy (Severe, Verified 10/21/17 11:33) RASH & DIFFICULTY BREATHING Sulfa (Sulfonamide Antibiotics) Allergy (Severe, Verified 10/21/17 11:33) HIVES, DIFFICULTY BREATHING Influenza Virus Vaccines Allergy (Intermediate, Verified 10/21/17 11:33) Rash, vomiting diatrizoate meglumine Allergy (Unknown, Verified 12/19/17 16:38) Rash gadobenic acid Allergy (Unknown, Verified 12/19/17 16:38) Rash gadodiamide Allergy (Unknown, Verified 12/19/17 16:38) Rash gadoteridol Allergy (Unknown, Verified 12/19/17 16:38) Rash iodixanol Allergy (Unknown, Verified 12/19/17 16:38) Rash iohexol Allergy (Unknown, Verified 12/19/17 16:38) Rash penicillin G Allergy (Unknown, Verified 12/19/17 16:38) Rash Objective Vital Signs 12/24/17 12:19 12/24/17 12:30 12/24/17 12:45 Temperature 97.7 F Pulse Rate 97 H 100 H 102 H Respiratory Rate 18 18 18 Blood Pressure 115/54 L 123/56 L 123/56 L Pulse Oximetry 89 L 98 98 12/24/17 13:00 12/24/17 13:15 12/24/17 13:30 Temperature Pulse Rate 102 H 102 H 98 H Respiratory Rate 19 20 20 Blood Pressure 99/51 L 99/54 L 110/57 L Pulse Oximetry 99 98 100 12/24/17 13:50 12/24/17 16:00 12/24/17 19:45 Temperature 97.8 F 98 F 98.4 F Pulse Rate 97 H 99 H 97 H Respiratory Rate 18 20 18 Blood Pressure 110/57 L 108/65 119/53 L Pulse Oximetry 98 97 94 L 12/24/17 20:00 12/24/17 20:22 12/25/17 00:00 Temperature 98.7 F Pulse Rate 97 H 90 Respiratory Rate 19 17 Blood Pressure 125/58 L Pulse Oximetry 98 97 95 12/25/17 04:00 Temperature 98.3 F Pulse Rate 79 Respiratory Rate 18 Blood Pressure 129/58 L Pulse Oximetry 97 Intake & Output 12/24/17 12/25/17 12/25/17 18:59 06:59 18:59 Intake Total 660 / 660 Output Total 80 / 80 Balance 580 / 580 Intake: IV 100 / 100 Heparin/NS PF Inj 500 ML @ 0 0 / 0 mls/hr .ROUTE .STK-MED ONE Rx#: [id number] Ancef 2 GM Premix Inj 2 gm In 100 / 100 100 ml @ 200 mls/hr IV.SIG Q24H [facility] Rx#:[id number] Oral 360 / 360 Anesthesia Amount 200 / 200 Output: Estimated Blood Loss 80 / 80 Other: # Voids 2 1 # Bowel Movements 0 12/24/17 12:30 Wound - Arm Gram Stain - Pending 12/24/17 12:30 Wound - Arm Wound Culture - Pending 12/24/17 11:42 Other Fungal Smear - Pending 12/24/17 11:42 Other Fungal Culture - Pending 12/24/17 11:42 Other Acid Fast Bacilli Smear - Pending 12/24/17 11:42 Other Mycobacterial Culture - Pending 12/22/17 17:58 Catheter Tip - Central Venous Line Wound Culture - Final Staphylococcus coag negative 12/22/17 09:08 Blood - Other Aerobic Blood Culture - Preliminary No growth in 2 days 12/22/17 09:08 Blood - Other Anaerobic Blood Culture - Preliminary No growth in 2 days 12/22/17 09:17 Blood - Peripheral Aerobic Blood Culture - Preliminary No growth in 2 days 12/22/17 09:17 Blood - Peripheral Anaerobic Blood Culture - Preliminary No growth in 2 days 12/21/17 11:45 Blood - Other Aerobic Blood Culture - Preliminary No growth in 3 days 12/21/17 11:45 Blood - Other Anaerobic Blood Culture - Preliminary No growth in 3 days 12/19/17 17:50 Blood - Peripheral Aerobic Blood Culture - Final Staphylococcus aureus 12/19/17 17:50 Blood - Peripheral Anaerobic Blood Culture - Final Staphylococcus aureus 12/19/17 17:30 Blood - Peripheral Aerobic Blood Culture - Final Staphylococcus aureus 12/19/17 17:30 Blood - Peripheral Anaerobic Blood Culture - Final Staphylococcus aureus Lab - Hematology Results 12/23/17 12/24/17 04:55 09:19 WBC 4.4 RBC 2.83 L Hgb 9.4 L Hct 28.3 L MCV 99.9 MCH 33.2 MCHC 33.3 RDW 15.5 Plt Count 121 L MPV 9.9 WBC Differential Manual diff final Seg Neuts % (Manual) 51 Band Neuts % (Manual) 5 Lymphocytes % (Manual) 28 Monocytes % (Manual) 13 H Eosinophils % (Manual) 3 Abs Neuts (Manual) 2.0 Differential Comment . Platelet Estimate Low L Platelet Morphology Normal Ovalocytes 1+ H Lab - Chemistry Results 12/24/17 09:19 Sodium 136 Potassium 4.2 Chloride 97 L Carbon Dioxide 29.4 Anion Gap 10 BUN 22 H Creatinine 4.19 H Estimated GFR 11 L Random Glucose 82 Calcium 8.3 L Phosphorus 3.7 D Albumin 3.0 L Imaging: ITS Impressions Chest X-Ray 12/19/17 15:27 CONCLUSION: 1. No acute abnormality. Venous Doppler Study 12/19/17 15:56 CONCLUSION: 1. Evidence of both deep and superficial venous thrombosis with absent flow seen in both cephalic and brachial veins. Lower Extremity Ultrasound 12/20/17 06:00 CONCLUSION: 1. No subcutaneous fluid collection or abscess is identified. 2. There is some type graft or fistula the area of interest and it appears thrombosed. Tube Removal 12/22/17 00:00 CONCLUSION: Uncomplicated Permcath removal. The catheter tip was sent for culture Catheter Placement 12/23/17 00:00 CONCLUSION: Uncomplicated ultrasound and fluoroscopic guided central venous dialysis line placement as above. Physical Exam: GENERAL: awake and alert, not in respiratory distress. SKIN: Cool and dry. No generalized rash, no ecchymoses and no evidence of embolic lesions. HEAD: Atraumatic. Normocephalic. No temporal wasting, or tenderness. EYES: [place] conjunctiva. No petechia or hemorrhage. Pupils equal, round and reactive to light. Extraocular movements full and intact. No scleral icterus. No injection or drainage. EARS, NOSE AND THROAT: Nose without bleeding or purulent nasal discharge. No sinus tenderness. Mucous membranes pink and moist. No oral lesions noted. No exudate. No oral thrush. NECK: Trachea midline. Supple and not tender, no meningeal signs CARDIOVASCULAR: Regular rate and rhythm. No murmurs, rubs or gallops heard RESPIRATORY: Clear to auscultation. Breath sounds equal bilaterally. No rales , wheezing or rhonchi. Permacath is in her R upper chest, no redness or drainage ABDOMEN: Soft, non-tender, nondistended. Bowel sounds present and normoactive. No guarding. No rebound. No organomegaly. EXTREMITIES: No clubbing, cyanosis, or edema. LUE - incisions dry, has 3. One of incision with some mild redness. Swelling is better. No joint effusion, has good ROM. No calf tenderness. NEUROLOGICAL: Grossly non-focal PSYCHIATRIC: Normal affect, calm and cooperative. LINE: No evidence of infection Assessment and Plan - Plan Impression Staph aureus MSSA sepsis Infection AVG LUE (Axillary artery/vein loop graft) Permacath seeding a concern as well ESRD on HD MWF DVT LUE brachial vein Recommendation Continue IV Ancef Follow temps Follow new C/S Monitor progress Will need long course of Abx, 6 weeks post removal of AVG
[2017-12-25] MEDS: Allopurinol 100 MG Tablet PO SCH (08:46)
[2017-12-25] MEDS: Famotidine 20 MG Tablet PO SCH (08:47)
[2017-12-25] MEDS: clonazePAM 0.5 MG Tablet PO SCH ×3 (08:47→17:33)
[2017-12-25] MEDS: Gabapentin 100 MG Capsule PO SCH ×3 (08:47→17:33)
[2017-12-25] MEDS: Senna/Docusate Sodium 8.6/50 MG Tablet PO SCH ×2 (08:47→21:55)
[2017-12-25] MEDS: Heparin - SQ 10,000 UNITS/ML Vial SQ SCH (08:48)
[2017-12-25 08:55] LABS: Albumin 2.8 g/dL (3.4-5.0); Calcium 8.2 mg/dL (8.5-10.1); Phosphorus 4.3 mg/dL (2.5-4.9); Potassium 5.8 meq/L (3.5-5.1)
--- NOTE | 2017-12-25 09:29 | P.PNNP ---
Subjective Interval history: s/p AVG removal yesterday. Reporting pain. Due for dialysis. <Montse Damon - Last Filed: 12/25/17 09:27> Physical Exam Vital signs: Vital Signs 12/24/17 12:19 12/24/17 12:30 12/24/17 12:45 Temperature 97.7 F Pulse Rate 97 H 100 H 102 H Respiratory Rate 18 18 18 Blood Pressure 115/54 L 123/56 L 123/56 L Pulse Oximetry 89 L 98 98 12/24/17 13:00 12/24/17 13:15 12/24/17 13:30 Temperature Pulse Rate 102 H 102 H 98 H Respiratory Rate 19 20 20 Blood Pressure 99/51 L 99/54 L 110/57 L Pulse Oximetry 99 98 100 12/24/17 13:50 12/24/17 16:00 12/24/17 19:45 Temperature 97.8 F 98 F 98.4 F Pulse Rate 97 H 99 H 97 H Respiratory Rate 18 20 18 Blood Pressure 110/57 L 108/65 119/53 L Pulse Oximetry 98 97 94 L 12/24/17 20:00 12/24/17 20:22 12/25/17 00:00 Temperature 98.7 F Pulse Rate 97 H 90 Respiratory Rate 19 17 Blood Pressure 125/58 L Pulse Oximetry 98 97 95 12/25/17 04:00 12/25/17 08:00 Temperature 98.3 F 97.7 F Pulse Rate 79 91 H Respiratory Rate 18 18 Blood Pressure 129/58 L 120/62 Pulse Oximetry 97 96 Intake & Output 12/24/17 12/25/17 12/25/17 18:59 06:59 18:59 Intake Total 660 / 660 Output Total 80 / 80 Balance 580 / 580 Intake: IV 100 / 100 Heparin/NS PF Inj 500 ML @ 0 0 / 0 mls/hr .ROUTE .STK-MED ONE Rx#: [id number] Ancef 2 GM Premix Inj 2 gm In 100 / 100 100 ml @ 200 mls/hr IV.SIG Q[facility]H [facility] Rx#:[id number] Oral 360 / 360 Anesthesia Amount 200 / 200 Output: Estimated Blood Loss 80 / 80 Other: # Voids 2 1 # Bowel Movements 0 - Constitutional no acute distress, obese, disheveled, cooperative - Routine HEENT Exam Head: Present: normocephalic - Routine Neck Exam Present: supple, full ROM - Routine Respiratory Exam Present: CTA bilaterally. Absent: accessory muscle use - Routine Cardiovascular Exam Present: RRR, S1, S2 - Routine Abdominal Exam Present: soft, normoactive bowel sounds - Routine Extremities Exam Present: pulses intact, normal capillary refill, vascular access. Absent: edema Comments: LUE dressing in place - Routine Skin Exam Present: intact, dry, warm - Routine Neurological Exam Present: alert, oriented X3, CN II-XII intact - Detailed Neurological Exam: Coma Scale Eye Opening: Spontaneous Verbal Response: Oriented Motor Response: Obey commands Anayeli Coma Scale Total: 15 <Montse Damon - Last Filed: 12/25/17 09:27> Vital signs: Vital Signs 12/24/17 13:50 12/24/17 16:00 12/24/17 19:45 Temperature 97.8 F 98 F 98.4 F Pulse Rate 97 H 99 H 97 H Respiratory Rate 18 20 18 Blood Pressure 110/57 L 108/65 119/53 L Pulse Oximetry 98 97 94 L 12/24/17 20:00 12/24/17 20:22 12/25/17 00:00 Temperature 98.7 F Pulse Rate 97 H 90 Respiratory Rate 19 17 Blood Pressure 125/58 L Pulse Oximetry 98 97 95 12/25/17 04:00 12/25/17 08:00 Temperature 98.3 F 97.7 F Pulse Rate 79 91 H Respiratory Rate 18 18 Blood Pressure 129/58 L 120/62 Pulse Oximetry 97 96 Intake & Output 12/24/17 12/25/17 12/25/17 18:59 06:59 18:59 Intake Total 660 / 660 Output Total 80 / 80 3000 / 3000 Balance 580 / 580 -3000 / -3000 Intake: IV 100 / 100 Heparin/NS PF Inj 500 ML @ 0 0 / 0 mls/hr .ROUTE .STK-MED ONE Rx#: [id number] Ancef 2 GM Premix Inj 2 gm In 100 / 100 100 ml @ 200 mls/hr IV.SIG Q[facility]H [facility] Rx#:[id number] Oral 360 / 360 Anesthesia Amount 200 / 200 Output: Hemodialysis Amount 3000 / 3000 Estimated Blood Loss 80 / 80 Other: # Voids 2 1 # Bowel Movements 0 <Luis Antonio Ewing - Last Filed: 12/25/17 13:57> Assessment and Plan - Assessment (1) ESRD (end stage renal disease) on dialysis Code(s): N18.6 - End stage renal disease; Z99.2 - Dependence on renal dialysis Status: Acute Plan: HD MWF, due today. s/p PermCath removal, excision of AVG. Has Vascath for dialysis. On Renvela for phosphate binder. Monitor phosphorus periodically. Avoid IVF administration. Gadolinium is contraindicated. High protein, low K diet should be offered. Outpatient HD is at [facility]. (2) Cellulitis Code(s): L03.90 - Cellulitis, unspecified Status: Acute Qualifiers: Site of cellulitis: extremity Site of cellulitis of extremity: upper extremity Laterality: left Qualified Code(s): L03.114 - Cellulitis of left upper limb Plan: s/p excision of AVG. Vascular surgery and ID are following. MSSA sepsis. Coagulase negative Staph from PermCath tip. (3) Sepsis affecting skin Code(s): A41.9 - Sepsis, unspecified organism Status: Acute Plan: MSSA per culture. Sensitivity reviewed, on Ancef. Permcath removed. See above. Antibiotics per ID. May need PRATIMA. (4) Anemia Code(s): D64.9 - Anemia, unspecified Status: Acute Plan: Epogen with dialysis ordered. (5) DVT (deep venous thrombosis) Code(s): I82.409 - Acute embolism and thrombosis of unspecified deep veins of unspecified lower extremity Status: Acute Qualifiers: DVT location: upper extremity Affected thrombotic vein of extremity: other upper extremity vein Chronicity: acute Laterality: left Qualified Code(s) : I82.622 - Acute embolism and thrombosis of deep veins of left upper extremity Plan: Cephalic and brachial DVT of LUE. Not on anticoagulation give upcoming surgery. <Montse Damon. - Last Filed: 12/25/17 09:27> - Assessment (1) ESRD (end stage renal disease) on dialysis Code(s): N18.6 - End stage renal disease; Z99.2 - Dependence on renal dialysis Status: Acute (2) Cellulitis Code(s): L03.90 - Cellulitis, unspecified Status: Acute Qualifiers: Qualified Code(s): L03.114 - Cellulitis of left upper limb (3) Sepsis affecting skin Code(s): A41.9 - Sepsis, unspecified organism Status: Acute (4) Anemia Code(s): D64.9 - Anemia, unspecified Status: Acute (5) DVT (deep venous thrombosis) Code(s): I82.409 - Acute embolism and thrombosis of unspecified deep veins of unspecified lower extremity Status: Acute Qualifiers: Qualified Code(s): I82.622 - Acute embolism and thrombosis of deep veins of left upper extremity - Attending Attestation patient was seen and examined. s/p removal of AVG. It is growing Staph aureus. ID managing antibiotic. Outpatient dialysis is at [facility]. Start Apixaban for DVT in the left upper extremity. Stop heparin SC while on Apixaban. <Luis Antonio Ewing - Last Filed: 12/25/17 13:57>
--- NOTE | 2017-12-25 10:29 | P.PNVS ---
Subjective Post Op Day #: 1 Procedure: Excision of L UE AVG Subjective/Hospital Course: seen in HD complains of L UE pain but only in incisions. Also c/o itchiness to R neck around catheter Objective Vital Signs / I&O: Vital Signs 12/24/17 12:19 12/24/17 12:30 12/24/17 12:45 Temperature 97.7 F Pulse Rate 97 H 100 H 102 H Respiratory Rate 18 18 18 Blood Pressure 115/54 L 123/56 L 123/56 L Pulse Oximetry 89 L 98 98 12/24/17 13:00 12/24/17 13:15 12/24/17 13:30 Temperature Pulse Rate 102 H 102 H 98 H Respiratory Rate 19 20 20 Blood Pressure 99/51 L 99/54 L 110/57 L Pulse Oximetry 99 98 100 12/24/17 13:50 12/24/17 16:00 12/24/17 19:45 Temperature 97.8 F 98 F 98.4 F Pulse Rate 97 H 99 H 97 H Respiratory Rate 18 20 18 Blood Pressure 110/57 L 108/65 119/53 L Pulse Oximetry 98 97 94 L 12/24/17 20:00 12/24/17 20:22 12/25/17 00:00 Temperature 98.7 F Pulse Rate 97 H 90 Respiratory Rate 19 17 Blood Pressure 125/58 L Pulse Oximetry 98 97 95 12/25/17 04:00 12/25/17 08:00 Temperature 98.3 F 97.7 F Pulse Rate 79 91 H Respiratory Rate 18 18 Blood Pressure 129/58 L 120/62 Pulse Oximetry 97 96 Intake & Output 12/24/17 12/25/17 12/25/17 18:59 06:59 18:59 Intake Total 660 / 660 Output Total 80 / 80 Balance 580 / 580 Intake: IV 100 / 100 Heparin/NS PF Inj 500 ML @ 0 0 / 0 mls/hr .ROUTE .STK-MED ONE Rx#: [id number] Ancef 2 GM Premix Inj 2 gm In 100 / 100 100 ml @ 200 mls/hr IV.SIG Q24H [facility] Rx#:[id number] Oral 360 / 360 Anesthesia Amount 200 / 200 Output: Estimated Blood Loss 80 / 80 Other: # Voids 2 1 # Bowel Movements 0 Exam: looks great L UE incisions c/d/i with no drainage from graft excision one erythema significantly better Laboratory Results - last 24 hr 12/24/17 12/24/17 12/25/17 09:19 09:19 06:52 WBC 4.4 RBC 2.83 L Hgb 9.4 L Hct 28.3 L MCV 99.9 MCH 33.2 MCHC 33.3 RDW 15.5 Plt Count 121 L MPV 9.9 Sodium 136 132 L Potassium 4.2 5.8 H D Chloride 97 L 96 L Carbon Dioxide 29.4 27.0 Anion Gap 10 9 BUN 22 H 30 H Creatinine 4.19 H 5.46 H Estimated GFR 11 L 8 L Random Glucose 82 75 Calcium 8.3 L 8.2 L Phosphorus 3.7 D 4.3 Albumin 3.0 L 2.8 L Microbiology 12/24/17 11:42 Fungal Smear - Final Other No fungal elements seen 12/24/17 12:30 Gram Stain - Final Wound - Arm 12/22/17 17:58 Wound Culture - Final Catheter Tip - Central Venous Line Staphylococcus coag negative 12/22/17 09:08 Aerobic Blood Culture - Preliminary Blood - Other No growth in 2 days Anaerobic Blood Culture - Preliminary No growth in 2 days 12/22/17 09:17 Aerobic Blood Culture - Preliminary Blood - Peripheral No growth in 2 days Anaerobic Blood Culture - Preliminary No growth in 2 days 12/21/17 11:45 Aerobic Blood Culture - Preliminary Blood - Other No growth in 3 days Anaerobic Blood Culture - Preliminary No growth in 3 days Assessment and Plan - Assessment (1) ESRD (end stage renal disease) on dialysis Code(s): N18.6 - End stage renal disease; Z99.2 - Dependence on renal dialysis Status: Acute - Plan POD#1 s/p L UE graft excision 1. f/u cultures - needs 6 weeks of antibiotics, likely Vanc given presumption of MRSA 2. ok to place gauze on incisions for patient comfort 3. likely cleared for d/c from vascular standpoint tomorrow (POD#2)
[2017-12-25] MEDS: Heparin 10,000 UNITS/10 ML Vial (for IV use) OTHER PRN (11:07)
[2017-12-25 11:22] LABS: Hemoglobin 8.7 gm/dL (11.6-15.3); Mean Corpuscular HGB Conc 33.4 % (32.0-36.0); Mean Corpuscular Hemoglobin 33.3 pg (27.0-34.0); Mean Corpuscular Volume 99.7 fL (80.0-100.0); Mean Platelet Volume 9.9 fL (7.0-11.0); Platelet Count 115 th/mm3 (150-450); Red Cell Distribution Width 15.1 % (11.6-17.2); White Blood Count 4.1 th/mm3 (4.0-11.0)
--- NOTE | 2017-12-25 13:08 | P.PNFP ---
Subjective Interval history: Patient seen and examined this morning in HD. She states that she is in pain in her L arm at the site of her surgery yesterday and also at her VasCath. Her bumps on her upper lip are improving and crusting over now. No fever/chills, no CP, no shortness of breath. <Mindi Mazariegos - 12/25/17 14:01> Results - Labs Result diagrams: 12/25/17 10:25 12/25/17 06:52 <Montse Tinoco - 12/25/17 14:22> Abnormal lab results 12/25/17 12/25/17 Range/Units 06:52 10:25 RBC 2.60 L (4.00-5.30) mil/mm3 Hgb 8.7 L (11.6-15.3) gm/dL Hct 26.0 L (35.0-46.0) % Plt Count 115 L (150-450) th/mm3 Sodium 132 L (136-145) meq/L Potassium 5.8 H D (3.5-5.1) meq/L Chloride 96 L (98-107) meq/L BUN 30 H (7-18) mg/dL Creatinine 5.46 H (0.50-1.00) mg/dL Estimated GFR 8 L (>89) mL/min Calcium 8.2 L (8.5-10.1) mg/dL Albumin 2.8 L (3.4-5.0) g/dL Short CBC 12/25/17 Range/Units 10:25 WBC 4.1 (4.0-11.0) th/mm3 Hgb 8.7 L (11.6-15.3) gm/dL Hct 26.0 L (35.0-46.0) % Plt Count 115 L (150-450) th/mm3 BMP 12/25/17 06:52 Sodium 132 L Potassium 5.8 H D Chloride 96 L Carbon Dioxide 27.0 BUN 30 H Creatinine 5.46 H Calcium 8.2 L Liver Function 12/25/17 Range/Units 06:52 Albumin 2.8 L (3.4-5.0) g/dL <Montse Tinoco - 12/25/17 14:22> Abnormal lab results 12/25/17 12/25/17 Range/Units 06:52 10:25 RBC 2.60 L (4.00-5.30) mil/mm3 Hgb 8.7 L (11.6-15.3) gm/dL Hct 26.0 L (35.0-46.0) % Plt Count 115 L (150-450) th/mm3 Sodium 132 L (136-145) meq/L Potassium 5.8 H D (3.5-5.1) meq/L Chloride 96 L (98-107) meq/L BUN 30 H (7-18) mg/dL Creatinine 5.46 H (0.50-1.00) mg/dL Estimated GFR 8 L (>89) mL/min Calcium 8.2 L (8.5-10.1) mg/dL Albumin 2.8 L (3.4-5.0) g/dL Short CBC 12/25/17 Range/Units 10:25 WBC 4.1 (4.0-11.0) th/mm3 Hgb 8.7 L (11.6-15.3) gm/dL Hct 26.0 L (35.0-46.0) % Plt Count 115 L (150-450) th/mm3 BMP 12/25/17 06:52 Sodium 132 L Potassium 5.8 H D Chloride 96 L Carbon Dioxide 27.0 BUN 30 H Creatinine 5.46 H Calcium 8.2 L Liver Function 12/25/17 Range/Units 06:52 Albumin 2.8 L (3.4-5.0) g/dL <Mindi Mazariegos G - 12/25/17 13:07> Physical Exam Vital signs: Vital Signs 12/24/17 16:00 12/24/17 19:45 12/24/17 20:00 Temperature 98 F 98.4 F Pulse Rate 99 H 97 H 97 H Respiratory Rate 20 18 19 Blood Pressure 108/65 119/53 L Pulse Oximetry 97 94 L 98 12/24/17 20:22 12/25/17 00:00 12/25/17 04:00 Temperature 98.7 F 98.3 F Pulse Rate 90 79 Respiratory Rate 17 18 Blood Pressure 125/58 L 129/58 L Pulse Oximetry 97 95 97 12/25/17 08:00 Temperature 97.7 F Pulse Rate 91 H Respiratory Rate 18 Blood Pressure 120/62 Pulse Oximetry 96 Intake & Output 12/24/17 12/25/17 12/25/17 18:59 06:59 18:59 Intake Total 660 / 660 Output Total 80 / 80 3000 / 3000 Balance 580 / 580 -3000 / -3000 Intake: IV 100 / 100 Heparin/NS PF Inj 500 ML @ 0 0 / 0 mls/hr .ROUTE [facility] Rx#: [id number] Ancef 2 GM Premix Inj 2 gm In 100 / 100 100 ml @ 200 mls/hr IV.SIG Q24H [facility] Rx#:[id number] Oral 360 / 360 Anesthesia Amount 200 / 200 Output: Hemodialysis Amount 3000 / 3000 Estimated Blood Loss 80 / 80 Other: # Voids 2 1 # Bowel Movements 0 <Montse Tinoco M - 12/25/17 14:22> Vital Signs 12/24/17 13:15 12/24/17 13:30 12/24/17 13:50 Temperature 97.8 F Pulse Rate 102 H 98 H 97 H Respiratory Rate 20 20 18 Blood Pressure 99/54 L 110/57 L 110/57 L Pulse Oximetry 98 100 98 12/24/17 16:00 12/24/17 19:45 12/24/17 20:00 Temperature 98 F 98.4 F Pulse Rate 99 H 97 H 97 H Respiratory Rate 20 18 19 Blood Pressure 108/65 119/53 L Pulse Oximetry 97 94 L 98 12/24/17 20:22 12/25/17 00:00 12/25/17 04:00 Temperature 98.7 F 98.3 F Pulse Rate 90 79 Respiratory Rate 17 18 Blood Pressure 125/58 L 129/58 L Pulse Oximetry 97 95 97 12/25/17 08:00 Temperature 97.7 F Pulse Rate 91 H Respiratory Rate 18 Blood Pressure 120/62 Pulse Oximetry 96 Intake & Output 12/24/17 12/25/17 12/25/17 18:59 06:59 18:59 Intake Total 660 / 660 Output Total 80 / 80 3000 / 3000 Balance 580 / 580 -3000 / -3000 Intake: IV 100 / 100 Heparin/NS PF Inj 500 ML @ 0 0 / 0 mls/hr .ROUTE [employer] Rx#: [id number] Ancef 2 GM Premix Inj 2 gm In 100 / 100 100 ml @ 200 mls/hr IV.SIG Q24H [facility] Rx#:[id number] Oral 360 / 360 Anesthesia Amount 200 / 200 Output: Hemodialysis Amount 3000 / 3000 Estimated Blood Loss 80 / 80 Other: # Voids 2 1 # Bowel Movements 0 <Mindi Mazariegos Gabriela - 12/25/17 13:07> Narrative: GENERAL: White obese female laying in bed in hemodialysis, in no acute distress SKIN: Warm and dry. HEAD: Atraumatic. Normocephalic. EYES: Pupils equal and round. No scleral icterus. No injection or drainage. ENT: No nasal bleeding or discharge. Mucous membranes pink and moist. LIPS: Crusted over blisters. erythematous base. NECK: Trachea midline. No JVD. CARDIOVASCULAR: Regular rate and rhythm. RESPIRATORY: No accessory muscle use. Breath sounds equal bilaterally. GASTROINTESTINAL: Abdomen soft, non-tender, nondistended. Hepatic and splenic margins not palpable. MUSCULOSKELETAL: Extremities without clubbing, cyanosis, or edema. No obvious deformities. Left upper arm: Sutured incisions with no signs of injections. NEUROLOGICAL: Awake and alert. No obvious cranial nerve deficits. Motor grossly within normal limits. Normal speech. <Mindi Mazariegos Gabriela - 12/25/17 14:01> Assessment and Plan - Assessment (1) Pain and swelling of left upper extremity Code(s): M79.602 - Pain in left arm; M79.89 - Other specified soft tissue disorders Status: Acute (2) CKD (chronic kidney disease) Code(s): N18.9 - Chronic kidney disease, unspecified Status: Chronic (3) Herpes labialis Code(s): B00.1 - Herpesviral vesicular dermatitis Status: Acute (4) COPD (chronic obstructive pulmonary disease) Code(s): J44.9 - Chronic obstructive pulmonary disease, unspecified Status: Chronic (5) Chronic pain Code(s): G89.29 - Other chronic pain Status: Chronic (6) ROSALINDA (obstructive sleep apnea) Code(s): G47.33 - Obstructive sleep apnea (adult) (pediatric) Status: Chronic (7) Insomnia Code(s): G47.00 - Insomnia, unspecified Status: Chronic (8) Gout Code(s): M10.9 - Gout, unspecified Status: Chronic (9) Nutrition, metabolism, and development symptoms Code(s): R63.8 - Other symptoms and signs concerning food and fluid intake Status: Acute (10) DVT prophylaxis Status: Acute <Montse Tinoco - 12/25/17 14:22> (1) Pain and swelling of left upper extremity Code(s): M79.602 - Pain in left arm; M79.89 - Other specified soft tissue disorders Status: Acute Plan: Left arm swelling, concern for cellulitis and DVT. No leukocytosis on admission. Area demarcated and shows slight improvement today. Venous doppler study on 12/19 shows evidence of both deep and superficial venous thrombosis with absent flow seen in both cephalic and brachial veins. US soft tissue LUE on 12/20 shows no subcutaneous fluid collection or abscess identified. - Positive Blood cultures x4 for Staph aureus - MSSA - Repeat BC NGTD - Vascular surgery consulted, appreciate recs - Admit for IV antibiotics, VANC ok - POD 1 from excision of lefter upper extremity arteriovenous graft - likely to be able to be discharged tomorrow - ID consulted, appreciate recs - Continue Ancef (12/21- ), not given by nursing staff on 12/23 - Will need long of course of abx, 6 weeks post removal of AVG - BC x2 drawn on 12/21 and 12/22 x2 NGTD - Wound cx from catheter tip positive for staphylococcus coag negative - Follow temps - PermCath removed on 12/23 and replaced with a Vascath. (2) CKD (chronic kidney disease) Code(s): N18.9 - Chronic kidney disease, unspecified Status: Chronic Plan: CKD Stage 5 on dialysis, follows w/ nephrology, at [facility] for dialysis MWF - Monitor BMP - Con't home Renvela and Sensipar - Nephrology consulted , appreciate recs - Avoid IVF administration. - High protein, low K diet ordered - Epogen w/ dialysis - PermCath replaced with VasCath on 12/23 (3) Herpes labialis Code(s): B00.1 - Herpesviral vesicular dermatitis Status: Acute Plan: New onset of herpes labialis this morning. Located on the L upper lip. Painful. - Acyclovir cream 5 times a day. - Due to renal insufficiency, oral valacyclovir is contraindicated. (4) COPD (chronic obstructive pulmonary disease) Code(s): J44.9 - Chronic obstructive pulmonary disease, unspecified Status: Chronic Plan: - Controlled at home on albuterol inhaler - Albuterol q2H PRN, duonebs Q6H while awake scheduled - IS, O2 as needed. (5) Chronic pain Code(s): G89.29 - Other chronic pain Status: Chronic Plan: - Con't home clonazepam, gabapentin, lyrica, and percocet - Changed Percocet from scheduled to PRN q6hrs (6) ROSALINDA (obstructive sleep apnea) Code(s): G47.33 - Obstructive sleep apnea (adult) (pediatric) Status: Chronic Plan: - Does not use CPAP at home, just her O2 overnight - keep head of bed elevated overnight. (7) Insomnia Code(s): G47.00 - Insomnia, unspecified Status: Chronic Plan: No complains on current medications (8) Gout Code(s): M10.9 - Gout, unspecified Status: Chronic Plan: -con't home allopurinol (9) Nutrition, metabolism, and development symptoms Code(s): R63.8 - Other symptoms and signs concerning food and fluid intake Status: Acute Plan: Fluids: tolerating po. Avoid IV fluids Electrolytes: monitor and replete as needed. Monitor K daily. Nutrition: high protein, low K diet GI prophylaxis: Zantac (home medication) (10) DVT prophylaxis Status: Acute Plan: DVT prophy: SCDs, Heparin 5000un SQ q12h -on hold for procedure tomorrow <Mindi Mazariegos 12/25/17 13:39> - Assessment and Plan 67 y/o F w/hx of CKD, hx of [place], and COPD presenting w/left arm swelling at AV fistula site. Diff: DVT v cellulitis v abscess. S/p 1 g IV Vanc in the ED. Doppler shows left UE DVT. Nephrology consulted. Hold off anticoagulation treatment for DVT per discussion, will give prophylaxis. Blood cultures positive for Staph Aureous x4 MSSA. ID consulted and managing antibiotic treatment. Vascular surgery consulted and waiting for possible debridement/ thrombectomy . Patient improving clinically every day. <Mindi Mazariegos 12/25/17 13:07> Discussed Condition With: Dr. Tinoco <Mindi Mazariegos 12/25/17 14:01> Discharge Planning: pending clinical course and recommendations by specialists <Mindi Mazariegos 12/25/17 13:07> - Attending Attestation The exam, history, and the medical decision-making described in the above note were completed with the assistance of the resident physician. I reviewed and agree with the findings presented. I attest that I had a [id number] encounter with the patient on the same day, and personally performed and documented my assessment and findings in the medical record. Can get case management to help work on discharge plans. The easiest thing would be if she can get antibiotics around the time of dialysis however that may not be the case. Consideration of going to a SNF to continue her antibiotics is also a possibility. <Montse Tinoco - 12/25/17 14:22> <Mindi Mazariegos - Last Filed: 12/25/17 13:39> (2) CKD (chronic kidney disease) Qualifiers: Chronic kidney disease stage: on chronic dialysis Qualified Code(s): N18.6 - End stage renal disease; Z99.2 - Dependence on renal dialysis (4) COPD (chronic obstructive pulmonary disease) Qualifiers: COPD type: unspecified COPD Qualified Code(s): J44.9 - Chronic obstructive pulmonary disease, unspecified (5) Chronic pain Qualifiers: Chronic pain type: chronic pain syndrome Qualified Code(s): G89.4 - Chronic pain syndrome (8) Gout Qualifiers: Gout site: unspecified site Gout etiology: due to renal impairment Chronicity: unspecified Qualified Code(s): M10.30 - Gout due to renal impairment, unspecified site <Montse Tinoco - Last Filed: 12/25/17 14:22> (2) CKD (chronic kidney disease) Qualifiers: Chronic kidney disease stage: on chronic dialysis Qualified Code(s): N18.6 - End stage renal disease; Z99.2 - Dependence on renal dialysis (4) COPD (chronic obstructive pulmonary disease) Qualifiers: COPD type: unspecified COPD Qualified Code(s): J44.9 - Chronic obstructive pulmonary disease, unspecified (5) Chronic pain Qualifiers: Chronic pain type: chronic pain syndrome Qualified Code(s): G89.4 - Chronic pain syndrome (8) Gout Qualifiers: Gout site: unspecified site Gout etiology: due to renal impairment Chronicity: unspecified Qualified Code(s): M10.30 - Gout due to renal impairment, unspecified site <Mindi Mazariegos - Last Filed: 12/25/17 13:39> (2) CKD (chronic kidney disease) Qualifiers: Chronic kidney disease stage: on chronic dialysis Qualified Code(s): N18.6 - End stage renal disease; Z99.2 - Dependence on renal dialysis (4) COPD (chronic obstructive pulmonary disease) Qualifiers: COPD type: unspecified COPD Qualified Code(s): J44.9 - Chronic obstructive pulmonary disease, unspecified (5) Chronic pain Qualifiers: Chronic pain type: chronic pain syndrome Qualified Code(s): G89.4 - Chronic pain syndrome (8) Gout Qualifiers: Gout site: unspecified site Gout etiology: due to renal impairment Chronicity: unspecified Qualified Code(s): M10.30 - Gout due to renal impairment, unspecified site <Montse Tinoco - Last Filed: 12/25/17 14:22> (2) CKD (chronic kidney disease) Qualifiers: Chronic kidney disease stage: on chronic dialysis Qualified Code(s): N18.6 - End stage renal disease; Z99.2 - Dependence on renal dialysis (4) COPD (chronic obstructive pulmonary disease) Qualifiers: COPD type: unspecified COPD Qualified Code(s): J44.9 - Chronic obstructive pulmonary disease, unspecified (5) Chronic pain Qualifiers: Chronic pain type: chronic pain syndrome Qualified Code(s): G89.4 - Chronic pain syndrome (8) Gout Qualifiers: Gout site: unspecified site Gout etiology: due to renal impairment Chronicity: unspecified Qualified Code(s): M10.30 - Gout due to renal impairment, unspecified site
[2017-12-25] MEDS: ceFAZolin 2 GM Premix Inj 2 GM/100 ML BAG IV.SIG SCH (13:42)
[2017-12-26] MEDS: Morphine Inj 4 MG/ML Vial IV.PUSH PRN ×4 (05:47→23:15)
[2017-12-26] MEDS: Allopurinol 100 MG Tablet PO SCH (09:12)
[2017-12-26] MEDS: Gabapentin 100 MG Capsule PO SCH ×3 (09:13→19:20)
[2017-12-26] MEDS: Senna/Docusate Sodium 8.6/50 MG Tablet PO SCH ×2 (09:13→22:18)
[2017-12-26] MEDS: Famotidine 20 MG Tablet PO SCH (09:14)
[2017-12-26] MEDS: clonazePAM 0.5 MG Tablet PO SCH ×3 (09:14→19:20)
[2017-12-26] MEDS: oxyCODONE/Acetaminophen 10/325 Tablet PO PRN ×2 (10:52→11:31)
--- NOTE | 2017-12-26 12:37 | P.PNFP ---
Subjective Interval history: Ms Bradford had just vomited about 400 ccs per her nurse right before we saw her. She had received zofran and was already feeling better. She also stated she had not had a bowel movement for a week. She requested eating foods with more fiber like vegetables and fruit but her diet is very restricted. Results - Labs Result diagrams: 12/25/17 10:25 12/25/17 06:52 Physical Exam Vital signs: Vital Signs 12/25/17 16:00 12/25/17 18:21 12/25/17 20:00 Temperature 97.5 F L 98.8 F Pulse Rate 96 H 88 Respiratory Rate 18 18 Blood Pressure 124/57 L 160/69 H Pulse Oximetry 97 97 96 12/26/17 00:00 12/26/17 04:00 12/26/17 08:00 Temperature 98.6 F 99.2 F 98.3 F Pulse Rate 83 88 90 Respiratory Rate 18 18 18 Blood Pressure 117/56 L 135/64 137/64 Pulse Oximetry 95 95 93 L 12/26/17 11:06 Temperature Pulse Rate Respiratory Rate Blood Pressure Pulse Oximetry 93 L Intake & Output 12/25/17 12/26/17 12/26/17 18:59 06:59 18:59 Intake Total 1600 / 1600 Output Total 3000 / 3000 Balance -1400 / -1400 Intake: IV 100 / 100 Ancef 2 GM Premix Inj 2 gm In 100 / 100 100 ml @ 200 mls/hr IV.SIG Q24H [facility] Rx#:[id number] Oral 1500 / 1500 Output: Hemodialysis Amount 3000 / 3000 Other: # Voids 1 Date of Last Bowel Movement 12/21/17 # Bowel Movements 0 Assessment and Plan - Assessment (1) Pain and swelling of left upper extremity Code(s): M79.602 - Pain in left arm; M79.89 - Other specified soft tissue disorders Status: Acute Plan: Left arm swelling, concern for cellulitis and DVT. No leukocytosis on admission. Area demarcated and shows slight improvement today. Venous doppler study on 12/19 shows evidence of both deep and superficial venous thrombosis with absent flow seen in both cephalic and brachial veins. US soft tissue LUE on 12/20 shows no subcutaneous fluid collection or abscess identified. - Positive Blood cultures x4 for Staph aureus - MSSA - Repeat BC NGTD - Vascular surgery consulted, appreciate recs - Admit for IV antibiotics, VANC ok - POD 1 from excision of lefter upper extremity arteriovenous graft - likely to be able to be discharged tomorrow - ID consulted, appreciate recs - Continue Ancef (12/21- ), not given by nursing staff on 12/23 - Will need long of course of abx, 6 weeks post removal of AVG - BC x2 drawn on 12/21 and 12/22 x2 NGTD - Wound cx from catheter tip positive for staphylococcus coag negative - Follow temps - PermCath removed on 12/23 and replaced with a Vascath. (2) CKD (chronic kidney disease) Code(s): N18.9 - Chronic kidney disease, unspecified Status: Chronic Plan: CKD Stage 5 on dialysis, follows w/ nephrology, at [facility] for dialysis MWF - Monitor BMP - Con't home Renvela and Sensipar - Nephrology consulted , appreciate recs - Avoid IVF administration. - High protein, low K diet ordered - Epogen w/ dialysis - PermCath replaced with VasCath on 12/23 (3) Herpes labialis Code(s): B00.1 - Herpesviral vesicular dermatitis Status: Acute Plan: New onset of herpes labialis this morning. Located on the L upper lip. Painful. - Acyclovir cream 5 times a day. - Due to renal insufficiency, oral valacyclovir is contraindicated. (4) COPD (chronic obstructive pulmonary disease) Code(s): J44.9 - Chronic obstructive pulmonary disease, unspecified Status: Chronic Plan: - Controlled at home on albuterol inhaler - Albuterol q2H PRN, duonebs Q6H while awake scheduled - IS, O2 as needed. (5) Chronic pain Code(s): G89.29 - Other chronic pain Status: Chronic Plan: - Con't home clonazepam, gabapentin, lyrica, and percocet - Changed Percocet from scheduled to PRN q6hrs (6) ROSALINDA (obstructive sleep apnea) Code(s): G47.33 - Obstructive sleep apnea (adult) (pediatric) Status: Chronic Plan: - Does not use CPAP at home, just her O2 overnight - keep head of bed elevated overnight. (7) Insomnia Code(s): G47.00 - Insomnia, unspecified Status: Chronic Plan: No complains on current medications (8) Gout Code(s): M10.9 - Gout, unspecified Status: Chronic Plan: -con't home allopurinol (9) Nutrition, metabolism, and development symptoms Code(s): R63.8 - Other symptoms and signs concerning food and fluid intake Status: Acute Plan: Fluids: tolerating po. Avoid IV fluids Electrolytes: monitor and replete as needed. Monitor K daily. Nutrition: high protein, low K diet GI prophylaxis: Zantac (home medication) (10) DVT prophylaxis Status: Acute Plan: DVT prophy: SCDs, Heparin 5000un SQ q12h -on hold for procedure tomorrow - Assessment and Plan 67 y/o F w/hx of CKD, hx of [place], and COPD presenting w/left arm swelling at AV fistula site. Diff: DVT v cellulitis v abscess. S/p 1 g IV Vanc in the ED. Doppler shows left UE DVT. Nephrology consulted. Hold off anticoagulation treatment for DVT per discussion, will give prophylaxis. Blood cultures positive for Staph Aureous x4 MSSA. ID consulted and managing antibiotic treatment. Vascular surgery consulted and waiting for possible debridement/ thrombectomy . Patient improving clinically every day. (2) CKD (chronic kidney disease) Qualifiers: Chronic kidney disease stage: on chronic dialysis Qualified Code(s): N18.6 - End stage renal disease; Z99.2 - Dependence on renal dialysis (4) COPD (chronic obstructive pulmonary disease) Qualifiers: COPD type: unspecified COPD Qualified Code(s): J44.9 - Chronic obstructive pulmonary disease, unspecified (5) Chronic pain Qualifiers: Chronic pain type: chronic pain syndrome Qualified Code(s): G89.4 - Chronic pain syndrome (8) Gout Qualifiers: Gout site: unspecified site Gout etiology: due to renal impairment Chronicity: unspecified Qualified Code(s): M10.30 - Gout due to renal impairment, unspecified site
[2017-12-26] MEDS: ceFAZolin 2 GM Premix Inj 2 GM/100 ML BAG IV.SIG SCH (13:25)
--- NOTE | 2017-12-26 14:09 | P.PNNP ---
Subjective Interval history: Patient has excision of AV graft Physical Exam Vital signs: Vital Signs 12/25/17 16:00 12/25/17 18:21 12/25/17 20:00 Temperature 97.5 F L 98.8 F Pulse Rate 96 H 88 Respiratory Rate 18 18 Blood Pressure 124/57 L 160/69 H Pulse Oximetry 97 97 96 12/26/17 00:00 12/26/17 04:00 12/26/17 08:00 Temperature 98.6 F 99.2 F 98.3 F Pulse Rate 83 88 90 Respiratory Rate 18 18 18 Blood Pressure 117/56 L 135/64 137/64 Pulse Oximetry 95 95 93 L 12/26/17 11:06 Temperature Pulse Rate Respiratory Rate Blood Pressure Pulse Oximetry 93 L Intake & Output 12/25/17 12/26/17 12/26/17 18:59 06:59 18:59 Intake Total 1600 / 1600 Output Total 3000 / 3000 Balance -1400 / -1400 Intake: IV 100 / 100 Ancef 2 GM Premix Inj 2 gm In 100 / 100 100 ml @ 200 mls/hr IV.SIG Q24H [facility] Rx#:[id number] Oral 1500 / 1500 Output: Hemodialysis Amount 3000 / 3000 Other: # Voids 1 Date of Last Bowel Movement 12/21/17 # Bowel Movements 0 - Constitutional no acute distress - Routine HEENT Exam Eye: Present: EOMI - Routine Neck Exam Present: supple - Routine Respiratory Exam Present: CTA bilaterally - Routine Cardiovascular Exam Present: RRR - Routine Abdominal Exam Present: soft, normoactive bowel sounds - Routine Extremities Exam Present: edema Assessment and Plan - Assessment (1) ESRD (end stage renal disease) on dialysis Code(s): N18.6 - End stage renal disease; Z99.2 - Dependence on renal dialysis Status: Acute - Plan Patient is on dialysis on Thursday 3 L taken off on Thursday Continue current management next dialysis on Thursday Status post excision of left upper extremity AV graft
--- NOTE | 2017-12-26 20:10 | P.PNADD ---
Addendum to Inpatient Note Reason for Addendum: Additional Documentation Additional information: Subjective: Resident team paged at 7:36 PM regarding patient vomiting and low blood pressure. Nurse reported the patient had vomited today received 1 time dose of Zofran which improved her vomiting until about 6 PM this evening. Nurse also said the patient's blood pressure was 106/51 and she had vomited 1.5 L. Nurse reported that Vas-Cath team was placing Vas-Cath at the time of our conversation. Resident team went to see patient. Patient says she has not had a bowel movement for 1 week. She is passing gas. She denies abdominal pain. She states that her nausea comes and goes. She does not have an appetite. She had dialysis yesterday, but reports that she does not usually have this sort of reaction after dialysis. Objective: Abdomen: Obese, nondistended, soft, nontender, bowel sounds present Assessment and Plan: Zofran ODT every 4 hours as needed Due to losing 1.5 L of vomitus, and her lower than normal blood pressures, the resident team added 75 mils per hour normal saline.
[2017-12-26] MEDS: Sod Chloride 0.9% Inj 1,000 ML IV.CONT SCH (22:17)
[2017-12-26 23:16] LABS: Baso % (Auto) 0.3 % (0.0-2.0); Eos # (Auto) 0.1 th/mm3 (0.0-0.4); Eos % (Auto) 0.8 % (0.0-4.0); Hematocrit 26.7 % (35.0-46.0); Hemoglobin 8.9 gm/dL (11.6-15.3); Lymph # (Auto) 0.5 th/mm3 (1.0-4.8); Lymph % (Auto) 7.9 % (9.0-44.0); Mean Corpuscular HGB Conc 33.2 % (32.0-36.0); Mean Corpuscular Hemoglobin 33.2 pg (27.0-34.0); Mean Corpuscular Volume 99.9 fL (80.0-100.0); Mean Platelet Volume 10.3 fL (7.0-11.0); Mono # (Auto) 0.3 th/mm3 (0.0-0.9); Mono % (Auto) 5.2 % (0.0-8.0); Neut # (Auto) 5.7 th/mm3 (1.8-7.7); Neut % (Auto) 85.8 % (16.0-70.0); Platelet Count 119 th/mm3 (150-450); Red Blood Count 2.67 mil/mm3 (4.00-5.30); Red Cell Distribution Width 15.1 % (11.6-17.2); White Blood Count 6.6 th/mm3 (4.0-11.0)
[2017-12-26 23:39] LABS: Calcium 8.3 mg/dL (8.5-10.1); Carbon Dioxide 30.9 meq/L (21.0-32.0); Potassium 4.6 meq/L (3.5-5.1)
[2017-12-27] MEDS: oxyCODONE/Acetaminophen 10/325 Tablet PO PRN ×3 (04:51→19:34)
--- NOTE | 2017-12-27 08:18 | P.PNVS ---
Subjective Post Op Day #: 3 Procedure: Excision of L UE AVG Subjective/Hospital Course: looks great, pain seems to be controlled Objective Vital Signs / I&O: Vital Signs 12/26/17 11:06 12/26/17 12:00 12/26/17 16:00 Temperature 98.3 F 98.2 F Pulse Rate 76 72 Respiratory Rate 18 18 Blood Pressure 123/56 L 106/51 L Pulse Oximetry 93 L 92 L 92 L 12/26/17 20:00 12/26/17 21:30 12/27/17 00:45 Temperature 97.3 F L 98.1 F Pulse Rate 83 80 Respiratory Rate 18 18 19 Blood Pressure 124/58 L 120/56 L Pulse Oximetry 94 L 95 12/27/17 04:00 Temperature 98.2 F Pulse Rate 65 Respiratory Rate 17 Blood Pressure 119/59 L Pulse Oximetry 94 L Intake & Output 12/26/17 12/27/17 12/27/17 18:59 06:59 18:59 Intake Total 480 / 480 1175 / 1175 Output Total 1300 / 1300 Balance -820 / -820 1175 / 1175 Weight 89 kg Intake: IV 100 / 100 Ancef 2 GM Premix Inj 2 gm In 100 / 100 100 ml @ 200 mls/hr IV.SIG Q24H SAUD Rx#:[id number] Oral 480 / 480 1075 / 1075 Output: Emesis 1300 / 1300 Other: # Voids 2 1 Date of Last Bowel Movement 12/21/17 12/19/17 # Bowel Movements 0 # Emeses 2 Exam: L UE incisions intact, minimal erythema around graft excision site palpable radial pulse Laboratory Results - last 24 hr 12/26/17 12/26/17 22:17 22:17 WBC 6.6 RBC 2.67 L Hgb 8.9 L Hct 26.7 L MCV 99.9 MCH 33.2 MCHC 33.2 RDW 15.1 Plt Count 119 L MPV 10.3 Neut % (Auto) 85.8 H Lymph % (Auto) 7.9 L [place] % (Auto) 5.2 Eos % (Auto) 0.8 Baso % (Auto) 0.3 Neut # (Auto) 5.7 Lymph # (Auto) 0.5 L [place] # (Auto) 0.3 Eos # (Auto) 0.1 Baso # (Auto) 0.0 WBC Differential . Differential Comment Auto diff final Sodium 135 L Potassium 4.6 D Chloride 96 L Carbon Dioxide 30.9 Anion Gap 8 BUN 26 H Creatinine 6.49 H Estimated GFR 6 L Random Glucose 108 H Calcium 8.3 L Microbiology 12/24/17 12:30 Gram Stain - Final Wound - Arm Wound Culture - Final Staphylococcus aureus 12/22/17 09:08 Aerobic Blood Culture - Preliminary Blood - Other No growth in 4 days Anaerobic Blood Culture - Preliminary No growth in 4 days 12/22/17 09:17 Aerobic Blood Culture - Preliminary Blood - Peripheral No growth in 4 days Anaerobic Blood Culture - Preliminary No growth in 4 days 12/21/17 11:45 Aerobic Blood Culture - Final Blood - Other No growth in 5 days Anaerobic Blood Culture - Final No growth in 5 days Assessment and Plan - Assessment (1) ESRD (end stage renal disease) on dialysis Code(s): N18.6 - End stage renal disease; Z99.2 - Dependence on renal dialysis Status: Acute - Plan POD#3 s/p L UE graft excision 1. f/u cultures - needs 6 weeks of antibiotics, likely Vanc given presumption of MRSA 2. ok to place gauze on incisions for patient comfort 3.ok to discharge anytime from a vascular surgery standpoint - will arrange f/u in 2 weeks
[2017-12-27] MEDS: clonazePAM 0.5 MG Tablet PO SCH ×3 (09:49→19:33)
[2017-12-27] MEDS: Famotidine 20 MG Tablet PO SCH (09:50)
[2017-12-27] MEDS: Gabapentin 100 MG Capsule PO SCH ×3 (09:50→19:34)
[2017-12-27] MEDS: Senna/Docusate Sodium 8.6/50 MG Tablet PO SCH ×2 (09:50→21:33)
[2017-12-27] MEDS: Allopurinol 100 MG Tablet PO SCH (09:50)
[2017-12-27] MEDS: Sod Chloride 0.9% Inj 1,000 ML IV.CONT SCH (09:52)
[2017-12-27 11:28] LABS: Hemoglobin 8.6 gm/dL (11.6-15.3); Mean Corpuscular HGB Conc 33.1 % (32.0-36.0); Mean Corpuscular Hemoglobin 33.4 pg (27.0-34.0); Mean Corpuscular Volume 100.6 fL (80.0-100.0); Mean Platelet Volume 9.3 fL (7.0-11.0); Platelet Count 122 th/mm3 (150-450); Red Blood Count 2.59 mil/mm3 (4.00-5.30); Red Cell Distribution Width 15.1 % (11.6-17.2); White Blood Count 6.8 th/mm3 (4.0-11.0)
--- NOTE | 2017-12-27 11:31 | P.PNFP ---
Subjective Interval history: Patient seen and examined this morning. She had a lot of vomiting overnight, but has not had any this morning. She tolerated her breakfast well. She has not had a BM in a week. She refused the lactulose or milk of magnesia due to the smell. She feels that she is constipated due to her change in diet from what she is used to at home. Otherwise no complaints. Her pain is well controlled. <Mindi Mazariegos - 12/27/17 13:41> Results - Labs Result diagrams: 12/27/17 11:14 12/27/17 11:14 <Montse Tinoco - 12/27/17 14:25> Abnormal lab results 12/26/17 12/26/17 12/27/17 Range/Units 22:17 22:17 11:14 RBC 2.67 L 2.59 L (4.00-5.30) mil/mm3 Hgb 8.9 L 8.6 L (11.6-15.3) gm/dL Hct 26.7 L 26.0 L (35.0-46.0) % MCV 100.6 H (80.0-100.0) fL Plt Count 119 L 122 L (150-450) th/mm3 Neut % (Auto) 85.8 H (16.0-70.0) % Lymph % (Auto) 7.9 L (9.0-44.0) % Lymph # (Auto) 0.5 L (1.0-4.8) th/mm3 Sodium 135 L (136-145) meq/L Chloride 96 L (98-107) meq/L BUN 26 H (7-18) mg/dL Creatinine 6.49 H (0.50-1.00) mg/dL Estimated GFR 6 L (>89) mL/min Random Glucose 108 H (74-106) mg/dL Calcium 8.3 L (8.5-10.1) mg/dL 12/27/17 Range/Units 11:14 RBC (4.00-5.30) mil/mm3 Hgb (11.6-15.3) gm/dL Hct (35.0-46.0) % MCV (80.0-100.0) fL Plt Count (150-450) th/mm3 Neut % (Auto) (16.0-70.0) % Lymph % (Auto) (9.0-44.0) % Lymph # (Auto) (1.0-4.8) th/mm3 Sodium 135 L (136-145) meq/L Chloride 96 L (98-107) meq/L BUN 30 H (7-18) mg/dL Creatinine 7.38 H (0.50-1.00) mg/dL Estimated GFR 6 L (>89) mL/min Random Glucose 115 H (74-106) mg/dL Calcium 8.1 L (8.5-10.1) mg/dL Short CBC 12/26/17 12/27/17 Range/Units 22:17 11:14 WBC 6.6 6.8 (4.0-11.0) th/mm3 Hgb 8.9 L 8.6 L (11.6-15.3) gm/dL Hct 26.7 L 26.0 L (35.0-46.0) % Plt Count 119 L 122 L (150-450) th/mm3 BMP 12/26/17 12/27/17 22:17 11:14 Sodium 135 L 135 L Potassium 4.6 D 4.3 Chloride 96 L 96 L Carbon Dioxide 30.9 31.0 BUN 26 H 30 H Creatinine 6.49 H 7.38 H Calcium 8.3 L 8.1 L <Montse Tinoco M - 12/27/17 14:25> Abnormal lab results 12/26/17 12/26/17 12/27/17 Range/Units 22:17 22:17 11:14 RBC 2.67 L 2.59 L (4.00-5.30) mil/mm3 Hgb 8.9 L 8.6 L (11.6-15.3) gm/dL Hct 26.7 L 26.0 L (35.0-46.0) % MCV 100.6 H (80.0-100.0) fL Plt Count 119 L 122 L (150-450) th/mm3 Neut % (Auto) 85.8 H (16.0-70.0) % Lymph % (Auto) 7.9 L (9.0-44.0) % Lymph # (Auto) 0.5 L (1.0-4.8) th/mm3 Sodium 135 L (136-145) meq/L Chloride 96 L (98-107) meq/L BUN 26 H (7-18) mg/dL Creatinine 6.49 H (0.50-1.00) mg/dL Estimated GFR 6 L (>89) mL/min Random Glucose 108 H (74-106) mg/dL Calcium 8.3 L (8.5-10.1) mg/dL Short CBC 12/26/17 12/27/17 Range/Units 22:17 11:14 WBC 6.6 6.8 (4.0-11.0) th/mm3 Hgb 8.9 L 8.6 L (11.6-15.3) gm/dL Hct 26.7 L 26.0 L (35.0-46.0) % Plt Count 119 L 122 L (150-450) th/mm3 BMP 12/26/17 22:17 Sodium 135 L Potassium 4.6 D Chloride 96 L Carbon Dioxide 30.9 BUN 26 H Creatinine 6.49 H Calcium 8.3 L <DelilahMindi G - 12/27/17 11:31> Physical Exam Vital signs: Vital Signs 12/26/17 16:00 12/26/17 20:00 12/26/17 21:30 Temperature 98.2 F 97.3 F L Pulse Rate 72 83 Respiratory Rate 18 18 18 Blood Pressure 106/51 L 124/58 L Pulse Oximetry 92 L 94 L 12/27/17 00:45 12/27/17 04:00 Temperature 98.1 F 98.2 F Pulse Rate 80 65 Respiratory Rate 19 17 Blood Pressure 120/56 L 119/59 L Pulse Oximetry 95 94 L Intake & Output 12/26/17 12/27/17 12/27/17 18:59 06:59 18:59 Intake Total 480 / 480 1175 / 1175 Output Total 1300 / 1300 Balance -820 / -820 1175 / 1175 Weight 89 kg Intake: IV 100 / 100 Ancef 2 GM Premix Inj 2 gm In 100 / 100 100 ml @ 200 mls/hr IV.SIG Q24H SAUD Rx#:[id number] Oral 480 / 480 1075 / 1075 Output: Emesis 1300 / 1300 Other: # Voids 2 1 Date of Last Bowel Movement 12/21/17 12/19/17 # Bowel Movements 0 # Emeses 2 <Montse Tinoco - 12/27/17 14:25> Vital Signs 12/26/17 12:00 12/26/17 16:00 12/26/17 20:00 Temperature 98.3 F 98.2 F Pulse Rate 76 72 Respiratory Rate 18 18 18 Blood Pressure 123/56 L 106/51 L Pulse Oximetry 92 L 92 L 12/26/17 21:30 12/27/17 00:45 12/27/17 04:00 Temperature 97.3 F L 98.1 F 98.2 F Pulse Rate 83 80 65 Respiratory Rate 18 19 17 Blood Pressure 124/58 L 120/56 L 119/59 L Pulse Oximetry 94 L 95 94 L Intake & Output 12/26/17 12/27/17 12/27/17 18:59 06:59 18:59 Intake Total 480 / 480 1175 / 1175 Output Total 1300 / 1300 Balance -820 / -820 1175 / 1175 Weight 89 kg Intake: IV 100 / 100 Ancef 2 GM Premix Inj 2 gm In 100 / 100 100 ml @ 200 mls/hr IV.SIG Q24H SAUD Rx#:[id number] Oral 480 / 480 1075 / 1075 Output: Emesis 1300 / 1300 Other: # Voids 2 1 Date of Last Bowel Movement 12/21/17 12/19/17 # Bowel Movements 0 # Emeses 2 <Mindi Mazariegos - 12/27/17 11:31> Narrative: GENERAL: White obese female laying in bed in hemodialysis, in no acute distress SKIN: Warm and dry. HEAD: Atraumatic. Normocephalic. EYES: Pupils equal and round. No scleral icterus. No injection or drainage. ENT: No nasal bleeding or discharge. Mucous membranes pink and moist. LIPS: 2 well healed scabs on upper lip NECK: Trachea midline. No JVD. CARDIOVASCULAR: Regular rate and rhythm. RESPIRATORY: No accessory muscle use. Breath sounds equal bilaterally. GASTROINTESTINAL: Abdomen soft, non-tender, nondistended. Hepatic and splenic margins not palpable. MUSCULOSKELETAL: Extremities without clubbing, cyanosis, or edema. No obvious deformities. Left upper arm: Sutured incisions with no signs of injections. NEUROLOGICAL: Awake and alert. No obvious cranial nerve deficits. Motor grossly within normal limits. Normal speech. <Mindi Mazariegos - 12/27/17 13:41> Assessment and Plan - Assessment (1) Pain and swelling of left upper extremity Code(s): M79.602 - Pain in left arm; M79.89 - Other specified soft tissue disorders Status: Acute (2) CKD (chronic kidney disease) Code(s): N18.9 - Chronic kidney disease, unspecified Status: Chronic (3) Herpes labialis Code(s): B00.1 - Herpesviral vesicular dermatitis Status: Acute (4) COPD (chronic obstructive pulmonary disease) Code(s): J44.9 - Chronic obstructive pulmonary disease, unspecified Status: Chronic (5) Chronic pain Code(s): G89.29 - Other chronic pain Status: Chronic (6) ROSALINDA (obstructive sleep apnea) Code(s): G47.33 - Obstructive sleep apnea (adult) (pediatric) Status: Chronic (7) Insomnia Code(s): G47.00 - Insomnia, unspecified Status: Chronic (8) Gout Code(s): M10.9 - Gout, unspecified Status: Chronic (9) Nutrition, metabolism, and development symptoms Code(s): R63.8 - Other symptoms and signs concerning food and fluid intake Status: Acute (10) DVT prophylaxis Status: Acute <Montse Tinoco - 12/27/17 14:25> (1) Pain and swelling of left upper extremity Code(s): M79.602 - Pain in left arm; M79.89 - Other specified soft tissue disorders Status: Acute Plan: Left arm swelling, concern for cellulitis and DVT. No leukocytosis on admission. Area demarcated and shows slight improvement today. Venous doppler study on 12/19 shows evidence of both deep and superficial venous thrombosis with absent flow seen in both cephalic and brachial veins. US soft tissue LUE on 12/20 shows no subcutaneous fluid collection or abscess identified. - Positive Blood cultures x4 for Staph aureus - MSSA - Repeat BC NGTD - Vascular surgery consulted, appreciate recs - Admit for IV antibiotics, VANC ok - POD 3 from excision of left upper extremity arteriovenous graft - cleared for D/C - ID consulted, appreciate recs - Continue Ancef (12/21- ), not given by nursing staff on 12/23 - Will need long of course of abx, 6 weeks post removal of AVG - BC x2 drawn on 12/21 and 12/22 x2 NGTD - Wound cx from catheter tip positive for staphylococcus coag negative - Follow temps - PermCath removed on 12/23 and replaced with a Vascath. (2) CKD (chronic kidney disease) Code(s): N18.9 - Chronic kidney disease, unspecified Status: Chronic Plan: CKD Stage 5 on dialysis, follows w/ nephrology, at [facility] for dialysis MWF - Monitor BMP - Con't home Renvela and Sensipar - Nephrology consulted , appreciate recs - Avoid IVF administration. - High protein, low K diet ordered - Epogen w/ dialysis - PermCath replaced with VasCath on 12/23 (3) Herpes labialis Code(s): B00.1 - Herpesviral vesicular dermatitis Status: Acute Plan: New onset of herpes labialis this morning. Located on the L upper lip. Painful. - Acyclovir cream 5 times a day. - Due to renal insufficiency, oral valacyclovir is contraindicated. (4) COPD (chronic obstructive pulmonary disease) Code(s): J44.9 - Chronic obstructive pulmonary disease, unspecified Status: Chronic Plan: - Controlled at home on albuterol inhaler - Albuterol q2H PRN, duonebs Q6H while awake scheduled - IS, O2 as needed. (5) Chronic pain Code(s): G89.29 - Other chronic pain Status: Chronic Plan: - Con't home clonazepam, gabapentin, lyrica, and percocet - Changed Percocet from scheduled to PRN q6hrs (6) ROSALINDA (obstructive sleep apnea) Code(s): G47.33 - Obstructive sleep apnea (adult) (pediatric) Status: Chronic Plan: - Does not use CPAP at home, just her O2 overnight - keep head of bed elevated overnight. (7) Insomnia Code(s): G47.00 - Insomnia, unspecified Status: Chronic Plan: No complains on current medications (8) Gout Code(s): M10.9 - Gout, unspecified Status: Chronic Plan: -con't home allopurinol (9) Nutrition, metabolism, and development symptoms Code(s): R63.8 - Other symptoms and signs concerning food and fluid intake Status: Acute Plan: Fluids: tolerating po. Avoid IV fluids Electrolytes: monitor and replete as needed. Monitor K daily. Nutrition: high protein, low K diet GI prophylaxis: Zantac (home medication) (10) DVT prophylaxis Status: Acute Plan: DVT prophy: SCDs, on Eliquis 2.5mg po BID <Inder Mazariegosin Gabriela - 12/27/17 13:24> - Assessment and Plan 67 y/o F w/hx of CKD, hx of [place], and COPD presenting w/left arm swelling at AV fistula site. Diff: DVT v cellulitis v abscess. S/p 1 g IV Vanc in the ED. Doppler shows left UE DVT. Nephrology consulted. Hold off anticoagulation treatment for DVT per discussion, will give prophylaxis. Blood cultures positive for Staph Aureous x4 MSSA. ID consulted and managing antibiotic treatment. Vascular surgery consulted and performed removed of AVG. Patient improving clinically every day. <Mindi Mazariegos - 12/27/17 13:41> Discussed Condition With: Dr. Tinoco <McadenvilleMindi perla - 12/27/17 13:41> Discharge Planning: pending clinical course, cleared for d/c by surgery. Awaiting clearance from ID. <Mindi Mazariegos - 12/27/17 13:41> - Attending Attestation The exam, history, and the medical decision-making described in the above note were completed with the assistance of the resident physician. I reviewed and agree with the findings presented. I attest that I had a [id number] encounter with the patient on the same day, and personally performed and documented my assessment and findings in the medical record. Had a discussion with her that she absolutely needs to have bowel movement. She has refused many of her p.o. medicines and does not want to get any sort of suppository or enema. She does not want to go to a [facility] when she leaves she only wants to go home. <Montse Tinoco M - 12/27/17 14:25> <Mindi Mazariegos G - Last Filed: 12/27/17 13:24> (2) CKD (chronic kidney disease) Qualifiers: Chronic kidney disease stage: on chronic dialysis Qualified Code(s): N18.6 - End stage renal disease; Z99.2 - Dependence on renal dialysis (4) COPD (chronic obstructive pulmonary disease) Qualifiers: COPD type: unspecified COPD Qualified Code(s): J44.9 - Chronic obstructive pulmonary disease, unspecified (5) Chronic pain Qualifiers: Chronic pain type: chronic pain syndrome Qualified Code(s): G89.4 - Chronic pain syndrome (8) Gout Qualifiers: Gout site: unspecified site Gout etiology: due to renal impairment Chronicity: unspecified Qualified Code(s): M10.30 - Gout due to renal impairment, unspecified site <Montse Tinoco M - Last Filed: 12/27/17 14:25> (2) CKD (chronic kidney disease) Qualifiers: Chronic kidney disease stage: on chronic dialysis Qualified Code(s): N18.6 - End stage renal disease; Z99.2 - Dependence on renal dialysis (4) COPD (chronic obstructive pulmonary disease) Qualifiers: COPD type: unspecified COPD Qualified Code(s): J44.9 - Chronic obstructive pulmonary disease, unspecified (5) Chronic pain Qualifiers: Chronic pain type: chronic pain syndrome Qualified Code(s): G89.4 - Chronic pain syndrome (8) Gout Qualifiers: Gout site: unspecified site Gout etiology: due to renal impairment Chronicity: unspecified Qualified Code(s): M10.30 - Gout due to renal impairment, unspecified site <Mindi Mazariegos - Last Filed: 12/27/17 13:24> (2) CKD (chronic kidney disease) Qualifiers: Chronic kidney disease stage: on chronic dialysis Qualified Code(s): N18.6 - End stage renal disease; Z99.2 - Dependence on renal dialysis (4) COPD (chronic obstructive pulmonary disease) Qualifiers: COPD type: unspecified COPD Qualified Code(s): J44.9 - Chronic obstructive pulmonary disease, unspecified (5) Chronic pain Qualifiers: Chronic pain type: chronic pain syndrome Qualified Code(s): G89.4 - Chronic pain syndrome (8) Gout Qualifiers: Gout site: unspecified site Gout etiology: due to renal impairment Chronicity: unspecified Qualified Code(s): M10.30 - Gout due to renal impairment, unspecified site <Montse Tinoco - Last Filed: 12/27/17 14:25> (2) CKD (chronic kidney disease) Qualifiers: Chronic kidney disease stage: on chronic dialysis Qualified Code(s): N18.6 - End stage renal disease; Z99.2 - Dependence on renal dialysis (4) COPD (chronic obstructive pulmonary disease) Qualifiers: COPD type: unspecified COPD Qualified Code(s): J44.9 - Chronic obstructive pulmonary disease, unspecified (5) Chronic pain Qualifiers: Chronic pain type: chronic pain syndrome Qualified Code(s): G89.4 - Chronic pain syndrome (8) Gout Qualifiers: Gout site: unspecified site Gout etiology: due to renal impairment Chronicity: unspecified Qualified Code(s): M10.30 - Gout due to renal impairment, unspecified site
[2017-12-27 11:45] LABS: Calcium 8.1 mg/dL (8.5-10.1); Potassium 4.3 meq/L (3.5-5.1)
--- NOTE | 2017-12-27 12:49 | P.PNID ---
Subjective Remarks: Patient is a 67-year-old female with known ESRD, gets hemodialysis Thursday and Thursday, presented to the hospital with an acute onset of bleeding at her left upper extremity AV graft, with swelling and redness. Patient was in her usual self, and she went for hemodialysis on Thursday, December 18. She has had problem with dialysis access, and she actually had a left upper extremity AV graft using axillary vein and axillary artery back in October. During that time she had a permacath place and that was used for her hemodialysis and about 2-3 weeks prior to admission, her loop AV graft was used. She was not having any problem. Her dialysis on December 18 was uneventful. She has not had any fever chills or sweats. She has not had any problem with healing of all her incisions. When she woke up December 19, she noted a white dot over where she had the access for her last hemodialysis. She was thought it was a piece of fabric, and she cleaned it, and it started bleeding. She also started noticing redness and swelling in her left upper extremity AV graft. She presented to the hospital for further evaluation and treatment. Evaluation of her AV graft was okay. She had an ultrasound which did show evidence of thrombosis in her cephalic and brachial veins. 2 blood cultures done in the emergency room are now reported as growing staph aureus. Patient since has had some intermittent fevers. Her WBC is down to 2.9. Vascular surgery is evaluating the patient and contemplating on possible surgery this . Infectious disease consultation has been requested to evaluate the patient. Notes reviewed Temps ok AVG surgery 12/22 Last (+) BC 12/19 Permacath C/S Coag Neg Staph Has new vascath RIJ Pain better BC with MSSA No new (+) BC WBC better Antibiotics: Ancef Past Medical History: AV fistula Acid reflux CAD (coronary artery disease) COPD (chronic obstructive pulmonary disease) Chronic back pain Chronic renal disease Dialysis AV fistula infection Elevated cholesterol History of heart attack Hypertension Sleep apnea Stroke Tubal ligation status Varicose vein of leg History of loop recorder Hx of tubal ligation Allergies/Adverse Reactions: Allergies adhesive Allergy (Severe, Verified 10/21/17 11:33) ADHESIVE TAPE = RASH bee venom protein (honey bee) Allergy (Severe, Verified 10/21/17 11:33) RASH & TONGUE SWELLING dexamethasone Allergy (Severe, Verified 10/21/17 11:33) Shortness of Breath, TONGUE SWELLS hydromorphone Allergy (Severe, Verified 10/21/17 11:33) Hives PT SAID SHE DOESNT THINK SHE IS ALLERGIC TO DILAUDID THAT IT WAS JUST A REACTION FROM ANOTHER MEDICATION iodine Allergy (Severe, Verified 10/21/17 11:33) RASH & DIFFICULTY BREATHING geraldine Allergy (Severe, Verified 10/21/17 11:33) swollen tongue and rash orange Allergy (Severe, Verified 10/21/17 11:33) O.J. = RASH AND DIFFICULTY BREATHING orange juice Allergy (Severe, Verified 10/22/17 11:01) Hives and difficulty breathing oxytetracycline Allergy (Severe, Verified 10/21/17 11:33) HIVES & TONGUE SWELLING potassium iodide Allergy (Severe, Verified 10/21/17 11:33) RASH & DIFFICULTY BREATHING povidone-iodine Allergy (Severe, Verified 10/21/17 11:33) RASH & DIFFICULTY BREATHING sodium iodide Allergy (Severe, Verified 10/21/17 11:33) RASH & DIFFICULTY BREATHING sodium iodide Allergy (Severe, Verified 10/21/17 11:33) RASH & DIFFICULTY BREATHING Sulfa (Sulfonamide Antibiotics) Allergy (Severe, Verified 10/21/17 11:33) HIVES, DIFFICULTY BREATHING Influenza Virus Vaccines Allergy (Intermediate, Verified 10/21/17 11:33) Rash, vomiting diatrizoate meglumine Allergy (Unknown, Verified 12/19/17 16:38) Rash gadobenic acid Allergy (Unknown, Verified 12/19/17 16:38) Rash gadodiamide Allergy (Unknown, Verified 12/19/17 16:38) Rash gadoteridol Allergy (Unknown, Verified 12/19/17 16:38) Rash iodixanol Allergy (Unknown, Verified 12/19/17 16:38) Rash iohexol Allergy (Unknown, Verified 12/19/17 16:38) Rash penicillin G Allergy (Unknown, Verified 12/19/17 16:38) Rash Objective Vital Signs 12/26/17 16:00 12/26/17 20:00 12/26/17 21:30 Temperature 98.2 F 97.3 F L Pulse Rate 72 83 Respiratory Rate 18 Blood Pressure 106/51 L 124/58 L Pulse Oximetry 92 L 94 L 12/27/17 00:45 12/27/17 04:00 Temperature 98.1 F 98.2 F Pulse Rate 80 65 Respiratory Rate 19 17 Blood Pressure 120/56 L 119/59 L Pulse Oximetry 95 94 L Intake & Output 12/26/17 12/27/17 12/27/17 18:59 06:59 18:59 Intake Total 480 / 480 1175 / 1175 Output Total 1300 / 1300 Balance -820 / -820 1175 / 1175 Weight 89 kg Intake: IV 100 / 100 Ancef 2 GM Premix Inj 2 gm In 100 / 100 100 ml @ 200 mls/hr IV.SIG Q24H SAUD Rx#:[id number] Oral 480 / 480 1075 / 1075 Output: Emesis 1300 / 1300 Other: # Voids 2 1 Date of Last Bowel Movement 12/21/17 12/19/17 # Bowel Movements 0 # Emeses 2 12/22/17 09:08 Blood - Other Aerobic Blood Culture - Final No growth in 5 days 12/22/17 09:08 Blood - Other Anaerobic Blood Culture - Final No growth in 5 days 12/22/17 09:17 Blood - Peripheral Aerobic Blood Culture - Final No growth in 5 days 12/22/17 09:17 Blood - Peripheral Anaerobic Blood Culture - Final No growth in 5 days 12/24/17 12:30 Wound - Arm Gram Stain - Final 12/24/17 12:30 Wound - Arm Wound Culture - Final Staphylococcus aureus 12/21/17 11:45 Blood - Other Aerobic Blood Culture - Final No growth in 5 days 12/21/17 11:45 Blood - Other Anaerobic Blood Culture - Final No growth in 5 days 12/24/17 11:42 Other Acid Fast Bacilli Smear - Final No acid fast bacilli seen 12/24/17 11:42 Other Mycobacterial Culture - Pending 12/24/17 11:42 Other Fungal Smear - Final No fungal elements seen 12/24/17 11:42 Other Fungal Culture - Pending 12/22/17 17:58 Catheter Tip - Central Venous Line Wound Culture - Final Staphylococcus coag negative Lab - Hematology Results 12/26/17 12/27/17 22:17 11:14 WBC 6.6 6.8 RBC 2.67 L 2.59 L Hgb 8.9 L 8.6 L Hct 26.7 L 26.0 L MCV 99.9 100.6 H MCH 33.2 33.4 MCHC 33.2 33.1 RDW 15.1 15.1 Plt Count 119 L 122 L MPV 10.3 9.3 Neut % (Auto) 85.8 H Lymph % (Auto) 7.9 L [place] % (Auto) 5.2 Eos % (Auto) 0.8 Baso % (Auto) 0.3 Neut # (Auto) 5.7 Lymph # (Auto) 0.5 L [place] # (Auto) 0.3 Eos # (Auto) 0.1 Baso # (Auto) 0.0 WBC Differential . Differential Comment Auto diff final Lab - Chemistry Results 12/26/17 12/27/17 22:17 11:14 Sodium 135 L 135 L Potassium 4.6 D 4.3 Chloride 96 L 96 L Carbon Dioxide 30.9 31.0 Anion Gap 8 8 BUN 26 H 30 H Creatinine 6.49 H 7.38 H Estimated GFR 6 L 6 L Random Glucose 108 H 115 H Calcium 8.3 L 8.1 L Imaging: ITS Impressions Chest X-Ray 12/19/17 15:27 CONCLUSION: 1. No acute abnormality. Venous Doppler Study 12/19/17 15:56 CONCLUSION: 1. Evidence of both deep and superficial venous thrombosis with absent flow seen in both cephalic and brachial veins. Lower Extremity Ultrasound 12/20/17 06:00 CONCLUSION: 1. No subcutaneous fluid collection or abscess is identified. 2. There is some type graft or fistula the area of interest and it appears thrombosed. Tube Removal 12/22/17 00:00 CONCLUSION: Uncomplicated Permcath removal. The catheter tip was sent for culture Catheter Placement 12/23/17 00:00 CONCLUSION: Uncomplicated ultrasound and fluoroscopic guided central venous dialysis line placement as above. Physical Exam: GENERAL: awake and alert, not in respiratory distress. SKIN: Cool and dry. No generalized rash. HEAD: Atraumatic. Normocephalic. No temporal wasting, or tenderness. EYES: [place] conjunctiva. No petechia or hemorrhage. No scleral icterus. No injection or drainage. EARS, NOSE AND THROAT: Nose without bleeding or purulent nasal discharge. No sinus tenderness. Mucous membranes pink and moist. No oral lesions noted. No exudate. No oral thrush. NECK: Trachea midline. Supple and not tender, no meningeal signs CARDIOVASCULAR: Regular rate and rhythm. No murmurs, rubs or gallops heard RESPIRATORY: Clear to auscultation. Breath sounds equal bilaterally. No rales , wheezing or rhonchi. Permacath is in her R upper chest, no redness or drainage ABDOMEN: Soft, non-tender, nondistended. Bowel sounds present and normoactive. No guarding. No rebound. No organomegaly. EXTREMITIES: No clubbing, cyanosis, or edema. LUE - incisions dry, has 3. no redness. Swelling is better. No joint effusion, has good ROM. No calf tenderness. NEUROLOGICAL: Grossly non-focal PSYCHIATRIC: Normal affect, calm and cooperative. LINE: No evidence of infection Assessment and Plan - Plan Impression Staph aureus MSSA sepsis Infection AVG LUE (Axillary artery/vein loop graft) Permacath seeding a concern as well ESRD on HD MWF DVT LUE brachial vein Recommendation Continue IV Ancef Follow new C/S Monitor progress Will need long course of Abx, 6 weeks post removal of AVG - end date of Abx 02/01 Explained plan to the patient
[2017-12-27] MEDS: ceFAZolin 2 GM Premix Inj 2 GM/100 ML BAG IV.SIG SCH (13:03)
[2017-12-27] MEDS ORDERED: Magnesium Citrate Liq 300 ML Bottle PO ONE (13:26)
--- NOTE | 2017-12-27 16:05 | P.PNNP ---
Subjective Interval history: Patient left arm is dressed Physical Exam Vital signs: Vital Signs 12/26/17 20:00 12/26/17 21:30 12/27/17 00:45 Temperature 97.3 F L 98.1 F Pulse Rate 83 80 Respiratory Rate 18 18 19 Blood Pressure 124/58 L 120/56 L Pulse Oximetry 94 L 95 12/27/17 04:00 Temperature 98.2 F Pulse Rate 65 Respiratory Rate 17 Blood Pressure 119/59 L Pulse Oximetry 94 L Intake & Output 12/26/17 12/27/17 12/27/17 18:59 06:59 18:59 Intake Total 480 / 480 1175 / 1175 Output Total 1300 / 1300 Balance -820 / -820 1175 / 1175 Weight 89 kg Intake: IV 100 / 100 Ancef 2 GM Premix Inj 2 gm In 100 / 100 100 ml @ 200 mls/hr IV.SIG Q24H SAUD Rx#:[id number] Oral 480 / 480 1075 / 1075 Output: Emesis 1300 / 1300 Other: # Voids 2 1 Date of Last Bowel Movement 12/21/17 12/19/17 # Bowel Movements 0 # Emeses 2 - Constitutional no acute distress - Routine Neck Exam Present: supple - Routine Respiratory Exam Present: CTA bilaterally - Routine Cardiovascular Exam Present: RRR - Routine Abdominal Exam Present: soft, normoactive bowel sounds - Routine Extremities Exam Present: edema Assessment and Plan - Assessment (1) ESRD (end stage renal disease) on dialysis Code(s): N18.6 - End stage renal disease; Z99.2 - Dependence on renal dialysis Status: Acute - Plan Patient is on dialysis on Thursday 3 L taken off on Thursday Next dialysis on Thursday Continue current management next dialysis on Thursday Status post excision of left upper extremity AV graft Dr. Ewing to follow
[2017-12-28 06:00] LABS: Hematocrit 28.2 % (35.0-46.0); Hemoglobin 9.3 gm/dL (11.6-15.3); Mean Corpuscular HGB Conc 32.9 % (32.0-36.0); Mean Corpuscular Hemoglobin 33.1 pg (27.0-34.0); Mean Corpuscular Volume 100.5 fL (80.0-100.0); Mean Platelet Volume 10.4 fL (7.0-11.0); Platelet Count 141 th/mm3 (150-450); Red Blood Count 2.81 mil/mm3 (4.00-5.30); White Blood Count 11.1 th/mm3 (4.0-11.0)
[2017-12-28 07:02] LABS: Calcium 8.1 mg/dL (8.5-10.1); Carbon Dioxide 27.5 meq/L (21.0-32.0)
[2017-12-28 07:06] LABS: Potassium 5.2 meq/L (3.5-5.1)
--- NOTE | 2017-12-28 10:23 | P.PNNP ---
Subjective Interval history: In route to HD. Still reporting pain. <Montse Damon - Last Filed: 12/28/17 10:21> Physical Exam Vital signs: Vital Signs 12/27/17 12:00 12/27/17 16:00 12/27/17 20:45 Temperature 98.5 F 98.3 F Pulse Rate 86 79 69 Respiratory Rate 18 18 20 Blood Pressure 110/55 L 119/52 L 120/68 Pulse Oximetry 94 L 95 98 12/28/17 00:00 12/28/17 04:00 12/28/17 06:00 Temperature 98 F 97.8 F Pulse Rate 91 H 97 H 60 Respiratory Rate 21 19 Blood Pressure 130/70 125/60 Pulse Oximetry 97 96 12/28/17 08:00 12/28/17 09:01 Temperature 99.0 F Pulse Rate 96 H Respiratory Rate 22 Blood Pressure 115/58 L Pulse Oximetry 93 L 92 L Intake & Output 12/27/17 12/28/17 12/28/17 18:59 06:59 18:59 Intake Total 480 / 480 1800 / 1800 Balance 480 / 480 1800 / 1800 Weight 89 kg Intake: IV 100 / 100 Ancef 2 GM Premix Inj 2 gm In 100 / 100 100 ml @ 200 mls/hr IV.SIG Q24H SAUD Rx#:[id number] Oral 480 / 480 1700 / 1700 Other: # Voids 2 2 Date of Last Bowel Movement 12/19/17 # Bowel Movements 0 - Constitutional no acute distress, morbidly obese - Routine Neck Exam Present: supple, full ROM - Routine Respiratory Exam Present: CTA bilaterally. Absent: accessory muscle use - Routine Cardiovascular Exam Present: RRR, S1, S2 - Routine Abdominal Exam Present: soft, normoactive bowel sounds - Routine Extremities Exam Present: edema, pulses intact. Absent: full ROM - Routine Skin Exam Present: dry, warm - Routine Neurological Exam Present: alert, oriented X3, CN II-XII intact, moving all extremities - Detailed Neurological Exam: Coma Scale Eye Opening: Spontaneous Verbal Response: Oriented Motor Response: Obey commands Anayeli Coma Scale Total: 15 - Routine Psychiatric Exam Present: normal affect <Montse Damon - Last Filed: 12/28/17 10:21> Vital signs: Vital Signs 12/27/17 12:00 12/27/17 16:00 12/27/17 20:45 Temperature 98.5 F 98.3 F Pulse Rate 86 79 69 Respiratory Rate 18 18 20 Blood Pressure 110/55 L 119/52 L 120/68 Pulse Oximetry 94 L 95 98 12/28/17 00:00 12/28/17 04:00 12/28/17 06:00 Temperature 98 F 97.8 F Pulse Rate 91 H 97 H 60 Respiratory Rate 21 19 Blood Pressure 130/70 125/60 Pulse Oximetry 97 96 12/28/17 08:00 12/28/17 09:01 Temperature 99.0 F Pulse Rate 96 H Respiratory Rate 22 Blood Pressure 115/58 L Pulse Oximetry 93 L 92 L Intake & Output 12/27/17 12/28/17 12/28/17 18:59 06:59 18:59 Intake Total 480 / 480 1800 / 1800 Balance 480 / 480 1800 / 1800 Weight 89 kg Intake: IV 100 / 100 Ancef 2 GM Premix Inj 2 gm In 100 / 100 100 ml @ 200 mls/hr IV.SIG Q24H SAUD Rx#:[id number] Oral 480 / 480 1700 / 1700 Other: # Voids 2 2 Date of Last Bowel Movement 12/19/17 12/21/17 # Bowel Movements 0 <Luis Antonio Ewing - Last Filed: 12/28/17 11:53> Assessment and Plan - Assessment (1) ESRD (end stage renal disease) on dialysis Code(s): N18.6 - End stage renal disease; Z99.2 - Dependence on renal dialysis Status: Acute Plan: HD MWF, due today. s/p PermCath removal and excision of AVG. Has Vascath for dialysis. Will need Per cath replaced prior to discharge. On Renvela for phosphate binder. Monitor phosphorus periodically. Avoid IVF administration. Gadolinium is contraindicated. High protein, low K diet should be offered. Outpatient HD [facility] at [facility]. (2) Sepsis affecting skin Code(s): A41.9 - Sepsis, unspecified organism Status: Acute Plan: MSSA per culture. ID following. On Ancef until 02/01. Permcath removed. Need ID approval prior to replacement. <Montse Damon - Last Filed: 12/28/17 10:21> - Assessment (1) ESRD (end stage renal disease) on dialysis Code(s): N18.6 - End stage renal disease; Z99.2 - Dependence on renal dialysis Status: Acute (2) Sepsis affecting skin Code(s): A41.9 - Sepsis, unspecified organism Status: Acute - Attending Attestation patient was seen and examined during dialysis. Poor blood flow rate. PermCath placement if cleared by ID. On Ancef. Can it be given at dialysis instead of daily? <Luis Antonio Ewing - Last Filed: 12/28/17 11:53>
[2017-12-28] MEDS: ceFAZolin 2 GM Premix Inj 2 GM/100 ML BAG IV.SIG SCH (13:44)
[2017-12-28] MEDS: Gabapentin 100 MG Capsule PO SCH ×3 (14:36→18:24)
[2017-12-28] MEDS: clonazePAM 0.5 MG Tablet PO SCH ×3 (14:37→18:24)
[2017-12-28] MEDS: Senna/Docusate Sodium 8.6/50 MG Tablet PO SCH ×2 (14:38→22:06)
[2017-12-28] MEDS: Famotidine 20 MG Tablet PO SCH (14:38)
[2017-12-28] MEDS: Allopurinol 100 MG Tablet PO SCH (14:39)
--- NOTE | 2017-12-28 17:46 | P.PNFP ---
Subjective Interval history: Pt seen and evaluated this morning in dialysis. She states she is doing well, however still hasn't have a bowel movement. She drank some of the milk of magnesia last night, but has not have a BM yet. Discussed plans of care regarding possible perm cath requested by nephrology, and IV antibiotic course. Pt denies any shortness of breath, chest pain, fevers or chills. She states her pain is ok. <Felisha JohnsonGénesisJohanna - 12/28/17 17:46> Results - Labs Result diagrams: 12/28/17 04:05 12/28/17 04:05 <Brenda Bates - 12/28/17 20:18> Abnormal lab results 12/28/17 12/28/17 Range/Units 04:05 04:05 WBC 11.1 H D (4.0-11.0) th/mm3 RBC 2.81 L (4.00-5.30) mil/mm3 Hgb 9.3 L (11.6-15.3) gm/dL Hct 28.2 L (35.0-46.0) % MCV 100.5 H (80.0-100.0) fL Plt Count 141 L (150-450) th/mm3 Sodium 133 L (136-145) meq/L Potassium 5.2 H D (3.5-5.1) meq/L Chloride 95 L (98-107) meq/L BUN 35 H (7-18) mg/dL Creatinine 8.91 H (0.50-1.00) mg/dL Estimated GFR 4 L (>89) mL/min Calcium 8.1 L (8.5-10.1) mg/dL Short CBC 12/28/17 Range/Units 04:05 WBC 11.1 H D (4.0-11.0) th/mm3 Hgb 9.3 L (11.6-15.3) gm/dL Hct 28.2 L (35.0-46.0) % Plt Count 141 L (150-450) th/mm3 BMP 12/28/17 04:05 Sodium 133 L Potassium 5.2 H D Chloride 95 L Carbon Dioxide 27.5 BUN 35 H Creatinine 8.91 H Calcium 8.1 L <Brenda Bates - 12/28/17 20:18> Abnormal lab results 12/28/17 12/28/17 Range/Units 04:05 04:05 WBC 11.1 H D (4.0-11.0) th/mm3 RBC 2.81 L (4.00-5.30) mil/mm3 Hgb 9.3 L (11.6-15.3) gm/dL Hct 28.2 L (35.0-46.0) % MCV 100.5 H (80.0-100.0) fL Plt Count 141 L (150-450) th/mm3 Sodium 133 L (136-145) meq/L Potassium 5.2 H D (3.5-5.1) meq/L Chloride 95 L (98-107) meq/L BUN 35 H (7-18) mg/dL Creatinine 8.91 H (0.50-1.00) mg/dL Estimated GFR 4 L (>89) mL/min Calcium 8.1 L (8.5-10.1) mg/dL Short CBC 12/28/17 Range/Units 04:05 WBC 11.1 H D (4.0-11.0) th/mm3 Hgb 9.3 L (11.6-15.3) gm/dL Hct 28.2 L (35.0-46.0) % Plt Count 141 L (150-450) th/mm3 BMP 12/28/17 04:05 Sodium 133 L Potassium 5.2 H D Chloride 95 L Carbon Dioxide 27.5 BUN 35 H Creatinine 8.91 H Calcium 8.1 L <Génesis Dowling V - 12/28/17 17:46> Physical Exam Vital signs: Vital Signs 12/27/17 20:45 12/28/17 00:00 12/28/17 04:00 Temperature 98 F Pulse Rate 69 91 H 97 H Respiratory Rate 20 21 Blood Pressure 120/68 130/70 Pulse Oximetry 98 97 12/28/17 06:00 12/28/17 08:00 12/28/17 09:01 Temperature 97.8 F 99.0 F Pulse Rate 60 96 H Respiratory Rate 19 22 Blood Pressure 125/60 115/58 L Pulse Oximetry 96 93 L 92 L 12/28/17 14:43 12/28/17 16:00 Temperature 98.1 F 99.1 F Pulse Rate 98 H 95 H Respiratory Rate 18 16 Blood Pressure 111/52 L 129/61 Pulse Oximetry 94 L 93 L Intake & Output 12/28/17 12/28/17 12/29/17 06:59 18:59 06:59 Intake Total 1800 / 1800 1800 / 1800 100 / 100 Output Total 3000 / 3000 Balance 1800 / 1800 1800 / 1800 -2900 / -2900 Weight 89 kg Intake: IV 100 / 100 1000 / 1000 100 / 100 Ancef 2 GM Premix Inj 2 gm In 100 / 100 100 / 100 100 ml @ 200 mls/hr IV.SIG Q24H SAUD Rx#:[id number] NS Inj 1,000 ML @ As Directed 1000 / 1000 OTHER .Q0M PRN Rx#:[id number] Oral 1700 / 1700 800 / 800 Output: Hemodialysis Amount 3000 / 3000 Other: # Voids 2 1 Date of Last Bowel Movement 12/19/17 12/21/17 # Bowel Movements 0 1 1 <Brenda Bates - 12/28/17 20:18> Vital Signs 12/27/17 20:45 12/28/17 00:00 12/28/17 04:00 Temperature 98 F Pulse Rate 69 91 H 97 H Respiratory Rate 20 21 Blood Pressure 120/68 130/70 Pulse Oximetry 98 97 12/28/17 06:00 12/28/17 08:00 12/28/17 09:01 Temperature 97.8 F 99.0 F Pulse Rate 60 96 H Respiratory Rate 19 22 Blood Pressure 125/60 115/58 L Pulse Oximetry 96 93 L 92 L 12/28/17 14:43 Temperature 98.1 F Pulse Rate 98 H Respiratory Rate 18 Blood Pressure 111/52 L Pulse Oximetry 94 L Intake & Output 12/27/17 12/28/17 12/28/17 18:59 06:59 18:59 Intake Total 480 / 480 1800 / 1800 Balance 480 / 480 1800 / 1800 Weight 89 kg Intake: IV 100 / 100 Ancef 2 GM Premix Inj 2 gm In 100 / 100 100 ml @ 200 mls/hr IV.SIG Q24H SAUD Rx#:[id number] Oral 480 / 480 1700 / 1700 Other: # Voids 2 2 Date of Last Bowel Movement 12/19/17 12/21/17 # Bowel Movements 0 <Génesis Dowling V - 12/28/17 17:46> Narrative: GENERAL: White obese female laying in bed in hemodialysis, in no acute distress SKIN: Warm and dry. HEAD: Atraumatic. Normocephalic. EYES: Pupils equal and round. No scleral icterus. No injection or drainage. ENT: No nasal bleeding or discharge. Mucous membranes pink and moist. Vascular cath on R neck, with no signs of infections. Running dialysis. LIPS: 2 well healed scabs on upper lip NECK: Trachea midline. No JVD. CARDIOVASCULAR: Regular rate and rhythm. RESPIRATORY: No accessory muscle use. Breath sounds equal bilaterally. GASTROINTESTINAL: Abdomen soft, non-tender, nondistended. MUSCULOSKELETAL: Extremities without clubbing, cyanosis, or edema. No obvious deformities. Left upper arm: Sutured incisions with no signs of injections. NEUROLOGICAL: Awake and alert. No obvious cranial nerve deficits. Motor grossly within normal limits. Normal speech. <Génesis Dowling V - 12/28/17 17:46> Assessment and Plan - Assessment (1) Pain and swelling of left upper extremity Code(s): M79.602 - Pain in left arm; M79.89 - Other specified soft tissue disorders Status: Acute (2) CKD (chronic kidney disease) Code(s): N18.9 - Chronic kidney disease, unspecified Status: Chronic (3) Constipation Code(s): K59.00 - Constipation, unspecified Status: Acute (4) Herpes labialis Code(s): B00.1 - Herpesviral vesicular dermatitis Status: Resolved (5) COPD (chronic obstructive pulmonary disease) Code(s): J44.9 - Chronic obstructive pulmonary disease, unspecified Status: Chronic (6) Chronic pain Code(s): G89.29 - Other chronic pain Status: Chronic (7) ROSALINDA (obstructive sleep apnea) Code(s): G47.33 - Obstructive sleep apnea (adult) (pediatric) Status: Chronic (8) Insomnia Code(s): G47.00 - Insomnia, unspecified Status: Chronic (9) Gout Code(s): M10.9 - Gout, unspecified Status: Chronic (10) Nutrition, metabolism, and development symptoms Code(s): R63.8 - Other symptoms and signs concerning food and fluid intake Status: Acute (11) DVT prophylaxis Status: Acute <Brenda Bates - 12/28/17 20:18> (1) Pain and swelling of left upper extremity Code(s): M79.602 - Pain in left arm; M79.89 - Other specified soft tissue disorders Status: Acute Plan: Left arm swelling, concern for cellulitis and DVT. No leukocytosis on admission. Area demarcated and shows slight improvement today. Venous doppler study on 12/19 shows evidence of both deep and superficial venous thrombosis with absent flow seen in both cephalic and brachial veins. US soft tissue LUE on 12/20 shows no subcutaneous fluid collection or abscess identified. - Positive Blood cultures x4 for Staph aureus - MSSA - Repeat BC NGTD - Vascular surgery consulted, appreciate recs - Admit for IV antibiotics, VANC ok - POD 4 from excision of left upper extremity arteriovenous graft - cleared for D/C - ID consulted, appreciate recs - Continue Ancef (12/21- ), not given by nursing staff on 12/23 - Will need long of course of abx, 6 weeks post removal of AVG - End date - BC x2 drawn on 12/21 and 12/22 x2 NGTD - Wound cx from catheter tip positive for staphylococcus coag negative - Follow temps - PermCath removed on 12/23 and replaced with a Vascath. - Awaiting clearance from ID for permanent cath placement for dialysis requested by nephrology, and final antibiotic dosage and timing before discharging patient. (2) CKD (chronic kidney disease) Code(s): N18.9 - Chronic kidney disease, unspecified Status: Chronic Plan: CKD Stage 5 on dialysis, follows w/ nephrology, at [facility] for dialysis MWF - Monitor BMP - Con't home Renvela and Sensipar - Nephrology consulted , appreciate recs - Avoid IVF administration. - High protein, low K diet ordered - Epogen w/ dialysis - PermCath replaced with VasCath on 12/23 Awaiting approval from ID for permanent Cath placement. (3) Constipation Code(s): K59.00 - Constipation, unspecified Status: Acute Plan: Pt has not have a BM since admitted to the hospital on 12/19. This could likely be due to a combination of factors including a change in diet, and pain medications. She has been on stool softeners since admission without relief. She had one dose of lactulose on 12/26 but refused more due to taste. Yesterday she received one dose of Magnesium Citrate without relief either. - One more dose of Magnesium Citrate today - Fleet enema available as well - If not BM by 10 pm will consider Golytely (4) Herpes labialis Code(s): B00.1 - Herpesviral vesicular dermatitis Status: Resolved Plan: New onset of herpes labialis this morning. Located on the L upper lip. Painful. - Acyclovir cream 5 times a day. - Due to renal insufficiency, oral valacyclovir is contraindicated. - Looks well healed now (5) COPD (chronic obstructive pulmonary disease) Code(s): J44.9 - Chronic obstructive pulmonary disease, unspecified Status: Chronic Plan: - Controlled at home on albuterol inhaler - Albuterol q2H PRN, duonebs Q6H while awake scheduled - IS, O2 as needed. (6) Chronic pain Code(s): G89.29 - Other chronic pain Status: Chronic Plan: - Con't home clonazepam, gabapentin, lyrica, and percocet - Changed Percocet from scheduled to PRN q6hrs (7) ROSALINDA (obstructive sleep apnea) Code(s): G47.33 - Obstructive sleep apnea (adult) (pediatric) Status: Chronic Plan: - Does not use CPAP at home, just her O2 overnight - keep head of bed elevated overnight. (8) Insomnia Code(s): G47.00 - Insomnia, unspecified Status: Chronic Plan: No complains on current medications (9) Gout Code(s): M10.9 - Gout, unspecified Status: Chronic Plan: -con't home allopurinol (10) Nutrition, metabolism, and development symptoms Code(s): R63.8 - Other symptoms and signs concerning food and fluid intake Status: Acute Plan: Fluids: tolerating po. Avoid IV fluids Electrolytes: monitor and replete as needed. Monitor K daily. Nutrition: high protein, low K diet GI prophylaxis: Zantac (home medication) (11) DVT prophylaxis Status: Acute Plan: DVT prophy: SCDs, on Eliquis 2.5mg po BID <Génesis Dowling V - 12/28/17 17:18> - Assessment and Plan 67 y/o F w/hx of CKD, hx of MN, and COPD presenting w/left arm swelling at AV fistula site. Diff: DVT v cellulitis v abscess. S/p 1 g IV Vanc in the ED. Doppler shows left UE DVT. Nephrology consulted. Hold off anticoagulation treatment for DVT per discussion, will give prophylaxis. Blood cultures positive for Staph Aureous x4 MSSA. ID consulted and managing antibiotic treatment. Vascular surgery consulted and performed removed of AVG. Patient improving clinically every day. She is OK to discharge from a Vascular surgery point of view, we are waiting for ID recommendations and approval of permanent Cath and antibiotic treatment. <Génesis Dowling V - 12/28/17 17:46> - Attending Attestation Patient seen, examined, and discussed with resident team. I agree with assessment and management as documented and discussed with me. Pt on Ancef for MSSA wound cultures. Dialysis through Vas-cath - await recs from ID regarding placement of permacath. Appreciate nephrology, ID. <Brenda Bates - 12/28/17 20:18> <Génesis Dowling V - Last Filed: 12/28/17 17:18> (2) CKD (chronic kidney disease) Qualifiers: Chronic kidney disease stage: on chronic dialysis Qualified Code(s): N18.6 - End stage renal disease; Z99.2 - Dependence on renal dialysis (5) COPD (chronic obstructive pulmonary disease) Qualifiers: COPD type: unspecified COPD Qualified Code(s): J44.9 - Chronic obstructive pulmonary disease, unspecified (6) Chronic pain Qualifiers: Chronic pain type: chronic pain syndrome Qualified Code(s): G89.4 - Chronic pain syndrome (9) Gout Qualifiers: Gout site: unspecified site Gout etiology: due to renal impairment Chronicity: unspecified Qualified Code(s): M10.30 - Gout due to renal impairment, unspecified site <Brenda Bates - Last Filed: 12/28/17 20:18> (2) CKD (chronic kidney disease) Qualifiers: Chronic kidney disease stage: on chronic dialysis Qualified Code(s): N18.6 - End stage renal disease; Z99.2 - Dependence on renal dialysis (5) COPD (chronic obstructive pulmonary disease) Qualifiers: COPD type: unspecified COPD Qualified Code(s): J44.9 - Chronic obstructive pulmonary disease, unspecified (6) Chronic pain Qualifiers: Chronic pain type: chronic pain syndrome Qualified Code(s): G89.4 - Chronic pain syndrome (9) Gout Qualifiers: Gout site: unspecified site Gout etiology: due to renal impairment Chronicity: unspecified Qualified Code(s): M10.30 - Gout due to renal impairment, unspecified site <Génesis Dowling V - Last Filed: 12/28/17 17:18> (2) CKD (chronic kidney disease) Qualifiers: Chronic kidney disease stage: on chronic dialysis Qualified Code(s): N18.6 - End stage renal disease; Z99.2 - Dependence on renal dialysis (5) COPD (chronic obstructive pulmonary disease) Qualifiers: COPD type: unspecified COPD Qualified Code(s): J44.9 - Chronic obstructive pulmonary disease, unspecified (6) Chronic pain Qualifiers: Chronic pain type: chronic pain syndrome Qualified Code(s): G89.4 - Chronic pain syndrome (9) Gout Qualifiers: Gout site: unspecified site Gout etiology: due to renal impairment Chronicity: unspecified Qualified Code(s): M10.30 - Gout due to renal impairment, unspecified site <Brenda Bates - Last Filed: 12/28/17 20:18> (2) CKD (chronic kidney disease) Qualifiers: Chronic kidney disease stage: on chronic dialysis Qualified Code(s): N18.6 - End stage renal disease; Z99.2 - Dependence on renal dialysis (5) COPD (chronic obstructive pulmonary disease) Qualifiers: COPD type: unspecified COPD Qualified Code(s): J44.9 - Chronic obstructive pulmonary disease, unspecified (6) Chronic pain Qualifiers: Chronic pain type: chronic pain syndrome Qualified Code(s): G89.4 - Chronic pain syndrome (9) Gout Qualifiers: Gout site: unspecified site Gout etiology: due to renal impairment Chronicity: unspecified Qualified Code(s): M10.30 - Gout due to renal impairment, unspecified site
[2017-12-28] MEDS ORDERED: Magnesium Citrate Liq 300 ML Bottle PO ONE (18:00)
[2017-12-28] MEDS ORDERED: Sod Phosphate/Sod Biphosphate (Adult) Enema 133 ML Bottle RECTAL ONE (18:00)
[2017-12-28 22:23] LABS: Calcium 8.2 mg/dL (8.5-10.1); Carbon Dioxide 30.9 meq/L (21.0-32.0); Potassium 4.7 meq/L (3.5-5.1)
[2017-12-29] MEDS: Famotidine 20 MG Tablet PO SCH (09:44)
[2017-12-29] MEDS: Gabapentin 100 MG Capsule PO SCH ×3 (09:44→17:16)
[2017-12-29] MEDS: Senna/Docusate Sodium 8.6/50 MG Tablet PO SCH ×2 (09:44→20:27)
[2017-12-29] MEDS: clonazePAM 0.5 MG Tablet PO SCH ×3 (09:45→17:16)
[2017-12-29] MEDS: Allopurinol 100 MG Tablet PO SCH (09:45)
--- NOTE | 2017-12-29 10:12 | P.PNNP ---
Subjective Interval history: Sitting up eating breakfast but thought it was a salad. Confusion due to pain medications perhaps. HD yesterday. Left arm looks much better. Awaiting ID approval for PermCath placement prior to discharge. <Montse Damon - Last Filed: 12/29/17 10:09> Physical Exam Vital signs: Vital Signs 12/28/17 14:43 12/28/17 16:00 12/28/17 20:00 Temperature 98.1 F 99.1 F 98.6 F Pulse Rate 98 H 95 H 83 Respiratory Rate 18 16 18 Blood Pressure 111/52 L 129/61 106/67 Pulse Oximetry 94 L 93 L 96 12/29/17 00:00 12/29/17 04:00 12/29/17 08:00 Temperature 98.6 F 98.9 F 98.1 F Pulse Rate 82 86 91 H Respiratory Rate 18 16 20 Blood Pressure 96/52 L 95/47 L 99/53 L Pulse Oximetry 94 L 92 L Intake & Output 12/28/17 12/29/17 12/29/17 18:59 06:59 18:59 Intake Total 1800 / 1800 342 / 342 Output Total 3000 / 3000 Balance 1800 / 1800 -2658 / -2658 Intake: IV 1000 / 1000 100 / 100 Ancef 2 GM Premix Inj 2 gm In 100 / 100 100 ml @ 200 mls/hr IV.SIG Q24H SAUD Rx#:[id number] NS Inj 1,000 ML @ As Directed 1000 / 1000 OTHER .Q0M PRN Rx#:[id number] Oral 800 / 800 242 / 242 Output: Hemodialysis Amount 3000 / 3000 Other: # Voids 1 1 Date of Last Bowel Movement 12/21/17 12/29/17 # Bowel Movements 1 1 - Constitutional no acute distress, obese, disheveled, cooperative - Routine HEENT Exam Head: Present: normocephalic - Routine Neck Exam Present: supple, full ROM - Routine Respiratory Exam Present: CTA bilaterally. Absent: accessory muscle use - Routine Cardiovascular Exam Present: RRR, S1, S2 - Routine Abdominal Exam Present: soft, normoactive bowel sounds - Routine Extremities Exam Present: full ROM, pulses intact, tenderness. Absent: edema - Routine Skin Exam Present: intact, dry, warm Comments: LUE proximal AC sutures - Routine Neurological Exam Present: alert, CN II-XII intact, altered mental status, moving all extremities - Detailed Neurological Exam: Coma Scale Eye Opening: Spontaneous Verbal Response: Confused Motor Response: Obey commands [place]hart Coma Scale Total: 14 <Montse Damon - Last Filed: 12/29/17 10:09> Vital signs: Vital Signs 12/28/17 14:43 12/28/17 16:00 12/28/17 20:00 Temperature 98.1 F 99.1 F 98.6 F Pulse Rate 98 H 95 H 83 Respiratory Rate 18 16 18 Blood Pressure 111/52 L 129/61 106/67 Pulse Oximetry 94 L 93 L 96 12/29/17 00:00 12/29/17 04:00 12/29/17 08:00 Temperature 98.6 F 98.9 F 98.1 F Pulse Rate 82 86 91 H Respiratory Rate 18 16 20 Blood Pressure 96/52 L 95/47 L 99/53 L Pulse Oximetry 94 L 92 L 12/29/17 11:01 Temperature Pulse Rate Respiratory Rate Blood Pressure Pulse Oximetry 99 Intake & Output 12/28/17 12/29/17 12/29/17 18:59 06:59 18:59 Intake Total 1800 / 1800 342 / 342 Output Total 3000 / 3000 Balance 1800 / 1800 -2658 / -2658 Intake: IV 1000 / 1000 100 / 100 Ancef 2 GM Premix Inj 2 gm In 100 / 100 100 ml @ 200 mls/hr IV.SIG Q24H SAUD Rx#:[id number] NS Inj 1,000 ML @ As Directed 1000 / 1000 OTHER .Q0M PRN Rx#:[id number] Oral 800 / 800 242 / 242 Output: Hemodialysis Amount 3000 / 3000 Other: # Voids 1 1 Date of Last Bowel Movement 12/21/17 12/29/17 12/29/17 # Bowel Movements 1 1 <Luis Antonio Ewing - Last Filed: 12/29/17 11:45> Assessment and Plan - Assessment (1) ESRD (end stage renal disease) on dialysis Code(s): N18.6 - End stage renal disease; Z99.2 - Dependence on renal dialysis Status: Acute Plan: HD MWF, 3L UF yesterday. s/p PermCath removal and excision of AVG due to sepsis. Has Vascath for dialysis. Will need Per cath replaced prior to discharge. Appreciate ID approval. On Renvela for phosphate binder. Monitor phosphorus periodically. Avoid IVF administration. Gadolinium is contraindicated. High protein, low K diet should be offered. Outpatient HD is at [facility]. (2) Sepsis affecting skin Code(s): A41.9 - Sepsis, unspecified organism Status: Acute Plan: MSSA per culture. ID following. On Ancef until 02/01. If possible, would be helpful to the patient if it could be given on HD days for discharge purposes. Permcath replacement pending. <Montse Damon - Last Filed: 12/29/17 10:09> - Assessment (1) ESRD (end stage renal disease) on dialysis Code(s): N18.6 - End stage renal disease; Z99.2 - Dependence on renal dialysis Status: Acute (2) Sepsis affecting skin Code(s): A41.9 - Sepsis, unspecified organism Status: Acute - Attending Attestation patient was seen and examined. Will discuss with ID if we can get PermCath placed. <Luis Antonio Ewing - Last Filed: 12/29/17 11:45>
--- NOTE | 2017-12-29 12:26 | P.PNFP ---
Subjective Interval history: Patient was seen and examined this morning. She is feeling tired but otherwise no complaints. She denies fevers, chills, nausea, vomiting, chest pain, shortness of breath, and leg pain. No falls reported. She had three bowel movements last night. The nursing staff noted some dizziness and fatigue this morning with hypotension. <Tereza Cruz - 12/29/17 15:30> Results - Labs Result diagrams: 01/01/18 05:45 01/01/18 05:45 <Brenda Bates - 01/01/18 16:49> Abnormal lab results 12/31/17 01/01/18 01/01/18 Range/Units 17:53 05:45 05:45 RBC 2.88 L 2.61 L 2.57 L (4.00-5.30) mil/mm3 Hgb 9.5 L 8.6 L 8.4 L (11.6-15.3) gm/dL Hct 28.1 L 25.4 L 25.2 L (35.0-46.0) % Plt Count 121 L 105 L 108 L (150-450) th/mm3 MPV 11.2 H 11.6 H 11.5 H (7.0-11.0) fL APTT (24.3-30.1) sec Chloride (98-107) meq/L BUN (7-18) mg/dL Creatinine (0.50-1.00) mg/dL Estimated GFR (>89) mL/min AST (15-37) U/L ALT (10-53) U/L Alkaline Phosphatase (45-117) U/L Total Protein (6.4-8.2) g/dL Albumin (3.4-5.0) g/dL 01/01/18 01/01/18 Range/Units 05:45 05:45 RBC (4.00-5.30) mil/mm3 Hgb (11.6-15.3) gm/dL Hct (35.0-46.0) % Plt Count (150-450) th/mm3 MPV (7.0-11.0) fL APTT 104.2 H* D (24.3-30.1) sec Chloride 95 L (98-107) meq/L BUN 43 H (7-18) mg/dL Creatinine 9.38 H (0.50-1.00) mg/dL Estimated GFR 4 L (>89) mL/min AST 14 L (15-37) U/L ALT Less than 6 L (10-53) U/L Alkaline Phosphatase 233 H (45-117) U/L Total Protein 5.5 L (6.4-8.2) g/dL Albumin 2.4 L (3.4-5.0) g/dL Short CBC 12/31/17 01/01/18 01/01/18 Range/Units 17:53 05:45 05:45 WBC 7.3 8.1 8.0 (4.0-11.0) th/mm3 Hgb 9.5 L 8.6 L 8.4 L (11.6-15.3) gm/dL Hct 28.1 L 25.4 L 25.2 L (35.0-46.0) % Plt Count 121 L 105 L 108 L (150-450) th/mm3 [facility] 01/01/18 05:45 Sodium 136 Potassium 4.7 Chloride 95 L Carbon Dioxide 30.1 BUN 43 H Creatinine 9.38 H Calcium 8.6 Liver Function 01/01/18 Range/Units 05:45 Total Bilirubin 0.3 (0.2-1.0) mg/dL AST 14 L (15-37) U/L ALT Less than 6 L (10-53) U/L Alkaline Phosphatase 233 H (45-117) U/L Albumin 2.4 L (3.4-5.0) g/dL <Brenda Bates - 01/01/18 16:49> Abnormal lab results 12/28/17 Range/Units 21:00 Chloride 96 L (98-107) meq/L BUN 23 H (7-18) mg/dL Creatinine 6.77 H (0.50-1.00) mg/dL Estimated GFR 6 L (>89) mL/min Random Glucose 112 H (74-106) mg/dL Calcium 8.2 L (8.5-10.1) mg/dL BMP 12/28/17 21:00 Sodium 136 Potassium 4.7 Chloride 96 L Carbon Dioxide 30.9 BUN 23 H Creatinine 6.77 H Calcium 8.2 L <Tereza Cruz L - 12/29/17 12:26> Physical Exam Vital signs: Vital Signs 12/31/17 20:00 01/01/18 00:00 01/01/18 04:00 Temperature 98.8 F 98.1 F 98.5 F Pulse Rate 77 87 72 Respiratory Rate 18 18 18 Blood Pressure 123/56 L 127/59 L 135/58 L Pulse Oximetry 92 L 92 L 96 01/01/18 08:00 01/01/18 16:25 Temperature 98.1 F 97.9 F Pulse Rate 69 63 Respiratory Rate 17 18 Blood Pressure 107/59 L 111/62 Pulse Oximetry 94 L 95 Intake & Output 12/31/17 01/01/18 01/01/18 18:59 06:59 18:59 Intake Total 400 / 400 102 / 102 Output Total 2300 / 2300 Balance 400 / 400 101 / 101 -2300 / -2300 Weight 89 kg Intake: IV 102 / 102 Heparin/D5W 25,000 U/250 mL 25, 102 / 102 000 unit In 250 ml @ 1,600 UNITS/HR 16 mls/hr IV.CONT TITRATE PRN Rx#:[id number] Oral 400 / 400 Output: Stool Hemodialysis Amount 2300 / 2300 Other: # Voids 3 <Vey,Brenda - 01/01/18 16:49> Vital Signs 12/28/17 14:43 12/28/17 16:00 12/28/17 20:00 Temperature 98.1 F 99.1 F 98.6 F Pulse Rate 98 H 95 H 83 Respiratory Rate 18 16 18 Blood Pressure 111/52 L 129/61 106/67 Pulse Oximetry 94 L 93 L 96 12/29/17 00:00 12/29/17 04:00 12/29/17 08:00 Temperature 98.6 F 98.9 F 98.1 F Pulse Rate 82 86 91 H Respiratory Rate 18 16 20 Blood Pressure 96/52 L 95/47 L 99/53 L Pulse Oximetry 94 L 92 L 12/29/17 11:01 Temperature Pulse Rate Respiratory Rate Blood Pressure Pulse Oximetry 99 Intake & Output 12/28/17 12/29/17 12/29/17 18:59 06:59 18:59 Intake Total 1800 / 1800 342 / 342 Output Total 3000 / 3000 Balance 1800 / 1800 -2658 / -2658 Intake: IV 1000 / 1000 100 / 100 Ancef 2 GM Premix Inj 2 gm In 100 / 100 100 ml @ 200 mls/hr IV.SIG Q24H SAUD Rx#:[id number] NS Inj 1,000 ML @ As Directed 1000 / 1000 OTHER .Q0M PRN Rx#:[id number] Oral 800 / 800 242 / 242 Output: Hemodialysis Amount 3000 / 3000 Other: # Voids 1 1 Date of Last Bowel Movement 12/21/17 12/29/17 12/29/17 # Bowel Movements 1 1 <Tereza Cruz - 12/29/17 12:26> Narrative: GENERAL: White obese female laying in bed in hemodialysis, in no acute distress SKIN: Warm and dry. HEAD: Atraumatic. Normocephalic. EYES: Pupils equal and round. No scleral icterus. No injection or drainage. ENT: No nasal bleeding or discharge. Mucous membranes pink and moist. Vascular cath on R neck, with no signs of infections. LIPS: 2 well healed scabs on upper lip. LUE with healing suture lines noted and no signs of infection. NECK: Trachea midline. No JVD. CARDIOVASCULAR: Regular rate and rhythm. No murmurs. RESPIRATORY: No accessory muscle use. Breath sounds equal bilaterally. No crackles. GASTROINTESTINAL: Abdomen soft, non-tender, nondistended. MUSCULOSKELETAL: Extremities without clubbing, cyanosis, or edema. No obvious deformities. Left upper arm: Sutured incisions with no signs of infections. NEUROLOGICAL: Awake and alert. No obvious cranial nerve deficits. Motor grossly within normal limits. Normal speech. Grossly normal strength. <Tereza Cruz - 12/29/17 15:30> Assessment and Plan - Assessment (1) DVT (deep venous thrombosis) Code(s): I82.409 - Acute embolism and thrombosis of unspecified deep veins of unspecified lower extremity Status: Acute (2) MSSA (methicillin susceptible Staphylococcus aureus) septicemia Code(s): A41.01 - Sepsis due to Methicillin susceptible Staphylococcus aureus Status: Resolved (3) Hypotension Code(s): I95.9 - Hypotension, unspecified Status: Acute (4) CKD (chronic kidney disease) Code(s): N18.9 - Chronic kidney disease, unspecified Status: Chronic (5) Constipation Code(s): K59.00 - Constipation, unspecified Status: Resolved (6) COPD (chronic obstructive pulmonary disease) Code(s): J44.9 - Chronic obstructive pulmonary disease, unspecified Status: Chronic (7) Chronic pain Code(s): G89.29 - Other chronic pain Status: Chronic (8) ROSALINDA (obstructive sleep apnea) Code(s): G47.33 - Obstructive sleep apnea (adult) (pediatric) Status: Chronic (9) Insomnia Code(s): G47.00 - Insomnia, unspecified Status: Chronic (10) Gout Code(s): M10.9 - Gout, unspecified Status: Chronic (11) Nutrition, metabolism, and development symptoms Code(s): R63.8 - Other symptoms and signs concerning food and fluid intake Status: Acute (12) DVT prophylaxis Status: Acute <Brenda Bates - 01/01/18 16:49> (1) DVT (deep venous thrombosis) Code(s): I82.409 - Acute embolism and thrombosis of unspecified deep veins of unspecified lower extremity Status: Acute Plan: Left arm swelling, concern for cellulitis and DVT. No leukocytosis on admission. Area demarcated and shows slight improvement today. Venous doppler study on 12/19 shows evidence of both deep and superficial venous thrombosis with absent flow seen in both cephalic and brachial veins. US soft tissue LUE on 12/20 shows no subcutaneous fluid collection or abscess identified. - Positive Blood cultures on 12/19 x4 for Staph aureus - MSSA - Repeat BC 12/22 showing no growth - Vascular surgery consulted, appreciate recs - Admitted for IV antibiotics, Vancomycin - Post-operative from excision of left upper extremity arteriovenous graft performed 12/24 - cleared for D/C - ID consulted, appreciate recs - Continue Ancef (12/21- ). Will have Ancef 2g with every dialysis session per ID and nephrology - Will need long of course of abx, 6 weeks post removal of AVG - end date - BC x2 drawn on 12/21 and 12/22 x2 NGTD - Wound cx from catheter tip positive for staphylococcus coag negative - VS wnl at this time - Mild leukocytosis noted 12/28, pt refused labs 12/29, will continue to follow. Pt agrees to labs in the afternoon on 12/29 - PermCath removed on 12/23 and replaced with a Vascath. - ID cleared pt for Permcath. IR consulted 12/29, NPO after midnight. Coags ordered (2) MSSA (methicillin susceptible Staphylococcus aureus) septicemia Code(s): A41.01 - Sepsis due to Methicillin susceptible Staphylococcus aureus Status: Resolved Plan: Management as above (3) Hypotension Code(s): I95.9 - Hypotension, unspecified Status: Acute Plan: Nursing staff noted this. BP 90s/60s at this time. Patient currently asymptomatic but will monitor clinically and address any labwork which may be contributing. Pt did refuse labs this morning, will repeat now (4) CKD (chronic kidney disease) Code(s): N18.9 - Chronic kidney disease, unspecified Status: Chronic Plan: CKD Stage 5 on dialysis, follows w/ nephrology, at [facility] for dialysis MWF - Monitor BMP - Con't home Renvela and Sensipar - Nephrology consulted , appreciate recs - Avoid IVF administration. - High protein, low K diet ordered - Epogen w/ dialysis - PermCath replaced with VasCath on 12/23 - PermCath placement anticipated 12/30 as noted (5) Constipation Code(s): K59.00 - Constipation, unspecified Status: Resolved Plan: Resolved. Three BMs on 12/28. She received Magnesium citrate and Fleets enema on 12/28. Continue daily stool softeners. (6) Herpes labialis Code(s): B00.1 - Herpesviral vesicular dermatitis Status: Resolved Plan: New onset of herpes labialis this morning. Located on the L upper lip. Painful. - Acyclovir cream 5 times a day. - Due to renal insufficiency, oral valacyclovir is contraindicated. - Looks well healed on current exam (7) COPD (chronic obstructive pulmonary disease) Code(s): J44.9 - Chronic obstructive pulmonary disease, unspecified Status: Chronic Plan: - Controlled at home on albuterol inhaler - Albuterol q2H PRN, duonebs Q6H while awake scheduled - IS, O2 as needed. (8) Chronic pain Code(s): G89.29 - Other chronic pain Status: Chronic Plan: - Con't home clonazepam, gabapentin, lyrica, and percocet - Changed Percocet from scheduled to PRN q6hrs (9) ROSALINDA (obstructive sleep apnea) Code(s): G47.33 - Obstructive sleep apnea (adult) (pediatric) Status: Chronic Plan: - Does not use CPAP at home, just her O2 overnight, continued PRN - keep head of bed elevated overnight. (10) Insomnia Code(s): G47.00 - Insomnia, unspecified Status: Chronic Plan: No complains on current medications (11) Gout Code(s): M10.9 - Gout, unspecified Status: Chronic Plan: -con't home allopurinol (12) Nutrition, metabolism, and development symptoms Code(s): R63.8 - Other symptoms and signs concerning food and fluid intake Status: Acute Plan: Fluids: tolerating po. Avoid IV fluids Electrolytes: monitor and replete as needed. Monitor K daily. Nutrition: high protein, low K diet GI prophylaxis: Zantac (home medication) (13) DVT prophylaxis Status: Acute Plan: DVT prophy: SCDs, on Eliquis 2.5mg po BID <Tereza Cruz - 12/29/17 14:59> - Assessment and Plan 67 y/o F w/hx of CKD, hx of SC, and COPD presenting w/left arm swelling at AV fistula site. Diff: DVT v cellulitis v abscess. S/p 1 g IV Vanc in the ED. Doppler shows left UE DVT. Nephrology consulted. Hold off anticoagulation treatment for DVT per discussion, will give prophylaxis. Blood cultures positive for Staph Aureus x4 MSSA. ID consulted and managing antibiotic treatment. Vascular surgery consulted and performed removed of AVG. Patient improving clinically every day. She is cleared for discharge from a Vascular surgery point of view. Will have Permcath placed prior to discharge and continue IV antibiotics as noted. <Tereza Cruz - 12/29/17 15:30> Discussed Condition With: Dr. Mazariegos, Dr. Bates <Tereza Cruz - 12/29/17 15:30> Discharge Planning: anticipated discharge in 1-2 days pending Permcath placement. Patient will go home with home health <Tereza Cruz - 12/29/17 15:30> - Attending Attestation Patient seen and examined, discussed with resident team on day of documentation. I agree with assessment and management as documented and discussed with me. No new concerns. Await permacath placement - to be done on Thursday, after Eliquis held x 2 days. <Brenda Bates - 01/01/18 16:49> <Tereza Cruz - Last Filed: 12/29/17 14:59> (1) DVT (deep venous thrombosis) Qualifiers: DVT location: upper extremity Affected thrombotic vein of extremity: other upper extremity vein Chronicity: acute Laterality: left Qualified Code(s): I82.622 - Acute embolism and thrombosis of deep veins of left upper extremity (4) CKD (chronic kidney disease) Qualifiers: Chronic kidney disease stage: on chronic dialysis Qualified Code(s): N18.6 - End stage renal disease; Z99.2 - Dependence on renal dialysis (7) COPD (chronic obstructive pulmonary disease) Qualifiers: COPD type: unspecified COPD Qualified Code(s): J44.9 - Chronic obstructive pulmonary disease, unspecified (8) Chronic pain Qualifiers: Chronic pain type: chronic pain syndrome Qualified Code(s): G89.4 - Chronic pain syndrome (11) Gout Qualifiers: Gout site: unspecified site Gout etiology: due to renal impairment Chronicity: unspecified Qualified Code(s): M10.30 - Gout due to renal impairment, unspecified site <Brenda Bates - Last Filed: 01/01/18 16:49> (1) DVT (deep venous thrombosis) Qualifiers: Qualified Code(s): I82.622 - Acute embolism and thrombosis of deep veins of left upper extremity (4) CKD (chronic kidney disease) Qualifiers: Qualified Code(s): N18.6 - End stage renal disease; Z99.2 - Dependence on renal dialysis (6) COPD (chronic obstructive pulmonary disease) Qualifiers: Qualified Code(s): J44.9 - Chronic obstructive pulmonary disease, unspecified (7) Chronic pain Qualifiers: Qualified Code(s): G89.4 - Chronic pain syndrome (10) Gout Qualifiers: Qualified Code(s): M10.30 - Gout due to renal impairment, unspecified site <Tereza Cruz - Last Filed: 12/29/17 14:59> (1) DVT (deep venous thrombosis) Qualifiers: DVT location: upper extremity Affected thrombotic vein of extremity: other upper extremity vein Chronicity: acute Laterality: left Qualified Code(s): I82.622 - Acute embolism and thrombosis of deep veins of left upper extremity (4) CKD (chronic kidney disease) Qualifiers: Chronic kidney disease stage: on chronic dialysis Qualified Code(s): N18.6 - End stage renal disease; Z99.2 - Dependence on renal dialysis (7) COPD (chronic obstructive pulmonary disease) Qualifiers: COPD type: unspecified COPD Qualified Code(s): J44.9 - Chronic obstructive pulmonary disease, unspecified (8) Chronic pain Qualifiers: Chronic pain type: chronic pain syndrome Qualified Code(s): G89.4 - Chronic pain syndrome (11) Gout Qualifiers: Gout site: unspecified site Gout etiology: due to renal impairment Chronicity: unspecified Qualified Code(s): M10.30 - Gout due to renal impairment, unspecified site <Brenda Bates - Last Filed: 01/01/18 16:49> (1) DVT (deep venous thrombosis) Qualifiers: Qualified Code(s): I82.622 - Acute embolism and thrombosis of deep veins of left upper extremity (4) CKD (chronic kidney disease) Qualifiers: Qualified Code(s): N18.6 - End stage renal disease; Z99.2 - Dependence on renal dialysis (6) COPD (chronic obstructive pulmonary disease) Qualifiers: Qualified Code(s): J44.9 - Chronic obstructive pulmonary disease, unspecified (7) Chronic pain Qualifiers: Qualified Code(s): G89.4 - Chronic pain syndrome (10) Gout Qualifiers: Qualified Code(s): M10.30 - Gout due to renal impairment, unspecified site
--- NOTE | 2017-12-29 14:40 | P.PNID ---
Subjective Remarks: Patient is a 67-year-old female with known ESRD, gets hemodialysis Thursday and Thursday, presented to the hospital with an acute onset of bleeding at her left upper extremity AV graft, with swelling and redness. Patient was in her usual self, and she went for hemodialysis on Thursday, December 18. She has had problem with dialysis access, and she actually had a left upper extremity AV graft using axillary vein and axillary artery back in October. During that time she had a permacath place and that was used for her hemodialysis and about 2-3 weeks prior to admission, her loop AV graft was used. She was not having any problem. Her dialysis on December 18 was uneventful. She has not had any fever chills or sweats. She has not had any problem with healing of all her incisions. When she woke up December 19, she noted a white dot over where she had the access for her last hemodialysis. She was thought it was a piece of fabric, and she cleaned it, and it started bleeding. She also started noticing redness and swelling in her left upper extremity AV graft. She presented to the hospital for further evaluation and treatment. Evaluation of her AV graft was okay. She had an ultrasound which did show evidence of thrombosis in her cephalic and brachial veins. 2 blood cultures done in the emergency room are now reported as growing staph aureus. Patient since has had some intermittent fevers. Her WBC is down to 2.9. Vascular surgery is evaluating the patient and contemplating on possible surgery this . Infectious disease consultation has been requested to evaluate the patient. Notes reviewed Temps ok AVG surgery 12/22 Last (+) BC 12/19 Permacath C/S Coag Neg Staph Has new vascath RIJ BC with MSSA No new (+) BC WBC better Had HD yesterday Antibiotics: Ancef Past Medical History: AV fistula Acid reflux CAD (coronary artery disease) COPD (chronic obstructive pulmonary disease) Chronic back pain Chronic renal disease Dialysis AV fistula infection Elevated cholesterol History of heart attack Hypertension Sleep apnea Stroke Tubal ligation status Varicose vein of leg History of loop recorder Hx of tubal ligation Allergies/Adverse Reactions: Allergies adhesive Allergy (Severe, Verified 10/21/17 11:33) ADHESIVE TAPE = RASH bee venom protein (honey bee) Allergy (Severe, Verified 10/21/17 11:33) RASH & TONGUE SWELLING dexamethasone Allergy (Severe, Verified 10/21/17 11:33) Shortness of Breath, TONGUE SWELLS hydromorphone Allergy (Severe, Verified 10/21/17 11:33) Hives PT SAID SHE DOESNT THINK SHE IS ALLERGIC TO DILAUDID THAT IT WAS JUST A REACTION FROM ANOTHER MEDICATION iodine Allergy (Severe, Verified 10/21/17 11:33) RASH & DIFFICULTY BREATHING geraldine Allergy (Severe, Verified 10/21/17 11:33) swollen tongue and rash orange Allergy (Severe, Verified 10/21/17 11:33) O.J. = RASH AND DIFFICULTY BREATHING orange juice Allergy (Severe, Verified 10/22/17 11:01) Hives and difficulty breathing oxytetracycline Allergy (Severe, Verified 10/21/17 11:33) HIVES & TONGUE SWELLING potassium iodide Allergy (Severe, Verified 10/21/17 11:33) RASH & DIFFICULTY BREATHING povidone-iodine Allergy (Severe, Verified 10/21/17 11:33) RASH & DIFFICULTY BREATHING sodium iodide Allergy (Severe, Verified 10/21/17 11:33) RASH & DIFFICULTY BREATHING sodium iodide Allergy (Severe, Verified 10/21/17 11:33) RASH & DIFFICULTY BREATHING Sulfa (Sulfonamide Antibiotics) Allergy (Severe, Verified 10/21/17 11:33) HIVES, DIFFICULTY BREATHING Influenza Virus Vaccines Allergy (Intermediate, Verified 10/21/17 11:33) Rash, vomiting diatrizoate meglumine Allergy (Unknown, Verified 12/19/17 16:38) Rash gadobenic acid Allergy (Unknown, Verified 12/19/17 16:38) Rash gadodiamide Allergy (Unknown, Verified 12/19/17 16:38) Rash gadoteridol Allergy (Unknown, Verified 12/19/17 16:38) Rash iodixanol Allergy (Unknown, Verified 12/19/17 16:38) Rash iohexol Allergy (Unknown, Verified 12/19/17 16:38) Rash penicillin G Allergy (Unknown, Verified 12/19/17 16:38) Rash Objective Vital Signs 12/28/17 14:43 12/28/17 16:00 12/28/17 20:00 Temperature 98.1 F 99.1 F 98.6 F Pulse Rate 98 H 95 H 83 Respiratory Rate 18 16 18 Blood Pressure 111/52 L 129/61 106/67 Pulse Oximetry 94 L 93 L 96 12/29/17 00:00 12/29/17 04:00 12/29/17 08:00 Temperature 98.6 F 98.9 F 98.1 F Pulse Rate 82 86 91 H Respiratory Rate 18 16 20 Blood Pressure 96/52 L 95/47 L 99/53 L Pulse Oximetry 94 L 92 L 12/29/17 11:01 12/29/17 12:00 Temperature 98.9 F Pulse Rate 87 Respiratory Rate 20 Blood Pressure 92/53 L Pulse Oximetry 99 96 Intake & Output 12/28/17 12/29/17 12/29/17 18:59 06:59 18:59 Intake Total 1800 / 1800 342 / 342 Output Total 3000 / 3000 Balance 1800 / 1800 -2658 / -2658 Intake: IV 1000 / 1000 100 / 100 Ancef 2 GM Premix Inj 2 gm In 100 / 100 100 ml @ 200 mls/hr IV.SIG Q24H SAUD Rx#:[id number] NS Inj 1,000 ML @ As Directed 1000 / 1000 OTHER .Q0M PRN Rx#:[id number] Oral 800 / 800 242 / 242 Output: Hemodialysis Amount 3000 / 3000 Other: # Voids 1 1 Date of Last Bowel Movement 12/21/17 12/29/17 12/29/17 # Bowel Movements 1 1 12/22/17 09:08 Blood - Other Aerobic Blood Culture - Final No growth in 5 days 12/22/17 09:08 Blood - Other Anaerobic Blood Culture - Final No growth in 5 days 12/22/17 09:17 Blood - Peripheral Aerobic Blood Culture - Final No growth in 5 days 12/22/17 09:17 Blood - Peripheral Anaerobic Blood Culture - Final No growth in 5 days 12/24/17 12:30 Wound - Arm Gram Stain - Final 12/24/17 12:30 Wound - Arm Wound Culture - Final Staphylococcus aureus 12/21/17 11:45 Blood - Other Aerobic Blood Culture - Final No growth in 5 days 12/21/17 11:45 Blood - Other Anaerobic Blood Culture - Final No growth in 5 days Lab - Hematology Results 12/28/17 04:05 WBC 11.1 H D RBC 2.81 L Hgb 9.3 L Hct 28.2 L MCV 100.5 H MCH 33.1 MCHC 32.9 RDW 15.0 Plt Count 141 L MPV 10.4 Lab - Chemistry Results 12/28/17 12/28/17 04:05 21:00 Sodium 133 L 136 Potassium 5.2 H D 4.7 Chloride 95 L 96 L Carbon Dioxide 27.5 30.9 Anion Gap 11 9 BUN 35 H 23 H Creatinine 8.91 H 6.77 H Estimated GFR 4 L 6 L Random Glucose 88 112 H Calcium 8.1 L 8.2 L Imaging: ITS Impressions Chest X-Ray 12/19/17 15:27 CONCLUSION: 1. No acute abnormality. Venous Doppler Study 12/19/17 15:56 CONCLUSION: 1. Evidence of both deep and superficial venous thrombosis with absent flow seen in both cephalic and brachial veins. Lower Extremity Ultrasound 12/20/17 06:00 CONCLUSION: 1. No subcutaneous fluid collection or abscess is identified. 2. There is some type graft or fistula the area of interest and it appears thrombosed. Tube Removal 12/22/17 00:00 CONCLUSION: Uncomplicated Permcath removal. The catheter tip was sent for culture Catheter Placement 12/23/17 00:00 CONCLUSION: Uncomplicated ultrasound and fluoroscopic guided central venous dialysis line placement as above. Physical Exam: GENERAL: awake and alert, not in respiratory distress. SKIN: Cool and dry. No generalized rash. HEAD: Atraumatic. Normocephalic. No temporal wasting, or tenderness. EYES: [place] conjunctiva. No petechia or hemorrhage. No scleral icterus. No injection or drainage. EARS, NOSE AND THROAT: Nose without bleeding or purulent nasal discharge. No sinus tenderness. Mucous membranes pink and moist. No oral lesions noted. No exudate. No oral thrush. NECK: Trachea midline. Supple and not tender, no meningeal signs CARDIOVASCULAR: Regular rate and rhythm. No murmurs, rubs or gallops heard RESPIRATORY: Clear to auscultation. Breath sounds equal bilaterally. No rales , wheezing or rhonchi. Permacath is in her R upper chest, no redness or drainage ABDOMEN: Soft, non-tender, nondistended. Bowel sounds present and normoactive. No guarding. No rebound. No organomegaly. EXTREMITIES: No clubbing, cyanosis, or edema. LUE - incisions dry, has 3. no redness. Swelling is better. No joint effusion, has good ROM. No calf tenderness. NEUROLOGICAL: Grossly non-focal PSYCHIATRIC: Normal affect, calm and cooperative. LINE: No evidence of infection Assessment and Plan - Plan Impression Staph aureus MSSA sepsis Infection AVG LUE (Axillary artery/vein loop graft) Permacath seeding a concern as well ESRD on HD MWF DVT LUE brachial vein Recommendation Continue IV Ancef Spoke with Dr Ewing - ok to place permacath Monitor progress Will need long course of Abx, 6 weeks post removal of AVG - end date of Abx 02/01 - will use IV Ancef to be given with HD when she gets D/C D/W Dr Ewing
[2017-12-29] MEDS ORDERED: Vancomycin Inj 1 GM/200 ML PIGGYBACK IV.SIG SCH (17:00)
[2017-12-29 17:08] LABS: Baso % (Auto) 0.5 % (0.0-2.0); Eos # (Auto) 0.2 th/mm3 (0.0-0.4); Eos % (Auto) 2.2 % (0.0-4.0); Hematocrit 25.5 % (35.0-46.0); Hemoglobin 8.4 gm/dL (11.6-15.3); Lymph # (Auto) 1.2 th/mm3 (1.0-4.8); Lymph % (Auto) 16.4 % (9.0-44.0); Mean Corpuscular HGB Conc 32.8 % (32.0-36.0); Mean Corpuscular Hemoglobin 32.9 pg (27.0-34.0); Mean Corpuscular Volume 100.4 fL (80.0-100.0); Mean Platelet Volume 10.3 fL (7.0-11.0); Mono # (Auto) 0.6 th/mm3 (0.0-0.9); Neut # (Auto) 5.4 th/mm3 (1.8-7.7); Neut % (Auto) 72.9 % (16.0-70.0); Platelet Count 109 th/mm3 (150-450); Red Blood Count 2.54 mil/mm3 (4.00-5.30); Red Cell Distribution Width 15.4 % (11.6-17.2); White Blood Count 7.4 th/mm3 (4.0-11.0)
[2017-12-29 17:14] LABS: Activated Partial Thrombo Time 34.3 sec (24.3-30.1); INR 1.1 Ratio; Prothrombin Time 11.6 sec (9.8-11.6)
[2017-12-29 17:23] LABS: Albumin 2.4 g/dL (3.4-5.0); Anion Gap 8 meq/L (5-15); Aspartate Aminotransferase 21 U/L (15-37); Blood Urea Nitrogen 29 mg/dL (7-18); Calcium 7.9 mg/dL (8.5-10.1); Carbon Dioxide 31.4 meq/L (21.0-32.0); Chloride 97 meq/L (98-107); Glomerular Filtration Rate 5 mL/min (>89); Glucose,Random 95 mg/dL (74-106); Magnesium 2.7 mg/dL (1.5-2.5); Potassium 4.9 meq/L (3.5-5.1); Sodium 136 meq/L (136-145)
[2017-12-29 17:24] LABS: Alkaline Phosphatase 280 U/L (45-117); Total Protein 5.6 g/dL (6.4-8.2)
[2017-12-29] MEDS: ceFAZolin 2 GM Premix Inj 2 GM/100 ML BAG IV.SIG SCH (17:27)
[2017-12-29] MEDS: oxyCODONE/Acetaminophen 10/325 Tablet PO PRN (20:27)
[2017-12-30] MEDS: Senna/Docusate Sodium 8.6/50 MG Tablet PO SCH ×2 (09:19→21:04)
[2017-12-30] MEDS: Gabapentin 100 MG Capsule PO SCH ×3 (09:19→17:00)
[2017-12-30] MEDS: Allopurinol 100 MG Tablet PO SCH (09:22)
[2017-12-30] MEDS: Famotidine 20 MG Tablet PO SCH (09:23)
[2017-12-30] MEDS: oxyCODONE/Acetaminophen 10/325 Tablet PO PRN (09:29)
[2017-12-30] MEDS: clonazePAM 0.5 MG Tablet PO SCH ×3 (09:33→17:00)
--- NOTE | 2017-12-30 10:58 | P.PNFP ---
Subjective Interval history: Patient seen and examined this morning. She states that she was not feeling well last night. She felt some chest heaviness in the center of her chest. She has a hx of [place], but this did not feel like her previous MIs. No chest pain, no shortness of breath, no pleuritic pain, no cough. She had one small vomit last night after a burp. She is also experiencing swelling in her right arm and hand. Her right hand is painful to the touch. She has had a lot of BMs since getting several laxatives for her constipation. <Mindi Mazariegos - 12/30/17 11:13> Results - Labs Result diagrams: 01/01/18 05:45 01/01/18 05:45 <Brenda Bates - 01/01/18 16:58> Abnormal lab results 12/31/17 01/01/18 01/01/18 Range/Units 17:53 05:45 05:45 RBC 2.88 L 2.61 L 2.57 L (4.00-5.30) mil/mm3 Hgb 9.5 L 8.6 L 8.4 L (11.6-15.3) gm/dL Hct 28.1 L 25.4 L 25.2 L (35.0-46.0) % Plt Count 121 L 105 L 108 L (150-450) th/mm3 MPV 11.2 H 11.6 H 11.5 H (7.0-11.0) fL APTT (24.3-30.1) sec Chloride (98-107) meq/L BUN (7-18) mg/dL Creatinine (0.50-1.00) mg/dL Estimated GFR (>89) mL/min AST (15-37) U/L ALT (10-53) U/L Alkaline Phosphatase (45-117) U/L Total Protein (6.4-8.2) g/dL Albumin (3.4-5.0) g/dL 01/01/18 01/01/18 Range/Units 05:45 05:45 RBC (4.00-5.30) mil/mm3 Hgb (11.6-15.3) gm/dL Hct (35.0-46.0) % Plt Count (150-450) th/mm3 MPV (7.0-11.0) fL APTT 104.2 H* D (24.3-30.1) sec Chloride 95 L (98-107) meq/L BUN 43 H (7-18) mg/dL Creatinine 9.38 H (0.50-1.00) mg/dL Estimated GFR 4 L (>89) mL/min AST 14 L (15-37) U/L ALT Less than 6 L (10-53) U/L Alkaline Phosphatase 233 H (45-117) U/L Total Protein 5.5 L (6.4-8.2) g/dL Albumin 2.4 L (3.4-5.0) g/dL Short CBC 12/31/17 01/01/18 01/01/18 Range/Units 17:53 05:45 05:45 WBC 7.3 8.1 8.0 (4.0-11.0) th/mm3 Hgb 9.5 L 8.6 L 8.4 L (11.6-15.3) gm/dL Hct 28.1 L 25.4 L 25.2 L (35.0-46.0) % Plt Count 121 L 105 L 108 L (150-450) th/mm3 BMP 01/01/18 05:45 Sodium 136 Potassium 4.7 Chloride 95 L Carbon Dioxide 30.1 BUN 43 H Creatinine 9.38 H Calcium 8.6 Liver Function 01/01/18 Range/Units 05:45 Total Bilirubin 0.3 (0.2-1.0) mg/dL AST 14 L (15-37) U/L ALT Less than 6 L (10-53) U/L Alkaline Phosphatase 233 H (45-117) U/L Albumin 2.4 L (3.4-5.0) g/dL <Brenda Bates - 01/01/18 16:58> Abnormal lab results 12/29/17 12/29/17 12/29/17 Range/Units 16:49 16:49 16:49 RBC 2.54 L (4.00-5.30) mil/mm3 Hgb 8.4 L (11.6-15.3) gm/dL Hct 25.5 L (35.0-46.0) % MCV 100.4 H (80.0-100.0) fL Plt Count 109 L (150-450) th/mm3 Neut % (Auto) 72.9 H (16.0-70.0) % APTT 34.3 H (24.3-30.1) sec Chloride 97 L (98-107) meq/L BUN 29 H (7-18) mg/dL Creatinine 8.43 H (0.50-1.00) mg/dL Estimated GFR 5 L (>89) mL/min Calcium 7.9 L (8.5-10.1) mg/dL Magnesium 2.7 H (1.5-2.5) mg/dL ALT Less than 6 L (10-53) U/L Alkaline Phosphatase 280 H (45-117) U/L Total Protein 5.6 L (6.4-8.2) g/dL Albumin 2.4 L (3.4-5.0) g/dL Short CBC 12/29/17 Range/Units 16:49 WBC 7.4 (4.0-11.0) th/mm3 Hgb 8.4 L (11.6-15.3) gm/dL Hct 25.5 L (35.0-46.0) % Plt Count 109 L (150-450) th/mm3 BMP 12/29/17 16:49 Sodium 136 Potassium 4.9 Chloride 97 L Carbon Dioxide 31.4 BUN 29 H Creatinine 8.43 H Calcium 7.9 L Liver Function 12/29/17 Range/Units 16:49 Total Bilirubin 0.2 (0.2-1.0) mg/dL AST 21 (15-37) U/L ALT Less than 6 L (10-53) U/L Alkaline Phosphatase 280 H (45-117) U/L Albumin 2.4 L (3.4-5.0) g/dL <Mindi Mazariegos G - 12/30/17 10:58> Physical Exam Vital signs: Vital Signs 12/31/17 20:00 01/01/18 00:00 01/01/18 04:00 Temperature 98.8 F 98.1 F 98.5 F Pulse Rate 77 87 72 Respiratory Rate 18 18 18 Blood Pressure 123/56 L 127/59 L 135/58 L Pulse Oximetry 92 L 92 L 96 01/01/18 08:00 01/01/18 16:25 Temperature 98.1 F 97.9 F Pulse Rate 69 63 Respiratory Rate 17 18 Blood Pressure 107/59 L 111/62 Pulse Oximetry 94 L 95 Intake & Output 12/31/17 01/01/18 01/01/18 18:59 06:59 18:59 Intake Total 400 / 400 102 / 102 Output Total 2300 / 2300 Balance 400 / 400 101 / 101 -2300 / -2300 Weight 89 kg Intake: IV 102 / 102 Heparin/D5W 25,000 U/250 mL 25, 102 / 102 000 unit In 250 ml @ 1,600 UNITS/HR 16 mls/hr IV.CONT TITRATE PRN Rx#:[id number] Oral 400 / 400 Output: Stool Hemodialysis Amount 2300 / 2300 Other: # Voids 3 <MargaretPhoebe ceee - 01/01/18 16:58> Vital Signs 12/29/17 11:01 12/29/17 12:00 12/29/17 16:00 Temperature 98.9 F 98.3 F Pulse Rate 87 79 Respiratory Rate 20 20 Blood Pressure 92/53 L 117/54 L Pulse Oximetry 99 96 94 L 12/29/17 20:00 12/30/17 00:00 12/30/17 00:47 Temperature 97.8 F 98.5 F Pulse Rate 78 79 79 Respiratory Rate 18 18 Blood Pressure 123/59 L 117/58 L Pulse Oximetry 98 95 12/30/17 04:00 12/30/17 08:00 12/30/17 09:15 Temperature 98.2 F 98.7 F Pulse Rate 97 H 76 78 Respiratory Rate 18 15 Blood Pressure 126/61 137/61 Pulse Oximetry 96 98 12/30/17 09:17 12/30/17 09:44 Temperature Pulse Rate Respiratory Rate Blood Pressure Pulse Oximetry 96 97 Intake & Output 12/29/17 12/30/17 12/30/17 18:59 06:59 18:59 Intake Total 1230 / 1230 0 / 0 Output Total 0 / 0 Balance 1230 / 1230 0 / 0 Intake: IV 0 / 0 Oral 1230 / 1230 Output: Urine 0 / 0 Other: # Voids 1 Date of Last Bowel Movement 12/29/17 12/29/17 # Bowel Movements 0 1 <BelpreInderMindi G - 12/30/17 10:58> Narrative: GENERAL: White obese female laying in bed, in no acute distress SKIN: Warm and dry. HEAD: Atraumatic. Normocephalic. EYES: Pupils equal and round. No scleral icterus. No injection or drainage. ENT: No nasal bleeding or discharge. Mucous membranes pink and moist. Vascular cath on R neck, with no signs of infections. LIPS: 2 well healed scabs on upper lip. NECK: Trachea midline. No JVD. CARDIOVASCULAR: Regular rate and rhythm. No murmurs. RESPIRATORY: No accessory muscle use. Breath sounds equal bilaterally. No crackles. GASTROINTESTINAL: Abdomen soft, non-tender, nondistended. MUSCULOSKELETAL: Extremities without clubbing or cyanosis. No obvious deformities. Left upper arm: Sutured incisions with no signs of infections. Right arm: swelling of lower arm and hand with 1+ pitting edema. NEUROLOGICAL: Awake and alert. No obvious cranial nerve deficits. Motor grossly within normal limits. Normal speech. Grossly normal strength. <DelilahMindi Gabriela - 12/30/17 11:13> Assessment and Plan - Assessment (1) DVT (deep venous thrombosis) Code(s): I82.409 - Acute embolism and thrombosis of unspecified deep veins of unspecified lower extremity Status: Acute (2) MSSA (methicillin susceptible Staphylococcus aureus) septicemia Code(s): A41.01 - Sepsis due to Methicillin susceptible Staphylococcus aureus Status: Resolved (3) Hypotension Code(s): I95.9 - Hypotension, unspecified Status: Acute (4) CKD (chronic kidney disease) Code(s): N18.9 - Chronic kidney disease, unspecified Status: Chronic (5) Constipation Code(s): K59.00 - Constipation, unspecified Status: Resolved (6) COPD (chronic obstructive pulmonary disease) Code(s): J44.9 - Chronic obstructive pulmonary disease, unspecified Status: Chronic (7) Chronic pain Code(s): G89.29 - Other chronic pain Status: Chronic (8) ROSALINDA (obstructive sleep apnea) Code(s): G47.33 - Obstructive sleep apnea (adult) (pediatric) Status: Chronic (9) Insomnia Code(s): G47.00 - Insomnia, unspecified Status: Chronic (10) Gout Code(s): M10.9 - Gout, unspecified Status: Chronic (11) Nutrition, metabolism, and development symptoms Code(s): R63.8 - Other symptoms and signs concerning food and fluid intake Status: Acute (12) DVT prophylaxis Status: Acute <Brenda Bates - 01/01/18 16:58> (1) DVT (deep venous thrombosis) Code(s): I82.409 - Acute embolism and thrombosis of unspecified deep veins of unspecified lower extremity Status: Acute Plan: Left arm swelling, concern for cellulitis and DVT. No leukocytosis on admission. Venous doppler study on 12/19 shows evidence of both deep and superficial venous thrombosis with absent flow seen in both cephalic and brachial veins. US soft tissue LUE on 12/20 shows no subcutaneous fluid collection or abscess identified. - Positive Blood cultures on 12/19 x4 for Staph aureus - MSSA - Repeat BC 12/22 showing no growth - Vascular surgery consulted, appreciate recs - Admitted for IV antibiotics, Vancomycin - Post-operative from excision of left upper extremity arteriovenous graft performed 12/24 - cleared for D/C - ID consulted, appreciate recs - Continue Ancef (12/21- ). Will have Ancef 2g with every dialysis session per ID and nephrology - Will need long of course of abx, 6 weeks post removal of AVG - end date - BC x2 drawn on 12/21 and 12/22 x2 NGTD - Wound cx from catheter tip positive for staphylococcus coag negative - VS wnl at this time - Leukocytosis has resolved - PermCath removed on 12/23 and replaced with a Vascath. - ID cleared pt for Permcath. IR consulted 12/29, to be replaced on Thursday, after being off of Eliquis for 2 days. (2) MSSA (methicillin susceptible Staphylococcus aureus) septicemia Code(s): A41.01 - Sepsis due to Methicillin susceptible Staphylococcus aureus Status: Resolved Plan: Management as above (3) Hypotension Code(s): I95.9 - Hypotension, unspecified Status: Acute Plan: Nursing staff noted this on yesterday. BP 90s/60s at that time. Has now resolved. (4) CKD (chronic kidney disease) Code(s): N18.9 - Chronic kidney disease, unspecified Status: Chronic Plan: CKD Stage 5 on dialysis, follows w/ nephrology, at [facility] for dialysis MWF - Monitor BMP - Con't home Renvela and Sensipar - Nephrology consulted , appreciate recs - Avoid IVF administration. - High protein, low K diet ordered - Epogen w/ dialysis - PermCath replaced with VasCath on 12/23 - PermCath placement anticipated 12/30 as noted (5) Constipation Code(s): K59.00 - Constipation, unspecified Status: Resolved Plan: Resolved. Three BMs on 12/28. She received Magnesium citrate and Fleets enema on 12/28. Continue daily stool softeners. (6) COPD (chronic obstructive pulmonary disease) Code(s): J44.9 - Chronic obstructive pulmonary disease, unspecified Status: Chronic Plan: - Controlled at home on albuterol inhaler - Albuterol q2H PRN, duonebs Q6H while awake scheduled - IS, O2 as needed. (7) Chronic pain Code(s): G89.29 - Other chronic pain Status: Chronic Plan: - Con't home clonazepam, gabapentin, lyrica, and percocet - Changed Percocet from scheduled to PRN q6hrs (8) ROSALINDA (obstructive sleep apnea) Code(s): G47.33 - Obstructive sleep apnea (adult) (pediatric) Status: Chronic Plan: - Does not use CPAP at home, just her O2 overnight, continued PRN - keep head of bed elevated overnight. (9) Insomnia Code(s): G47.00 - Insomnia, unspecified Status: Chronic Plan: No complains on current medications (10) Gout Code(s): M10.9 - Gout, unspecified Status: Chronic Plan: -con't home allopurinol (11) Nutrition, metabolism, and development symptoms Code(s): R63.8 - Other symptoms and signs concerning food and fluid intake Status: Acute Plan: Fluids: tolerating po. Avoid IV fluids Electrolytes: monitor and replete as needed. Monitor K daily. Nutrition: high protein, low K diet GI prophylaxis: Zantac (home medication) (12) DVT prophylaxis Status: Acute Plan: DVT prophy: SCDs, on Eliquis 2.5mg po BID <Mindi Mazariegos - 12/30/17 14:08> - Assessment and Plan 67 y/o F w/hx of CKD, hx of [place], and COPD presenting w/left arm swelling at AV fistula site. Diff: DVT v cellulitis v abscess. S/p 1 g IV Vanc in the ED. Doppler shows left UE DVT. Nephrology consulted. Hold off anticoagulation treatment for DVT per discussion, will give prophylaxis. Blood cultures positive for Staph Aureus x4 MSSA. ID consulted and managing antibiotic treatment. Vascular surgery consulted and performed removed of AVG. Patient improving clinically every day. She is cleared for discharge from a Vascular surgery point of view. Will have Permcath placed prior to discharge and continue IV antibiotics as noted. <Mindi Mazariegos - 12/30/17 14:15> Discussed Condition With: Dr. Bates, Dr. Baeza <Mindi Mazariegos - 12/30/17 14:15> Discharge Planning: pending clinical course, cleared for d/c by surgery. Awaiting Permcath placement. <Mindi Mazariegos - 12/30/17 14:15> - Attending Attestation Patient seen and examined, discussed with resident team on day of documentation. I agree with assessment and management as documented and discussed with me. <Brenda Bates - 01/01/18 16:58> <Mindi Mazariegos G - Last Filed: 12/30/17 14:08> (1) DVT (deep venous thrombosis) Qualifiers: DVT location: upper extremity Affected thrombotic vein of extremity: other upper extremity vein Chronicity: acute Laterality: left Qualified Code(s): I82.622 - Acute embolism and thrombosis of deep veins of left upper extremity (4) CKD (chronic kidney disease) Qualifiers: Chronic kidney disease stage: on chronic dialysis Qualified Code(s): N18.6 - End stage renal disease; Z99.2 - Dependence on renal dialysis (6) COPD (chronic obstructive pulmonary disease) Qualifiers: COPD type: unspecified COPD Qualified Code(s): J44.9 - Chronic obstructive pulmonary disease, unspecified (7) Chronic pain Qualifiers: Chronic pain type: chronic pain syndrome Qualified Code(s): G89.4 - Chronic pain syndrome (10) Gout Qualifiers: Gout site: unspecified site Gout etiology: due to renal impairment Chronicity: unspecified Qualified Code(s): M10.30 - Gout due to renal impairment, unspecified site <Brenda Bates - Last Filed: 01/01/18 16:58> (1) DVT (deep venous thrombosis) Qualifiers: Qualified Code(s): I82.622 - Acute embolism and thrombosis of deep veins of left upper extremity (4) CKD (chronic kidney disease) Qualifiers: Qualified Code(s): N18.6 - End stage renal disease; Z99.2 - Dependence on renal dialysis (6) COPD (chronic obstructive pulmonary disease) Qualifiers: Qualified Code(s): J44.9 - Chronic obstructive pulmonary disease, unspecified (7) Chronic pain Qualifiers: Qualified Code(s): G89.4 - Chronic pain syndrome (10) Gout Qualifiers: Qualified Code(s): M10.30 - Gout due to renal impairment, unspecified site <DelilahMindi G - Last Filed: 12/30/17 14:08> (1) DVT (deep venous thrombosis) Qualifiers: DVT location: upper extremity Affected thrombotic vein of extremity: other upper extremity vein Chronicity: acute Laterality: left Qualified Code(s): I82.622 - Acute embolism and thrombosis of deep veins of left upper extremity (4) CKD (chronic kidney disease) Qualifiers: Chronic kidney disease stage: on chronic dialysis Qualified Code(s): N18.6 - End stage renal disease; Z99.2 - Dependence on renal dialysis (6) COPD (chronic obstructive pulmonary disease) Qualifiers: COPD type: unspecified COPD Qualified Code(s): J44.9 - Chronic obstructive pulmonary disease, unspecified (7) Chronic pain Qualifiers: Chronic pain type: chronic pain syndrome Qualified Code(s): G89.4 - Chronic pain syndrome (10) Gout Qualifiers: Gout site: unspecified site Gout etiology: due to renal impairment Chronicity: unspecified Qualified Code(s): M10.30 - Gout due to renal impairment, unspecified site <Brenda Bates - Last Filed: 01/01/18 16:58> (1) DVT (deep venous thrombosis) Qualifiers: Qualified Code(s): I82.622 - Acute embolism and thrombosis of deep veins of left upper extremity (4) CKD (chronic kidney disease) Qualifiers: Qualified Code(s): N18.6 - End stage renal disease; Z99.2 - Dependence on renal dialysis (6) COPD (chronic obstructive pulmonary disease) Qualifiers: Qualified Code(s): J44.9 - Chronic obstructive pulmonary disease, unspecified (7) Chronic pain Qualifiers: Qualified Code(s): G89.4 - Chronic pain syndrome (10) Gout Qualifiers: Qualified Code(s): M10.30 - Gout due to renal impairment, unspecified site
--- NOTE | 2017-12-30 11:09 | P.PNNP ---
Subjective Interval history: NPO for Permcath placement today. Due for dialysis. Pain improved. <Montse Damon - Last Filed: 12/30/17 11:06> Physical Exam Vital signs: Vital Signs 12/29/17 12:00 12/29/17 16:00 12/29/17 20:00 Temperature 98.9 F 98.3 F 97.8 F Pulse Rate 87 79 78 Respiratory Rate 20 20 18 Blood Pressure 92/53 L 117/54 L 123/59 L Pulse Oximetry 96 94 L 98 12/30/17 00:00 12/30/17 00:47 12/30/17 04:00 Temperature 98.5 F 98.2 F Pulse Rate 79 79 97 H Respiratory Rate 18 18 Blood Pressure 117/58 L 126/61 Pulse Oximetry 95 96 12/30/17 08:00 12/30/17 09:15 12/30/17 09:17 Temperature 98.7 F Pulse Rate 76 78 Respiratory Rate 15 Blood Pressure 137/61 Pulse Oximetry 98 96 12/30/17 09:44 Temperature Pulse Rate Respiratory Rate Blood Pressure Pulse Oximetry 97 Intake & Output 12/29/17 12/30/17 12/30/17 18:59 06:59 18:59 Intake Total 1230 / 1230 0 / 0 Output Total 0 / 0 Balance 1230 / 1230 0 / 0 Intake: IV 0 / 0 Oral 1230 / 1230 Output: Urine 0 / 0 Other: # Voids 1 Date of Last Bowel Movement 12/29/17 12/29/17 # Bowel Movements 0 1 - Constitutional no acute distress, obese, disheveled, cooperative - Routine HEENT Exam Head: Present: normocephalic - Routine Neck Exam Present: supple, full ROM. Absent: JVD - Routine Respiratory Exam Present: CTA bilaterally. Absent: accessory muscle use - Routine Cardiovascular Exam Present: RRR, S1, S2 - Routine Abdominal Exam Present: soft, normoactive bowel sounds. Absent: tenderness, distended, guarding, organomegaly - Routine Extremities Exam Present: full ROM, pulses intact, vascular access. Absent: edema Comments: VC right IJ s/p Right PC removal AVG left arm excised - Routine Skin Exam Present: dry, warm Comments: surgical incision left arm - Routine Neurological Exam Present: alert, oriented X3, CN II-XII intact, moving all extremities - Detailed Neurological Exam: Coma Scale Eye Opening: Spontaneous Verbal Response: Oriented Motor Response: Obey commands Anayeli Coma Scale Total: 15 - Routine Psychiatric Exam Present: normal affect, normal thought process <Montse Damon - Last Filed: 12/30/17 11:06> Vital signs: Vital Signs 12/30/17 20:00 12/31/17 00:00 12/31/17 00:53 Temperature 97.7 F 99.4 F Pulse Rate 82 85 83 Respiratory Rate 18 18 Blood Pressure 137/64 146/63 H Pulse Oximetry 94 L 95 12/31/17 04:00 12/31/17 04:42 12/31/17 08:00 Temperature 98.1 F 99.3 F Pulse Rate 82 82 82 Respiratory Rate 18 18 Blood Pressure 110/54 L 99/49 L Pulse Oximetry 96 95 12/31/17 12:00 12/31/17 16:46 Temperature 99.5 F 99.3 F Pulse Rate 80 74 Respiratory Rate 18 18 Blood Pressure 121/57 L 95/53 L Pulse Oximetry 92 L 93 L Intake & Output 12/30/17 12/31/17 12/31/17 18:59 06:59 18:59 Intake Total 0 / 0 100 / 100 400 / 400 Output Total 2500 / 2500 Balance 0 / 0 -2400 / -2400 400 / 400 Weight 89 kg 89 kg Intake: IV 0 / 0 100 / 100 Ancef 2 GM Premix Inj 2 gm In 100 / 100 100 ml @ 200 mls/hr IV.SIG WITH DIALYSIS SAUD Rx#:[id number] Oral 0 / 0 400 / 400 Output: Hemodialysis Amount 2500 / 2500 Other: # Voids 0 3 Date of Last Bowel Movement 12/29/17 12/29/17 # Bowel Movements 0 1 <Luis Antonio Ewing - Last Filed: 12/31/17 18:05> Assessment and Plan - Assessment (1) ESRD (end stage renal disease) on dialysis Code(s): N18.6 - End stage renal disease; Z99.2 - Dependence on renal dialysis Status: Acute Plan: HD MWF, due today Pending PermCath placement today, vascath removal. ID has approved. NPO now. Recent excision of AVG due to sepsis. On Renvela for phosphate binder. Monitor phosphorus periodically. Avoid IVF administration. Gadolinium is contraindicated. High protein, low K diet ordered. Outpatient HD is at [facility]. Cleared for discharge after catheter placement and antibiotic arrangement. (2) Sepsis affecting skin Code(s): A41.9 - Sepsis, unspecified organism Status: Acute Plan: MSSA per culture. ID following. On Ancef (2g with HD) until 02/01. PermCath replacement pending. ID assisting, appreciate recommendations. <Montse Damon - Last Filed: 12/30/17 11:06> - Assessment (1) ESRD (end stage renal disease) on dialysis Code(s): N18.6 - End stage renal disease; Z99.2 - Dependence on renal dialysis Status: Acute (2) Sepsis affecting skin Code(s): A41.9 - Sepsis, unspecified organism Status: Acute (3) DVT (deep venous thrombosis) Code(s): I82.409 - Acute embolism and thrombosis of unspecified deep veins of unspecified lower extremity Status: Acute Qualifiers: DVT location: upper extremity Affected thrombotic vein of extremity: other upper extremity vein Chronicity: acute Laterality: left Qualified Code(s) : I82.622 - Acute embolism and thrombosis of deep veins of left upper extremity - Attending Attestation patient was seen and examined. Discussed with ID. Outpatient dialysis is at [facility]. <Luis Antonio Ewing - Last Filed: 12/31/17 18:05>
--- NOTE | 2017-12-30 12:57 | P.DCO ---
Post Hospital Infusion Therapy Location of Infusion Therapy: Dialysis Center Patient Weight: 89 kg - Diagnosis (1) Infected prosthetic vascular graft Code(s): T82.7XXA - Infection and inflammatory reaction due to other cardiac and vascular devices, implants and grafts, initial encounter - Administer Medication Cefazolin Dose: 2 grams IV Directions: q 48 hours with Hemodialysis M/W/F Stop Treatment: 02/01/18 - Additional Information Venous Access: Other (permacath) Additional Instructions: [x] Peripheral flush and dressing changes per protocol [x] Implanted port and central acid tank liner: * Implanted port: 10 ml Normal Saline followed by 5 ml Heparin 100 units/ml Heparin flush after each use and monthly to maintain. [] May leave port accessed during therapy. [] May leave peripheral site accessed for duration of therapy. [x] If patient has SOB or respiratory distress, check oxygen saturation. If less than 90% or clinical signs of respiratory distress, administer oxygen at 2 L/min. via nasal cannula and notify physician. [x] Anaphylaxis/Reaction orders: * Stop infusion. * Keep IV line open with saline flush. * Notify physician. * Monitor vital signs every 15 minutes until symptoms resolve. * Check Oxygen saturation; Oxygen at 2 L/min. via nasal cannula if less than 90% or clinical signs of respiratory distress. * Administer diphenhydramine (Benadryl) 25 mg IV STAT, (unless patient has received as pre-med). May repeat once, if necessary. * Solu-Cortef 250 mg IVP over 30-60 seconds, use 100 mg vials for each dissolution. * Epinephrine (1mg/1 ml) 0.3 mg subcutaneously or IVP now with any signs of respiratory distress. * Check with physician for new additional pre-med orders if patient is re- challenged or re-treated. [x] May remove PICC line when treatment complete, after confirming with Physician. [x] If the patient is admitted to the hospital, the ED, or transferred via [facility] , complete transfer form including medication reconciliation order sheet. Weekly Labs: CBC w/diff (every Thursday) Allergies adhesive Allergy (Severe, Verified 10/21/17 11:33) ADHESIVE TAPE = RASH bee venom protein (honey bee) Allergy (Severe, Verified 10/21/17 11:33) RASH & TONGUE SWELLING dexamethasone Allergy (Severe, Verified 10/21/17 11:33) Shortness of Breath, TONGUE SWELLS hydromorphone Allergy (Severe, Verified 10/21/17 11:33) Hives PT SAID SHE DOESNT THINK SHE IS ALLERGIC TO DILAUDID THAT IT WAS JUST A REACTION FROM ANOTHER MEDICATION iodine Allergy (Severe, Verified 10/21/17 11:33) RASH & DIFFICULTY BREATHING geraldine Allergy (Severe, Verified 10/21/17 11:33) swollen tongue and rash orange Allergy (Severe, Verified 10/21/17 11:33) O.J. = RASH AND DIFFICULTY BREATHING orange juice Allergy (Severe, Verified 10/22/17 11:01) Hives and difficulty breathing oxytetracycline Allergy (Severe, Verified 10/21/17 11:33) HIVES & TONGUE SWELLING potassium iodide Allergy (Severe, Verified 10/21/17 11:33) RASH & DIFFICULTY BREATHING povidone-iodine Allergy (Severe, Verified 10/21/17 11:33) RASH & DIFFICULTY BREATHING sodium iodide Allergy (Severe, Verified 10/21/17 11:33) RASH & DIFFICULTY BREATHING sodium iodide Allergy (Severe, Verified 10/21/17 11:33) RASH & DIFFICULTY BREATHING Sulfa (Sulfonamide Antibiotics) Allergy (Severe, Verified 10/21/17 11:33) HIVES, DIFFICULTY BREATHING Influenza Virus Vaccines Allergy (Intermediate, Verified 10/21/17 11:33) Rash, vomiting diatrizoate meglumine Allergy (Unknown, Verified 12/19/17 16:38) Rash gadobenic acid Allergy (Unknown, Verified 12/19/17 16:38) Rash gadodiamide Allergy (Unknown, Verified 12/19/17 16:38) Rash gadoteridol Allergy (Unknown, Verified 12/19/17 16:38) Rash iodixanol Allergy (Unknown, Verified 12/19/17 16:38) Rash iohexol Allergy (Unknown, Verified 12/19/17 16:38) Rash penicillin G Allergy (Unknown, Verified 12/19/17 16:38) Rash
[2017-12-30] MEDS: Heparin 10,000 UNITS/10 ML Vial (for IV use) OTHER PRN (18:30)
[2017-12-30] MEDS: ceFAZolin 2 GM Premix Inj 2 GM/100 ML BAG IV.SIG SCH (18:30)
--- NOTE | 2017-12-30 21:01 | ECG ---
Date Performed: 12/30/2017 Time Performed: 11:59:37 PTAGE: 67 years EKG: Sinus rhythm LOW QRS VOLTAGE IN PRECORDIAL LEADS BORDERLINE ECG PREVIOUS TRACING : 12/20/2017 03.12 Since the previous tracing, no significant change noted DOCTOR: Edgardo Tadeo Interpretating Date/Time 12/30/2017 20:59:08
[2017-12-31 05:53] LABS: Calcium 8.4 mg/dL (8.5-10.1); Carbon Dioxide 33.2 meq/L (21.0-32.0); Potassium 4.8 meq/L (3.5-5.1)
[2017-12-31] MEDS: clonazePAM 0.5 MG Tablet PO SCH ×3 (08:39→17:47)
[2017-12-31] MEDS: Gabapentin 100 MG Capsule PO SCH ×3 (08:39→17:47)
[2017-12-31] MEDS: Senna/Docusate Sodium 8.6/50 MG Tablet PO SCH ×2 (08:39→21:08)
[2017-12-31] MEDS: Allopurinol 100 MG Tablet PO SCH (08:40)
[2017-12-31] MEDS: Famotidine 20 MG Tablet PO SCH (08:40)
--- NOTE | 2017-12-31 09:45 | P.PNVS ---
Subjective Post Op Day #: 7 Procedure: Excision of L UE AVG Subjective/Hospital Course: 67/F S/p Excision of Left Upper Extremity Arteriovenous Graft Pt looks great Left arm incisions intact w/o erythema or swelling Pt denied pain Pt awaiting tunneled catheter placement Objective Vital Signs / I&O: Vital Signs 12/30/17 09:44 12/30/17 12:00 12/30/17 20:00 Temperature 98 F 97.7 F Pulse Rate 75 82 Respiratory Rate 16 18 Blood Pressure 106/55 L 137/64 Pulse Oximetry 97 97 94 L 12/31/17 00:00 12/31/17 00:53 12/31/17 04:00 Temperature 99.4 F 98.1 F Pulse Rate 85 83 82 Respiratory Rate 18 18 Blood Pressure 146/63 H 110/54 L Pulse Oximetry 95 96 12/31/17 04:42 12/31/17 08:00 Temperature 99.3 F Pulse Rate 82 82 Respiratory Rate 18 Blood Pressure 99/49 L Pulse Oximetry 95 Intake & Output 12/30/17 12/31/17 12/31/17 18:59 06:59 18:59 Intake Total 0 / 0 100 / 100 Output Total 2500 / 2500 Balance 0 / 0 -2400 / -2400 Weight 89 kg 89 kg Intake: IV 0 / 0 100 / 100 Ancef 2 GM Premix Inj 2 gm In 100 / 100 100 ml @ 200 mls/hr IV.SIG WITH DIALYSIS SAUD Rx#:[id number] Oral 0 / 0 Output: Hemodialysis Amount 2500 / 2500 Other: # Voids 0 3 Date of Last Bowel Movement 12/29/17 12/29/17 # Bowel Movements 0 1 Exam: Left arm incisions intact w/o erythema, swelling or drainage UE warm with motor intact Pt w/o hand pain + L radial pulse (2+) Laboratory Results - last 24 hr 12/30/17 12/31/17 11:18 04:35 Sodium 138 Potassium 4.8 Chloride 98 Carbon Dioxide 33.2 H Anion Gap 7 BUN 28 H Creatinine 7.19 H Estimated GFR 6 L Random Glucose 95 Calcium 8.4 L Troponin I Less than 0.02 L Assessment and Plan - Assessment (1) ESRD (end stage renal disease) on dialysis Code(s): N18.6 - End stage renal disease; Z99.2 - Dependence on renal dialysis Status: Acute - Plan POD#7 s/p L UE graft excision Pt looks good Incisions to L arm intact Pt w/o arm pain Plan Leave incisions open to air Arranged out pt f/u in 2W Pt aware of plan Collette Nunez NP [facility]/[place] [phone] Discharge Planning: Clear for d/c from a vascular standpoint
--- NOTE | 2017-12-31 11:24 | US ---
EXAM DATE: 12/31/2017 10:44 AM EDT AGE/SEX: 67 years / Female INDICATIONS: Right arm swelling. CLINICAL DATA: This is the patient's initial encounter. Patient reports that signs and symptoms have been present for 2 weeks and indicates a pain score of 7/10. MEDICAL/SURGICAL HISTORY: . Hypertension. Hepatitis C. Stroke. Acid reflux. Chronic renal disea se. AV fistula. Sleep apnea. . Tubal ligation. Loop recorder COMPARISON: [facility] [place] BILATERAL VENOUS [place]OPPLER, 11/29/2014. . FINDINGS: Images of the graft in the right upper extremity demonstrates no significant flow consiste nt with occlusion. There is a small amount of flow in the distal end of the graft. There is also some nonocclusive thrombus noted in the cephalic vein. The rest of the deep venous structures appear to b e patent. Other: None. CONCLUSION: 1. The right upper extremity graft appears to be occluded. 2. Nonocclusive thrombus is noted in the cephalic vein. Electronically signed by: Donis Avina MD 12/31/2017 11:23 AM EDT
[2017-12-31] MEDS ORDERED: Phenylephrine/NS 1000 MCG/10ML Syringe IV.PUSH ONE (12:00)
[2017-12-31] MEDS ORDERED: Lidocaine PF 1% Inj 5 ML Syringe INFILTRATN ONE (12:00)
[2017-12-31] MEDS ORDERED: Neostigmine Inj 5 MG/5 ML Syringe IV.PUSH ONE (12:00)
[2017-12-31] MEDS ORDERED: Glycopyrrolate Inj 1 MG/5 ML Syringe IV.PUSH ONE (12:00)
--- NOTE | 2017-12-31 12:30 | P.PNID ---
Subjective Remarks: Patient is a 67-year-old female with known ESRD, gets hemodialysis Thursday and Thursday, presented to the hospital with an acute onset of bleeding at her left upper extremity AV graft, with swelling and redness. Patient was in her usual self, and she went for hemodialysis on Thursday, December 18. She has had problem with dialysis access, and she actually had a left upper extremity AV graft using axillary vein and axillary artery back in October. During that time she had a permacath place and that was used for her hemodialysis and about 2-3 weeks prior to admission, her loop AV graft was used. She was not having any problem. Her dialysis on December 18 was uneventful. She has not had any fever chills or sweats. She has not had any problem with healing of all her incisions. When she woke up December 19, she noted a white dot over where she had the access for her last hemodialysis. She was thought it was a piece of fabric, and she cleaned it, and it started bleeding. She also started noticing redness and swelling in her left upper extremity AV graft. She presented to the hospital for further evaluation and treatment. Evaluation of her AV graft was okay. She had an ultrasound which did show evidence of thrombosis in her cephalic and brachial veins. 2 blood cultures done in the emergency room are now reported as growing staph aureus. Patient since has had some intermittent fevers. Her WBC is down to 2.9. Vascular surgery is evaluating the patient and contemplating on possible surgery this . Infectious disease consultation has been requested to evaluate the patient. Notes reviewed Temps ok Has RUE swelling - has non-occlusive thrombus in cephalic vein AVG surgery 12/22 Last (+) BC 12/19 MSSA Permacath C/S Coag Neg Staph New permacath planned for tomorrow Antibiotics: Ancef Past Medical History: AV fistula Acid reflux CAD (coronary artery disease) COPD (chronic obstructive pulmonary disease) Chronic back pain Chronic renal disease Dialysis AV fistula infection Elevated cholesterol History of heart attack Hypertension Sleep apnea Stroke Tubal ligation status Varicose vein of leg History of loop recorder Hx of tubal ligation Allergies/Adverse Reactions: Allergies adhesive Allergy (Severe, Verified 10/21/17 11:33) ADHESIVE TAPE = RASH bee venom protein (honey bee) Allergy (Severe, Verified 10/21/17 11:33) RASH & TONGUE SWELLING dexamethasone Allergy (Severe, Verified 10/21/17 11:33) Shortness of Breath, TONGUE SWELLS hydromorphone Allergy (Severe, Verified 10/21/17 11:33) Hives PT SAID SHE DOESNT THINK SHE IS ALLERGIC TO DILAUDID THAT IT WAS JUST A REACTION FROM ANOTHER MEDICATION iodine Allergy (Severe, Verified 10/21/17 11:33) RASH & DIFFICULTY BREATHING geraldine Allergy (Severe, Verified 10/21/17 11:33) swollen tongue and rash orange Allergy (Severe, Verified 10/21/17 11:33) O.J. = RASH AND DIFFICULTY BREATHING orange juice Allergy (Severe, Verified 10/22/17 11:01) Hives and difficulty breathing oxytetracycline Allergy (Severe, Verified 10/21/17 11:33) HIVES & TONGUE SWELLING potassium iodide Allergy (Severe, Verified 10/21/17 11:33) RASH & DIFFICULTY BREATHING povidone-iodine Allergy (Severe, Verified 10/21/17 11:33) RASH & DIFFICULTY BREATHING sodium iodide Allergy (Severe, Verified 10/21/17 11:33) RASH & DIFFICULTY BREATHING sodium iodide Allergy (Severe, Verified 10/21/17 11:33) RASH & DIFFICULTY BREATHING Sulfa (Sulfonamide Antibiotics) Allergy (Severe, Verified 10/21/17 11:33) HIVES, DIFFICULTY BREATHING Influenza Virus Vaccines Allergy (Intermediate, Verified 10/21/17 11:33) Rash, vomiting diatrizoate meglumine Allergy (Unknown, Verified 12/19/17 16:38) Rash gadobenic acid Allergy (Unknown, Verified 12/19/17 16:38) Rash gadodiamide Allergy (Unknown, Verified 12/19/17 16:38) Rash gadoteridol Allergy (Unknown, Verified 12/19/17 16:38) Rash iodixanol Allergy (Unknown, Verified 12/19/17 16:38) Rash iohexol Allergy (Unknown, Verified 12/19/17 16:38) Rash penicillin G Allergy (Unknown, Verified 12/19/17 16:38) Rash Objective Vital Signs 12/30/17 20:00 12/31/17 00:00 12/31/17 00:53 Temperature 97.7 F 99.4 F Pulse Rate 82 85 83 Respiratory Rate 18 18 Blood Pressure 137/64 146/63 H Pulse Oximetry 94 L 95 12/31/17 04:00 12/31/17 04:42 12/31/17 08:00 Temperature 98.1 F 99.3 F Pulse Rate 82 82 82 Respiratory Rate 18 18 Blood Pressure 110/54 L 99/49 L Pulse Oximetry 96 95 Intake & Output 12/30/17 12/31/17 12/31/17 18:59 06:59 18:59 Intake Total 0 / 0 100 / 100 Output Total 2500 / 2500 Balance 0 / 0 -2400 / -2400 Weight 89 kg 89 kg Intake: IV 0 / 0 100 / 100 Ancef 2 GM Premix Inj 2 gm In 100 / 100 100 ml @ 200 mls/hr IV.SIG WITH DIALYSIS SAUD Rx#:[id number] Oral 0 / 0 Output: Hemodialysis Amount 2500 / 2500 Other: # Voids 0 3 Date of Last Bowel Movement 12/29/17 12/29/17 # Bowel Movements 0 1 Lab - Hematology Results 12/29/17 16:49 WBC 7.4 RBC 2.54 L Hgb 8.4 L Hct 25.5 L MCV 100.4 H MCH 32.9 MCHC 32.8 RDW 15.4 Plt Count 109 L MPV 10.3 Neut % (Auto) 72.9 H Lymph % (Auto) 16.4 [place]minn % (Auto) 8.0 Eos % (Auto) 2.2 Baso % (Auto) 0.5 Neut # (Auto) 5.4 Lymph # (Auto) 1.2 [place]minn # (Auto) 0.6 Eos # (Auto) 0.2 Baso # (Auto) 0.0 WBC Differential . Differential Comment Auto diff final Lab - Chemistry Results 12/29/17 12/30/17 12/31/17 16:49 11:18 04:35 Sodium 136 138 Potassium 4.9 4.8 Chloride 97 L 98 Carbon Dioxide 31.4 33.2 H Anion Gap 8 7 BUN 29 H 28 H Creatinine 8.43 H 7.19 H Estimated GFR 5 L 6 L Random Glucose 95 95 Calcium 7.9 L 8.4 L Phosphorus 3.0 Magnesium 2.7 H Total Bilirubin 0.2 AST 21 ALT Less than 6 L Alkaline Phosphatase 280 H Troponin I Less than 0.02 L Total Protein 5.6 L Albumin 2.4 L Imaging: ITS Impressions Chest X-Ray 12/19/17 15:27 CONCLUSION: 1. No acute abnormality. Lower Extremity Ultrasound 12/20/17 06:00 CONCLUSION: 1. No subcutaneous fluid collection or abscess is identified. 2. There is some type graft or fistula the area of interest and it appears thrombosed. Tube Removal 12/22/17 00:00 CONCLUSION: Uncomplicated Permcath removal. The catheter tip was sent for culture Catheter Placement 12/23/17 00:00 CONCLUSION: Uncomplicated ultrasound and fluoroscopic guided central venous dialysis line placement as above. Venous Doppler Study 12/31/17 00:00 CONCLUSION: 1. The right upper extremity graft appears to be occluded. 2. Nonocclusive thrombus is noted in the cephalic vein. Physical Exam: GENERAL: awake and alert, not in respiratory distress. SKIN: Cool and dry. No generalized rash. HEAD: Atraumatic. Normocephalic. No temporal wasting, or tenderness. EYES: [place] conjunctiva. No petechia or hemorrhage. No scleral icterus. No injection or drainage. EARS, NOSE AND THROAT: Nose without bleeding or purulent nasal discharge. No sinus tenderness. Mucous membranes pink and moist. No oral lesions noted. No exudate. No oral thrush. NECK: Trachea midline. Supple and not tender, no meningeal signs CARDIOVASCULAR: Regular rate and rhythm. No murmurs, rubs or gallops heard RESPIRATORY: Clear to auscultation. Breath sounds equal bilaterally. No rales , wheezing or rhonchi. [place] is in her R upper chest, no redness or drainage ABDOMEN: Soft, non-tender, nondistended. Bowel sounds present and normoactive. No guarding. No rebound. No organomegaly. EXTREMITIES: No clubbing, cyanosis, or edema. LUE - incisions dry, has 3. no redness. Swelling is better. No joint effusion, has good ROM. No calf tenderness. NEUROLOGICAL: Grossly non-focal PSYCHIATRIC: Normal affect, calm and cooperative. LINE: No evidence of infection Assessment and Plan (1) Infected prosthetic vascular graft Status: Acute Code(s): T82.7XXA - Infection and inflammatory reaction due to other cardiac and vascular devices, implants and grafts, initial encounter - Plan Impression Staph aureus MSSA sepsis Infection AVG LUE (Axillary artery/vein loop graft) Permacath seeding a concern as well ESRD on HD MWF DVT LUE brachial vein Recommendation Continue IV Ancef Ok to place permacath - now scheduled for tomorrow Monitor progress Will need long course of Abx, 6 weeks post removal of AVG - end date of Abx 02/01 - will use IV Ancef to be given with HD when she gets D/C - Abx for filled out Stable for D/C from ID standpoint D/W RN
--- NOTE | 2017-12-31 13:46 | P.PNNP ---
Subjective Interval history: PermCath placement postponed until Thursday AM. No new complaints. Left arm looks better. New DVT right arm. <Montse Damon - Last Filed: 12/31/17 13:44> Physical Exam Vital signs: Vital Signs 12/30/17 20:00 12/31/17 00:00 12/31/17 00:53 Temperature 97.7 F 99.4 F Pulse Rate 82 85 83 Respiratory Rate 18 18 Blood Pressure 137/64 146/63 H Pulse Oximetry 94 L 95 12/31/17 04:00 12/31/17 04:42 12/31/17 08:00 Temperature 98.1 F 99.3 F Pulse Rate 82 82 82 Respiratory Rate 18 18 Blood Pressure 110/54 L 99/49 L Pulse Oximetry 96 95 12/31/17 12:00 Temperature 99.5 F Pulse Rate 80 Respiratory Rate 18 Blood Pressure 121/57 L Pulse Oximetry 92 L Intake & Output 12/30/17 12/31/17 12/31/17 18:59 06:59 18:59 Intake Total 0 / 0 100 / 100 Output Total 2500 / 2500 Balance 0 / 0 -2400 / -2400 Weight 89 kg 89 kg Intake: IV 0 / 0 100 / 100 Ancef 2 GM Premix Inj 2 gm In 100 / 100 100 ml @ 200 mls/hr IV.SIG WITH DIALYSIS SAUD Rx#:[id number] Oral 0 / 0 Output: Hemodialysis Amount 2500 / 2500 Other: # Voids 0 3 Date of Last Bowel Movement 12/29/17 12/29/17 # Bowel Movements 0 1 - Constitutional no acute distress, morbidly obese, chronically ill appearing, disheveled, cooperative - Routine HEENT Exam Head: Present: normocephalic - Routine Neck Exam Present: supple, full ROM - Routine Respiratory Exam Present: CTA bilaterally. Absent: accessory muscle use - Routine Cardiovascular Exam Present: RRR, S1, S2 - Routine Abdominal Exam Present: soft, normoactive bowel sounds - Routine Extremities Exam Present: full ROM, pulses intact, normal capillary refill, vascular access. Absent: edema - Routine Skin Exam Present: dry, warm Comments: incision left arm healing well - Routine Neurological Exam Present: alert, oriented X3, CN II-XII intact, moving all extremities - Detailed Neurological Exam: Coma Scale Eye Opening: Spontaneous Verbal Response: Oriented Motor Response: Obey commands Anayeli Coma Scale Total: 15 - Routine Psychiatric Exam Present: normal affect, normal thought process <Montse Damon - Last Filed: 12/31/17 13:44> Vital signs: Vital Signs 12/30/17 20:00 12/31/17 00:00 12/31/17 00:53 Temperature 97.7 F 99.4 F Pulse Rate 82 85 83 Respiratory Rate 18 18 Blood Pressure 137/64 146/63 H Pulse Oximetry 94 L 95 12/31/17 04:00 12/31/17 04:42 12/31/17 08:00 Temperature 98.1 F 99.3 F Pulse Rate 82 82 82 Respiratory Rate 18 18 Blood Pressure 110/54 L 99/49 L Pulse Oximetry 96 95 12/31/17 12:00 12/31/17 16:46 Temperature 99.5 F 99.3 F Pulse Rate 80 74 Respiratory Rate 18 18 Blood Pressure 121/57 L 95/53 L Pulse Oximetry 92 L 93 L Intake & Output 12/30/17 12/31/17 12/31/17 18:59 06:59 18:59 Intake Total 0 / 0 100 / 100 400 / 400 Output Total 2500 / 2500 Balance 0 / 0 -2400 / -2400 400 / 400 Weight 89 kg 89 kg Intake: IV 0 / 0 100 / 100 Ancef 2 GM Premix Inj 2 gm In 100 / 100 100 ml @ 200 mls/hr IV.SIG WITH DIALYSIS SAUD Rx#:[id number] Oral 0 / 0 400 / 400 Output: Hemodialysis Amount 2500 / 2500 Other: # Voids 0 3 Date of Last Bowel Movement 12/29/17 12/29/17 # Bowel Movements 0 1 <Luis Antonio Ewing - Last Filed: 12/31/17 18:27> Assessment and Plan - Assessment (1) ESRD (end stage renal disease) on dialysis Code(s): N18.6 - End stage renal disease; Z99.2 - Dependence on renal dialysis Status: Acute Plan: HD MWF, due tomorrow. Pending PermCath placement tomorrow, NPO after midnight. ID has approved. Recent excision of AVG due to sepsis. On Renvela for phosphate binder. Monitor phosphorus periodically. Avoid IVF administration. Gadolinium is contraindicated. High protein, low K diet ordered. Outpatient HD is at [facility]. Cleared for discharge after catheter placement and antibiotic arrangement. (2) Sepsis affecting skin Code(s): A41.9 - Sepsis, unspecified organism Status: Acute Plan: MSSA per culture. ID following. On Ancef (2g with HD) until 02/01. PermCath replacement pending. ID assisting, appreciate recommendations. (3) DVT (deep venous thrombosis) Code(s): I82.409 - Acute embolism and thrombosis of unspecified deep veins of unspecified lower extremity Status: Acute Qualifiers: DVT location: upper extremity Affected thrombotic vein of extremity: other upper extremity vein Chronicity: acute Laterality: left Qualified Code(s) : I82.622 - Acute embolism and thrombosis of deep veins of left upper extremity Plan: Cephalic DVT of RUE. 'Apixaban to be resumed tomorrow after catheter exchange. <Montse Damon - Last Filed: 12/31/17 13:44> - Assessment (1) ESRD (end stage renal disease) on dialysis Code(s): N18.6 - End stage renal disease; Z99.2 - Dependence on renal dialysis Status: Acute (2) Sepsis affecting skin Code(s): A41.9 - Sepsis, unspecified organism Status: Acute (3) DVT (deep venous thrombosis) Code(s): I82.409 - Acute embolism and thrombosis of unspecified deep veins of unspecified lower extremity Status: Acute Qualifiers: DVT location: upper extremity Affected thrombotic vein of extremity: other upper extremity vein Chronicity: acute Laterality: left Qualified Code(s) : I82.622 - Acute embolism and thrombosis of deep veins of left upper extremity - Attending Attestation patient was seen and examined. Agree with above assessment and plan. <Luis Antonio Ewing - Last Filed: 12/31/17 18:27>
[2017-12-31] MEDS ORDERED: Heparin Drip 25,000 UNIT/250 ML BAG IV.CONT PRN (16:46)
[2017-12-31 18:17] LABS: Hematocrit 28.1 % (35.0-46.0); Hemoglobin 9.5 gm/dL (11.6-15.3); Mean Corpuscular HGB Conc 33.7 % (32.0-36.0); Mean Corpuscular Hemoglobin 32.9 pg (27.0-34.0); Mean Corpuscular Volume 97.8 fL (80.0-100.0); Mean Platelet Volume 11.2 fL (7.0-11.0); Platelet Count 121 th/mm3 (150-450); Red Blood Count 2.88 mil/mm3 (4.00-5.30); Red Cell Distribution Width 15.8 % (11.6-17.2); White Blood Count 7.3 th/mm3 (4.0-11.0)
[2017-12-31 18:33] LABS: Activated Partial Thrombo Time 29.7 sec (24.3-30.1); INR 1.1 Ratio; Prothrombin Time 11.4 sec (9.8-11.6)
--- NOTE | 2017-12-31 18:44 | P.PNFP ---
Subjective Interval history: Pt seen and evaluated this morning. She was upset she did not get her procedure done yesterday and nobody let her eat in the meantime. Otherwise has no complains. Swelling of RUE improved but still present. she denies any more vomiting or nausea, she is still having BMs. She denies any more chest pain, and denies fevers or chills. Results - Labs Result diagrams: 12/31/17 17:53 12/31/17 04:35 Abnormal lab results 12/31/17 12/31/17 Range/Units 04:35 17:53 RBC 2.88 L (4.00-5.30) mil/mm3 Hgb 9.5 L (11.6-15.3) gm/dL Hct 28.1 L (35.0-46.0) % Plt Count 121 L (150-450) th/mm3 MPV 11.2 H (7.0-11.0) fL Carbon Dioxide 33.2 H (21.0-32.0) meq/L BUN 28 H (7-18) mg/dL Creatinine 7.19 H (0.50-1.00) mg/dL Estimated GFR 6 L (>89) mL/min Calcium 8.4 L (8.5-10.1) mg/dL Short CBC 12/31/17 Range/Units 17:53 WBC 7.3 (4.0-11.0) th/mm3 Hgb 9.5 L (11.6-15.3) gm/dL Hct 28.1 L (35.0-46.0) % Plt Count 121 L (150-450) th/mm3 BMP 12/31/17 04:35 Sodium 138 Potassium 4.8 Chloride 98 Carbon Dioxide 33.2 H BUN 28 H Creatinine 7.19 H Calcium 8.4 L - Imaging Impressions Venous Doppler Study 12/31/17 00:00 CONCLUSION: 1. The right upper extremity graft appears to be occluded. 2. Nonocclusive thrombus is noted in the cephalic vein. Physical Exam Vital signs: Vital Signs 12/30/17 20:00 12/31/17 00:00 12/31/17 00:53 Temperature 97.7 F 99.4 F Pulse Rate 82 85 83 Respiratory Rate 18 18 Blood Pressure 137/64 146/63 H Pulse Oximetry 94 L 95 12/31/17 04:00 12/31/17 04:42 12/31/17 08:00 Temperature 98.1 F 99.3 F Pulse Rate 82 82 82 Respiratory Rate 18 18 Blood Pressure 110/54 L 99/49 L Pulse Oximetry 96 95 12/31/17 12:00 12/31/17 16:46 Temperature 99.5 F 99.3 F Pulse Rate 80 74 Respiratory Rate 18 18 Blood Pressure 121/57 L 95/53 L Pulse Oximetry 92 L 93 L Intake & Output 12/30/17 12/31/17 12/31/17 18:59 06:59 18:59 Intake Total 0 / 0 100 / 100 400 / 400 Output Total 2500 / 2500 Balance 0 / 0 -2400 / -2400 400 / 400 Weight 89 kg 89 kg Intake: IV 0 / 0 100 / 100 Ancef 2 GM Premix Inj 2 gm In 100 / 100 100 ml @ 200 mls/hr IV.SIG WITH DIALYSIS SAUD Rx#:[id number] Oral 0 / 0 400 / 400 Output: Hemodialysis Amount 2500 / 2500 Other: # Voids 0 3 Date of Last Bowel Movement 12/29/17 12/29/17 # Bowel Movements 0 1 Narrative: GENERAL: White obese female laying in bed, in no acute distress SKIN: Warm and dry. HEAD: Atraumatic. Normocephalic. EYES: Pupils equal and round. No scleral icterus. No injection or drainage. ENT: Mucous membranes pink and moist. Vascular cath on R neck, with no signs of infections. LIPS: 2 well healed scabs on upper lip. NECK: Trachea midline. No JVD. CARDIOVASCULAR: Regular rate and rhythm. No murmurs. RESPIRATORY: No accessory muscle use. Breath sounds equal bilaterally. No crackles. GASTROINTESTINAL: Abdomen soft, non-tender, nondistended. MUSCULOSKELETAL: Extremities without clubbing or cyanosis. No obvious deformities. Left upper arm: Sutured incisions with no signs of infections. Right arm: swelling of lower arm and hand with 1+ pitting edema, slightly improved. NEUROLOGICAL: Awake and alert. No obvious cranial nerve deficits. Motor grossly within normal limits. Normal speech. Grossly normal strength. Assessment and Plan - Assessment (1) DVT (deep venous thrombosis) Code(s): I82.409 - Acute embolism and thrombosis of unspecified deep veins of unspecified lower extremity Status: Acute Plan: Left arm swelling, concern for cellulitis and DVT. No leukocytosis on admission. Venous doppler study on 12/19 shows evidence of both deep and superficial venous thrombosis with absent flow seen in both cephalic and brachial veins. US soft tissue LUE on 12/20 shows no subcutaneous fluid collection or abscess identified. - Positive Blood cultures on 12/19 x4 for Staph aureus - MSSA - Repeat BC 12/22 showing no growth - Vascular surgery consulted, appreciate recs - Admitted for IV antibiotics, Vancomycin - Post-operative from excision of left upper extremity arteriovenous graft performed 12/24 - cleared for D/C - ID consulted, appreciate recs - Continue Ancef (12/21- ). Will have Ancef 2g with every dialysis session per ID and nephrology - Will need long of course of abx, 6 weeks post removal of AVG - end date (2gr IV Ancef MWF after dialysis) - BC x2 drawn on 12/21 and 12/22 x2 NGTD - Wound cx from catheter tip positive for staphylococcus coag negative - VS wnl at this time - Leukocytosis has resolved - PermCath removed on 12/23 and replaced with a Vascath. - ID cleared pt for Permcath. IR consulted 12/29, to be replaced on Thursday, after being off of Eliquis for 2 days. - 12/30 with new acute swelling of RUE including her hand. - US of RUE with 1. right upper extremity graft appears to be occluded ( chronic) and 2. Nonocclusive thrombus is noted in the cephalic vein. - Due to the acute presentation of RUE swelling and the presence of a thrombus not previously documented while on Eliquis, we believe this patient needs to be evaluated by Hematology. She has a history of several blood clots, including both of her AVF/ graft. - Discussed with Dr. Pyle, and placed consult for Hematology - Pt placed on Heparin drip overnight (of Eliquis for 2 days) until her procedure tomorrow. - Hypercoagulative labs ordered (2) MSSA (methicillin susceptible Staphylococcus aureus) septicemia Code(s): A41.01 - Sepsis due to Methicillin susceptible Staphylococcus aureus Status: Resolved Plan: Management as above (3) Hypotension Code(s): I95.9 - Hypotension, unspecified Status: Acute Plan: Nursing staff noted this on 12/29 with pt's BP 90s/60s at that time. Has now resolved. (4) CKD (chronic kidney disease) Code(s): N18.9 - Chronic kidney disease, unspecified Status: Chronic Plan: CKD Stage 5 on dialysis, follows w/ nephrology, at [facility] for dialysis MWF - Monitor BMP - Con't home Renvela and Sensipar - Nephrology consulted , appreciate recs - Avoid IVF administration. - High protein, low K diet ordered - Epogen w/ dialysis - PermCath replaced with VasCath on 12/23 - PermCath placement anticipated 01/01 as noted (5) Constipation Code(s): K59.00 - Constipation, unspecified Status: Resolved Plan: Resolved. Several BMs on 12/28. She received Magnesium citrate and Fleets enema on 12/28. Continue daily stool softeners. (6) COPD (chronic obstructive pulmonary disease) Code(s): J44.9 - Chronic obstructive pulmonary disease, unspecified Status: Chronic Plan: - Controlled at home on albuterol inhaler - Albuterol q2H PRN, duonebs Q6H while awake scheduled - IS, O2 as needed. (7) Chronic pain Code(s): G89.29 - Other chronic pain Status: Chronic Plan: - Con't home clonazepam, gabapentin, lyrica, and percocet - Changed Percocet from scheduled to PRN q6hrs (8) ROSALINDA (obstructive sleep apnea) Code(s): G47.33 - Obstructive sleep apnea (adult) (pediatric) Status: Chronic Plan: - Does not use CPAP at home, just her O2 overnight, continued PRN - keep head of bed elevated overnight. (9) Insomnia Code(s): G47.00 - Insomnia, unspecified Status: Chronic Plan: No complains on current medications (10) Gout Code(s): M10.9 - Gout, unspecified Status: Chronic Plan: -con't home allopurinol (11) Nutrition, metabolism, and development symptoms Code(s): R63.8 - Other symptoms and signs concerning food and fluid intake Status: Acute Plan: Fluids: tolerating po. Avoid IV fluids Electrolytes: monitor and replete as needed. Monitor K daily. Nutrition: high protein, low K diet GI prophylaxis: Zantac (home medication) (12) DVT prophylaxis Status: Acute Plan: DVT prophy: SCDs, on Eliquis 2.5mg po BID (on hold for 48 hrs due to procedure on 01/01, pt currently on Heparin drip) - Assessment and Plan 67 y/o F w/hx of CKD, hx of ND, and COPD presenting w/left arm swelling at AV fistula site. Diff: DVT v cellulitis v abscess. S/p 1 g IV Vanc in the ED. Doppler shows left UE DVT. Nephrology consulted. Hold off anticoagulation treatment for DVT per discussion, will give prophylaxis. Blood cultures positive for Staph Aureus x4 MSSA. ID consulted and managing antibiotic treatment. Vascular surgery consulted and performed removed of AVG. Patient improving clinically every day. She is cleared for discharge from a Vascular surgery point of view. Will have Permcath placed prior to discharge and continue IV antibiotics as noted. Pt with new thrombus on RUE while on Eliquis, Hematology consulted. Will continue to monitor (1) DVT (deep venous thrombosis) Qualifiers: DVT location: upper extremity Affected thrombotic vein of extremity: other upper extremity vein Chronicity: acute Laterality: left Qualified Code(s): I82.622 - Acute embolism and thrombosis of deep veins of left upper extremity (4) CKD (chronic kidney disease) Qualifiers: Chronic kidney disease stage: on chronic dialysis Qualified Code(s): N18.6 - End stage renal disease; Z99.2 - Dependence on renal dialysis (6) COPD (chronic obstructive pulmonary disease) Qualifiers: COPD type: unspecified COPD Qualified Code(s): J44.9 - Chronic obstructive pulmonary disease, unspecified (7) Chronic pain Qualifiers: Chronic pain type: chronic pain syndrome Qualified Code(s): G89.4 - Chronic pain syndrome (10) Gout Qualifiers: Gout site: unspecified site Gout etiology: due to renal impairment Chronicity: unspecified Qualified Code(s): M10.30 - Gout due to renal impairment, unspecified site
[2018-01-01] MEDS: oxyCODONE/Acetaminophen 10/325 Tablet PO PRN ×2 (02:46→18:00)
[2018-01-01 06:05] LABS: Hematocrit 25.2 % (35.0-46.0); Hematocrit 25.4 % (35.0-46.0); Hemoglobin 8.4 gm/dL (11.6-15.3); Hemoglobin 8.6 gm/dL (11.6-15.3); Mean Corpuscular HGB Conc 33.5 % (32.0-36.0); Mean Corpuscular HGB Conc 33.7 % (32.0-36.0); Mean Corpuscular Hemoglobin 32.8 pg (27.0-34.0); Mean Corpuscular Hemoglobin 32.9 pg (27.0-34.0); Mean Corpuscular Volume 97.5 fL (80.0-100.0); Mean Corpuscular Volume 98.1 fL (80.0-100.0); Mean Platelet Volume 11.5 fL (7.0-11.0); Mean Platelet Volume 11.6 fL (7.0-11.0); Platelet Count 105 th/mm3 (150-450); Platelet Count 108 th/mm3 (150-450); Red Blood Count 2.57 mil/mm3 (4.00-5.30); Red Blood Count 2.61 mil/mm3 (4.00-5.30); Red Cell Distribution Width 15.4 % (11.6-17.2); Red Cell Distribution Width 15.5 % (11.6-17.2); White Blood Count 8.1 th/mm3 (4.0-11.0)
[2018-01-01 06:36] LABS: Albumin 2.4 g/dL (3.4-5.0); Alkaline Phosphatase 233 U/L (45-117); Anion Gap 11 meq/L (5-15); Aspartate Aminotransferase 14 U/L (15-37); Blood Urea Nitrogen 43 mg/dL (7-18); Calcium 8.6 mg/dL (8.5-10.1); Carbon Dioxide 30.1 meq/L (21.0-32.0); Chloride 95 meq/L (98-107); Glomerular Filtration Rate 4 mL/min (>89); Glucose,Random 92 mg/dL (74-106); Potassium 4.7 meq/L (3.5-5.1); Sodium 136 meq/L (136-145); Total Protein 5.5 g/dL (6.4-8.2)
[2018-01-01] MEDS: Allopurinol 100 MG Tablet PO SCH (09:29)
[2018-01-01] MEDS: Senna/Docusate Sodium 8.6/50 MG Tablet PO SCH ×2 (09:30→20:06)
[2018-01-01] MEDS: Gabapentin 100 MG Capsule PO SCH ×3 (09:30→19:09)
[2018-01-01] MEDS: Famotidine 20 MG Tablet PO SCH (09:30)
[2018-01-01] MEDS: clonazePAM 0.5 MG Tablet PO SCH ×3 (09:30→19:09)
--- NOTE | 2018-01-01 10:08 | P.PNNP ---
Subjective Interval history: NPO for PermCath placement today. No new concerns. Physical Exam Vital signs: Vital Signs 12/31/17 12:00 12/31/17 16:46 12/31/17 20:00 Temperature 99.5 F 99.3 F 98.8 F Pulse Rate 80 74 77 Respiratory Rate 18 18 18 Blood Pressure 121/57 L 95/53 L 123/56 L Pulse Oximetry 92 L 93 L 92 L 01/01/18 00:00 01/01/18 04:00 01/01/18 08:00 Temperature 98.1 F 98.5 F 98.1 F Pulse Rate 87 72 70 Respiratory Rate 18 18 17 Blood Pressure 127/59 L 135/58 L 107/59 L Pulse Oximetry 92 L 96 94 L Intake & Output 12/31/17 01/01/18 01/01/18 18:59 06:59 18:59 Intake Total 400 / 400 102 / 102 Output Total Balance 400 / 400 101 / 101 Weight 89 kg Intake: IV 102 / 102 Heparin/D5W 25,000 U/250 mL 25, 102 / 102 000 unit In 250 ml @ 1,600 UNITS/HR 16 mls/hr IV.CONT TITRATE PRN Rx#:[id number] Oral 400 / 400 Output: Stool Other: # Voids 3 - Constitutional no acute distress, obese, chronically ill appearing, disheveled, cooperative - Routine HEENT Exam Head: Present: normocephalic - Routine Neck Exam Present: supple, full ROM - Routine Respiratory Exam Present: CTA bilaterally. Absent: accessory muscle use - Routine Cardiovascular Exam Present: S1, S2 - Routine Abdominal Exam Present: soft, normoactive bowel sounds - Routine Extremities Exam Present: full ROM, pulses intact, AV fistula, vascular access. Absent: edema Comments: Old AVF right arm, not functioning AVG left arm excised - Routine Skin Exam Present: dry, scars - Routine Neurological Exam Present: alert, oriented X3, CN II-XII intact, moving all extremities - Detailed Neurological Exam: Coma Scale Eye Opening: Spontaneous Verbal Response: Oriented Motor Response: Obey commands [place] Coma Scale Total: 15 Assessment and Plan - Assessment (1) ESRD (end stage renal disease) on dialysis Code(s): N18.6 - End stage renal disease; Z99.2 - Dependence on renal dialysis Status: Acute Plan: HD MWF, due today. Pending PermCath placement today per ID approval. Recent excision of L AVG due to sepsis. On Renvela for phosphate binder. Monitor phosphorus periodically. Avoid IVF administration. Gadolinium is contraindicated. High protein, low K diet ordered. Outpatient HD is at [facility]. Cleared for discharge after catheter placement and antibiotic arrangement. (2) Sepsis affecting skin Code(s): A41.9 - Sepsis, unspecified organism Status: Acute Plan: MSSA per culture. ID following. On Ancef (2g with HD) until 02/01. PermCath replacement today. ID assisting, appreciate recommendations. (3) DVT (deep venous thrombosis) Code(s): I82.409 - Acute embolism and thrombosis of unspecified deep veins of unspecified lower extremity Status: Acute Qualifiers: DVT location: upper extremity Affected thrombotic vein of extremity: other upper extremity vein Chronicity: acute Laterality: left Qualified Code(s) : I82.622 - Acute embolism and thrombosis of deep veins of left upper extremity Plan: Cephalic DVT of RUE. Apixaban to be resumed today after catheter exchange. Hematology consulted.
[2018-01-01] MEDS: ceFAZolin 2 GM Premix Inj 2 GM/100 ML BAG IV.SIG SCH (13:43)
[2018-01-01] MEDS ORDERED: fentaNYL Citrate Inj 250 MCG/5 ML Ampul ONE (15:19)
[2018-01-01] MEDS ORDERED: *Heparin 10,000 UNITS/10 ML Vial Periprocedural ONLY ONE (15:28)
[2018-01-01] MEDS ORDERED: Lidocaine 1%/Epinephrine 1:100,000 Inj 20 ML Vial ONE (15:28)
[2018-01-01] MEDS ORDERED: Heparin Central Flush 100 UNIT/ML 5 ML Vial IV.FLUSH PRN (17:01)
--- NOTE | 2018-01-01 17:06 | IR ---
EXAM DATE: 01/01/2018 4:36 PM EDT AGE/SEX: 67 years / Female INDICATIONS: Patient with history of end stage renal disease in need of tunneled dialysis catheter p lacement. CLINICAL DATA: This is the patient's subsequent encounter. Patient reports that signs and symptoms h ave been present for 2 weeks and indicates a pain score of 0/10. MEDICAL/SURGICAL HISTORY: Chronic obstructive pulmonary disease. Hypertension. Hypercholester olemia. CAD, Dialysis, Stroke, ESRD, Chronic back pain, GERD, AV fistula Tubal ligation. Dialysis c atheter, AV fistula, Loop recorder COMPARISON: No prior exams available for comparison. FLUORO TIME (min): 2.4 IMAGE SERIES: 1 SEDATION TIME (min): 30 MEDICATION(S): 4MG midazolam (Versed) IV 200MCG fentanyl (Sublimaze) IV Prophylactic antibiotics were administered with appropriate pre-procedure timing. Vancomycin within 2 hrs of procedure, Ancef (or alternative) within 1 hr of procedure. DEVICE(S): X23CM . . TECHNIQUE: The patient was placed supine on the fluoroscopy table. The existing right jugul ar Vas-Cath was prepped with surrounding skin as a sterile field. Full sterile technique was used, in cluding cap, mask, sterile gloves and gown and a large sterile sheet. Hand hygiene and 2% chlorhexidi ne and/or betadine/alcohol prep was utilized per protocol for cutaneous antisepsis. The skin and subc utaneous tissues were infiltrated with lidocaine solution. Under direct fluoroscopic guidance a stiff hydrophilic guidewire was introduced through the Vas-Cath and manipulated into the inferior vena cav a to maintain good stable access. A subcutaneous tract was created from the upper chest to the venoto my site. The Vas-Cath was removed and a valved peel-away sheath was introduced to the SVC. A 23 cm he modialysis permacath was inserted and positioned under direct fluoroscopic guidance at the cava-atria l junction level. The catheter was fed retrograde through the subcutaneous tract. The catheter was cu t to the appropriate length and the hub apparatus attached. The catheter was flushed and locked with heparin per protocol. The catheter was secured with Prolene suture. The venotomy site was dressed wit h Steri-Strips. The patient tolerated the procedure well and was taken to the recovery area in stable condition. CONCLUSION: Uncomplicated exchange of Vas-Cath for hemodialysis permacath with fluoroscopic guidance as above. The catheter can be used immediately. Electronically signed by: Merlin Mora MD 01/01/2018 5:05 PM EDT
--- NOTE | 2018-01-01 17:27 | P.CON ---
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 History of Present Illness: Ms. Bradford is a 67-year-old female with a history of end-stage renal failure, she has been on hemodialysis for the past 5 years. The patient reports initially having had an AV graft created in her right arm, this graft remained patent for approximately 4 years until it ceased to work about a year ago. The patient reports having required multiple angioplasties of the original right upper extremity AV graft while he was in use. About 1 year ago she underwent creation of a second AV graft in the left upper extremity (left arm). While the left upper extremity AV graft was maturing she underwent hemodialysis via a Vas-Cath on the right side. The patient eventually was able to use her left arm AV fistula about 3 weeks ago however within 2 or 3 dialysis sessions the left upper extremity AV graft stopped working, her entire left upper extremity became swollen and tender. The patient also developed symptoms of fevers and chills and she presented to [facility] for further evaluation. She was found to have MSSA sepsis which was positive in multiple bottles and was also found to have a thrombosed left upper extremity AV graft, additional findings on ultrasound Doppler of the left upper extremity revealed an upper extremity superficial venous thrombosis involving the cephalic vein. The hematology service is been asked to see her to assist in management of recurrent AV graft thromboses and a superficial venous thrombosis. Should be noted she is also undergoing treatment for MSSA sepsis at this time. Currently she is undergoing hemodialysis via a right sided internal jugular vein Vas-Cath. The patient denies previously having history of venous thromboembolism, she does report having had a stroke in 2009. Review of Systems Constitutional: Reports fatigue, Reports lack of energy, Reports malaise, Denies anorexia, Denies fever(s), Denies weight gain, Denies weight loss Eyes: Denies change in vision, Denies double vision Ears, Nose, Mouth, and Throat: Denies abnormal hearing Cardiovascular: Denies chest pain Respiratory: Denies cough, Denies shortness of breath Gastrointestinal: Denies abdominal pain, Denies loose stools, Denies pain with swallowing, Denies vomiting blood Genitourinary: Denies blood in urine Musculoskeletal: Reports back pain, Reports body aches, Reports decreased muscle mass, Reports joint pain Skin/Breast: Denies breast lump, Denies wounds Neurologic: Reports weakness, Denies abnormal hearing, Denies confusion, Denies lack of coordination, Denies localized weakness Psychiatric: Denies change in appetite, Denies confusion, Denies depression, Denies memory loss Endocrine: Denies cold intolerance, Denies rapid, pounding, or irregular heartbeat Hematologic/Lymphatic: Denies easy bleeding Allergic/Immunologic: Denies GI upset with certain foods PMFSH - History History Provided By: Patient - Medical History Medical History: Medical History (Last Reviewed 12/21/17 @ 11:04 by Margie Avalos MD) AV fistula Acid reflux CAD (coronary artery disease) COPD (chronic obstructive pulmonary disease) Chronic back pain Chronic renal disease Dialysis AV fistula infection Elevated cholesterol History of heart attack Hypertension Sleep apnea Stroke Tubal ligation status Varicose vein of leg - Surgical History Surgical History: Surgical History (Last Reviewed 12/21/17 @ 11:04 by Margie Avalos MD) History of loop recorder Hx of tubal ligation - Tobacco History Second Hand Smoke Exposure: No Smoking Status: Former smoker Tobacco Type: Cigarettes Packs Per Day: 1 Years Smoked: 1 - Alcohol History How Often Do You Have a Drink Containing Alcohol: Monthly or less - Substance Use History Substance History: No History of Abuse - Travel History Recent Travel in the [place] Within the Last 8 Weeks: No Recent Travel Out of the Country Within the Last 8 Weeks: No - Immunization History Tetanus Immunization: <5 Years Hx Influenza Vaccine This Season: Yes Medications and Allergies Active Medications: Active Medications Acetaminophen (Tylenol) 650 mg PO Q4H PRN PRN Reason: Temp > 100.4 Last Admin: 12/19/17 22:43 Dose: 650 mg Acetaminophen (Tylenol) 650 mg PO UNSCH PRN PRN Reason: SEE LABEL COMMENTS Al Hydroxide/Mg Hydroxide (Milk Of Magncarmen Liq) 30 ml PO Q12H PRN PRN Reason: Mild Constipation Albuterol (Albuterol Neb (Prn)) 2.5 mg NEB Q2HR NEB PRN PRN Reason: SHORTNESS OF BREATH Allopurinol (Zyloprim) 150 mg PO DAILY [facility] Last Admin: 01/01/18 09:29 Dose: 150 mg Apixaban (Eliquis) 2.5 mg PO BID [facility] Last Admin: 12/30/17 09:23 Dose: Not Given Atorvastatin Calcium (Lipitor) 80 mg PO DAILY [facility] Last Admin: 01/01/18 09:30 Dose: 80 mg Bisacodyl (Dulcolax Supp) 10 mg RECTAL DAILY PRN PRN Reason: SEVERE CONSITIPATION Cinacalcet (Sensipar) 30 mg PO DAILY [facility] Last Admin: 01/01/18 09:37 Dose: Not Given Clonazepam (Klonopin) 0.5 mg PO TID [facility] Last Admin: 01/01/18 14:39 Dose: Not Given Clonidine HCl (Catapres) 0.1 mg PO UNSCH PRN PRN Reason: SEE LABEL COMMENTS Diphenhydramine HCl (Benadryl) 25 mg PO Q6H PRN PRN Reason: RASH Donepezil HCl (Aricept) 5 mg PO HS [facility] Last Admin: 12/31/17 21:07 Dose: 5 mg Epoetin Jose Roberto (Epogen Inj) 10,000 unit IV.PUSH MoWeFr [facility] Last Admin: 01/01/18 13:30 Dose: 10,000 unit Famotidine (Pepcid) 10 mg PO DAILY [facility] Last Admin: 01/01/18 09:30 Dose: 10 mg Gabapentin (Neurontin) 100 mg PO TID [facility] Last Admin: 01/01/18 14:39 Dose: Not Given Gelatin (Gelfoam 12 Mm/7 Mm Topical) 1 foam TOPICAL PRN PRN PRN Reason: help stop bleeding from site Gentamicin Sulfate (Gentamicin Inj) 20 mg OTHER WITH DIALYSIS PRN PRN Reason: Dwell Gentamycin Lock Last Admin: 12/30/17 18:31 Dose: 20 mg Heparin Sodium (Porcine) (Heparin Inj) 8,000 units OTHER WITH DIALYSIS PRN PRN Reason: for machine prime Heparin Sodium (Porcine) (Heparin Inj) 1,000 units OTHER WITH DIALYSIS PRN PRN Reason: Dwell Heparin to Fill Catheter Last Admin: 12/30/17 18:30 Dose: 1,000 units Heparin Sodium (Porcine) (Heparin Central Flush) 0 unit IV.FLUSH DAILY PRN PRN Reason: SEE DOSE INSTRUCTIONS Heparin Sodium (Porcine) (Heparin Inj) 0 units IV.FLUSH WITH DIALYSIS PRN PRN Reason: Flush each lumen Last Admin: 12/24/17 13:37 Dose: 2,000 units Hydrophilic Ointment (Vaseline Oint) 1 applicatio TOPICAL PRN PRN PRN Reason: lip dryness Last Admin: 12/24/17 22:10 Dose: 1 applicatio Albumin Human (Flexbumin 25% Inj) 100 mls @ 60 mls/hr IV.SIG WITH DIALYSIS PRN PRN Reason: hypotension / volume replace Sodium Chloride (Ns Inj) 1,000 mls @ 0 mls/hr OTHER .Q0M PRN PRN Reason: for prime and rinse back Last Infusion: 12/28/17 17:51 Dose: Infused Sodium Chloride (Ns Inj) 1,000 mls @ 200 mls/hr OTHER .Q5H PRN PRN Reason: for dialyzer flush PRN Sodium Chloride (Ns Inj) 1,000 mls @ 0 mls/hr IV.CONT .Q0M PRN PRN Reason: hypotension / volume replace Sodium Chloride (Ns Inj) 1,000 mls @ 75 mls/hr IV.CONT .[id number] SAUD Last Infusion: 12/30/17 08:43 Dose: Infused Cefazolin/Sodium Chloride (Ancef 2 Gm Premix Inj) 2 gm in 100 mls @ 200 mls/hr IV.SIG WITH DIALYSIS SAUD Last Admin: 01/01/18 13:43 Dose: 200 mls/hr Lactulose (Lactulose Liq) 30 ml PO DAILY PRN PRN Reason: SEVERE CONSITIPATION Last Admin: 12/26/17 13:24 Dose: 30 ml Mannitol (Mannitol Inj) 12.5 gm IV.PUSH UNSCH PRN PRN Reason: hypotension / volume replace Meclizine HCl (Antivert) 25 mg PO TID [facility] Last Admin: 01/01/18 14:39 Dose: Not Given Miscellaneous (Pill Splitter) 1 each OTHER UNSCH PRN PRN Reason: PILL SPLITTER Morphine Sulfate (Morphine Inj) 2 mg IV.PUSH Q4H PRN PRN Reason: BREAKTHROUGH PAIN Last Admin: 12/26/17 23:15 Dose: 2 mg Nitroglycerin (Nitrostat Sl) 0.4 mg SL Q5M PRN PRN Reason: CHEST PAIN Ondansetron HCl (Zofran Odt) 4 mg PO Q4H PRN PRN Reason: nausea Last Admin: 12/30/17 04:20 Dose: 4 mg Oxycodone/Acetaminophen (Percocet 10/325 Mg) 1 tab PO Q6H PRN PRN Reason: PAIN SCALE 1 TO 10 Last Admin: 01/01/18 02:46 Dose: 1 tab Pregabalin (Lyrica) 300 mg PO BID [facility] Last Admin: 01/01/18 09:38 Dose: 300 mg Senna/Docusate Sodium (Jailyn-Colace) 1 tab PO BID [facility] Last Admin: 01/01/18 09:30 Dose: 1 tab Sennosides (Senokot) 17.2 mg PO Q12H PRN PRN Reason: Moderate Constipation Last Admin: 12/22/17 18:39 Dose: 17.2 mg Sevelamer Carbonate (Renvela) 800 mg PO TID [facility] Last Admin: 12/30/17 09:21 Dose: 800 mg Sodium Chloride (Ns Flush) 5 ml IV.FLUSH PRN PRN PRN Reason: flush each lumen during HD Sodium Chloride (Ns Flush) 0 ml IV.FLUSH PRN PRN PRN Reason: SEE DOSE INSTRUCTIONS Sodium Chloride (Ns Flush) 2 ml IV.FLUSH BID [facility] Last Admin: 01/01/18 09:31 Dose: 2 ml Sodium Chloride (Ns Flush) 2 ml IV.FLUSH PRN PRN PRN Reason: FLUSH AFTER USING IV ACCESS Sodium Chloride (Ns Flush) 0 ml IV.FLUSH PRN PRN PRN Reason: FLUSH AFTER USING IV ACCESS Allergies Allergy/AdvReac Type Severity Reaction Status Date / Time adhesive Allergy Severe ADHESIVE Verified 10/21/17 11:33 TAPE = RASH bee venom protein (honey bee) Allergy Severe RASH & Verified 10/21/17 11:33 TONGUE SWELLING dexamethasone Allergy Severe Shortness Verified 10/21/17 11:33 of Breath, TONGUE SWELLS hydromorphone Allergy Severe Hives Verified 10/21/17 11:33 iodine Allergy Severe RASH & Verified 10/21/17 11:33 DIFFICULTY BREATHING geraldine Allergy Severe swollen Verified 10/21/17 11:33 tongue and rash orange Allergy Severe O.J. = Verified 10/21/17 11:33 RASH AND DIFFICULTY BREATHING orange juice Allergy Severe Hives and Verified 10/22/17 11:01 difficulty breathing oxytetracycline Allergy Severe HIVES & Verified 10/21/17 11:33 TONGUE SWELLING potassium iodide Allergy Severe RASH & Verified 10/21/17 11:33 DIFFICULTY BREATHING povidone-iodine Allergy Severe RASH & Verified 10/21/17 11:33 DIFFICULTY BREATHING sodium iodide Allergy Severe RASH & Verified 10/21/17 11:33 DIFFICULTY BREATHING sodium iodide Allergy Severe RASH & Verified 10/21/17 11:33 DIFFICULTY BREATHING Sulfa (Sulfonamide Allergy Severe HIVES, Verified 10/21/17 11:33 Antibiotics) DIFFICULTY BREATHING Influenza Virus Vaccines Allergy Intermediate Rash, Verified 10/21/17 11:33 vomiting diatrizoate meglumine Allergy Unknown Rash Verified 12/19/17 16:38 gadobenic acid Allergy Unknown Rash Verified 12/19/17 16:38 gadodiamide Allergy Unknown Rash Verified 12/19/17 16:38 gadoteridol Allergy Unknown Rash Verified 12/19/17 16:38 iodixanol Allergy Unknown Rash Verified 12/19/17 16:38 iohexol Allergy Unknown Rash Verified 12/19/17 16:38 penicillin G Allergy Unknown Rash Verified 12/19/17 16:38 Home Medications Medication Instructions Recorded Confirmed Type Lipitor 80 mg DAILY 12/19/17 12/19/17 History Lyrica 300 mg BID 12/19/17 12/19/17 History Renvela 800 mg TID 12/19/17 12/19/17 History Sensipar 30 mg DAILY 12/19/17 12/19/17 History Zantac 150 mg BID 12/19/17 12/19/17 History albuterol sulfate 0.3 mg QID PRN 12/19/17 12/19/17 History allopurinol 150 mg DAILY 12/19/17 12/19/17 History biotin 5,000 mcg DAILY 12/19/17 12/19/17 History clonazepam 0.5 mg TID 12/19/17 12/19/17 History donepezil 5 mg HS 12/19/17 12/19/17 History gabapentin 300 mg TID 12/19/17 12/19/17 History meclizine 25 mg TID 12/19/17 12/19/17 History oxycodone-acetaminophen 10 mg QID 12/19/17 12/19/17 History Physical Exam Vital signs: Vital Signs 12/31/17 16:46 12/31/17 20:00 01/01/18 00:00 Temperature 99.3 F 98.8 F 98.1 F Pulse Rate 74 77 87 Respiratory Rate 18 18 18 Blood Pressure 95/53 L 123/56 L 127/59 L Pulse Oximetry 93 L 92 L 92 L 01/01/18 04:00 01/01/18 08:00 01/01/18 16:25 Temperature 98.5 F 98.1 F 97.9 F Pulse Rate 72 69 63 Respiratory Rate 18 17 18 Blood Pressure 135/58 L 107/59 L 111/62 Pulse Oximetry 96 94 L 95 Intake & Output 12/31/17 01/01/18 01/01/18 18:59 06:59 18:59 Intake Total 400 / 400 102 / 102 Output Total 2300 / 2300 Balance 400 / 400 101 / 101 -2300 / -2300 Weight 89 kg Intake: IV 102 / 102 Heparin/D5W 25,000 U/250 mL 25, 102 / 102 000 unit In 250 ml @ 1,600 UNITS/HR 16 mls/hr IV.CONT TITRATE PRN Rx#:[id number] Oral 400 / 400 Output: Stool Hemodialysis Amount 2300 / 2300 Other: # Voids 3 Narrative: Elderly lady, laying in bed, appears to be in no acute distress. At the time of this examination (at 7:30 AM) she was still waking up, she was arousable. She appears to be alert, oriented to person, place and situation. - Constitutional no acute distress - Routine HEENT Exam Head: Present: normocephalic Eye: Present: EOMI, PERRL, conjunctivae pink. Absent: conjunctival icterus ENT: Present: mucous membranes moist - Routine Neck Exam Present: supple, full ROM, JVD Comments: Right-sided IJ Vas-Cath in place. - Routine Respiratory Exam Present: CTA bilaterally. Absent: prolonged expiratory phase, rales, respiratory distress, rhonchi, stridor, wheezes, crackles - Routine Cardiovascular Exam Present: RRR, S1, S2. Absent: murmur, gallop, rubs - Routine Abdominal Exam Present: soft. Absent: tenderness, distended, rebound, organomegaly, mass - Routine Extremities Exam Present: edema, full ROM. Absent: cyanosis, clubbing, extremity cold to touch Comments: Right upper extremity with AV graft surgical site noted on the anterior surface. Left upper extremity recent surgical incisions noted in the inner/medial aspect of the arm, edema and tenderness noted distally. - Routine Skin Exam Present: intact, erythema (Area of mild erythema involving the medial aspect of the left arm.) - Routine Neurological Exam Present: alert, oriented X3, CN II-XII intact. Absent: sensory deficit, motor deficit - Detailed Neurological Exam: Coma Scale Eye Opening: Spontaneous - Routine Psychiatric Exam Present: normal affect Assessment and Plan - Plan Ms. Bradford is a 67 yr old female who presented to this hospital after she was found to have a malfunctioning L upper extremity AV Graft associated with left upper extremity swelling. She also noticed fevers and chills. The patient was found to have a thrombosed L upper ext AV graft and a superficial venous thrombosis involving the cephalic vein in the left upper extremity. Blood cultures drawn on 12/19 were positive for MSSA bacteremia. The source of the infection appears to be an infected Perma-cath which was removed, the catheter tip was also positive for MSSA. Subsequent blood cultures have been negative for MSSA. She has been on appropriate antibiotic therapy with Cefazolin. The hematology service has been asked to see to rule out an underlying prothrombotic condition because she has experienced previous AV graft thromboses and now has a left upper extremity superficial thrombosis. Recommend: 1. Prothrombotic work up has been ordered: Circulating Lupus Anticoagulant ordered. Antiphospholipid antibodies ordered. Heparin-Platelet factor 4 antibody was negative. 2. For management of the recurrent AV graft occlusion and management of the superficial vein thrombosis of the cephalic vein it would be reasonable to start the patient on therapeutic anticoagulation with Eliquis 5mg PO BID. The parakeet raiser does not recommend dose reduction for patients on hemodialysis. The primary team may choose to hold off on starting eliquis until the patient has completed planned invasive procedures. 3. MSSA sepsis may have transiently provoked a prothrombotic state also.
--- NOTE | 2018-01-01 18:29 | P.PNFP ---
Subjective Interval history: Pt doing ok this morning. She's tired of being in the hospital and would like to understand why all this things happen to her. She is somewhat sad today. She has swollen on her L hand today that was not present yesterday. She states "another doctor" came to see her this morning but she did not feel like talking. Denies N/V, fevers/chills, SOB, or CP. <Felisha VogelGénesis thompson V - 01/01/18 18:29> Results - Labs Result diagrams: 01/01/18 05:45 01/01/18 05:45 <Brenda Bates - 01/01/18 21:04> Abnormal lab results 01/01/18 01/01/18 01/01/18 Range/Units 05:45 05:45 05:45 RBC 2.61 L 2.57 L (4.00-5.30) mil/mm3 Hgb 8.6 L 8.4 L (11.6-15.3) gm/dL Hct 25.4 L 25.2 L (35.0-46.0) % Plt Count 105 L 108 L (150-450) th/mm3 MPV 11.6 H 11.5 H (7.0-11.0) fL APTT (24.3-30.1) sec Chloride 95 L (98-107) meq/L BUN 43 H (7-18) mg/dL Creatinine 9.38 H (0.50-1.00) mg/dL Estimated GFR 4 L (>89) mL/min AST 14 L (15-37) U/L ALT Less than 6 L (10-53) U/L Alkaline Phosphatase 233 H (45-117) U/L Total Protein 5.5 L (6.4-8.2) g/dL Albumin 2.4 L (3.4-5.0) g/dL 01/01/18 Range/Units 05:45 RBC (4.00-5.30) mil/mm3 Hgb (11.6-15.3) gm/dL Hct (35.0-46.0) % Plt Count (150-450) th/mm3 MPV (7.0-11.0) fL APTT 104.2 H* D (24.3-30.1) sec Chloride (98-107) meq/L BUN (7-18) mg/dL Creatinine (0.50-1.00) mg/dL Estimated GFR (>89) mL/min AST (15-37) U/L ALT (10-53) U/L Alkaline Phosphatase (45-117) U/L Total Protein (6.4-8.2) g/dL Albumin (3.4-5.0) g/dL Short CBC 01/01/18 01/01/18 Range/Units 05:45 05:45 WBC 8.1 8.0 (4.0-11.0) th/mm3 Hgb 8.6 L 8.4 L (11.6-15.3) gm/dL Hct 25.4 L 25.2 L (35.0-46.0) % Plt Count 105 L 108 L (150-450) th/mm3 BMP 01/01/18 05:45 Sodium 136 Potassium 4.7 Chloride 95 L Carbon Dioxide 30.1 BUN 43 H Creatinine 9.38 H Calcium 8.6 Liver Function 01/01/18 Range/Units 05:45 Total Bilirubin 0.3 (0.2-1.0) mg/dL AST 14 L (15-37) U/L ALT Less than 6 L (10-53) U/L Alkaline Phosphatase 233 H (45-117) U/L Albumin 2.4 L (3.4-5.0) g/dL <Brenda Bates - 01/01/18 21:04> Abnormal lab results 01/01/18 01/01/18 01/01/18 Range/Units 05:45 05:45 05:45 RBC 2.61 L 2.57 L (4.00-5.30) mil/mm3 Hgb 8.6 L 8.4 L (11.6-15.3) gm/dL Hct 25.4 L 25.2 L (35.0-46.0) % Plt Count 105 L 108 L (150-450) th/mm3 MPV 11.6 H 11.5 H (7.0-11.0) fL APTT (24.3-30.1) sec Chloride 95 L (98-107) meq/L BUN 43 H (7-18) mg/dL Creatinine 9.38 H (0.50-1.00) mg/dL Estimated GFR 4 L (>89) mL/min AST 14 L (15-37) U/L ALT Less than 6 L (10-53) U/L Alkaline Phosphatase 233 H (45-117) U/L Total Protein 5.5 L (6.4-8.2) g/dL Albumin 2.4 L (3.4-5.0) g/dL 01/01/18 Range/Units 05:45 RBC (4.00-5.30) mil/mm3 Hgb (11.6-15.3) gm/dL Hct (35.0-46.0) % Plt Count (150-450) th/mm3 MPV (7.0-11.0) fL APTT 104.2 H* D (24.3-30.1) sec Chloride (98-107) meq/L BUN (7-18) mg/dL Creatinine (0.50-1.00) mg/dL Estimated GFR (>89) mL/min AST (15-37) U/L ALT (10-53) U/L Alkaline Phosphatase (45-117) U/L Total Protein (6.4-8.2) g/dL Albumin (3.4-5.0) g/dL Short CBC 01/01/18 01/01/18 Range/Units 05:45 05:45 WBC 8.1 8.0 (4.0-11.0) th/mm3 Hgb 8.6 L 8.4 L (11.6-15.3) gm/dL Hct 25.4 L 25.2 L (35.0-46.0) % Plt Count 105 L 108 L (150-450) th/mm3 [facility] 01/01/18 05:45 Sodium 136 Potassium 4.7 Chloride 95 L Carbon Dioxide 30.1 BUN 43 H Creatinine 9.38 H Calcium 8.6 Liver Function 01/01/18 Range/Units 05:45 Total Bilirubin 0.3 (0.2-1.0) mg/dL AST 14 L (15-37) U/L ALT Less than 6 L (10-53) U/L Alkaline Phosphatase 233 H (45-117) U/L Albumin 2.4 L (3.4-5.0) g/dL <Génesis Dowling V - 01/01/18 18:29> - Imaging Impressions Catheter Placement 01/01/18 00:00 CONCLUSION: Uncomplicated exchange of Vas-Cath for hemodialysis permacath with fluoroscopic guidance as above. The catheter can be used immediately. <Brenda Bates - 01/01/18 21:04> Impressions Catheter Placement 01/01/18 00:00 CONCLUSION: Uncomplicated exchange of Vas-Cath for hemodialysis permacath with fluoroscopic guidance as above. The catheter can be used immediately. <Génesis Dowling V - 01/01/18 18:29> Physical Exam Vital signs: Vital Signs 01/01/18 00:00 01/01/18 04:00 01/01/18 08:00 Temperature 98.1 F 98.5 F 98.1 F Pulse Rate 87 72 69 Respiratory Rate 18 18 17 Blood Pressure 127/59 L 135/58 L 107/59 L Pulse Oximetry 92 L 96 94 L 01/01/18 16:25 01/01/18 17:10 01/01/18 17:43 Temperature 97.9 F Pulse Rate 63 80 Respiratory Rate 18 20 Blood Pressure 111/62 118/65 Pulse Oximetry 95 97 97 Intake & Output 01/01/18 01/01/18 01/02/18 06:59 18:59 06:59 Intake Total 102 / 102 100 / 100 Output Total 2300 / 2300 Balance 101 / 101 -2300 / -2300 100 / 100 Weight 89 kg Intake: IV 102 / 102 100 / 100 Heparin/D5W 25,000 U/250 mL 25, 102 / 102 000 unit In 250 ml @ 1,600 UNITS/HR 16 mls/hr IV.CONT TITRATE PRN Rx#:[id number] Ancef 2 GM Premix Inj 2 gm In 100 / 100 100 ml @ 200 mls/hr IV.SIG WITH DIALYSIS SAUD Rx#:[id number] Output: Stool Hemodialysis Amount 2300 / 2300 Other: # Voids 3 <Brenda Bates - 01/01/18 21:04> Vital Signs 12/31/17 20:00 01/01/18 00:00 01/01/18 04:00 Temperature 98.8 F 98.1 F 98.5 F Pulse Rate 77 87 72 Respiratory Rate 18 18 18 Blood Pressure 123/56 L 127/59 L 135/58 L Pulse Oximetry 92 L 92 L 96 01/01/18 08:00 01/01/18 16:25 01/01/18 17:10 Temperature 98.1 F 97.9 F Pulse Rate 69 63 80 Respiratory Rate 17 18 20 Blood Pressure 107/59 L 111/62 118/65 Pulse Oximetry 94 L 95 97 01/01/18 17:43 Temperature Pulse Rate Respiratory Rate Blood Pressure Pulse Oximetry 97 Intake & Output 12/31/17 01/01/18 01/01/18 18:59 06:59 18:59 Intake Total 400 / 400 102 / 102 Output Total 2300 / 2300 Balance 400 / 400 101 / 101 -2300 / -2300 Weight 89 kg Intake: IV 102 / 102 Heparin/D5W 25,000 U/250 mL 25, 102 / 102 000 unit In 250 ml @ 1,600 UNITS/HR 16 mls/hr IV.CONT TITRATE PRN Rx#:[id number] Oral 400 / 400 Output: Stool Hemodialysis Amount 2300 / 2300 Other: # Voids 3 <Felisha JohnsonGénesis Cardona 01/01/18 18:29> Narrative: GENERAL: White obese female laying in bed, in no acute distress SKIN: Warm and dry. HEAD: Atraumatic. Normocephalic. EYES: Pupils equal and round. No scleral icterus. No injection or drainage. ENT: Mucous membranes pink and moist. Vascular cath on R neck, with no signs of infections. LIPS: 2 well healed scabs on upper lip. NECK: Trachea midline. No JVD. CARDIOVASCULAR: Regular rate and rhythm. No murmurs. RESPIRATORY: No accessory muscle use. Breath sounds equal bilaterally. No crackles. GASTROINTESTINAL: Abdomen soft, non-tender, nondistended. MUSCULOSKELETAL: Extremities without clubbing or cyanosis. No obvious deformities. Left upper arm: Sutured incisions with no signs of infections. Right arm: swelling of lower arm and hand with 1+ pitting edema, improved. R hand w/ new mild edema. Non tender. NEUROLOGICAL: Awake and alert. No obvious cranial nerve deficits. Motor grossly within normal limits. Normal speech. Grossly normal strength. <Génesis Dowling V 01/01/18 18:29> Assessment and Plan - Assessment (1) DVT (deep venous thrombosis) Code(s): I82.409 - Acute embolism and thrombosis of unspecified deep veins of unspecified lower extremity Status: Acute (2) MSSA (methicillin susceptible Staphylococcus aureus) septicemia Code(s): A41.01 - Sepsis due to Methicillin susceptible Staphylococcus aureus Status: Resolved (3) Hypotension Code(s): I95.9 - Hypotension, unspecified Status: Resolved (4) CKD (chronic kidney disease) Code(s): N18.9 - Chronic kidney disease, unspecified Status: Chronic (5) Constipation Code(s): K59.00 - Constipation, unspecified Status: Resolved (6) COPD (chronic obstructive pulmonary disease) Code(s): J44.9 - Chronic obstructive pulmonary disease, unspecified Status: Chronic (7) Chronic pain Code(s): G89.29 - Other chronic pain Status: Chronic (8) ROSALINDA (obstructive sleep apnea) Code(s): G47.33 - Obstructive sleep apnea (adult) (pediatric) Status: Chronic (9) Insomnia Code(s): G47.00 - Insomnia, unspecified Status: Chronic (10) Gout Code(s): M10.9 - Gout, unspecified Status: Chronic (11) Nutrition, metabolism, and development symptoms Code(s): R63.8 - Other symptoms and signs concerning food and fluid intake Status: Acute (12) DVT prophylaxis Status: Acute <Brenda Bates - 01/01/18 21:04> (1) DVT (deep venous thrombosis) Code(s): I82.409 - Acute embolism and thrombosis of unspecified deep veins of unspecified lower extremity Status: Acute Plan: Left arm swelling, concern for cellulitis and DVT. No leukocytosis on admission. Venous doppler study on 12/19 shows evidence of both deep and superficial venous thrombosis with absent flow seen in both cephalic and brachial veins. US soft tissue LUE on 12/20 shows no subcutaneous fluid collection or abscess identified. - Positive Blood cultures on 12/19 x4 for Staph aureus - MSSA - Repeat BC 12/22 showing no growth - Vascular surgery consulted, appreciate recs - Admitted for IV antibiotics, Vancomycin - Post-operative from excision of left upper extremity arteriovenous graft performed 12/24 - cleared for D/C - ID consulted, appreciate recs - Continue Ancef (12/21- ). Will have Ancef 2g with every dialysis session per ID and nephrology - Will need long of course of abx, 6 weeks post removal of AVG - end date (2gr IV Ancef MWF after dialysis) - BC x2 drawn on 12/21 and 12/22 x2 NGTD - Wound cx from catheter tip positive for staphylococcus coag negative - VS wnl at this time - Leukocytosis has resolved - PermCath removed on 12/23 and replaced with a Vascath. - ID cleared pt for Permcath. IR consulted 12/29, to be replaced on Thursday, after being off of Eliquis for 2 days. - 12/30 with new acute swelling of RUE including her hand. - 12/31- US of RUE with 1. right upper extremity graft appears to be occluded ( chronic) and 2. Nonocclusive thrombus is noted in the cephalic vein. - Due to the acute presentation of RUE swelling and the presence of a thrombus not previously documented while on Eliquis, we believe this patient needs to be evaluated by Hematology. She has a history of several blood clots, including both of her AVF/ graft. - Discussed with Dr. Pyle, and placed consult for Hematology - Pt placed on Heparin drip overnight (off Eliquis for 2 days). - Hypercoagulative labs ordered 01/01: Pt with new swelling of L hand. Non tender. Hematology consult: Eliquis 5mg BID and F/U hypercoagulative labs (2) MSSA (methicillin susceptible Staphylococcus aureus) septicemia Code(s): A41.01 - Sepsis due to Methicillin susceptible Staphylococcus aureus Status: Resolved Plan: Management as above (3) Hypotension Code(s): I95.9 - Hypotension, unspecified Status: Resolved Plan: Nursing staff noted this on 12/29 with pt's BP 90s/60s at that time. Has now resolved. (4) CKD (chronic kidney disease) Code(s): N18.9 - Chronic kidney disease, unspecified Status: Chronic Plan: CKD Stage 5 on dialysis, follows w/ nephrology, at [facility] for dialysis MWF - Monitor BMP - Con't home Renvela and Sensipar - Nephrology consulted , appreciate recs - Avoid IVF administration. - High protein, low K diet ordered - Epogen w/ dialysis - PermCath replaced with VasCath on 12/23 - PermCath placement placed today (5) Constipation Code(s): K59.00 - Constipation, unspecified Status: Resolved Plan: Resolved. Several BMs on 12/28. She received Magnesium citrate and Fleets enema on 12/28. Continue daily stool softeners. (6) COPD (chronic obstructive pulmonary disease) Code(s): J44.9 - Chronic obstructive pulmonary disease, unspecified Status: Chronic Plan: - Controlled at home on albuterol inhaler - Albuterol q2H PRN, duonebs Q6H while awake scheduled - IS, O2 as needed. (7) Chronic pain Code(s): G89.29 - Other chronic pain Status: Chronic Plan: - Con't home clonazepam, gabapentin, lyrica, and percocet - Changed Percocet from scheduled to PRN q6hrs (8) ROSALINDA (obstructive sleep apnea) Code(s): G47.33 - Obstructive sleep apnea (adult) (pediatric) Status: Chronic Plan: - Does not use CPAP at home, just her O2 overnight, continued PRN - keep head of bed elevated overnight. (9) Insomnia Code(s): G47.00 - Insomnia, unspecified Status: Chronic Plan: No complains on current medications (10) Gout Code(s): M10.9 - Gout, unspecified Status: Chronic Plan: -con't home allopurinol (11) Nutrition, metabolism, and development symptoms Code(s): R63.8 - Other symptoms and signs concerning food and fluid intake Status: Acute Plan: Fluids: tolerating po. Avoid IV fluids Electrolytes: monitor and replete as needed. Monitor K daily. Nutrition: high protein, low K diet (pt on regular diet but knows what she needs to eat) GI prophylaxis: Zantac (home medication) (12) DVT prophylaxis Status: Acute Plan: DVT prophy: SCDs, on Eliquis 5mg po BID starting today <Génesis Dowling V - 01/01/18 18:19> - Assessment and Plan 67 y/o F w/hx of CKD, hx of [place], and COPD presenting w/left arm swelling at AV fistula site. Diff: DVT v cellulitis v abscess. S/p 1 g IV Vanc in the ED. Doppler shows left UE DVT. Nephrology consulted. Hold off anticoagulation treatment for DVT per discussion, will give prophylaxis. Blood cultures positive for Staph Aureus x4 MSSA. ID consulted and managing antibiotic treatment. Vascular surgery consulted and performed removed of AVG. Patient improving clinically every day. She is cleared for discharge from a Vascular surgery point of view. Had Permcath placed today. Will continue IV antibiotics as noted. Pt with new thrombus on RUE while on Eliquis, Hematology consulted and recommended doubling her Eliquis dose. Pt will likely be discharged tomorrow. <Génesis Dowling V - 01/01/18 18:29> - Attending Attestation Patient seen and examined, and discussed with resident team. I agree with assessment and management as documented and discussed with me. S/P permacath placement today. To restart eliquis tonight, at dose recommended by hematology. Hypercoag labs pending. Anticipate discharge in 1-2 days. <Brenda Bates - 01/01/18 21:04> <Génesis Dowling V - Last Filed: 01/01/18 18:19> (1) DVT (deep venous thrombosis) Qualifiers: DVT location: upper extremity Affected thrombotic vein of extremity: other upper extremity vein Chronicity: acute Laterality: left Qualified Code(s): I82.622 - Acute embolism and thrombosis of deep veins of left upper extremity (4) CKD (chronic kidney disease) Qualifiers: Chronic kidney disease stage: on chronic dialysis Qualified Code(s): N18.6 - End stage renal disease; Z99.2 - Dependence on renal dialysis (6) COPD (chronic obstructive pulmonary disease) Qualifiers: COPD type: unspecified COPD Qualified Code(s): J44.9 - Chronic obstructive pulmonary disease, unspecified (7) Chronic pain Qualifiers: Chronic pain type: chronic pain syndrome Qualified Code(s): G89.4 - Chronic pain syndrome (10) Gout Qualifiers: Gout site: unspecified site Gout etiology: due to renal impairment Chronicity: unspecified Qualified Code(s): M10.30 - Gout due to renal impairment, unspecified site <Brenda Bates - Last Filed: 01/01/18 21:04> (1) DVT (deep venous thrombosis) Qualifiers: DVT location: upper extremity Affected thrombotic vein of extremity: other upper extremity vein Chronicity: acute Laterality: left Qualified Code(s): I82.622 - Acute embolism and thrombosis of deep veins of left upper extremity (4) CKD (chronic kidney disease) Qualifiers: Chronic kidney disease stage: on chronic dialysis Qualified Code(s): N18.6 - End stage renal disease; Z99.2 - Dependence on renal dialysis (6) COPD (chronic obstructive pulmonary disease) Qualifiers: COPD type: unspecified COPD Qualified Code(s): J44.9 - Chronic obstructive pulmonary disease, unspecified (7) Chronic pain Qualifiers: Chronic pain type: chronic pain syndrome Qualified Code(s): G89.4 - Chronic pain syndrome (10) Gout Qualifiers: Gout site: unspecified site Gout etiology: due to renal impairment Chronicity: unspecified Qualified Code(s): M10.30 - Gout due to renal impairment, unspecified site <Génesis Dowling V - Last Filed: 01/01/18 18:19> (1) DVT (deep venous thrombosis) Qualifiers: DVT location: upper extremity Affected thrombotic vein of extremity: other upper extremity vein Chronicity: acute Laterality: left Qualified Code(s): I82.622 - Acute embolism and thrombosis of deep veins of left upper extremity (4) CKD (chronic kidney disease) Qualifiers: Chronic kidney disease stage: on chronic dialysis Qualified Code(s): N18.6 - End stage renal disease; Z99.2 - Dependence on renal dialysis (6) COPD (chronic obstructive pulmonary disease) Qualifiers: COPD type: unspecified COPD Qualified Code(s): J44.9 - Chronic obstructive pulmonary disease, unspecified (7) Chronic pain Qualifiers: Chronic pain type: chronic pain syndrome Qualified Code(s): G89.4 - Chronic pain syndrome (10) Gout Qualifiers: Gout site: unspecified site Gout etiology: due to renal impairment Chronicity: unspecified Qualified Code(s): M10.30 - Gout due to renal impairment, unspecified site <Brenda Bates - Last Filed: 01/01/18 21:04> (1) DVT (deep venous thrombosis) Qualifiers: DVT location: upper extremity Affected thrombotic vein of extremity: other upper extremity vein Chronicity: acute Laterality: left Qualified Code(s): I82.622 - Acute embolism and thrombosis of deep veins of left upper extremity (4) CKD (chronic kidney disease) Qualifiers: Chronic kidney disease stage: on chronic dialysis Qualified Code(s): N18.6 - End stage renal disease; Z99.2 - Dependence on renal dialysis (6) COPD (chronic obstructive pulmonary disease) Qualifiers: COPD type: unspecified COPD Qualified Code(s): J44.9 - Chronic obstructive pulmonary disease, unspecified (7) Chronic pain Qualifiers: Chronic pain type: chronic pain syndrome Qualified Code(s): G89.4 - Chronic pain syndrome (10) Gout Qualifiers: Gout site: unspecified site Gout etiology: due to renal impairment Chronicity: unspecified Qualified Code(s): M10.30 - Gout due to renal impairment, unspecified site
[2018-01-02] MEDS: oxyCODONE/Acetaminophen 10/325 Tablet PO PRN ×2 (00:11→08:52)
[2018-01-02] MEDS: Gabapentin 100 MG Capsule PO SCH (08:40)
[2018-01-02] MEDS: Famotidine 20 MG Tablet PO SCH (08:40)
[2018-01-02] MEDS: Senna/Docusate Sodium 8.6/50 MG Tablet PO SCH (08:40)
[2018-01-02] MEDS: clonazePAM 0.5 MG Tablet PO SCH (08:40)
[2018-01-02] MEDS: Allopurinol 100 MG Tablet PO SCH (08:41)
--- NOTE | 2018-01-02 08:54 | P.DCO ---
- Home Health Nursing Order: Wound care and dressing changes - Certification I have seen patient Marie Bradford on 01/02/18. My clinical findings support the need for the requested home health care services because: Limited mobility due to disease progression, Deconditioned with increased weakness, Infection with risk of complications I certify that my clinical findings support that this patient is homebound because: Unsteady gait/balance, Need for psychosocial assistance
[2018-01-02 09:46] LABS: Hemoglobin 10.1 gm/dL (11.6-15.3); Mean Corpuscular HGB Conc 32.5 % (32.0-36.0); Mean Corpuscular Hemoglobin 32.9 pg (27.0-34.0); Mean Corpuscular Volume 101.2 fL (80.0-100.0); Mean Platelet Volume 12.1 fL (7.0-11.0); Platelet Count 112 th/mm3 (150-450); Red Blood Count 3.06 mil/mm3 (4.00-5.30); White Blood Count 4.7 th/mm3 (4.0-11.0)
--- NOTE | 2018-01-02 10:20 | P.PNFP ---
Subjective Interval history: Patient seen and examined this morning. She states that she is doing fine. Is concerned about the swelling in her bilateral arms. She is eager to go home so she can be more comfortable. She is experiencing a little soreness where she had the PermCath placed and some pain in her neck and back. No CP, no shortness of breath. All of her questions were answered. <Mindi Mazariegos - 01/02/18 10:36> Results - Labs Result diagrams: 01/02/18 09:15 01/01/18 05:45 <Brenda Bates - 01/02/18 14:58> Abnormal lab results 01/02/18 Range/Units 09:15 RBC 3.06 L (4.00-5.30) mil/mm3 Hgb 10.1 L (11.6-15.3) gm/dL Hct 31.0 L (35.0-46.0) % MCV 101.2 H (80.0-100.0) fL Plt Count 112 L (150-450) th/mm3 MPV 12.1 H (7.0-11.0) fL Short CBC 01/02/18 Range/Units 09:15 WBC 4.7 (4.0-11.0) th/mm3 Hgb 10.1 L (11.6-15.3) gm/dL Hct 31.0 L (35.0-46.0) % Plt Count 112 L (150-450) th/mm3 <Brenda Bates - 01/02/18 14:58> Abnormal lab results 01/02/18 Range/Units 09:15 RBC 3.06 L (4.00-5.30) mil/mm3 Hgb 10.1 L (11.6-15.3) gm/dL Hct 31.0 L (35.0-46.0) % MCV 101.2 H (80.0-100.0) fL Plt Count 112 L (150-450) th/mm3 MPV 12.1 H (7.0-11.0) fL Short CBC 01/02/18 Range/Units 09:15 WBC 4.7 (4.0-11.0) th/mm3 Hgb 10.1 L (11.6-15.3) gm/dL Hct 31.0 L (35.0-46.0) % Plt Count 112 L (150-450) th/mm3 <Mindi Mazraiegos - 01/02/18 10:20> - Imaging Impressions Catheter Placement 01/01/18 00:00 CONCLUSION: Uncomplicated exchange of Vas-Cath for hemodialysis permacath with fluoroscopic guidance as above. The catheter can be used immediately. <MargaretBrenda cee - 01/02/18 14:58> Impressions Catheter Placement 01/01/18 00:00 CONCLUSION: Uncomplicated exchange of Vas-Cath for hemodialysis permacath with fluoroscopic guidance as above. The catheter can be used immediately. <Mindi Mazariegos - 01/02/18 10:20> Physical Exam Vital signs: Vital Signs 01/01/18 16:25 01/01/18 17:10 01/01/18 17:43 Temperature 97.9 F Pulse Rate 63 80 Respiratory Rate 18 20 Blood Pressure 111/62 118/65 Pulse Oximetry 95 97 97 01/01/18 20:00 01/02/18 00:00 01/02/18 04:00 Temperature 98 F 97.8 F 98 F Pulse Rate 76 70 72 Respiratory Rate 17 17 17 Blood Pressure 115/65 120/61 119/63 Pulse Oximetry 98 96 97 01/02/18 08:00 Temperature 98.0 F Pulse Rate 77 Respiratory Rate 14 Blood Pressure 104/69 Pulse Oximetry 97 Intake & Output 01/01/18 01/02/18 01/02/18 18:59 06:59 18:59 Intake Total 100 / 100 Output Total 2300 / 2300 Balance -2300 / -2300 100 / 100 Weight 89.1 kg Intake: IV 100 / 100 Ancef 2 GM Premix Inj 2 gm In 100 / 100 100 ml @ 200 mls/hr IV.SIG WITH DIALYSIS SAUD Rx#:[id number] Output: Hemodialysis Amount 2300 / 2300 Other: # Voids 1 Date of Last Bowel Movement 01/01/18 <Brenda Bates - 01/02/18 14:58> Vital Signs 01/01/18 16:25 01/01/18 17:10 01/01/18 17:43 Temperature 97.9 F Pulse Rate 63 80 Respiratory Rate 18 20 Blood Pressure 111/62 118/65 Pulse Oximetry 95 97 97 01/01/18 20:00 01/02/18 00:00 01/02/18 04:00 Temperature 98 F 97.8 F 98 F Pulse Rate 76 70 72 Respiratory Rate 17 17 17 Blood Pressure 115/65 120/61 119/63 Pulse Oximetry 98 96 97 01/02/18 08:00 Temperature 98.0 F Pulse Rate 77 Respiratory Rate 14 Blood Pressure 104/69 Pulse Oximetry 97 Intake & Output 01/01/18 01/02/18 01/02/18 18:59 06:59 18:59 Intake Total 100 / 100 Output Total 2300 / 2300 Balance -2300 / -2300 100 / 100 Weight 89.1 kg Intake: IV 100 / 100 Ancef 2 GM Premix Inj 2 gm In 100 / 100 100 ml @ 200 mls/hr IV.SIG WITH DIALYSIS SAUD Rx#:[id number] Output: Hemodialysis Amount 2300 / 2300 Other: # Voids 1 Date of Last Bowel Movement 01/01/18 <Mindi Mazariegos - 01/02/18 10:20> Narrative: GENERAL: White obese female laying in bed, in no acute distress SKIN: Warm and dry. HEAD: Atraumatic. Normocephalic. EYES: Pupils equal and round. No scleral icterus. No injection or drainage. ENT: Mucous membranes pink and moist. PermCath on right chest, with no signs of infection. NECK: Trachea midline. No JVD. CARDIOVASCULAR: Regular rate and rhythm. No murmurs. RESPIRATORY: No accessory muscle use. Breath sounds equal bilaterally. No crackles. GASTROINTESTINAL: Abdomen soft, non-tender, nondistended. MUSCULOSKELETAL: Extremities without clubbing or cyanosis. No obvious deformities. Left upper arm: Sutured incisions with no signs of infection. Left hand w/ 1+ pitting edema Right arm: swelling of lower arm and hand with 1+ pitting edema. Non tender. NEUROLOGICAL: Awake and alert. No obvious cranial nerve deficits. Motor grossly within normal limits. Normal speech. Grossly normal strength. <Mindi Mazariegos - 01/02/18 10:36> Assessment and Plan - Assessment (1) DVT (deep venous thrombosis) Code(s): I82.409 - Acute embolism and thrombosis of unspecified deep veins of unspecified lower extremity Status: Acute (2) MSSA (methicillin susceptible Staphylococcus aureus) septicemia Code(s): A41.01 - Sepsis due to Methicillin susceptible Staphylococcus aureus Status: Resolved (3) Hypotension Code(s): I95.9 - Hypotension, unspecified Status: Resolved (4) CKD (chronic kidney disease) Code(s): N18.9 - Chronic kidney disease, unspecified Status: Chronic (5) COPD (chronic obstructive pulmonary disease) Code(s): J44.9 - Chronic obstructive pulmonary disease, unspecified Status: Chronic (6) Chronic pain Code(s): G89.29 - Other chronic pain Status: Chronic (7) ROSALINDA (obstructive sleep apnea) Code(s): G47.33 - Obstructive sleep apnea (adult) (pediatric) Status: Chronic (8) Insomnia Code(s): G47.00 - Insomnia, unspecified Status: Chronic (9) Gout Code(s): M10.9 - Gout, unspecified Status: Chronic (10) Nutrition, metabolism, and development symptoms Code(s): R63.8 - Other symptoms and signs concerning food and fluid intake Status: Acute (11) DVT prophylaxis Status: Acute <Brenda Bates - 01/02/18 14:58> (1) DVT (deep venous thrombosis) Code(s): I82.409 - Acute embolism and thrombosis of unspecified deep veins of unspecified lower extremity Status: Acute Plan: Left arm swelling, concern for cellulitis and DVT. No leukocytosis on admission. Venous doppler study on 12/19 shows evidence of both deep and superficial venous thrombosis with absent flow seen in both cephalic and brachial veins. US soft tissue LUE on 12/20 shows no subcutaneous fluid collection or abscess identified. - Positive Blood cultures on 12/19 x4 for Staph aureus - MSSA - Repeat BC 12/22 showing no growth - Vascular surgery consulted, appreciate recs - Admitted for IV antibiotics, Vancomycin - Post-operative from excision of left upper extremity arteriovenous graft performed 12/24 - cleared for D/C - ID consulted, appreciate recs - Continue Ancef (12/21- ). Will have Ancef 2g with every dialysis session per ID and nephrology - Will need long of course of abx, 6 weeks post removal of AVG - end date (2gr IV Ancef MWF after dialysis) - BC x2 drawn on 12/21 and 12/22 x2 NGTD - Wound cx from catheter tip positive for staphylococcus coag negative - VS wnl at this time - Leukocytosis has resolved - PermCath removed on 12/23 and replaced with a Vascath. - ID cleared pt for Permcath. IR consulted 12/29, to be replaced on Thursday, after being off of Eliquis for 2 days. - 12/30 with new acute swelling of RUE including her hand. - 12/31- US of RUE with 1. right upper extremity graft appears to be occluded ( chronic) and 2. Nonocclusive thrombus is noted in the cephalic vein. - Due to the acute presentation of RUE swelling and the presence of a thrombus not previously documented while on Eliquis, we believe this patient needs to be evaluated by Hematology. She has a history of several blood clots, including both of her AVF/ graft. Hematology Consulted, appreciated recommendations - Hypercoagulative labs ordered - Eliquis 5mg BID (2) MSSA (methicillin susceptible Staphylococcus aureus) septicemia Code(s): A41.01 - Sepsis due to Methicillin susceptible Staphylococcus aureus Status: Resolved Plan: Management as above (3) Hypotension Code(s): I95.9 - Hypotension, unspecified Status: Resolved Plan: Nursing staff noted this on 12/29 with pt's BP 90s/60s at that time. Has now resolved. (4) CKD (chronic kidney disease) Code(s): N18.9 - Chronic kidney disease, unspecified Status: Chronic Plan: CKD Stage 5 on dialysis, follows w/ nephrology, at [facility] for dialysis MWF - Monitor BMP - Con't home Renvela and Sensipar - Nephrology consulted , appreciate recs - Avoid IVF administration. - High protein, low K diet ordered - Epogen w/ dialysis - PermCath replaced with VasCath on 12/23 - PermCath placed on 01/01 (5) COPD (chronic obstructive pulmonary disease) Code(s): J44.9 - Chronic obstructive pulmonary disease, unspecified Status: Chronic Plan: - Controlled at home on albuterol inhaler - Albuterol q2H PRN, duonebs Q6H while awake scheduled - IS, O2 as needed. (6) Chronic pain Code(s): G89.29 - Other chronic pain Status: Chronic Plan: - Con't home clonazepam, gabapentin, lyrica, and percocet - Changed Percocet from scheduled to PRN q6hrs (7) ROSALINDA (obstructive sleep apnea) Code(s): G47.33 - Obstructive sleep apnea (adult) (pediatric) Status: Chronic Plan: - Does not use CPAP at home, just her O2 overnight, continued PRN - keep head of bed elevated overnight. (8) Insomnia Code(s): G47.00 - Insomnia, unspecified Status: Chronic Plan: No complains on current medications (9) Gout Code(s): M10.9 - Gout, unspecified Status: Chronic Plan: -con't home allopurinol (10) Nutrition, metabolism, and development symptoms Code(s): R63.8 - Other symptoms and signs concerning food and fluid intake Status: Acute Plan: Fluids: tolerating po. Avoid IV fluids Electrolytes: monitor and replete as needed. Monitor K daily. Nutrition: high protein, low K diet (pt on regular diet but knows what she needs to eat) GI prophylaxis: Zantac (home medication) (11) DVT prophylaxis Status: Acute Plan: DVT prophy: SCDs, on Eliquis 5mg po BID <Mindi Mazariegos 01/02/18 10:21> - Assessment and Plan 67 y/o F w/hx of CKD, hx of [place], and COPD presenting w/left arm swelling at AV fistula site. Diff: DVT v cellulitis v abscess. S/p 1 g IV Vanc in the ED. Doppler shows left UE DVT. Nephrology consulted. Hold off anticoagulation treatment for DVT per discussion, will give prophylaxis. Blood cultures positive for Staph Aureus x4 MSSA. ID consulted and managing antibiotic treatment. Vascular surgery consulted and performed removed of AVG. Patient improving clinically every day. She is cleared for discharge from a Vascular surgery point of view. Had Permcath placed today. Will continue IV antibiotics as noted. Pt with new thrombus on RUE while on Eliquis, Hematology consulted and recommended doubling her Eliquis dose. <Mindi Mazariegos 01/02/18 10:36> Discussed Condition With: Dr. Bates <Mindi Mazariegos 01/02/18 10:36> Discharge Planning: discharge home today, refused home health <Mindi Mazariegos 01/02/18 10:36> - Attending Attestation Patient seen, examined, and discussed with Dr Mazariegos on morning rounds today. I agree with assessment and management as documented and discussed with me. Pt is POD#1 from permcath placement. Tolerating increased dose of Eliquis (5mg BID) Discharge home today. <Brenda Bates - 01/02/18 14:58> <Mindi Mazariegos - Last Filed: 01/02/18 10:21> (1) DVT (deep venous thrombosis) Qualifiers: DVT location: upper extremity Affected thrombotic vein of extremity: other upper extremity vein Chronicity: acute Laterality: left Qualified Code(s): I82.622 - Acute embolism and thrombosis of deep veins of left upper extremity (4) CKD (chronic kidney disease) Qualifiers: Chronic kidney disease stage: on chronic dialysis Qualified Code(s): N18.6 - End stage renal disease; Z99.2 - Dependence on renal dialysis (5) COPD (chronic obstructive pulmonary disease) Qualifiers: COPD type: unspecified COPD Qualified Code(s): J44.9 - Chronic obstructive pulmonary disease, unspecified (6) Chronic pain Qualifiers: Chronic pain type: chronic pain syndrome Qualified Code(s): G89.4 - Chronic pain syndrome (9) Gout Qualifiers: Gout site: unspecified site Gout etiology: due to renal impairment Chronicity: unspecified Qualified Code(s): M10.30 - Gout due to renal impairment, unspecified site <Brenda Bates - Last Filed: 01/02/18 14:58> (1) DVT (deep venous thrombosis) Qualifiers: DVT location: upper extremity Affected thrombotic vein of extremity: other upper extremity vein Chronicity: acute Laterality: left Qualified Code(s): I82.622 - Acute embolism and thrombosis of deep veins of left upper extremity (4) CKD (chronic kidney disease) Qualifiers: Chronic kidney disease stage: on chronic dialysis Qualified Code(s): N18.6 - End stage renal disease; Z99.2 - Dependence on renal dialysis (5) COPD (chronic obstructive pulmonary disease) Qualifiers: COPD type: unspecified COPD Qualified Code(s): J44.9 - Chronic obstructive pulmonary disease, unspecified (6) Chronic pain Qualifiers: Chronic pain type: chronic pain syndrome Qualified Code(s): G89.4 - Chronic pain syndrome (9) Gout Qualifiers: Gout site: unspecified site Gout etiology: due to renal impairment Chronicity: unspecified Qualified Code(s): M10.30 - Gout due to renal impairment, unspecified site <Mindi Mazariegos - Last Filed: 01/02/18 10:21> (1) DVT (deep venous thrombosis) Qualifiers: DVT location: upper extremity Affected thrombotic vein of extremity: other upper extremity vein Chronicity: acute Laterality: left Qualified Code(s): I82.622 - Acute embolism and thrombosis of deep veins of left upper extremity (4) CKD (chronic kidney disease) Qualifiers: Chronic kidney disease stage: on chronic dialysis Qualified Code(s): N18.6 - End stage renal disease; Z99.2 - Dependence on renal dialysis (5) COPD (chronic obstructive pulmonary disease) Qualifiers: COPD type: unspecified COPD Qualified Code(s): J44.9 - Chronic obstructive pulmonary disease, unspecified (6) Chronic pain Qualifiers: Chronic pain type: chronic pain syndrome Qualified Code(s): G89.4 - Chronic pain syndrome (9) Gout Qualifiers: Gout site: unspecified site Gout etiology: due to renal impairment Chronicity: unspecified Qualified Code(s): M10.30 - Gout due to renal impairment, unspecified site <Brenda aBtes - Last Filed: 01/02/18 14:58> (1) DVT (deep venous thrombosis) Qualifiers: DVT location: upper extremity Affected thrombotic vein of extremity: other upper extremity vein Chronicity: acute Laterality: left Qualified Code(s): I82.622 - Acute embolism and thrombosis of deep veins of left upper extremity (4) CKD (chronic kidney disease) Qualifiers: Chronic kidney disease stage: on chronic dialysis Qualified Code(s): N18.6 - End stage renal disease; Z99.2 - Dependence on renal dialysis (5) COPD (chronic obstructive pulmonary disease) Qualifiers: COPD type: unspecified COPD Qualified Code(s): J44.9 - Chronic obstructive pulmonary disease, unspecified (6) Chronic pain Qualifiers: Chronic pain type: chronic pain syndrome Qualified Code(s): G89.4 - Chronic pain syndrome (9) Gout Qualifiers: Gout site: unspecified site Gout etiology: due to renal impairment Chronicity: unspecified Qualified Code(s): M10.30 - Gout due to renal impairment, unspecified site
--- NOTE | 2018-01-02 11:17 | P.DS ---
Date of admission: 12/19/17 19:25 Primary care physician: Mindi Mazariegos MD, R2 Brief History from admission: 67y/o F w/hx of CKD, COPD, and ME presenting w/left arm pain and swelling. Patient states that she woke up this morning w/swelling. Saw a little white dot on her arm and wiped it with alcohol wipe. Afterwards, it started to bleed, which soon resolved. [place] pain which continued to worsen; because of the pain, she called her dialysis center ([facility]) and was advised to go to the ED. Pain, swelling, warmth, and redness are noted at the AV fistula site (axilla, flexor surface of arm, extends to elbow). Has had this AV fistula in place since October via Dr. Luis. Arm pain is 10/10. Able to move arm. No fevers, nausea or vomiting, or diarrhea. Says she has a little bit of chest pain and shortness of breath. Is feeling cold. No hx of infections in the past. Had a right AV fistula previously that "clotted up" about 4 months ago. A catheter in the right upper chest was placed for dialysis, but "this also clotted up." Patient states that it has been planned for it to be removed soon, as been seeing vascular surgery for this. Attends dialysis MWF, last went to dialysis on Thursday. Has a hx of back pain, uses a walker for moving around. Currently complains of back pain because she only had one dose of pain medication. Usually takes 4 times/day. Sees nephrology (Dr. Farrell), vascular surgery (Dr. Luis), and pain management (Dr. Conrad). DS: Diagnosis - Discharge Diagnosis (1) DVT (deep venous thrombosis) Status: Acute (2) MSSA (methicillin susceptible Staphylococcus aureus) septicemia Status: Resolved (3) Hypotension Status: Resolved (4) CKD (chronic kidney disease) Status: Chronic (5) COPD (chronic obstructive pulmonary disease) Status: Chronic (6) Chronic pain Status: Chronic (7) ROSALINDA (obstructive sleep apnea) Status: Chronic (8) Insomnia Status: Chronic (9) Gout Status: Chronic (10) Nutrition, metabolism, and development symptoms Status: Acute (11) DVT prophylaxis Status: Acute DS: Medications - Discharge Medications Prescriptions: apixaban [Eliquis] 5 mg PO BID 30 Days #60 tab DS: Summary Hospital Course: 67 y/o F w/hx of CKD, hx of [place], and COPD presenting w/left arm swelling at AV fistula site. Vascular surgery was consulted who recommended admitting for IV antibiotics. Vancomycin was given x 1 day. Venous doppler study on 12/19 shows evidence of both deep and superficial venous thrombosis with absent flow seen in both cephalic and brachial veins. US soft tissue LUE on 12/20 shows no subcutaneous fluid collection or abscess identified. Positive Blood cultures on 12/19 x4 for Staph aureus - MSSA. Pt was started on Ancef on 12/21. Repeat BC showed no growth. ID was consulted and recommended wound cx from catheter tip which ultimately was positive for staphylococcus coag negative. PermCath removed on 12/23 and replaced with a Vascath. Excision of left upper extremity arteriovenous graft performed on 12/[address] Luis. 12/30 with new acute swelling of RUE including her hand. 12/31 US of RUE with new nonocclusive thrombus noted in the cephalic vein. Due to the acute presentation of RUE swelling and the presence of a thrombus not previously documented while on Eliquis consulted Hematology. Hypercoagulative labs were ordered and pt was started on Eliquis 5mg BID. New PermCath placed on 01/01. She was discharged on to continue Ancef 2g with every dialysis session per ID and nephrology for 6 weeks post removal of AVG - end date 02/01. - Time Spent with Patient Total time spent providing and/or coordinating discharge services: Less than 30 minutes - Quality: VTE Deep Vein Thrombosis/Pulmonary Embolism Present on Admission: Yes Exam Vital signs: Vital Signs 01/01/18 16:25 01/01/18 17:10 01/01/18 17:43 Temperature 97.9 F Pulse Rate 63 80 Respiratory Rate 18 20 Blood Pressure 111/62 118/65 Pulse Oximetry 95 97 97 01/01/18 20:00 01/02/18 00:00 01/02/18 04:00 Temperature 98 F 97.8 F 98 F Pulse Rate 76 70 72 Respiratory Rate 17 17 17 Blood Pressure 115/65 120/61 119/63 Pulse Oximetry 98 96 97 01/02/18 08:00 Temperature 98.0 F Pulse Rate 77 Respiratory Rate 14 Blood Pressure 104/69 Pulse Oximetry 97 Intake & Output 01/01/18 01/02/18 01/02/18 18:59 06:59 18:59 Intake Total 100 / 100 Output Total 2300 / 2300 Balance -2300 / -2300 100 / 100 Weight 89.1 kg Intake: IV 100 / 100 Ancef 2 GM Premix Inj 2 gm In 100 / 100 100 ml @ 200 mls/hr IV.SIG WITH DIALYSIS SAUD Rx#:[id number] Output: Hemodialysis Amount 2300 / 2300 Other: # Voids 1 Date of Last Bowel Movement 01/01/18 Results Procedures completed during hospitalization: See above Labs on day of discharge: Labs from last 24 hours 01/02/18 12/31/17 09:15 17:53 WBC 4.7 RBC 3.06 L Hgb 10.1 L Hct 31.0 L MCV 101.2 H MCH 32.9 MCHC 32.5 RDW 16.0 Plt Count 112 L MPV 12.1 H Heparin Dep Plt Ab OD 0.338 Hep-Induced Plt Ab Zofia Negative Preliminary micro results at discharge 12/24/17 11:42 Fungal Culture - Preliminary Other No growth in 1 week 12/24/17 11:42 Mycobacterial Culture - Preliminary Other No growth in 1 week - Impressions ITS Impressions Chest X-Ray 12/19/17 15:27 CONCLUSION: 1. No acute abnormality. Lower Extremity Ultrasound 12/20/17 06:00 CONCLUSION: 1. No subcutaneous fluid collection or abscess is identified. 2. There is some type graft or fistula the area of interest and it appears thrombosed. Tube Removal 12/22/17 00:00 CONCLUSION: Uncomplicated Permcath removal. The catheter tip was sent for culture Venous Doppler Study 12/31/17 00:00 CONCLUSION: 1. The right upper extremity graft appears to be occluded. 2. Nonocclusive thrombus is noted in the cephalic vein. Catheter Placement 01/01/18 00:00 CONCLUSION: Uncomplicated exchange of Vas-Cath for hemodialysis permacath with fluoroscopic guidance as above. The catheter can be used immediately. Discharge Plan - Discharge Disposition Patient Disposition: Discharge Home - Discharge Condition Condition: Stable - Discharge Order Discharge Orders: Discharge Order (Routine); Ordered 01/02/18 Ordered By: Mindi Mzaariegos Vascular Surgery Clear for Discharge (Routine); Ordered 12/27/17 Ordered By: Leonardo Luis - Physicians Team Primary Care Provider: Mindi Mazariegos Attending Provider: Brenda Bates Other Providers: Kavon Fu MD ; Margie Avalos MD ; Santi Pyle MD ; Leonardo Luis MD
--- NOTE | 2018-01-02 12:51 | P.PNONC ---
Subjective Interval history: Afebrile Patient sitting on side of bed with bags packed Reports she is waiting wheelchair to go downstairs Discussed follow-up with Dr. Pyle in clinic to go over hypercoagulable results Objective Vital Signs/Intake & Output: Vital Signs 01/01/18 16:25 01/01/18 17:10 01/01/18 17:43 Temperature 97.9 F Pulse Rate 63 80 Respiratory Rate 18 20 Blood Pressure 111/62 118/65 Pulse Oximetry 95 97 97 01/01/18 20:00 01/02/18 00:00 01/02/18 04:00 Temperature 98 F 97.8 F 98 F Pulse Rate 76 70 72 Respiratory Rate 17 17 17 Blood Pressure 115/65 120/61 119/63 Pulse Oximetry 98 96 97 01/02/18 08:00 Temperature 98.0 F Pulse Rate 77 Respiratory Rate 14 Blood Pressure 104/69 Pulse Oximetry 97 Intake & Output 01/01/18 01/02/18 01/02/18 18:59 06:59 18:59 Intake Total 100 / 100 Output Total 2300 / 2300 Balance -2300 / -2300 100 / 100 Weight 196 lb 6.91 oz Intake: IV 100 / 100 Ancef 2 GM Premix Inj 2 gm In 100 / 100 100 ml @ 200 mls/hr IV.SIG WITH DIALYSIS SAUD Rx#:[id number] Output: Hemodialysis Amount 2300 / 2300 Other: # Voids 1 Date of Last Bowel Movement 01/01/18 Result Diagrams: 01/02/18 09:15 01/01/18 05:45 Laboratory Results: Laboratory Results - last 24 hr 01/02/18 09:15 WBC 4.7 RBC 3.06 L Hgb 10.1 L Hct 31.0 L MCV 101.2 H MCH 32.9 MCHC 32.5 RDW 16.0 Plt Count 112 L MPV 12.1 H Culture Results: Microbiology 12/24/17 11:42 Fungal Smear - Final Other No fungal elements seen Fungal Culture - Preliminary No growth in 1 week 12/24/17 11:42 Acid Fast Bacilli Smear - Final Other No acid fast bacilli seen Mycobacterial Culture - Preliminary No growth in 1 week Imaging Studies: Impressions Catheter Placement 01/01/18 00:00 CONCLUSION: Uncomplicated exchange of Vas-Cath for hemodialysis permacath with fluoroscopic guidance as above. The catheter can be used immediately. Objective Remarks: GENERAL: Older obese female sitting up in bed in no obvious distress SKIN: Warm and dry. Permacath to right chest wall. No oozing. HEAD: Normocephalic. EYES: No injection or drainage. NECK: Supple, trachea midline. CARDIOVASCULAR: Regular rate and rhythm without murmurs. RESPIRATORY: Clear posteriorly. Breathing unlabored at rest. GASTROINTESTINAL: Abdomen soft, non-tender, nondistended. EXTREMITIES: No cyanosis. Left upper extremity with minimal erythema, sutures in place MUSCULOSKELETAL: Adequate muscle tone. NEUROLOGICAL: No obvious focal deficit. Awake, alert, and oriented x3. Assessment/Plan - Plan 67 -year-old female with history of end-stage renal failure who has been on hemodialysis for the past 5 years. Hematology consulted for new thrombosis in her left AV graft. Patient also has a superficial venous thrombosis in the right upper extremity. 1. The patient has been initiated on apixaban 5 mg twice daily. 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 2. Discussed with patient I will contact her new patient referrals office to facilitate follow-up with Dr. Pyle to go over hypercoagulable results in several weeks. 3. The patient was given a discount card for first month free Eliquis.
[2018-01-05 15:51] LABS: Dil Russell Viper Venom Conf ( NEGATIVE (NEGATIVE); Dil Russell Viper Venom Time M ND (CORRECTED); Lupus Anticoagulant PTT Screen 49 seconds (< OR = 40)
== END 2018-01-02 12:42 | disposition home or self-care (01) ==
LOC: NEPE 13:52 → NEDA 19:25 → NEPGCP 22:08 → N05 12-20 23:18
PROVIDERS: ADMIT Family Medicine; ATTEND Family Medicine